=== PATIENT | female | born 1945 | race Caucasian/White ===

== ENCOUNTER 2018-03-14 16:07 | Emergency (ER) | payer MEDICARE, BC, SELFPAY ==
[2018-03-14 16:14] VITALS: BP 166/86; PULSE 87; RESP 14; TEMP 36.9; O2SAT 98
--- NOTE | 2018-03-14 16:38 | ED.GENADUL_ITS ---
Discharge Plan Disposition Patient Disposition: HOME Condition: Good Discharge Details Chief Complaint: Orthopedic Clinical Impression: Splinter Primary Care Provider: JOCELYN,LOCAL ED Provider: Sudhir Hi Home Meds and New Rx's Prescriptions: New amoxicillin-pot clavulanate [Augmentin] 875-125 mg tablet 1 tab PO BID Qty: 14 RF: 0 No Action tamoxifen 20 mg Tablet 20 mg PO DAILY RF: 0 Discharge Instructions Instructions: Complications of Infection (GEN) Additional Instructions: Please take Tylenol and Motrin for your pain. If you notice any worsening redness, worsening pain, swelling, or yellow discharge please take the antibiotic. Please follow-up with your primary care provider in [place] as soon as possible. If you notice any concerning symptoms for your hand, including the aforementioned symptoms please return to the ED for reevaluation. If you notice any worsening of your symptoms, or any new symptoms such as vomiting, diarrhea, fever, chills, shortness of breath, chest pain, numbness, weakness, or fainting , please return immediately to the emergency department for reevaluation. Please follow up with your primary care provider as soon as possible for reassessment and reevaluation. As always, it was a pleasure participating in your medical care today. Medical Decision Making This is a pleasant 73-year-old female who presents for an update to her tetanus shot. She received a splinter in her left hand by the thenar eminence. She is right-hand dominant. 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 Patient states that she was able to remove her splinter completely after she initially got it, with no retained foreign pieces. It looked to her like she got the entire thing. No evidence of retained foreign body on exam, or on bedside ultrasound. Patient does not want an x-ray at this time and I certainly do not think there is a clinical need. Patient will be discharged home with close follow-up. Because of the size of the splinter antibiotics were will be ordered, however I had a long and thorough discussion with the patient regarding the importance of holding off on taking these. She does not have a PCP locally in the area, if she does develop redness swelling or discharge I have instructed her to talk to start taking the antibiotic and closely follow-up here in the ER. Patient understands this. I have extensively reviewed the treatment plan and discharge instructions with the patient. I have addressed all patient concerns at this time. The patient was made aware of what symptoms to monitor for that would warrant a return to the emergency department. Discussed the plan with the patient, they demonstrate verbal understanding and agreement with our assessment and plan at this time. HPI General Date/Time Provider Initiated Documentation: 03/14/18 16:29 . HPI Narrative: This is a 73-year-old female with a past medical history of breast cancer x3, for which she takes tamoxifen. She presents today for a splinter in her left hand. She states that it was roughly 1.5 cm long, and got her in the left thenar eminence over the palmar surface. The patient was able to extract the splinter in its entirety out on her own. However after extraction she did have a mild amount of pain in that area, and she realized that her tetanus was not up-to-date so she came in to have her tetanus updated. Aside for this mild pain she denies any numbness or tingling or weakness. She has no other complaints. She denies any other modifying factors. Related Data Home Medications Medication Instructions Recorded Confirmed amoxicillin-pot clavulanate 1 tab PO BID #14 tab 03/14/18 [Augmentin] tamoxifen 20 mg PO DAILY 03/14/18 03/14/18 Previous Rx's Medication Instructions Recorded amoxicillin-pot clavulanate 1 tab PO BID #14 tab 03/14/18 [Augmentin] Allergies Allergy/AdvReac Type Severity Reaction Status Date / Time codeine Allergy Severe Unverified 06/17/17 10:17 General Stated Complaint: Orthopedic SHERRY: 4 Review of Systems Review of Systems All systems reviewed & are unremarkable except as noted in HPI and below [facility] Social History Smoking/Tobacco Use Status: Never Exam Narrative Exam Narrative: 1.Const: Well-nourished, Well-developed, appearing stated age 2.Eyes: PERRL, no conjunctival injection, and symmetrical lids. 3.ENT: Atraumatic external nose and ears. Moist MM. Neck: Symmetric, trachea midline, No thyromegaly. 4.CVS: +S1/S2, No murmurs or gallops. Peripheral pulses 2+ and equal in all extremities. Brisk capillary refill in all extremities. 5.RESP: Unlabored respiratory effort. Clear to auscultation bilaterally. No wheezes rales or rhonchi 6.GI: Soft, Nontender/Nondistended, No hepatosplenomegaly. No guarding or rebound. 7.MSK: Normocephalic/Atraumatic, Extremities w/o deformity or ttp No cyanosis or clubbing, Normal movement of all extremities 8.Skin: Warm, Dry. No rashes. Patient does demonstrate a very small superficial abrasion at the thenar eminence at the base of the thumb. She demonstrates mild subjective tenderness on palpation just distal to this towards the thenar webspace, no bleeding, no discharge, no fluctuance, or swelling. No significant erythema or edema. Bedside ultrasound was performed under a warm water/chlorhexidine mixture, and there was no evidence of retained foreign body or splinter. No evidence of palpable splinter on exam or palpable retained foreign body. No evidence of this visually either. Normal flexion extension of all components of the fingers and thumbs. Normal strength. 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 Sensation grossly intact, no focal neurologic deficits. 10.Psych: (AAO) x3. Appropriate mood and affect Course Vital Signs Temperature 36.9 C 03/14/18 16:14 Pulse 87 03/14/18 16:14 Respiratory Rate 14 03/14/18 16:14 Blood Pressure 166/86 H 03/14/18 16:14 Pulse Oximetry 98 03/14/18 16:14 Temperature 36.9 C 03/14/18 16:14 Temperature Source Temporal Artery Scan 03/14/18 16:14 Pulse 87 03/14/18 16:14 Respiratory Rate 14 03/14/18 16:14 Respiratory Effort 03/14/18 16:15 Blood Pressure 166/86 H 03/14/18 16:14 Blood Pressure Position Sitting 03/14/18 16:14 Pulse Oximetry 98 03/14/18 16:14 Oxygen Delivery Method Room Air 03/14/18 16:14 Oxygen Flow Rate 0 03/14/18 16:14 Pain Level 3 03/14/18 16:14
== END 2018-03-14 16:51 | disposition home or self-care (01) ==
LOC: ER 16:58
PROVIDERS: Emergency Provider Student in an Organized Health Care Education/Training Program
DX: S60.552A Superficial foreign body of left hand, initial encounter (principal); W45.8XXA Other foreign body or object entering through skin, initial encounter
CPT/HCPCS: 90471; 99284; 99282

== ENCOUNTER 2019-01-22 20:22 | Emergency (ER) | payer MEDICARE, BC, SELFPAY ==
[2019-01-22] VITALS (32 sets, daily range): BP systolic 153–212; BP diastolic 78–107; PULSE 67–106; RESP 10–40; TEMP 36.6; O2SAT 96–99
--- NOTE | 2019-01-22 20:30 | ED.GENADUL_ITS ---
Discharge Plan Disposition Patient Disposition: HOME Condition: Stable Discharge Details Chief Complaint: Chest Pain Clinical Impression: Chest pain Primary Care Provider: Clementina,Local ED Provider: Nicho Abad Home Meds and New Rx's Prescriptions: Continued tamoxifen 20 mg Tablet 20 mg PO DAILY RF: 0 aspirin 325 mg Tablet 325 mg PO DAILY RF: 0 Discharge Instructions Instructions: Chest Pain (ED) Additional Instructions: Your blood work and ekg's did not show any concerning findings if pain worsens, you have difficulty breathing or feel more ill return to the emergency department follow up with your primary care provider within 1 week Medical Decision Making 73 yo female with hx of breast cancer on tamoxifen daily, no prior cardiac disease, comes in with chest pressure that started about 45 minutes prior to arrival while sitting. Denies diaphoresis, sob or radiation of the pain. The pain has improved and now rates it at a 2/10 and did not take anything to help the pain other than aspirin. Denies prir episodes of chest pain. She arrives speaking in fulll sentences talking in no distress. She has no edema, no calf pain, no jvd, clear lungs and no murmurs. Her heart score is 3, will send troponin to further evaluate. Wells score low, will send d dimer. No tearing back pain to suggest dissection. Clear lungs, no pleuritic pain, no cough or fevers so doubt ptx or pna at this time pt remains pain free in no distress. Initial labs unremarkable, d dimer less than age adjusted threshold. Will obtain delta troponin and ecg and monitor patient remains asymptoamtic in no distress, second ekg and troponin unremarkable. Will d/c home and return precautions given Differential Diagnosis Differential Diagnosis: acs, dissection, esophageal spasm Lab Data Lab results reviewed: Yes I reviewed the patient's lab results. ECG Data Attestation: I personally reviewed and interpreted this ECG (s) as follows: Prior ECG tracings: not available for review Interpretation: sinus rhythm, rate of 100, pr 162, qtc 441 2nd ekg shows rate of 69, pr 166, qtc 448, no acute st t wave ischemic changes comapred to first ekg HPI General Mode of arrival: ambulatory . Date/Time Provider Initiated Documentation: 01/22/19 20:24 . Limitations to Documentation: no limitations . Information obtained by: patient . History of Present Illness 73 year old F presents to the emergency department with the chief complaint of chest pressure, described as moderate, Quality is described as aching, Patient started experiencing this hour(s) (1) and it has been other (improving ). No relieving factors improve symptom(s), No exacerbating factors reported . Related Data Home Medications Medication Instructions Recorded Confirmed tamoxifen 20 mg PO DAILY 03/14/18 01/22/19 aspirin 325 mg PO DAILY 01/22/19 01/22/19 Allergies Allergy/AdvReac Type Severity Reaction Status Date / Time codeine Allergy Severe Unverified 01/22/19 20:30 General Stated Complaint: Chest Pain SHERRY: 2 Review of Systems Review of Systems ROS Unobtainable: All systems reviewed & are unremarkable except as noted in HPI and below Constitutional Constitutional: Denies chills, Denies fever(s) and Denies weakness Cardiovascular Cardiovascular: Denies dyspnea Respiratory Respiratory: Denies dyspnea Gastrointestinal Gastrointestinal: Denies abdominal pain, Denies nausea and Denies vomiting Musculoskeletal Musculoskeletal: Denies joint swelling Neurologic Neurologic: Denies weakness PFSH Social History Smoking/Tobacco Use Status: Never Alcohol Intake: current Alcohol Intake frequency: a few times a week Drug use: Never Substance use type: does not use Do you feel safe at home: Yes Do you feel safe in your relationship?: Yes Exam Const General: no acute distress Orientation: alert HENMT Head: normal to inspection Ears: external ears normal General nose exam: external nose normal Mouth: moist mucous membranes Eyes General: appearance normal, both eyes and all related structures Neck Neck: normal visual inspection Resp Effort & Inspection: normal respiratory effort and able to speak in complete sentences Cardio Rate: regular rate Skin General skin exam: no rashes or lesions noted Neuro General: alert and oriented x3 Extrem General: normal to inspection Psych Mental Status: mental status grossly normal Course Vital Signs Vital signs: Vital Signs Temperature 36.6 C 01/22/19 20:25 Pulse 106 H 01/22/19 20:25 Respiratory Rate 16 01/22/19 20:25 Blood Pressure 212/107 H 01/22/19 20:25 Pulse Oximetry 98 01/22/19 20:25 Temperature 36.6 C 01/22/19 20:25 Temperature Source Skin 01/22/19 20:25 Pulse 106 H 01/22/19 20:25 Respiratory Rate 16 01/22/19 20:25 Blood Pressure 212/107 H 01/22/19 20:25 Blood Pressure Position Sitting 01/22/19 20:25 Pulse Oximetry 98 01/22/19 20:25 Oxygen Delivery Method Room Air 01/22/19 20:25 Oxygen Flow Rate 0 01/22/19 20:25 Pain Level 4 01/22/19 20:25
[2019-01-22 21:02] LABS: Abs Immature Grans 0.01 k/cumm (0.0-0.09); Absolute Basophil Count 0.01 k/cumm (0.0-0.2); Absolute Eosinophil Count 0.06 k/cumm (0.0-0.7); Absolute Monocyte Count 0.53 k/cumm (0.11-0.7); Absolute Neutrophil Count 2.44 k/cumm (1.2-6.7); Basophils % 0.2; Eosinophils % 1.2; HCT 38.7 % (36.0-46.0); HGB 13.1 g/dL (12.0-15.5); Immature Grans % 0.2; Lymphocytes % 38.4; Mean Corp. HGB Concentration 33.9 g/dL (32.0-36.0); Mean Corpuscular Hemoglobin 31.7 pg (27.0-33.0); Mean Corpuscular Volume 93.7 fL (80-95); Monocytes % 10.7; Neutrophils % 49.3; Platelet Count 155 x1000/uL (130-400); RBC 4.13 m/cumm (4.00-5.20); RBC Distribution Width 12.7 % (11.7-14.6); White Blood Cell Count 4.95 k/cumm (4.4-10.8)
[2019-01-22 21:06] LABS: ALT 20 U/L (14-59); AST 20 U/L (15-37); Albumin 3.7 g/dL (3.4-5.0); Alkaline Phosphatase 66 U/L (46-116); Anion Gap 8.4 mmol/L (3-11); BUN 26 mg/dL (7-18); Bilirubin, Total 0.6 mg/dL (0.2-1.0); CO2 26.6 mmol/L (21.0-32.0); CREATININE 1.18 mg/dL (0.55-1.02); Calcium 8.7 mg/dL (8.5-10.1); Chloride 107 mmol/L (98-107); Estimated GFR 45.02 (mL/min/1.73m2); Glucose 93 mg/dL (70-100); Lipase 87 U/L (73-393); Magnesium 2.1 mg/dL (1.8-2.4); Potassium 3.9 mmol/L (3.5-5.1); Sodium 142 mmol/L (136-145); Total Protein 7.3 g/dL (6.4-8.2)
[2019-01-22 21:07] LABS: PTT Activated 24.1 sec (21.0-31.4); Prothrombin Time 9.9 sec (9.3-11.0)
[2019-01-22 21:08] LABS: Troponin I < 0.05 ng/mL (0.00-0.06)
[2019-01-22 21:22] LABS: D-Dimer 525 ng/mlFEU (<500)
[2019-01-22 23:24] LABS: Troponin I < 0.05 ng/mL (0.00-0.06)
== END 2019-01-23 | disposition home or self-care (01) ==
PROVIDERS: Emergency Provider Emergency Medicine
DX: R07.9 Chest pain, unspecified (principal); Z85.3 Personal history of malignant neoplasm of breast
CPT/HCPCS: 36415; 80053; 83690; 93005; 99284; 83735; 84484; 85025; 85379; 85610; 85730; 93010; J3490

== ENCOUNTER 2019-06-10 11:47 | Outpatient (REF) | payer MEDICARE, BC, SELFPAY | END 2019-06-10 12:07 | LOC: LBN 11:47 | PROVIDERS: Visit Provider Obstetrics & Gynecology | DX: N89.8 Other specified noninflammatory disorders of vagina (principal) | CPT/HCPCS: 87480; 87510; 87660 ==

== ENCOUNTER 2019-09-03 01:59 | Outpatient (CLI) | payer MEDICARE, BC, SELFPAY ==
[2019-09-03 12:23] LABS: HCT 39.8 % (36.0-46.0); HGB 13.6 g/dL (12.0-15.5); Mean Corp. HGB Concentration 34.2 g/dL (32.0-36.0); Mean Corpuscular Hemoglobin 32.4 pg (27.0-33.0); Mean Corpuscular Volume 94.8 fL (80-95); Mean Platelet Volume 10.3 fL (8.0-11.0); Platelet Count 180 x1000/uL (130-400); RBC Distribution Width 12.9 % (11.7-14.6); White Blood Cell Count 3.82 k/cumm (4.4-10.8)
[2019-09-03 13:33] LABS: Anion Gap 8.5 mmol/L (3-11); BUN 20 mg/dL (7-18); CO2 28.5 mmol/L (21.0-32.0); CREATININE 1.31 mg/dL (0.55-1.02); Calcium 9.2 mg/dL (8.5-10.1); Chloride 104 mmol/L (98-107); Glucose 87 mg/dL (74-106); Potassium 4.5 mmol/L (3.5-5.1); Sodium 141 mmol/L (136-145)
== END 2019-09-03 02:19 ==
PROVIDERS: Visit Provider Obstetrics & Gynecology
DX: N85.00 Endometrial hyperplasia, unspecified (principal); Z01.818 Encounter for other preprocedural examination; Z01.812 Encounter for preprocedural laboratory examination
CPT/HCPCS: 36415; 80048; 85027; 86850; 86900; 86901

== ENCOUNTER 2019-09-06 09:36 | Outpatient (CLI) | payer MEDICARE, BC, SELFPAY ==
[2019-09-07 14:50] LABS: COVID-19 RT-PCR Result Not Detected ((See Note))
== END 2019-09-06 09:56 ==
PROVIDERS: Visit Provider Obstetrics & Gynecology
DX: Z11.59 Encounter for screening for other viral diseases (principal)
CPT/HCPCS: U0003

== ENCOUNTER 2019-09-14 12:23 | Outpatient (REF) | payer MEDICARE, BC, SELFPAY ==
--- NOTE | 2019-09-14 09:35 | ENDOMET_PTH ---
PATIENT: Nataly Kuhn LOC: [facility] U#:[id number] AGE/SX: 74/F ROOM: RE09/14/[address]: Benjamin Miguel MD : [id number] BED: DIS: 09/14/2019 SPEC #: [id number] RECD: 09/14/19 12:48 STATUS: OLLIE REQ #: [id number] KAREY: 09/14/19 09:[address]: Benjamin Miguel DEPT: Surgical Specimen RECD BY: Nini Valdes ENTERED: 09/14/19 12:49 SP TYPE: Endomet OTHR DR: No Local Tissues: 1 - ENDOMETRIUM BX/CURRETTE Procedures: GROSS AND MICRO LEVEL 4 Comments: [id number]
== END 2019-09-14 12:43 ==
LOC: LBN 12:23
PROVIDERS: Visit Provider Obstetrics & Gynecology
DX: N85.01 Benign endometrial hyperplasia (principal); Z79.899 Other long term (current) drug therapy
CPT/HCPCS: 88305

== ENCOUNTER 2019-11-28 13:20 | Emergency (ER) | payer MEDICARE, BC, SELFPAY ==
[2019-11-28] VITALS (21 sets, daily range): BP systolic 117–150; BP diastolic 55–92; PULSE 79–95; RESP 17–18; TEMP 36.8; O2SAT 88–100
--- NOTE | 2019-11-28 13:15 | RT.EKG_ITS ---
APPROVED REPORT Exam: Resting ECG Patient Location: E HR:86 bpm ECG Measurements Heart Rate 86 AXIS ME 174 P 75 QRSd 83 QRS 20 QT 418 T 60 QTc 500 <Conclusion> Sinus rhythm. no stemi. non diagnostic
--- NOTE | 2019-11-28 13:42 | ED.GENADUL_ITS ---
Discharge Plan Disposition Patient Disposition: HOME Condition: Improving Discharge Details Chief Complaint: Dizzy/Sync Clinical Impression: Vertigo, Nausea & vomiting Primary Care Provider: Clementina,Local ED Provider: Nellie Connor Home Meds and New Rx's Prescriptions: New meclizine 25 mg tablet 25 mg PO TID PRN (Reason: dizziness) Qty: 20 RF: 0 ondansetron 4 mg tablet,disintegrating 4 mg PO Q8H PRN5 Days Qty: 15 RF: 0 Continued amlodipine 2.5 mg tablet 2.5 mg PO HS RF: 0 tamoxifen 20 mg Tablet 20 mg PO HS RF: 0 aspirin [Aspirin Low Dose] 81 mg Tablet,Delayed Release (Dr/Ec) 81 mg PO DAILY RF: 0 Discharge Instructions Instructions: Vertigo (ED), Acute Nausea and Vomiting (ED) Additional Instructions: Follow up with primary care provider in 3-5 days. Return to ED sooner if any worsening or concerns. Increase oral fluids. Take medications as prescribed. Return for any worsening episodes of dizziness, blurry vision, abdominal pain or any concerns. Medical Decision Making 74-year-old female presents to the ER with dizziness, nausea vomiting which began suddenly at 0530 this morning. Patient unable to walk reported had to crawl to the bathroom. Upon initial exam she is alert and oriented, no focal neuro deficits does report generalized weakness. Does have active nystagmus upon initial exam. She does have a history of breast cancer she has had multiple reconstructive surgeries. Associated symptoms include nausea vomiting, mild midepigastric abdominal pain with palpation. Denies headache chest pain or shortness of breath. Cardiac work-up ordered including CBC, CMP, troponin, IV fluids, meclizine 25 mg, Zofran [address] head CTA ordered to rule out central cerebral etiology versus benign positional vertigo mass, venous thrombosis, or stroke like symptoms. EKG was reviewed by Giovanny Perez MD ER attending, please see his official reading. 1512: On patient reevaluation she is resting in bed quietly with no complaints, nystagmus has improved, patient declines knowing any more nausea states she feels much better. Denies any further abdominal pain. Labs are largely WNL. BUN and creatinine are elevated which is at baseline for patient previous labs, patient did receive 1 L normal saline in department Exam: CT Angiography Neck With Contrast Exam date and time: 11/28/2019 1:45 PM Age: 74 years old Clinical indication: Other: Dizziness, vomiting, IMPRESSION: 1. 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 2. No evidence of acute dissection. REFERENCES: NASCET CRITERIA. The degree of internal carotid artery stenosis is based on NASCET criteria. Normal is no stenosis. Mild is less than 50% stenosis. Moderate is 50-69% stenosis. Severe is 70% to 99% stenosis. Total occlusion is no detectable patent lumen. Thank you for allowing us to participate in the care of your patient. Dictated and Authenticated by: Kip Vázquez MD Instructed to follow-up with primary care, will place patient on care management list to establish primary care in the area. Discussed CT results with patient, verbalized understanding. HPI General Mode of arrival: wheelchair . Date/Time Provider Initiated Documentation: 11/28/19 13:22 . Limitations to Documentation: no limitations . Information obtained by: patient . HPI Narrative: 74-year-old female presents to the ER with dizziness, nausea vomiting which began suddenly at 0530 this morning. Patient unable to walk reported had to crawl to the bathroom. Upon initial exam she is alert and oriented, no focal neuro deficits does report generalized weakness. Does have active nystagmus upon initial exam. She does have a history of breast cancer she has had multiple reconstructive surgeries. Associated symptoms include nausea vomiting, mild midepigastric abdominal pain with palpation. Denies headache chest pain or shortness of breath. Related Data Home Medications Medication Instructions Recorded Confirmed tamoxifen 20 mg PO HS 03/14/18 11/28/19 amlodipine 2.5 mg tablet 2.5 mg PO HS 06/10/19 11/28/19 aspirin [Aspirin Low Dose] 81 mg PO DAILY 09/06/19 11/28/19 meclizine 25 mg PO TID PRN #20 tab 11/28/19 ondansetron 4 mg PO Q8H PRN 5 Days #15 tab 11/28/19 Previous Rx's Medication Instructions Recorded meclizine 25 mg PO TID PRN #20 tab 11/28/19 ondansetron 4 mg PO Q8H PRN 5 Days #15 tab 11/28/19 Allergies Allergy/AdvReac Type Severity Reaction Status Date / Time codeine Allergy Severe Unverified 11/28/19 13:45 General Stated Complaint: Dizzy/Sync SHERRY: 2 Review of Systems Narrative: Constitutional: Negative for weight loss, alert and oriented, well groomed, normal body habitus, appears uncomfortable. HEENT: Denies trauma, headaches, nasal discharge, sore throat, trouble swallowing. Chest: Denies chest pain, palpitations, irregular rhythm, does have a history of hypertension. Takes amlodipine. Respiratory: Denies Shortness of breath, cough, hemoptysis. GI: Denies diarrhea, constipation. Positive midepigastric abdominal pain, nausea vomiting. : Denies dysuria, hematuria, flank pain, rectal bleeding. Neuro: Denies syncope, headache or facial numbness. Positive dizziness, room spinning, blurry vision, Hematologic: Denies easy bruising, intolerance to heat or cold, hair loss. [facility] Medical History HTN (hypertension) (Chronic) Surgical History History of reconstruction of left breast (Acute) Hx of appendectomy (Chronic) Hx of lumpectomy (Acute) multiple Hx of mastectomy (Chronic) Left breast with reconstruction Hx of partial mastectomy (Acute) Right Hx of repair of right rotator cuff (Acute) Hx of tonsillectomy (Chronic) Social History Smoking/Tobacco Use Status: Never Alcohol Intake: current Alcohol Intake frequency: a few times a week Drug use: Never Substance use type: does not use Do you feel safe at home: Yes Exam Narrative Exam Narrative: Constitutional: Alert and oriented x3. Appears stated age. Normal body habitus. Head: Normocephalic, no trauma. Eyes: Pupils PERRLA, Red reflex noted, EOM's intact. Eyelids symmetrical without lesions, discharge, or swelling. Positive nystagmus. ENT: Bilateral TM's WNL, External ear normal to inspection, no mastoid TTP, swelling, or erythema, Nasal turbinates WNL, no nasal discharge. Normal d entition, Posterior pharynx WNL, no exudate. Chest: RRR, Normal S1, S2, distal pulses intact. Resp: Lungs clear to auscultation bilaterally, no wheezes, rales, or rhonchi. Musculoskeletal: Unable to assess gait, 5/5 strength to all four extremities. Skin: No suspicious rashes or lesions. Capillary refill less than 2 sec. Neurologic: Cranial nerves II-XII intact. Alert and oriented x 3. DTR's intact. Hematologic/Lymphatic: No ecchymosis, no lymphadenopathy. Course Vital Signs Vital signs: Vital Signs Temperature 36.8 C 11/28/19 13:29 Pulse 84 11/28/19 13:29 Respiratory Rate 17 11/28/19 13:29 Blood Pressure 131/66 11/28/19 13:29 Pulse Oximetry 100 11/28/19 13:29 Temperature 36.8 C 11/28/19 13:29 Temperature Source Temporal Artery Scan 11/28/19 13:29 Pulse 84 11/28/19 13:29 Respiratory Rate 17 11/28/19 13:29 Blood Pressure 131/66 11/28/19 13:29 Pulse Oximetry 100 11/28/19 13:29 Oxygen Delivery Method Room Air 11/28/19 13:29 Oxygen Flow Rate 0 11/28/19 13:29
[2019-11-28] MEDS: Normal Saline 1,000 ML 1000 ML IV (13:47)
[2019-11-28] MEDS: Meclizine 25 MG TAB PO (13:47)
[2019-11-28] MEDS: Ondansetron 4 MG/2 ML VIAL IVP (13:48)
[2019-11-28 13:51] LABS: Abs Immature Grans 0.01 k/cumm (0.0-0.09); Absolute Basophil Count 0.01 k/cumm (0.0-0.2); Absolute Eosinophil Count 0.01 k/cumm (0.0-0.7); Absolute Lymphocyte Count 0.39 k/cumm (1.2-3.4); Absolute Monocyte Count 0.21 k/cumm (0.11-0.7); Absolute Neutrophil Count 5.12 k/cumm (1.2-6.7); Basophils % 0.2; Eosinophils % 0.2; HCT 37.8 % (36.0-46.0); HGB 13.2 g/dL (12.0-15.5); Immature Grans % 0.2 %; Lymphocytes % 6.8; Mean Corp. HGB Concentration 34.9 g/dL (32.0-36.0); Mean Corpuscular Hemoglobin 32.5 pg (27.0-33.0); Mean Corpuscular Volume 93.1 fL (80-95); Mean Platelet Volume 9.7 fL (8.0-11.0); Monocytes % 3.7; Neutrophils % 88.9; Platelet Count 164 x1000/uL (130-400); RBC 4.06 m/cumm (4.00-5.20); White Blood Cell Count 5.75 k/cumm (4.4-10.8)
[2019-11-28 14:11] LABS: ALT 20 U/L (14-59); AST 23 U/L (15-37); Albumin 3.8 g/dL (3.4-5.0); Alkaline Phosphatase 51 U/L (46-116); Anion Gap 16.5 mmol/L (3-11); BUN 23 mg/dL (7-18); Bilirubin, Total 1.4 mg/dL (0.2-1.0); CO2 19.5 mmol/L (21.0-32.0); CREATININE 1.23 mg/dL (0.55-1.02); Calcium 8.8 mg/dL (8.5-10.1); Chloride 103 mmol/L (98-107); Glucose 182 mg/dL (74-106); Potassium 3.4 mmol/L (3.5-5.1); Sodium 139 mmol/L (136-145); Total Protein 7.3 g/dL (6.4-8.2)
[2019-11-28 14:12] LABS: Troponin I < 0.05 ng/mL (<0.06)
--- NOTE | 2019-11-28 14:24 | DI.CT_ITS ---
EXAM: CT BRAIN NECK CTA CLINICAL HISTORY: Dizziness, vomiting,. TECHNIQUE: Imaging Protocol: Axial CT angiography was performed with multi-slice acquisition and mu lti-planar and/or 3D reconstructions. CONTRAST MATERIAL: Intravenous: Omnipaque 350 Contrast volume:85 ml COMPARISON: No exams were available for comparison FINDINGS: CT Head W/O: Ventricles and Extra axial spaces: Normal in size and morphology for the patient's age. Hemorrhage: None. Cerebral parenchyma: Normal. Mild atrophy. Midline shift: None. Brainstem/Cerebellum: Normal. Calvarium: Normal. Visualized Paranasal sinuses/Mastoids: Clear. Soft Tissues: Unremarkable. CTA Brain W: Internal Carotid Arteries: Petrous: Normal. Cavernous: Normal. Cerebral: Normal. Middle Cerebral Arteries: Right: No aneurysm, occlusion or significant stenosis. Left: No aneurysm, occlusion or significant stenosis. Anterior Cerebral Arteries: Right: No aneurysm, occlusion or significant stenosis. Left: No aneurysm, occlusion or significant stenosis. Posterior cerebral Arteries: Right: No aneurysm, occlusion or significant stenosis. Persistent origin. Left: No aneurysm, occlusion or significant stenosis. Persistent origin. Vertebral Arteries: Right: No aneurysm, occlusion or significant stenosis. Left: Aplastic. No aneurysm, occlusion or significant stenosis. Basilar Artery: No aneurysm, occlusion or significant stenosis. CTA Neck W: Common Carotid: Right: No dissection, occlusion or significant stenosis. Left: No dissection, occlusion or significant stenosis. External Carotid: Right: No dissection, occlusion or significant stenosis. Left: No dissection, occlusion or significant stenosis. Internal Carotid: Right: Mild atherosclerotic changes at the origin. No dissection, occlusion or significant stenosis. Left: No dissection, occlusion or significant stenosis. Vertebral Artery: Right: No dissection, occlusion or significant stenosis. Left: Hypoplastic. No dissection occlusion or significant stenosis. Lung Apices: Normal. Bones: Degenerative changes, particularly at C5-6. Soft Tissues: Normal. IMPRESSION: 1. Normal CTA examination of the [place]. 2. Unremarkable noncontrast CT Head. 3. Hypoplastic left vertebral artery. Mild calcification at the proximal right internal carotid theresa ry but no significant stenosis.. RADIATION DOSE DELIVERED: Total DLP DATA REPOSITORY: All CT scans at this facility are submitted to the National Radiology Data Registry (NRDR) Dose Index Registry (DIR) with the [employer] (ACR). RADIATION OPTIMIZATION: All CT scans at this facility use at least one of these dose optimization te chniques: automated exposure control; mA and/or kV adjustment per patient size (includes targeted exa ms where dose is matched to clinical indication); or iterative reconstruction.
[2019-11-28 14:26] LABS: Bilirubin Negative (Negative); Blood Negative (Negative); Clarity Clear (Clear); Glucose Negative (Negative); Ketones 80 mg/dL (Negative); Leukocyte Esterase Negative (Negative); Nitrite Negative (Negative); Urobilinogen 0.2 EU/dL (Up TO 0.2)
[2019-11-28] MEDS: Omnipaque 350 MG/ML 100 ML BTL IJ (14:38)
[2019-11-28] MEDS: Normal Saline Flush 10 ML SYR IVP (14:39)
[2019-11-28] MEDS: Normal Saline - Diluent 50 ML VIAL IV (14:39)
--- NOTE | 2019-11-28 15:10 | DI.VRAD_ITS ---
PROCEDURE INFORMATION: Exam: CT Angiography Head Without And With Contrast Exam date and time: 11/28/2019 1:45 PM Age: 74 years old Clinical indication: Other: Dizziness, vomiting, TECHNIQUE: Imaging protocol: Computed tomographic angiography of the head without and with intravenous contrast. 3D rendering: MIP and/or 3D reconstructed images were created by the technologist. Radiation optimization: All CT scans at this facility use at least one of these dose optimization techniques: automated exposure control; mA and/or kV adjustment per patient size (includes targeted exams where dose is matched to clinical indication); or iterative reconstruction. Contrast material: 0MNIPAQUE 350; Contrast volume: 85 ml; Contrast route: INTRAVENOUS (IV); COMPARISON: No relevant prior studies available. FINDINGS: Anterior cerebral arteries: No occlusion or significant stenosis. No aneurysm. Right internal carotid artery: Intracranial segment is patent with no significant stenosis or occlusion. No aneurysm. Right middle cerebral artery: No occlusion or significant stenosis. No aneurysm. Right posterior cerebral artery: Persistent origin. No occlusion or significant stenosis. No aneurysm. Right vertebral artery: No occlusion or significant stenosis. No aneurysm. Left internal carotid artery: Intracranial segment is patent with no significant stenosis. No aneurysm. Left middle cerebral artery: No occlusion or significant stenosis. No aneurysm. Left posterior cerebral artery: Persistent origin. No occlusion or significant stenosis. No aneurysm. Left vertebral artery: Hypoplastic but patent. No occlusion or significant stenosis. No aneurysm. Basilar artery: No occlusion or significant stenosis. No aneurysm. HEAD: Brain: Age-related involutional changes and chronic microvascular ischemic disease. No evidence for acute transcortical infarct. No mass effect or midline shift. No extra-axial collection. No acute intracranial hemorrhage. Basal cisterns are patent. Ventricles: Normal. No ventriculomegaly. Bones/joints: Unremarkable. No acute fracture. Sinuses: Visualized sinuses are normal. No fluid levels. Mastoid air cells: Visualized mastoids are normal. No mastoid effusion. Soft tissues: Unremarkable. IMPRESSION: 1. No evidence for acute transcortical infarct, acute intracranial hemorrhage, or mass effect. 2. No significant stenosis or aneurysm. PROCEDURE INFORMATION: Exam: CT Angiography Neck With Contrast Exam date and time: 11/28/2019 1:45 PM Age: 74 years old Clinical indication: Other: Dizziness, vomiting, TECHNIQUE: Imaging protocol: Computed tomography angiography of the neck with intravenous contrast. 3D rendering: MIP and/or 3D reconstructed images were created by the technologist. Radiation optimization: All CT scans at this facility use at least one of these dose optimization techniques: automated exposure control; mA and/or kV adjustment per patient size (includes targeted exams where dose is matched to clinical indication); or iterative reconstruction. Contrast material: 0MNIPAQUE 350; Contrast volume: 85 ml; Contrast route: INTRAVENOUS (IV); COMPARISON: No relevant prior studies available. FINDINGS: Right common carotid artery: No stenosis. No dissection or occlusion. Right internal carotid artery: Atherosclerotic disease involving the origin of the right internal carotid artery resulting in mild stenosis. Right external carotid artery: No occlusion or stenosis of the origin. Right vertebral artery: No stenosis. No dissection or occlusion. Left common carotid artery: No stenosis. No dissection or occlusion. Left internal carotid artery: No stenosis of the extracranial segment. No dissection or occlusion. Left external carotid artery: No occlusion or stenosis of the origin. Left vertebral artery: Hypoplastic but patent. No stenosis. No dissection or occlusion. Bones/joints: No acute fracture. Soft tissues: Normal. No significant soft tissue swelling. IMPRESSION: 1. 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 2. No evidence of acute dissection. REFERENCES: NASCET CRITERIA. The degree of internal carotid artery stenosis is based on NASCET criteria. Normal is no stenosis. Mild is less than 50% stenosis. Moderate is 50-69% stenosis. Severe is 70% to 99% stenosis. Total occlusion is no detectable patent lumen. Dictated and Authenticated by: Kip Vázquez MD. Ordering:DANETTE Ballard MD
--- NOTE | 2019-11-28 15:32 | NUR.NOTE ---
Referral to care management to establish pcp,Nursing Note:
--- NOTE | 2019-11-29 10:25 | PDOC.ERCMPRO ---
- If Service Date Differs Date of service: 11/29/19 Time of Service: 10:25 Care Management Progress Note At the request of ED provider, CM coordinates a referral to Dr. Kaufman of [facility] to assist Nataly in establishing care with a local PCP. Patient has expressed a preference for Dr. Kaufman specifically.
== END 2019-11-28 15:44 | disposition home or self-care (01) ==
PROVIDERS: Emergency Provider Registered Nurse Emergency
DX: R42 Dizziness and giddiness (principal); R11.2 Nausea with vomiting, unspecified; R53.1 Weakness; R10.13 Epigastric pain; I10 Essential (primary) hypertension
CPT/HCPCS: 36415; 70496; 70498; 80053; 93005; 96361; 96374; 99285; 81003; 83735; 84484; 85025; 93010; J2405; J3490

== ENCOUNTER 2020-01-24 02:04 | Outpatient (CLI) | payer MEDICARE, BC, SELFPAY ==
[2020-01-25 13:01] LABS: COVID-19 RT-PCR Result NEGATIVE (Negative)
== END 2020-01-24 02:24 ==
PROVIDERS: PCP Family Medicine; Visit Provider Obstetrics & Gynecology
DX: Z01.818 Encounter for other preprocedural examination (principal)
CPT/HCPCS: U0003

== ENCOUNTER 2020-01-24 02:04 | Outpatient (CLI) | payer MEDICARE, BC, SELFPAY ==
[2020-01-24 10:59] LABS: HCT 38.5 % (36.0-46.0); HGB 12.8 g/dL (11.2-15.7); MCH 32.3 pg (27.0-33.0); MCHC 33.2 % (32.0-36.0); MCV 97.2 fL (80-95); MPV 9.9 fL (8.0-11.0); Platelet Count 174 10^3/uL (130-400); RBC 3.96 10^6/uL (3.93-5.22); RDW 12.7 % (11.7-14.6); RDW-SD 45.4 fL
== END 2020-01-24 02:24 ==
PROVIDERS: PCP Family Medicine; Visit Provider Obstetrics & Gynecology
DX: Z01.818 Encounter for other preprocedural examination (principal)
CPT/HCPCS: 36415; 85027; 86850; 86900; 86901; U0003

== ENCOUNTER 2020-01-27 07:16 | Day surgery (SDC) | payer MEDICARE, BC, SELFPAY ==
[2020-01-27] VITALS (7 sets, daily range): BP systolic 132–178; BP diastolic 81–90; PULSE 70–93; RESP 13–18; TEMP 36.5–36.8; O2SAT 93–100
[2020-01-27] MEDS: Lactated Ringers 1,000 ML 100 ML IV (08:17)
[2020-01-27] MEDS: Lidocaine 1% Multi-Dose 50 ML VIAL (08:45)
--- NOTE | 2020-01-27 08:45 | ENDOMET_PTH ---
PATIENT: Nataly Kuhn LOC: [facility] U#:[id number] AGE/SX: 74/F ROOM: RE01/27/[address]: Benjamin Miguel MD : 1945 BED: DIS: 01/27/2020 SPEC #: [id number] RECD: 01/27/20 12:35 STATUS: OLLIE REQ #: [id number] KAREY: 01/27/20 08:[address]: Benjamin Miguel DEPT: Surgical Specimen RECD BY: Nini Valdes ENTERED: 01/27/20 12:37 SP TYPE: Endomet OTHR DR: Dorothea Kaufman Tissues: 1 - ENDOMETRIUM BX/CURRETTE Procedures: GROSS AND MICRO LEVEL 4 Comments: [id number]
--- NOTE | 2020-01-27 08:56 | ROE_ITS ---
Date of service: 01/27/20 Time of Service: 08:56 Operative Note Operative Note DATE OF PROCEDURE: 01/27/20 PRE-OP DIAGNOSIS: 1. Thickened endometrium on ultrasound 2. History of tamoxifen use POST-OP DIAGNOSIS: same PROCEDURE: Hysteroscopy D&C SURGEON: Benjamin Miguel ANESTHESIA: MAC ESTIMATED BLOOD LOSS: 10 PATHOLOGY: other (Endometrial curettings) COMPLICATIONS: None Patient was transported to: PACU Patient's condition: stable Findings: 1. Intrauterine synechiae 2. Atrophic appearing endometrium Procedure Description: Patient was taken to the operating room and after adequate sedation was achieved the patient was placed in lithotomy position. The patient was prepped and draped in usual sterile manner. A paracervical block with 10 cc 1% plain lidocaine solution was instilled. The anterior lip of the cervix was grasped with a single-tooth tenaculum. The cervix was gently dilated with Crump dilators. The 5 mm 30 degree hysteroscope with normal saline distention media was advanced to the cervix without difficulty. There were numerous intrauterine synechiae beginning at the level of the internal loss. Ma ny were able to be hydrodissected down with hysteroscope and distention fluid. A sharp curettage was performed of the endometrial cavity and scant tissue was retrieved. The lining appeared to be thin and atrophic. The procedure was concluded at this point. All instrumentation was removed. Sponge and instrument counts were correct at the conclusion of the procedure. The patient was transferred to PACU in stable condition.
[2020-01-27] MEDS: HYDROcodone 5/Acetaminophen 325 TAB PO (10:01)
== END 2020-01-27 11:00 | disposition home or self-care (01) ==
PROVIDERS: PCP Family Medicine; Visit Provider Obstetrics & Gynecology
PROC: 0UDB8ZZ Extraction of Endometrium, Via Natural or Artificial Opening Endoscopic (ICD-10-PCS; CPT 58558; principal; 2020-01-27 09:30)
DX: R93.89 Abnormal findings on diagnostic imaging of other specified body structures (principal); N85.6 Intrauterine synechiae
CPT/HCPCS: 58558; 88305; J1885

== ENCOUNTER 2020-03-21 02:00 | Outpatient (CLI) | payer MEDICARE, BC, SELFPAY ==
[2020-03-21 14:16] LABS: CREATININE 1.27 mg/dL (0.55-1.02); Estimated GFR 41.13 (mL/min/1.73m2)
== END 2020-03-21 02:20 ==
PROVIDERS: PCP Family Medicine; Visit Provider Surgery
DX: I10 Essential (primary) hypertension (principal)
CPT/HCPCS: 36415; 82565

== ENCOUNTER 2020-05-15 15:52 | Emergency (ER) | payer MEDICARE, BC, SELFPAY ==
[2020-05-15] VITALS (29 sets, daily range): BP systolic 132–190; BP diastolic 64–113; PULSE 60–96; RESP 9–22; TEMP 36.4; O2SAT 97–100
--- NOTE | 2020-05-15 15:45 | RT.EKG_ITS ---
APPROVED REPORT Exam: Resting ECG Patient Location: E HR:78 bpm ECG Measurements Heart Rate 78 AXIS UT 160 P 71 QRSd 80 QRS 1 QT 378 T 44 QTc 432 Conclusion Sinus rhythm...normal P axis, V-rate 60- 99 I have reviewed and interpreted ECG and agree with software generated interpretation.
--- NOTE | 2020-05-15 16:45 | DI.CT_ITS ---
EXAM: CT CHEST PE ABD PELVIS W CLINICAL HISTORY: L sided chest/neck/arm pain. TECHNIQUE: Imaging Protocol: Axial CT angiography was performed with multi-slice acquisition and mu lti-planar and/or 3D reconstructions. CONTRAST MATERIAL: Intravenous: Omnipaque 350 Contrast volume:100 cc COMPARISON: CR CHEST 2 VIEWS PA,LAT from 06/17/2017 CR CHEST 2 VIEWS PA,LAT from 06/17/[address] BRAIN NECK CTA from 11/28/2019 FINDINGS: Pulmonary Arteries: No evidence of filling defect to suggest pulmonary emboli. Tracheobronchial tree: Patent where visualized. Mediastinum and Tanisha: No dominant adenopathy or fluid collection. Pulmonary parenchyma: No consolidation or dominant measurable mass. Scarring at the left lung apex. Scarring in the lingula. 4 millimeter lingular nodule. Pleura: No effusion or pneumothorax. Heart: The heart is not dilated. No coronary artery calcifications are seen. Aorta: Thoracic aorta non-dilated. Mild atherosclerotic changes. No dissection. Left subclavian shows mild stenosis. The left axillary artery shows heavy calcification and irregula rity which causes significant narrowing. Soft tissues: Right breast implant. Surgical clips and anterior left chest wall. Bones: Degenerative changes. No compression fracture. Abdomen and pelvis: The liver, gallbladder, spleen, pancreas and kidneys as well as adrenals are unre markable. There is no bowel dilatation or inflammatory change. There is no evidence of appendicitis . The uterus and ovaries and bladder are unremarkable. Degenerative changes are seen in the spine. Aorta shows calcification. No evidence of aneurysm or dissection. There is mild narrowing of the r ight common iliac artery. IMPRESSION: No evidence of pulmonary embolism. Significant atherosclerotic change in the left axillary artery over a long segment which has an irreg ular appearance causing significant stenosis.. RADIATION DOSE DELIVERED: 796.94mGy.cm Total DLP DATA REPOSITORY: All CT scans at this facility are submitted to the National Radiology Data Registry (NRDR) Dose Index Registry (DIR) with the [employer] ([employer]). RADIATION OPTIMIZATION: All CT scans at this facility use at least one of these dose optimization te chniques: automated exposure control; mA and/or kV adjustment per patient size (includes targeted exa ms where dose is matched to clinical indication); or iterative reconstruction.
[2020-05-15 17:08] LABS: Abs Immature Grans 0.01 10^3/uL (0.0-0.06); Absolute Basophil Count 0.01 10^3/uL (0.0-0.2); Absolute Eosinophil Count 0.04 10^3/uL (0.0-0.7); Absolute Lymphocyte Count 1.37 10^3/uL (1.2-3.4); Absolute Monocyte Count 0.43 10^3/uL (0.1-0.8); Absolute Neutrophil Count 2.23 10^3/uL (1.2-6.7); Basophils % 0.2; HCT 38.7 % (36.0-46.0); HGB 12.9 g/dL (11.2-15.7); Immature Grans % 0.2; Lymphocytes % 33.5; MCH 31.5 pg (27.0-33.0); MCHC 33.3 % (32.0-36.0); MCV 94.6 fL (80-95); MPV 10.5 fL (8.0-11.0); Monocytes % 10.5; Neutrophils % 54.6; Nucleated RBC 0 %; Platelet Count 150 10^3/uL (130-400); RBC 4.09 10^6/uL (3.93-5.22); RDW 12.9 % (11.7-14.6); RDW-SD 44.8 fL; WBC 4.09 10^3/uL (4.4-10.8)
[2020-05-15 17:24] LABS: ALT 24 U/L (14-59); AST 23 U/L (15-37); Albumin 3.7 g/dL (3.4-5.0); Alkaline Phosphatase 63 U/L (46-116); Anion Gap 6.1 mmol/L (3-11); BUN 22 mg/dL (7-18); Bilirubin, Total 1.2 mg/dL (0.2-1.0); CO2 27.9 mmol/L (21.0-32.0); CREATININE 1.19 mg/dL (0.55-1.02); Calcium 8.9 mg/dL (8.5-10.1); Chloride 105 mmol/L (98-107); Estimated GFR 44.34 (mL/min/1.73m2); Glucose 82 mg/dL (74-106); Lipase 83 U/L (73-393); Magnesium 2.3 mg/dL (1.8-2.4); Potassium 3.5 mmol/L (3.5-5.1); Sodium 139 mmol/L (136-145); Total Protein 7.5 g/dL (6.4-8.2); Troponin I < 0.05 ng/mL (<0.06)
[2020-05-15 17:27] LABS: PTT Activated 21.5 sec (21.0-27.5); Prothrombin Time 10.1 sec (9.3-11.0)
[2020-05-15] MEDS: Aspirin 81 MG CHEW (17:28)
[2020-05-15] MEDS: Normal Saline 250 ML 500 ML IV ×2 (17:28→19:33)
[2020-05-15] MEDS: Ketorolac 30 MG/ML VIAL IVP (17:28)
--- NOTE | 2020-05-15 18:15 | RT.EKG_ITS ---
APPROVED REPORT Exam: Resting ECG Patient Location: E HR:64 bpm ECG Measurements Heart Rate 64 AXIS WV 168 P 72 QRSd 80 QRS -1 QT 431 T 36 QTc 446 Conclusion Sinus rhythm...normal P axis, V-rate 60- 99 I have reviewed and interpreted ECG and agree with software generated interpretation.
--- NOTE | 2020-05-15 18:16 | W.ED.GENAD ---
Discharge Plan Disposition Patient Disposition: HOME Condition: Improving Discharge Details Clinical Impression: Left-sided chest wall pain, Neck pain on left side Primary Care Provider: Dorothea Kaufman ED Provider: Arminda Pink Home Meds and New Rx's Prescriptions: Continued amlodipine 2.5 mg tablet 2.5 mg PO HS RF: 0 vitamin E 400 unit Capsule 400 unit PO DAILY RF: 0 cyanocobalamin (vitamin B-12) 25 mcg Tablet 1,000 mcg PO DAILY RF: 0 cholecalciferol (vitamin D3) [Vitamin D3] 10 mcg (400 unit) Capsule 10 mcg PO DAILY RF: 0 ubidecarenone-omega 3-vit E 50-300-30 mg-mg-unit Capsule PO RF: 0 aspirin [Aspirin Low Dose] 81 mg Tablet,Delayed Release (Dr/Ec) 81 mg PO DAILY RF: 0 meclizine 25 mg tablet 25 mg PO TID PRN (Reason: dizziness) Qty: 20 RF: 0 Discharge Instructions Instructions: Chest Wall Pain (ED), Neck Pain (ED) Additional Instructions: Drink plenty of fluids and get plenty of rest. Alternate tylenol and motrin as needed and directed for pain. You will receive a call from radiology regarding scheduling your outpatient stress test. Call your primary care doctor's office tomorrow to schedule a follow-up appointment for reevaluation within the next week. Continue to follow-up with your doctors at [facility] regarding your continued gastrointestinal issues. Return immediately to the emergency department if you develop any worsening or new concerning symptoms. Discharge Data Discharge Date/Time-TO BE ENTERED AT DEPARTURE: 05/15/20 22:22 Discharge Physician: Arminda Pink Medical Decision Making 1600 -- 75-year-old female with a history of breast cancer and left-sided mastectomy and hypertension presents for a 5 to 10-minute episode of left-sided chest with radiation to her left neck and left upper extremity that occurred while sitting at home prior to arrival. Admits to some minimal left-sided pressure at this time and dizziness but otherwise no acute complaints. EKG notes a rate of 78, sinus with no acute ST or T wave ischemic findings. She appears comfortable in no acute distress. Her left anterior chest is tender to palpation. Differential diagnosis includes PE, musculoskeletal, dissection. Her history and presentation does not appear overwhelmingly consistent with ACS, however considering her age, will obtain a cardiac work-up and CT chest to rule out PE, pneumonia. We will give a dose of aspirin, Toradol and fluids and reassess. 1729 -- Labs and imaging reviewed. Troponin negative. CT chest negative for PE or dissection but notes abnormal frayed appearance of the left axillary artery and suspect possible focal stenosis. She was informed of a [address] abdomen and pelvis no wall thickening in her stomach which may be related to her current work-up at [facility] for her weight loss and decreased appetite. Patient reassessed and she feels much better and is pain-free. Will obtain a CT neck with view of her axillary artery to rule out any possible occlusion. 1999 -- A repeat troponin and EKG obtained and unchanged. CTA neck noted multifocal atherosclerotic disease and regions of narrowing in the left axillary artery but no severe stenosis. Heart score 3, low risk and I feel that pt is appropriate for discharge home. An order for an outpatient stress test was placed. Patient advised to follow-up with [facility] GI for continued evaluation of her gastrointestinal issues. Advised to follow-up with her primary care doctor for reevaluation. Usual and customary return precautions given prior to discharge. Medical Records Medical records reviewed: Yes I reviewed the patient's medical records. Imaging Data Radiologic Study: Radiologist's impression: Addendum created by Earl Acevedo MD on 05/15/2020 8:16:55 PM EST: No pulmonary embolism. Initial report created on 05/15/2020 7:12:17 PM EST: CT Angiography Abdomen and Pelvis With Contrast Exam date and time: 05/15/2020 6:13 PM Age: 75 years old Clinical indication: Other: L arm and chest pain TECHNIQUE: Imaging protocol: Computed tomographic angiography of the abdomen and pelvis with intravenous contrast material. COMPARISON: CR CHEST 2 VIEWS PA,LAT 06/17/2017 10:40 AM FINDINGS: Lungs: Scarring in the left pulmonary apex. Scarring at the pulmonary bases. 4 mm nodule in the lingula. Great vessels off aortic arch: Up to 30% stenosis in the left subclavian artery. Aorta: Nonsignificant atherosclerosis in the aortic arch and branches. Nonsignificant atherosclerosis in the descending thoracic aorta. No aortic dissection or aneurysm. Celiac trunk and mesenteric arteries: No occlusion or significant stenosis. Renal arteries: No occlusion or significant stenosis. Right iliac arteries: No occlusion or significant stenosis. Left iliac arteries: No occlusion or significant stenosis. Liver: No mass. Gallbladder and bile ducts: Unremarkable. No calcified stones. No ductal dilation. Pancreas: Unremarkable. No mass. No ductal dilation. Spleen: Unremarkable. No splenomegaly. Adrenals: Unremarkable. No mass. Kidneys and ureters: Unremarkable. No solid mass. No hydronephrosis. Stomach and bowel: Unremarkable. No obstruction. No mucosal thickening. Appendix: No evidence of appendicitis. Intraperitoneal space: Unremarkable. No free air. No significant fluid collection. Lymph nodes: Unremarkable. No enlarged lymph nodes. Urinary bladder: Unremarkable. No mass. Reproductive: Unremarkable as visualized. Bones/joints: No acute fracture. No dislocation. Soft tissues: Left breast appears removed. Right breast implant present. Other findings: Abnormal frayed appearance of the left axillary artery. Focal stenosis is also suspected in this vessel. Consider dedicated exam. IMPRESSION: 1. Abnormal frayed appearance of the left axillary artery. Focal stenosis is also suspected in this vessel. Consider dedicated exam such as angiogram. 2. No aortic dissection or aneurysm. 3. 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 4. 4 mm nodule in the lingula. For patients at low risk (minimal or absent history of smoking and of other known risk factors), no routine follow-up is indicated. For patients at high risk (history of smoking or of other known risk factors), consider optional CT Chest at 12 months. (Reference: Romeo) References: Romeo Dickerson et al. Guidelines for Management of Incidental Pulmonary Nodules Detected on CT Images: From the Fleischner Society 2017. Radiology. 2017;284(1):228-243. CT Angiography Abdomen With Contrast Exam date and time: 05/15/2020 6:13 PM Age: 75 years old Clinical indication: Other: L arm and chest pain TECHNIQUE: Imaging protocol: Computed tomographic angiography images of the abdomen with intravenous contrast material. 3D rendering (Not supervised by radiologist): MIP and/or 3D reconstructed images were created by the technologist. COMPARISON: CR CHEST 2 VIEWS PA,LAT 06/17/2017 10:40 AM FINDINGS: Aorta: No aortic aneurysm or dissection. Up to 20% stenosis in the abdominal aorta. Celiac trunk and mesenteric arteries: Up to 30% stenosis at the origin of the superior mesenteric artery. Up to 50% stenosis at the origin of the celiac artery. Renal arteries: Up to 50% stenosis at the origin of the right renal artery. Up to 10% stenosis in the origin of the left renal artery. Right iliac arteries: Up to 25% stenosis in the right common iliac artery. Up to 50% stenosis in the right external iliac artery. Right femoral/popliteal arteries: Up to 25% stenosis in the right common femoral artery. Left iliac arteries: Up to 10% stenosis in the left common iliac artery. Nonsignificant atherosclerosis in the left internal iliac artery. Up to 20% stenosis in the left external iliac artery. Left femoral/popliteal arteries: Up to 15% stenosis in the left common femoral artery. Liver: Normal. No mass. Gallbladder and bile ducts: Normal. No calcified stones. No ductal dilation. Pancreas: Normal. No ductal dilation. Spleen: Normal. No splenomegaly. Adrenals: Normal. No mass. Kidneys and ureters: Heterogeneous appearance of both kidneys. Consider dedicated MRI for further evaluation. Underlying pathology is not excluded. Stomach and bowel: Wall thickening throughout the stomach measuring up to 2 cm. This is likely related to under distention although gastric pathology is not excluded. Clinically correlate. Scattered colonic diverticula without diverticulitis. Appendix: Unable to identify the appendix. Lymph nodes: Unremarkable. No enlarged lymph nodes. Intraperitoneal space: Unremarkable. No free air. No significant fluid collection. Bones/joints: Degenerative changes in the spine with grade 1 anterolisthesis of L4 on L5. No acute fracture. No dislocation. Soft tissues: Unremarkable. IMPRESSION: 1. Heterogeneous appearance of both kidneys. Consider dedicated MRI for further evaluation. Underlying pathology is not excluded. 2. Wall thickening throughout the stomach measuring up to 2 cm. This is likely related to under distention although gastric pathology is not excluded. Clinically correlate. 3. Scattered colonic diverticula without diverticulitis. 4. No aortic aneurysm or dissection. 5. Up to 20% stenosis in the abdominal aorta. 6. Up to 25% stenosis in the right common iliac artery. 7. Up to 10% stenosis in the left common iliac artery. 8. Up to 50% stenosis in the right external iliac artery. 9. Up to 20% stenosis in the left external iliac artery. 10. Up to 25% stenosis in the right common femoral artery. 11. Up to 15% stenosis in the left common femoral artery. CT Angiography Neck With Contrast Exam date and time: 05/15/2020 7:23 PM Age: 75 years old Clinical indication: Abnormal findings; Patient HX: Question of focal stenosis in L axillary artery; Additional info: L neck/chest/arm pain TECHNIQUE: Imaging protocol: Computed tomography angiography of the neck with intravenous contrast. 3D rendering (Not supervised by radiologist): MIP and/or 3D reconstructed images were created by the technologist. COMPARISON: CT BRAIN NECK CTA 11/28/2019 2:17 PM FINDINGS: Right common carotid artery: No stenosis. No dissection or occlusion. Right internal carotid artery: Atherosclerotic plaque is noted at the bifurcation and proximal internal carotid artery without hemodynamically significant stenosis. No dissection or occlusion. Right external carotid artery: No occlusion or stenosis of the origin. Right vertebral artery: No stenosis. No dissection or occlusion. Left common carotid artery: No stenosis. No dissection or occlusion. Left internal carotid artery: Atherosclerotic plaque is noted at the bifurcation and proximal internal carotid artery without hemodynamically significant stenosis. No dissection or occlusion. Left external carotid artery: No occlusion or stenosis of the origin. Left vertebral artery: The left vertebral artery is hypoplastic with evidence of multifocal atherosclerotic disease. Subclavian arteries: Multifocal atherosclerotic disease is noted throughout the left subclavian and left axillary artery with regions of narrowing. Bones/joints: No acute fracture. Degenerative changes noted in the cervical spine. Soft tissues: Normal. No significant soft tissue swelling. Lungs: There is a small region of consolidation at the left lung apex with adjacent pleural calcification. IMPRESSION: 1. Multifocal atherosclerotic disease and regions of narrowing in the left axillary artery, without severe stenosis. 2. 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 3. Pleural plaque with adjacent mild consolidation at the left lung apex. Correlate with any known thoracic disease. Lab Data Lab results reviewed: Yes I reviewed the patient's lab results. Labs: Laboratory Tests Range/Units 05/15/20 05/15/20 05/15/20 16:13 16:13 16:13 WBC (4.4-10.8) 10^3/uL 4.09 L RBC (3.93-5.22) 10^6/uL 4.09 Hgb (11.2-15.7) g/dL 12.9 Hct (36.0-46.0) % 38.7 MCV (80-95) fL 94.6 MCH (27.0-33.0) pg 31.5 MCHC (32.0-36.0) % 33.3 RDW (11.7-14.6) % 12.9 Plt Count (130-400) 10^3/uL 150 MPV (8.0-11.0) fL 10.5 Immature Gran % 0.2 Neutrophils % 54.6 Lymphocytes % 33.5 Monocytes % 10.5 Eosinophils % 1.0 Basophils % 0.2 Nucleated RBC % % 0 Absolute Neutrophils (1.2-6.7) 10^3/uL 2.23 Absolute Lymphocytes (1.2-3.4) 10^3/uL 1.37 Absolute Monocytes (0.1-0.8) 10^3/uL 0.43 Absolute Eosinophils (0.0-0.7) 10^3/uL 0.04 Absolute Basophils (0.0-0.2) 10^3/uL 0.01 PT (9.3-11.0) sec 10.1 INR (0.9-1.1) 1.0 APTT (21.0-27.5) sec 21.5 Sodium (136-145) mmol/L 139 Potassium (3.5-5.1) mmol/L 3.5 Chloride (98-107) mmol/L 105 Carbon Dioxide (21.0-32.0) mmol/L 27.9 Anion Gap (3-11) mmol/L 6.1 BUN (7-18) mg/dL 22 H Creatinine (0.55-1.02) mg/dL 1.19 H Estimated GFR/1.73 m2 (mL/min/1.73m2) 44.34 Glucose (74-106) mg/dL 82 Calcium (8.5-10.1) mg/dL 8.9 Magnesium (1.8-2.4) mg/dL 2.3 Total Bilirubin (0.2-1.0) mg/dL 1.2 H AST (15-37) U/L 23 ALT (14-59) U/L 24 Alkaline Phosphatase (46-116) U/L 63 Troponin I (<0.06) ng/mL < 0.05 Total Protein (6.4-8.2) g/dL 7.5 Albumin (3.4-5.0) g/dL 3.7 Lipase (73-393) U/L 83 Range/Units 05/15/20 19:15 WBC (4.4-10.8) 10^3/uL RBC (3.93-5.22) 10^6/uL Hgb (11.2-15.7) g/dL Hct (36.0-46.0) % MCV (80-95) fL MCH (27.0-33.0) pg MCHC (32.0-36.0) % RDW (11.7-14.6) % Plt Count (130-400) 10^3/uL MPV (8.0-11.0) fL Immature Gran % Neutrophils % Lymphocytes % Monocytes % Eosinophils % Basophils % Nucleated RBC % % Absolute Neutrophils (1.2-6.7) 10^3/uL Absolute Lymphocytes (1.2-3.4) 10^3/uL Absolute Monocytes (0.1-0.8) 10^3/uL Absolute Eosinophils (0.0-0.7) 10^3/uL Absolute Basophils (0.0-0.2) 10^3/uL PT (9.3-11.0) sec INR (0.9-1.1) APTT (21.0-27.5) sec Sodium (136-145) mmol/L Potassium (3.5-5.1) mmol/L Chloride (98-107) mmol/L Carbon Dioxide (21.0-32.0) mmol/L Anion Gap (3-11) mmol/L BUN (7-18) mg/dL Creatinine (0.55-1.02) mg/dL Estimated GFR/1.73 m2 (mL/min/1.73m2) Glucose (74-106) mg/dL Calcium (8.5-10.1) mg/dL Magnesium (1.8-2.4) mg/dL Total Bilirubin (0.2-1.0) mg/dL AST (15-37) U/L ALT (14-59) U/L Alkaline Phosphatase (46-116) U/L Troponin I (<0.06) ng/mL < 0.05 Total Protein (6.4-8.2) g/dL Albumin (3.4-5.0) g/dL Lipase (73-393) U/L ECG Data Attestation: I personally reviewed and interpreted this ECG (s) as follows: Interpretation: #1 --Rate of 78, sinus, no acute ST elevation or depression. MO 160. QRS 80. QTc 432. #2 --Rate of 64, sinus, no acute ST elevation or depression. MO 168. QRS 80. QTc 446. HPI General Date/Time Provider Initiated Documentation: 05/15/20 16:24. HPI Narrative: Patient is a 75-year-old female with a history of hypertension, breast cancer with left-sided mastectomy presents with left-sided chest neck and shoulder pain that started while sitting at her home on the computer this afternoon at 130. Patient states the pain felt like squeezing and radiated from her left chest to her left neck and her left upper extremity. She states that it lasted approximately 5 to 10 minutes and then resolved. She admits to some mild left-sided pressure at this time but otherwise has no acute complaints. She states the pain at its worst was 7/10 and is currently 1-2. She denies any shortness of breath, nausea, vomiting, fever or cough. She does admit to some intermittent dizziness earlier as well as some now. She states she has been being followed by [facility] gastroenterology for decreased appetite and weight loss over the past month. She states they have done an endoscopic ultrasound and have obtained biopsies and are currently in the process of continuing to work her up for this. Related Data Home Medications Medication Instructions Recorded Confirmed amlodipine 2.5 mg tablet 2.5 mg PO HS 06/10/19 05/15/20 aspirin [Aspirin Low Dose] 81 mg PO DAILY 09/06/19 05/15/20 meclizine 25 mg PO TID PRN #20 tab 11/28/19 05/15/20 cholecalciferol (vitamin D3) 10 mcg PO DAILY 05/15/20 05/15/20 [Vitamin D3] cyanocobalamin (vitamin B-12) 1,000 mcg PO DAILY 05/15/20 05/15/20 ubidecarenone-omega 3-vit E cap PO 05/15/20 vitamin E 400 unit PO DAILY 05/15/20 05/15/20 Previous Rx's Medication Instructions Recorded meclizine 25 mg PO TID PRN #20 tab 11/28/19 Allergies Allergy/AdvReac Type Severity Reaction Status Date / Time No Known Drug Allergies Allergy Verified 05/15/20 15:30 General Stated Complaint: Chest Pain SHERRY: 2 Review of Systems All systems reviewed & are unremarkable except as noted in HPI and below Constitutional Constitutional: Reports as per HPI, Denies chills and Denies fever(s) Eyes Eyes: Denies blurry vision ENT Ears, Nose, Mouth, and Throat: Denies dizziness, Denies sore throat and Denies throat swelling Cardiovascular Cardiovascular: Reports chest pain and Denies dyspnea Respiratory Respiratory: Denies cough and Denies dyspnea Gastrointestinal Gastrointestinal: Denies abdominal pain, Denies diarrhea and Denies vomiting Genitourinary Genitourinary: Denies hematuria and Denies dysuria Musculoskeletal Musculoskeletal: Denies back pain and Denies numbness Integumentary/Breasts Skin/Breast: Denies lesions and Denies rash Neurologic Neurologic: Denies dizziness, Denies localized weakness and Denies numbness Allergic/Immunologic Allergic/Immunologic: Denies throat swelling [facility] Medical History (Updated 05/15/20 @ 22:07 by Arminda Pink DO) HTN (hypertension) Surgical History (Updated 01/27/20 @ 07:25 by Kiara Rocha) History of reconstruction of left breast Hx of appendectomy Hx of lumpectomy multiple Hx of mastectomy Left breast with reconstruction Hx of partial mastectomy Right Hx of repair of right rotator cuff Hx of tonsillectomy Social History Smoking/Tobacco Use Status: Former Tobacco Use Quit Date: 05/05/65 Tobacco: How many years used: 7 Smoking risk assessment performed?: Yes Alcohol Intake: current Alcohol Intake frequency: a few times a week Alcohol type: wine Drug use: Never Substance use type: does not use Do you feel safe at home: Yes Do you feel safe in your relationship?: Yes Exam Const General: cooperative, healthy appearing and no acute distress [facility] Head: normal to inspection Face and sinus: normal facial exam Eyes General: appearance normal, both eyes and all related structures EOM: EOM intact bilaterally Neck Neck: normal visual inspection and No submandibular swelling Lymphatic: no lymphadenopathy noted Chest Chest: normal inspection of the chest Chest/axillae images: 1. Tenderness to palpation L anterolateral chest. No crepitus, ecchymoses, erythema, edema. Resp Effort & Inspection: normal respiratory effort and able to speak in complete sentences Auscultation: clear to auscultation bilaterally Cardio Rate: regular rate Rhythm: regular rhythm GI Inspection: normal to inspection Palpation: soft, not firm, not rigid and nontender Auscultation: normal bowel sounds Back/Spine/Pelvis Thoracic/Lumbar Spine: thoracic and lumbar spine normal to inspection Skin General skin exam: no rashes or lesions noted Neuro General: patient alert, patient awake and patient oriented x3 Cognition: normal cognition Speech: speech normal Motor: muscle tone normal throughout Sensory Exam: no sensory deficits noted Extrem General: normal to inspection, full ROM, capillary refill normal, no calf tenderness bilaterally and no edema Psych Appearance: grossly normal Mental Status: mental status grossly normal Speech and Movement: speech and movement normal Affect: normal affect Course Vital Signs Vital signs: Vital Signs Temperature 97.5 F L 05/15/20 15:56 Pulse 96 H 05/15/20 15:56 Respiratory Rate 18 05/15/20 15:56 Blood Pressure 140/113 H 05/15/20 15:56 Pulse Oximetry 98 05/15/20 15:56 Temperature 97.5 F L 05/15/20 15:56 Temperature Source Skin 05/15/20 15:56 Pulse 66 05/15/20 17:31 Pulse 62 05/15/20 17:31 Respiratory Rate 12 05/15/20 17:31 Respiratory Effort Non-Labored 05/15/20 16:06 Blood Pressure 135/65 05/15/20 17:31 Blood Pressure Mean 75 05/15/20 17:31 Blood Pressure Position Sitting 05/15/20 15:56 Pulse Oximetry 100 05/15/20 17:31 Oxygen Delivery Method Room Air 05/15/20 15:56 Oxygen Flow Rate 0 05/15/20 15:56 Pain Level 2 05/15/20 16:16 Comment 05/15/20 15:56 Lab/Test Results Lab/Test Results: Laboratory Tests Range/Units 05/15/20 05/15/20 05/15/20 16:13 16:13 16:13 WBC (4.4-10.8) 10^3/uL 4.09 L RBC (3.93-5.22) 10^6/uL 4.09 Hgb (11.2-15.7) g/dL 12.9 Hct (36.0-46.0) % 38.7 MCV (80-95) fL 94.6 MCH (27.0-33.0) pg 31.5 MCHC (32.0-36.0) % 33.3 RDW (11.7-14.6) % 12.9 Plt Count (130-400) 10^3/uL 150 MPV (8.0-11.0) fL 10.5 Immature Gran % 0.2 Neutrophils % 54.6 Lymphocytes % 33.5 Monocytes % 10.5 Eosinophils % 1.0 Basophils % 0.2 Nucleated RBC % % 0 Absolute Neutrophils (1.2-6.7) 10^3/uL 2.23 Absolute Lymphocytes (1.2-3.4) 10^3/uL 1.37 Absolute Monocytes (0.1-0.8) 10^3/uL 0.43 Absolute Eosinophils (0.0-0.7) 10^3/uL 0.04 Absolute Basophils (0.0-0.2) 10^3/uL 0.01 PT (9.3-11.0) sec 10.1 INR (0.9-1.1) 1.0 APTT (21.0-27.5) sec 21.5 Sodium (136-145) mmol/L 139 Potassium (3.5-5.1) mmol/L 3.5 Chloride (98-107) mmol/L 105 Carbon Dioxide (21.0-32.0) mmol/L 27.9 Anion Gap (3-11) mmol/L 6.1 BUN (7-18) mg/dL 22 H Creatinine (0.55-1.02) mg/dL 1.19 H Estimated GFR/1.73 m2 (mL/min/1.73m2) 44.34 Glucose (74-106) mg/dL 82 Calcium (8.5-10.1) mg/dL 8.9 Magnesium (1.8-2.4) mg/dL 2.3 Total Bilirubin (0.2-1.0) mg/dL 1.2 H AST (15-37) U/L 23 ALT (14-59) U/L 24 Alkaline Phosphatase (46-116) U/L 63 Troponin I (<0.06) ng/mL < 0.05 Total Protein (6.4-8.2) g/dL 7.5 Albumin (3.4-5.0) g/dL 3.7 Lipase (73-393) U/L 83
[2020-05-15] MEDS: Normal Saline - Diluent 50 ML VIAL IV ×2 (18:19→20:52)
[2020-05-15] MEDS: Omnipaque 350 MG/ML 100 ML BTL IJ ×2 (18:19→20:51)
--- NOTE | 2020-05-15 19:12 | DI.VRAD_ITS ---
Addendum created by Earl Acevedo MD on 05/15/2020 8:16:55 PM EST: No pulmonary embolism. Initial report created on 05/15/2020 7:12:17 PM EST: PROCEDURE INFORMATION: Exam: CT Angiography Abdomen and Pelvis With Contrast Exam date and time: 05/15/2020 6:13 PM Age: 75 years old Clinical indication: Other: L arm and chest pain TECHNIQUE: Imaging protocol: Computed tomographic angiography of the abdomen and pelvis with intravenous contrast material. COMPARISON: CR CHEST 2 VIEWS PA,LAT 06/17/2017 10:40 AM FINDINGS: Lungs: Scarring in the left pulmonary apex. Scarring at the pulmonary bases. 4 mm nodule in the lingula. Great vessels off aortic arch: Up to 30% stenosis in the left subclavian artery. Aorta: Nonsignificant atherosclerosis in the aortic arch and branches. Nonsignificant atherosclerosis in the descending thoracic aorta. No aortic dissection or aneurysm. Celiac trunk and mesenteric arteries: No occlusion or significant stenosis. Renal arteries: No occlusion or significant stenosis. Right iliac arteries: No occlusion or significant stenosis. Left iliac arteries: No occlusion or significant stenosis. Liver: No mass. Gallbladder and bile ducts: Unremarkable. No calcified stones. No ductal dilation. Pancreas: Unremarkable. No mass. No ductal dilation. Spleen: Unremarkable. No splenomegaly. Adrenals: Unremarkable. No mass. Kidneys and ureters: Unremarkable. No solid mass. No hydronephrosis. Stomach and bowel: Unremarkable. No obstruction. No mucosal thickening. Appendix: No evidence of appendicitis. Intraperitoneal space: Unremarkable. No free air. No significant fluid collection. Lymph nodes: Unremarkable. No enlarged lymph nodes. Urinary bladder: Unremarkable. No mass. Reproductive: Unremarkable as visualized. Bones/joints: No acute fracture. No dislocation. Soft tissues: Left breast appears removed. Right breast implant present. Other findings: Abnormal frayed appearance of the left axillary artery. Focal stenosis is also suspected in this vessel. Consider dedicated exam. IMPRESSION: 1. Abnormal frayed appearance of the left axillary artery. Focal stenosis is also suspected in this vessel. Consider dedicated exam such as angiogram. 2. No aortic dissection or aneurysm. 3. 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 4. 4 mm nodule in the lingula. For patients at low risk (minimal or absent history of smoking and of other known risk factors), no routine follow-up is indicated. For patients at high risk (history of smoking or of other known risk factors), consider optional CT Chest at 12 months. (Reference: Romeo) References: Romeo Dickerson et al. Guidelines for Management of Incidental Pulmonary Nodules Detected on CT Images: From the Fleischner Society 2017. Radiology. 2017;284(1):228-243. PROCEDURE INFORMATION: Exam: CT Angiography Abdomen With Contrast Exam date and time: 05/15/2020 6:13 PM Age: 75 years old Clinical indication: Other: L arm and chest pain TECHNIQUE: Imaging protocol: Computed tomographic angiography images of the abdomen with intravenous contrast material. 3D rendering (Not supervised by radiologist): MIP and/or 3D reconstructed images were created by the technologist. COMPARISON: CR CHEST 2 VIEWS PA,LAT 06/17/2017 10:40 AM FINDINGS: Aorta: No aortic aneurysm or dissection. Up to 20% stenosis in the abdominal aorta. Celiac trunk and mesenteric arteries: Up to 30% stenosis at the origin of the superior mesenteric artery. Up to 50% stenosis at the origin of the celiac artery. Renal arteries: Up to 50% stenosis at the origin of the right renal artery. Up to 10% stenosis in the origin of the left renal artery. Right iliac arteries: Up to 25% stenosis in the right common iliac artery. Up to 50% stenosis in the right external iliac artery. Right femoral/popliteal arteries: Up to 25% stenosis in the right common femoral artery. Left iliac arteries: Up to 10% stenosis in the left common iliac artery. Nonsignificant atherosclerosis in the left internal iliac artery. Up to 20% stenosis in the left external iliac artery. Left femoral/popliteal arteries: Up to 15% stenosis in the left common femoral artery. Liver: Normal. No mass. Gallbladder and bile ducts: Normal. No calcified stones. No ductal dilation. Pancreas: Normal. No ductal dilation. Spleen: Normal. No splenomegaly. Adrenals: Normal. No mass. Kidneys and ureters: Heterogeneous appearance of both kidneys. Consider dedicated MRI for further evaluation. Underlying pathology is not excluded. Stomach and bowel: Wall thickening throughout the stomach measuring up to 2 cm. This is likely related to under distention although gastric pathology is not excluded. Clinically correlate. Scattered colonic diverticula without diverticulitis. Appendix: Unable to identify the appendix. Lymph nodes: Unremarkable. No enlarged lymph nodes. Intraperitoneal space: Unremarkable. No free air. No significant fluid collection. Bones/joints: Degenerative changes in the spine with grade 1 anterolisthesis of L4 on L5. No acute fracture. No dislocation. Soft tissues: Unremarkable. IMPRESSION: 1. Heterogeneous appearance of both kidneys. Consider dedicated MRI for further evaluation. Underlying pathology is not excluded. 2. Wall thickening throughout the stomach measuring up to 2 cm. This is likely related to under distention although gastric pathology is not excluded. Clinically correlate. 3. Scattered colonic diverticula without diverticulitis. 4. No aortic aneurysm or dissection. 5. Up to 20% stenosis in the abdominal aorta. 6. Up to 25% stenosis in the right common iliac artery. 7. Up to 10% stenosis in the left common iliac artery. 8. Up to 50% stenosis in the right external iliac artery. 9. Up to 20% stenosis in the left external iliac artery. 10. Up to 25% stenosis in the right common femoral artery. 11. Up to 15% stenosis in the left common femoral artery. Dictated and Authenticated by: Earl Acevedo MD. Ordering:SANYA Hilliard MD
--- NOTE | 2020-05-15 19:15 | DI.CT_ITS ---
EXAM: CT CAROTID NECK CTA CLINICAL HISTORY: question of focal stenosis in L axillary artery. TECHNIQUE: Imaging Protocol: Axial CT angiography was performed with multi-slice acquisition and mul ti-planar and/or 3D reconstructions. CONTRAST MATERIAL: Intravenous: Omnipaque 350 Contrast volume:85 ml COMPARISON: CT CT CHEST PE ABD PELVIS W from 05/15/2020 FINDINGS: Common Carotid: Right: No aneurysm, occlusion or significant stenosis. Left: No aneurysm, occlusion or significant stenosis. External Carotid: Right: No aneurysm, occlusion or significant stenosis. Left: No aneurysm, occlusion or significant stenosis. Internal Carotid: Right: Small amount of plaque at the bifurcation. No aneurysm, occlusion or significant stenosis. Left: Small amount of calcified plaque at the bifurcation. No aneurysm, occlusion or significant maida nosis. Vertebral Artery: Right: No aneurysm, occlusion or significant stenosis. Left: Hypoplastic. Multi focal atherosclerotic changes. No aneurysm, occlusion . Basilar Artery: No aneurysm, occlusion or significant stenosis. Axillary arteries: Atherosclerotic plaque of the left axillary artery with areas of mild stenosis. N o evidence of occlusion or or severe stenosis. Bones: Degenerative changes. IMPRESSION: Normal CTA of the carotids. Multifocal atherosclerotic changes of the left axillary artery without evidence of severe stenosis or occlusion. Diminutive left vertebral artery with multifocal atherosclerotic changes. RADIATION DOSE DELIVERED: 263.26mGy.cm Total DLP DATA REPOSITORY: All CT scans at this facility are submitted to the National Radiology Data Registry (NRDR) Dose Index Registry (DIR) with the [employer] (ACR). RADIATION OPTIMIZATION: All CT scans at this facility use at least one of these dose optimization te chniques: automated exposure control; mA and/or kV adjustment per patient size (includes targeted exa ms where dose is matched to clinical indication); or iterative reconstruction.
[2020-05-15 19:40] LABS: Troponin I < 0.05 ng/mL (<0.06)
--- NOTE | 2020-05-15 21:37 | DI.VRAD_ITS ---
PROCEDURE INFORMATION: Exam: CT Angiography Neck With Contrast Exam date and time: 05/15/2020 7:23 PM Age: 75 years old Clinical indication: Abnormal findings; Patient HX: Question of focal stenosis in L axillary artery; Additional info: L neck/chest/arm pain TECHNIQUE: Imaging protocol: Computed tomography angiography of the neck with intravenous contrast. 3D rendering (Not supervised by radiologist): MIP and/or 3D reconstructed images were created by the technologist. COMPARISON: CT BRAIN NECK CTA 11/28/2019 2:17 PM FINDINGS: Right common carotid artery: No stenosis. No dissection or occlusion. Right internal carotid artery: Atherosclerotic plaque is noted at the bifurcation and proximal internal carotid artery without hemodynamically significant stenosis. No dissection or occlusion. Right external carotid artery: No occlusion or stenosis of the origin. Right vertebral artery: No stenosis. No dissection or occlusion. Left common carotid artery: No stenosis. No dissection or occlusion. Left internal carotid artery: Atherosclerotic plaque is noted at the bifurcation and proximal internal carotid artery without hemodynamically significant stenosis. No dissection or occlusion. Left external carotid artery: No occlusion or stenosis of the origin. Left vertebral artery: The left vertebral artery is hypoplastic with evidence of multifocal atherosclerotic disease. Subclavian arteries: Multifocal atherosclerotic disease is noted throughout the left subclavian and left axillary artery with regions of narrowing. Bones/joints: No acute fracture. Degenerative changes noted in the cervical spine. Soft tissues: Normal. No significant soft tissue swelling. Lungs: There is a small region of consolidation at the left lung apex with adjacent pleural calcification. IMPRESSION: 1. Multifocal atherosclerotic disease and regions of narrowing in the left axillary artery, without severe stenosis. 2. 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 3. Pleural plaque with adjacent mild consolidation at the left lung apex. Correlate with any known thoracic disease. REFERENCES: NASCET CRITERIA. The degree of internal carotid artery stenosis is based on NASCET criteria. Normal is no stenosis. Mild is less than 50% stenosis. Moderate is 50-69% stenosis. Severe is 70% to 99% stenosis. Total occlusion is no detectable patent lumen. Dictated and Authenticated by: Roberta Chapin MD. Ordering:SANYA Hilliard MD
== END 2020-05-15 22:22 | disposition home or self-care (01) ==
PROVIDERS: Emergency Provider Physician Assistant; PCP Family Medicine
DX: R07.81 Pleurodynia (principal); M54.2 Cervicalgia; R91.1 Solitary pulmonary nodule; I10 Essential (primary) hypertension
CPT/HCPCS: 36415; 70498; 71275; 74177; 80053; 83690; 93005; 96361; 96374; 99285; 83735; 84484; 85025; 85610; 85730; 93010; J1885; J3490

== ENCOUNTER 2020-05-22 02:03 | Outpatient (CLI) | payer MEDICARE, BC, SELFPAY ==
[2020-05-23 12:37] LABS: COVID-19 RT-PCR UVMMC Result Negative (Negative)
== END 2020-05-22 02:23 ==
PROVIDERS: PCP Family Medicine; Visit Provider Internal Medicine Cardiovascular Disease
DX: Z11.52 Encounter for screening for COVID-19 (principal); Z01.810 Encounter for preprocedural cardiovascular examination
CPT/HCPCS: U0003

== ENCOUNTER 2020-05-25 02:13 | Outpatient (CLI) | payer MEDICARE, BC, SELFPAY ==
--- NOTE | 2020-05-25 13:00 | ETT_ITS ---
APPROVED REPORT Exam: Exercise Treadmill Patient Location: Out-Patient Room/Bed: Stress Nurse: Suzanne Woods RN Ordering Provider:SHAKILA MENG, Contact Number: [phone] BMI: 18.30 Baseline Rhythm: Sinus Rhythm Comment: Q wave noted lead III, QS wave noted lead V2 Indications: Chest pain Medical History Medical History: HTN, breast cancer, asthma Cardiac Medications: amlodipine, aspirin Allergies: NKA Cardiac Risk Factors: HTN, asthma, smoker (former), family hx Previous Cardiac Procedures: None Pretest Chest Pain Characteristics: None. Exercise History: Physically active Physical Disabilities: None Lung Sounds: Clear to auscultation Heart Sounds: Regular Stress Test Details Test: Exercise stress testing was performed using a Melchor protocol. Rest Stress HR Resting HR Supine: 86 bpm Max Heart Rate (APMHR): 146 bpm Resting HR Standin bpm Target HR (85% APMHR): 124 bpm Max HR Achieved: 167 bpm % of APMHR: 114 Recovery HR: 100 bpm HR response to stress: Normal HR response to stress BP Resting BP Supine: 134/90 mmHg Resting BP Standin/92 mmHg Max BP: 152/80 mmHg Recovery BP: 130/84 mmHg BP response to stress: Normal blood pressure response to stress. ECG Resting ECG: Sinus Rhythm Stress ECG: Sinus Tachycardia ST Change: No significant ST segment changes noted Arrhythmia: Occasional PACs and PVCs Recovery ECG: Sinus Rhythm Recovery ST Change: No significant ST segment changes noted Recovery Arrhythmia: None. Clinical Reason for Termination: hip pain Stress Symptoms: hip pain Exercise duration: 10 min45 sec Highest Stage Reached: Stage 4: 4.2 mph at 16% grade. Exercise capacity: 13.05 METs Lester Treadmill Score: 10.1 Rate Pressure Product: [id number] Stress ECG Conclusion 1. The resting electrocardiogram showed poor R wave progression 2. The patient exercised on the Melchor protocol and achieved a workload of 13.05 METS, limited by hip pain. 3. Normal heart rate and blood pressure response to exercise. The patient achieved greater than 100% of predicted heart rate for age 4. There was no electrocardiographic evidence of myocardial ischemia 5. There were occasional atrial and ventricular ectopic beats noted Lester Treadmill Score is 10.1 which is Low risk. Stress Test Summary STAGE Time (mins) Speed (mph) Grade (%) HR BP SYMPTOMS METS Supine 86 134/90 Standing 99 128/92 1 3 1.7 10 121 130/88 4.6 2 6 2.5 12 141 136/80 7 3 9 3.4 14 164 140/78 10.2 1 min recovery 143 152/80 3 min recovery 106 144/82 6 min recovery 100 [id number]
== END 2020-05-25 02:33 ==
PROVIDERS: PCP Family Medicine; Visit Provider Physician Assistant
DX: R07.9 Chest pain, unspecified (principal); I10 Essential (primary) hypertension; J45.909 Unspecified asthma, uncomplicated; Z87.891 Personal history of nicotine dependence; Z82.49 Family history of ischemic heart disease and other diseases of the circulatory system
CPT/HCPCS: 93016; 93018; 93017

== ENCOUNTER 2020-06-21 18:51 | Outpatient (CLI) | payer MEDICARE, BC, SELFPAY ==
--- NOTE | 2020-06-21 | DI.RAD_ITS ---
EXAM: XR HIP LT COMPLETE AP PELVIS CLINICAL HISTORY: LT HIP PAIN M25.552, HX BREAST CANCER Z85.3, ? BONY LESIONS. TECHNIQUE: 2D digital imaging was performed. COMPARISON: No exams were available for comparison FINDINGS: There is no evidence of pelvic or hip fracture. Mild degenerative changes are noted both hips appear ing symmetrical on the frontal view. Lateral view of the left hip reveals mild narrowing of the join t space. Multiple surgical clips are seen in the left iliac fossa. No osseous lesions evident. IMPRESSION: DATA REPOSITORY: RADIATION DOSE DELIVERED:
== END 2020-06-21 19:11 ==
PROVIDERS: PCP Family Medicine; Visit Provider Nurse Practitioner Adult Health
DX: M25.552 Pain in left hip (principal); M16.0 Bilateral primary osteoarthritis of hip; Z85.3 Personal history of malignant neoplasm of breast
CPT/HCPCS: 73502

== ENCOUNTER 2020-08-03 14:48 | Outpatient (REF) | payer MEDICARE, BC, SELFPAY ==
[2020-08-03 17:51] LABS: C Diff PCR Negative (Negative)
[2020-08-04 11:01] LABS: Campylobacter PCR Negative (Negative); Salmonella PCR Negative (Negative); Shiga Toxin PCR Negative (Negative); Shigella/Enteroinvasive Ecoli Negative (Negative)
== END 2020-08-03 14:49 | disposition home or self-care (01) ==
LOC: NCHCN 14:48
PROVIDERS: PCP Family Medicine; Visit Provider Family Medicine
DX: R19.7 Diarrhea, unspecified (principal)
CPT/HCPCS: 87329; 87493; 87505; 83630; 87177

== ENCOUNTER 2020-10-10 02:14 | Outpatient (CLI) | payer MEDICARE, BC, SELFPAY ==
--- NOTE | 2020-10-10 07:30 | DI.US_ITS ---
Exam(s) US PELVIS EXAM: US PELVIS CLINICAL HISTORY: Follow-up thickened endometrial stripe,VAGINAL DISCHARGE,N89.8,R93.89,. TECHNIQUE: Transabdominal pelvic ultrasound was performed using standard protocol. COMPARISON: No exams were available for comparison FINDINGS: KIDNEYS: Kidneys are symmetric in size. No evidence of renal calculi. No evidence of hydronephrosis. Limited renal evaluation shows no evidence of a renal mass. UTERUS: Position: Anteverted. Size: 5.4 long by 2.8 AP by 4.3 transverse cm Endometrium: 0.3 cm. Normal for patient's menstrual status. Myometrium: Unremarkable. Cervix: Unremarkable. OVARIES: Status post bilateral oophorectomy. CUL-DE-SAC: Free fluid: None. Other: None. IMPRESSION: 1. No evidence of hydronephrosis. 2. Normal-appearing uterus with endometrial stripe within normal limits. 3. Status post bilateral oophorectomy. DATA REPOSITORY:
== END 2020-10-10 02:34 ==
PROVIDERS: PCP Family Medicine; Visit Provider Obstetrics & Gynecology Gynecology
DX: N89.8 Other specified noninflammatory disorders of vagina (principal); R93.89 Abnormal findings on diagnostic imaging of other specified body structures; Z90.722 Acquired absence of ovaries, bilateral
CPT/HCPCS: 76856

== ENCOUNTER 2020-10-10 02:14 | Outpatient (CLI) | payer MEDICARE, BC, SELFPAY ==
--- NOTE | 2020-10-10 13:36 | DI.RAD_ITS ---
Exam(s) XR SHOULDER LT COMPLETE 2+V EXAM: XR SHOULDER LT COMPLETE 2+V CLINICAL HISTORY: LT SHOULDER JOINT PAIN, M25.512. TECHNIQUE: 2D digital imaging was performed. COMPARISON: CR CHEST 2 VIEWS PA,LAT from 06/17/2017 FINDINGS: Stable chronic deformity of the acromioclavicular joint. Marked degenerative changes are seen at the glenohumeral joint with joint space narrowing, subchondral sclerosis and periarticular spurring. No acute fracture or dislocation. The bones are osteopenic. Postsurgical changes are again seen in th e left hemithorax. The soft tissues are unremarkable. 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 DATA REPOSITORY: RADIATION DOSE DELIVERED:
== END 2020-10-10 02:34 ==
PROVIDERS: PCP Family Medicine; Visit Provider Family Medicine
DX: M25.512 Pain in left shoulder (principal); M19.012 Primary osteoarthritis, left shoulder; M85.88 Other specified disorders of bone density and structure, other site; N89.8 Other specified noninflammatory disorders of vagina; R93.89 Abnormal findings on diagnostic imaging of other specified body structures; Z90.722 Acquired absence of ovaries, bilateral
CPT/HCPCS: 73030; 76856

== ENCOUNTER → 2020-11-15 13:07 | Outpatient (BNVA) | payer MEDICARE, BC, SELFPAY | PROVIDERS: PCP Family Medicine; Referring Provider Family Medicine; Visit Provider Student in an Organized Health Care Education/Training Program | DX: M75.102 Unspecified rotator cuff tear or rupture of left shoulder, not specified as traumatic (principal); M12.812 Other specific arthropathies, not elsewhere classified, left shoulder | CPT/HCPCS: 99203; 99214 ==

== ENCOUNTER 2020-11-27 00:47 | Outpatient (CLI) | payer MEDICARE, BC, SELFPAY ==
--- NOTE | 2020-11-27 08:15 | DI.CT_ITS ---
Exam(s) CT UPPER EXTREMITY LT WO EXAM: CT UPPER EXTREMITY LT WO CLINICAL HISTORY: RTSA planning,ROTATOR CUFF ARTHROPATHY,ROTATOR CUFF TEAR,M12.812,M75.102 TECHNIQUE: Imaging Protocol: Axial computed tomography images with coronal and sagittal reformatted images were created and reviewed. CONTRAST MATERIAL: Intravenous: None COMPARISON: CR XR SHOULDER LT COMPLETE 2+V from 10/10/2020 CR XR SHOULDER LT COMPLETE 2+V from 10/10/2020 FINDINGS: OSSEOUS: There is advanced degenerative change in the glenohumeral joint with advanced joint space narrowing, degenerative subarticular cysts, and prominent osteophyte on the humeral head. Calcifications noted in the subacromial space. There is slight offset of the AC joint. Only mild degenerative changes in the AC joint no osseous lesions. IMPRESSION: Advanced osteoarthritic degenerative changes in the glenohumeral joint. RADIATION DOSE DELIVERED: 473.94mGy.cm Total DLP DATA REPOSITORY: All CT scans at this facility are submitted to the National Radiology Data Registry (NRDR) Dose Index Registry (DIR) with the [employer] (ACR). RADIATION OPTIMIZATION: All CT scans at this facility use at least one of these dose optimization te chniques: automated exposure control; mA and/or kV adjustment per patient size (includes targeted exa ms where dose is matched to clinical indication); or iterative reconstruction.
== END 2020-11-27 01:07 ==
PROVIDERS: PCP Family Medicine; Visit Provider Student in an Organized Health Care Education/Training Program
DX: M12.812 Other specific arthropathies, not elsewhere classified, left shoulder (principal); M75.102 Unspecified rotator cuff tear or rupture of left shoulder, not specified as traumatic; M19.012 Primary osteoarthritis, left shoulder
CPT/HCPCS: 73200

== ENCOUNTER 2020-11-27 16:18 | Outpatient (CLI) | payer MEDICARE, BC, SELFPAY ==
--- NOTE | 2020-11-27 | DI.US_ITS ---
Exam(s) US LOWER EXTREMITY VENOUS LT EXAM: US LOWER EXTREMITY VENOUS LT CLINICAL HISTORY: LT LEG PAIN TECHNIQUE: Grayscale, color, and doppler imaging of the deep venous system of the left lower extremi ty was performed. COMPARISON: No exams were available for comparison FINDINGS: There is no evidence of intraluminal thrombus and there is normal compression and augmentation demons trated within the common femoral vein, femoral vein, and popliteal vein. In the ipsilateral calf the interrogated veins also exhibit normal compression/ augmentation properti es. The ipsilateral saphenofemoral junction is patent. IMPRESSION: 1. No evidence of DVT in the left lower extremity. 2. DATA REPOSITORY:
== END 2020-11-27 16:38 ==
PROVIDERS: PCP Family Medicine; Visit Provider Nurse Practitioner Family
DX: M79.605 Pain in left leg (principal); M79.604 Pain in right leg; M75.102 Unspecified rotator cuff tear or rupture of left shoulder, not specified as traumatic; M19.012 Primary osteoarthritis, left shoulder
CPT/HCPCS: 73200; 93971

== ENCOUNTER → 2020-12-19 14:01 | Outpatient (BNVA) | payer MEDICARE, BC, SELFPAY | PROVIDERS: PCP Family Medicine; Referring Provider Family Medicine; Visit Provider Student in an Organized Health Care Education/Training Program | DX: M75.102 Unspecified rotator cuff tear or rupture of left shoulder, not specified as traumatic (principal); M12.812 Other specific arthropathies, not elsewhere classified, left shoulder; M75.22 Bicipital tendinitis, left shoulder; M24.512 Contracture, left shoulder | CPT/HCPCS: 99214 ==

== ENCOUNTER 2020-12-28 13:52 | Outpatient (REF) | payer MEDICARE, BC, SELFPAY ==
--- NOTE | 2020-12-28 13:15 | ENDOMET_PTH ---
PATIENT: Nataly Kuhn LOC: [facility] U#:[id number] AGE/SX: 75/F ROOM: RE12/28/[address]: Florinda Pham DO : 1945 BED: DIS: 12/28/2020 SPEC #: [id number] RECD: 12/28/20 17:27 STATUS: OLLIE REQ #: [id number] KAREY: 12/28/20 13:[address]: Florinda Pham DEPT: Surgical Specimen RECD BY: Nini Valdes ENTERED: 12/28/20 17:28 SP TYPE: Endomet OTHR DR: Dorothea Kaufman Tissues: 1 - ENDOMETRIUM BX/ANTOINETTEETTE Procedures: GROSS AND MICRO LEVEL 4 Comments: [id number]
== END 2020-12-28 13:53 | disposition home or self-care (01) ==
LOC: LBN 13:52
PROVIDERS: PCP Family Medicine; Visit Provider Obstetrics & Gynecology
DX: N95.0 Postmenopausal bleeding (principal); N85.8 Other specified noninflammatory disorders of uterus
CPT/HCPCS: 88305

== ENCOUNTER 2021-01-02 02:20 | Outpatient (CLI) | payer MEDICARE, BC, SELFPAY ==
[2021-01-02 13:53] LABS: Source Nasal/Nares
[2021-01-02 19:15] LABS: COVID-19 PCR Negative (Negative)
== END 2021-01-02 02:21 | disposition home or self-care (01) ==
LOC: LBO 02:20
PROVIDERS: PCP Family Medicine; Visit Provider Student in an Organized Health Care Education/Training Program
DX: Z20.822 Contact with and (suspected) exposure to COVID-19 (principal); Z01.818 Encounter for other preprocedural examination
CPT/HCPCS: 87635

== ENCOUNTER 2021-01-04 07:00 | Inpatient (IN) | payer MEDICARE, BC, SELFPAY ==
[2021-01-04] VITALS (8 sets, daily range): BP systolic 136–156; BP diastolic 81–90; PULSE 74–95; RESP 14–21; TEMP 36.1–36.3; O2SAT 94–98; BMI 19.3
--- NOTE | 2021-01-04 08:53 | W.ANESPRE ---
General Info Date of Service Date Performed: 01/04/21 Height: 5 ft 4 in Weight: 51.1 kg Body Mass Index (BMI): 19.3 Surgical Procedure: Operation Date: 01/04/21 12:10 Proposed Procedures Side Surgeon p Reverse total shoulder arthroplasty, biceps tenodesis, and any other indicated procedures Left Ant Klein MD Meds Allergies and Home Medications Allergies Allergy/AdvReac Type Severity Reaction Status Date / Time No Known Drug Allergies Allergy Verified 01/04/21 07:39 tomato juice AdvReac Intermediate Other (See Uncoded 01/04/21 07:39 Comment) Home Medication Medication Instructions Recorded amlodipine 2.5 mg tablet 5 mg PO QAM 06/10/19 aspirin [Aspirin Low Dose] 81 mg PO DAILY 09/06/19 meclizine 25 mg PO TID PRN #20 tab 11/28/19 cholecalciferol (vitamin D3) 10 mcg PO DAILY 05/15/20 [Vitamin D3] cyanocobalamin (vitamin B-12) 1,000 mcg PO DAILY 05/15/20 ubidecarenone-omega 3-vit E 1 cap PO DAILY 05/15/20 vitamin E 400 unit PO DAILY 05/15/20 magnesium 250 mg tablet 500 mg PO DAILY tab 12/28/20 Current Visit Medications: Current Medications Generic Name Dose Route Start Last Admin Trade Name Freq PRN Reason Stop Dose Admin Acetaminophen 650 mg 01/04/21 07:15 Acetaminophen 325 Mg Tab PO Q4H PRN PRN Docusate Sodium 100 mg 01/04/21 07:15 Docusate Sodium 100 Mg Cap PO BID PRN PRN Ringer's Solution 1,000 mls @ 100 mls/hr 01/04/21 06:00 IV 02/02/21 23:59 INFUSION LADI Cefazolin Sodium 2,000 mg/ 100 mls @ 200 mls/hr 01/04/21 06:00 Sodium Chloride IVPB 01/04/21 23:59 PREOP LADI Tranexamic Acid 1,000 mg/ 60 mls @ 360 mls/hr 01/04/21 06:00 Sodium Chloride IVPB 01/04/21 23:59 PREOP LADI Cefazolin Sodium/Dextrose 1 gm in 50 mls @ 100 mls/hr 01/04/21 16:00 Ancef Duplex IVPB 01/05/21 08:29 Q8H LADI Ondansetron HCl 4 mg/ Sodium 52 mls @ 200 mls/hr 01/04/21 07:15 Chloride IVPB Q6H PRN PRN Diphenhydramine HCl 25 mg/ 50.5 mls @ 100 mls/hr 01/04/21 07:15 Sodium Chloride IVPB Q6H PRN PRN IV Miscellaneous Supplies 1 each 01/04/21 06:00 Iv Access IV 02/02/21 23:59 DIRECTED LADI Morphine Sulfate 4 - 6 mg 01/04/21 07:15 Morphine 10 Mg/Ml Vial IVP Q2H PRN PRN Oxycodone HCl 5 mg 01/04/21 07:15 Oxycodone 5 Mg Tab PO Q3H PRN PRN Pain Sodium Chloride 0 ml 01/04/21 06:00 Normal Saline Flush 10 Ml Syr IV 02/02/21 23:59 PRN PRN Sodium Chloride 0 ml 01/04/21 06:00 Normal Saline 10 Ml Vial IJ 02/02/21 23:59 DIRECTED PRN Sterile Water 0 ml 01/04/21 06:00 Water,Injection,Sterile 10 Ml Vial IJ 02/02/21 23:59 DIRECTED PRN PFSH Active Problems Active Problems: Problem Status Onset Code Vaginal discharge N89.8 History of breast cancer Z85.3 Thickened endometrium R93.89 History of tamoxifen therapy Z92.29 Rotator cuff tear arthropathy of left shoulder M75.102, M12.812 Tendinitis of long head of biceps brachii of left shoulder M75.22 Contracture of left shoulder M24.512 Postmenopausal bleeding N95.0 History of hysteroscopy Z98.890 Atrophic vaginitis N95.2 HTN (hypertension) I10 Hx of partial mastectomy Z90.10 Hx of lumpectomy Z98.890 Hx of mastectomy Z90.10 History of reconstruction of left breast Z98.82 Hx of repair of right rotator cuff Z98.890 Hx of appendectomy Z90.49 Hx of tonsillectomy Z90.89 Medical History Medical History (Updated 01/04/21 @ 07:57 by Stella Calderón) Atrophic vaginitis Breast cancer HTN (hypertension) Postmenopausal bleeding Surgical History Surgical History History of hysteroscopy 01/2020. for thickened endometrium while taking Tamoxifen. D&C: inactive endometrium. History of reconstruction of left breast Hx of appendectomy Hx of dilation and curettage 01/2020 for thickened endometrial lining: inactive endometrium Hx of lumpectomy multiple Hx of mastectomy Left breast with reconstruction Hx of partial mastectomy Right Hx of repair of right rotator cuff Hx of tonsillectomy Tobacco Smoking/Tobacco Use Status: Former Tobacco Use Tobacco: How many years used: 7 Alcohol Alcohol Intake: current Alcohol intake frequency: a few times a week Alcohol type: wine Substance Use Substance use: Never Substance use type: does not use Vital Signs and Lab Results Vital Signs Most Recent Vital Signs in EMR: Most Recent Vital Signs Temp Pulse Resp BP Pulse Ox 36.3 C L 74 16 148/90 H 98 01/04/21 07:46 01/04/21 07:46 01/04/21 07:46 01/04/21 07:46 01/04/21 07:46 Lab Results Blood Type / Crossmatch: No Data to Display Complete Blood Count: No Data to Display Complete Metabolic Panel: No Data to Display Liver Function Panel: No Data to Display Coagulation Panel: No Data to Display Cardiac Panel: No Data to Display Arterial Blood Gas: No Data to Display Venous Blood Gas: No Data to Display Pancreas Panel: No Data to Display Thyroid Panel: No Data to Display Infectious Disease: Coronavirus (COVID-19)(PCR) Negative (Negative) 01/02/21 10:59 01/02/21 Coronavirus 2019 Source Nasal/Nares 01/02/21 10:59 01/02/21 Blood Cultures: No Data to Display Toxicology Panel: No Data to Display Imaging and Studies Imaging and Studies EKG Summary: Conclusion Sinus rhythm...normal P axis, V-rate 60- 99 I have reviewed and interpreted ECG and agree with software generated interpretation. 05/15/20 Stress Test Summary: Stress ECG Conclusion 1. The resting electrocardiogram showed poor R wave progression 2. The patient exercised on the Melchor protocol and achieved a workload of 13.05 METS, limited by hip pain. 3. Normal heart rate and blood pressure response to exercise. The patient achieved greater than 100% of predicted heart rate for age 4. There was no electrocardiographic evidence of myocardial ischemia 5. There were occasional atrial and ventricular ectopic beats noted Lester Treadmill Score is 10.1 which is Low risk. 05/25/20 Carotid Artery Summary:: IMPRESSION: Normal CTA of the carotids. Multifocal atherosclerotic changes of the left axillary artery without evidence of severe stenosis or occlusion. Diminutive left vertebral artery with multifocal atherosclerotic changes. 05/15/20 Anesthesia Assessment and Plan Anesthesia History Personal History: No History of Anesthesia Complications Family History: No Family History of Anesthesia Complications Exercise Tolerance Exercise Tolerance: Metabolic Equivalents>4 Pertinent Negatives Pertinent Negatives: No Symptoms of GERD, No Major Cardiovascular Symptoms or Complaints, No Major Pulmonary Symptoms or Complaints (Prn albuterol, not used recently) and No History of CVA/TIA Cardiac & Pulmonary Exam Cardiac Exam: Normal S1/S2 Heart Sounds Pulmonary Exam: Clear Bilateral Breath Sounds Airway Exam Known Difficult Airway: No Mallampati Class: 1 Mouth Opening: Normal (> 3cm) Thyromental Distance: Greater than 3 cm Neck Range of Motion: Full ROM Neck Circumference: Normal Teeth Condition: Normal Dentition ASA Classification ASA Score: ASA 2 Emergency Case?: No NPO Status NPO Status: NPO Clears >2 hours, Solids >8 hours Anesthesia Plan Resuscitation Status: Full Code Anesthesia Technique: General Anesthesia Airway Planned: Endotracheal Tube Monitors Used: Standard Monitors
[2021-01-04] MEDS: Lactated Ringers 1,000 ML 100 ML IV ×2 (09:31→18:54)
--- NOTE | 2021-01-04 13:14 | W.ANESNERVE ---
Nerve Block Single Injection Procedure Date and Time Date Performed: 01/04/21 Procedure Start: 12:16 Location Where Procedure Performed Procedure Location: PACU Reason Performed: Postoperative Analgesia Requesting Provider: Ant Klein Timeout Performed Timeout Performed: Yes Monitoring Used ECG, Blood Pressure and SpO2 Sterility Sterility: Hand Hygiene, Surgical Cap, Surgical Mask, Sterile Gloves and Chlorhexidine Sedation Given During Procedure Sedation Given (Indicate Dose Given): No Sedation given Patient Mental Status Patient Mental Status: Awake Nerve Block 1st Nerve Block: Laterality: Left Block Type: Interscalene Needle / Catheter Used: 100mm SonoPlex II Local Anesthetic Bolus (Indicate Dose Given): Lidocaine used for local infiltration of skin, Injected in 3-5ml increments after negative blood aspiration, Bupivacaine 0.5% Dose:: 10mL and Exparel Dose:: 10mL Additives (Indicate Dose Given): None Ultrasound: Sterile probe cover and gel used Ultrasound Image Saved?: Yes Nerve Stimulator: Not Used Paresthesia: None Procedure Tolerated: No Complications and Patient tolerated well Procedure Outcome: Successful Performed By: Melissa Muñoz Supervised By: Danilo Oliva
[2021-01-04] MEDS: ceFAZolin 2,000 MG in Normal Saline 100 ML 200 MG IVPB (13:43)
--- NOTE | 2021-01-04 17:00 | DI.RAD_ITS ---
Exam(s) XR SHOULDER LT COMPLETE 2+V EXAM: XR SHOULDER LT COMPLETE 2+V CLINICAL HISTORY: Postop TECHNIQUE: COMPARISON: CR XR SHOULDER LT COMPLETE 2+V from 10/10/2020 FINDINGS: Three views were obtained and show reverse shoulder prosthesis in position. Components appear well s eated. No other significant bony abnormality seen. IMPRESSION: RADIATION DOSE DELIVERED: Total DLP
--- NOTE | 2021-01-04 17:05 | W.ANESPOSTOP ---
Postoperative Evaluation Date, Time and Location Date Performed: 01/04/21 Time Performed: 17:05 Patient Location: PACU Vital Signs Most Recent Imported Vital Signs: Most Recent Vital Signs Temp Pulse Resp BP Pulse Ox 36.1 C L 81 19 147/87 H 95 01/04/21 17:03 01/04/21 17:03 01/04/21 17:03 01/04/21 17:03 01/04/21 17:03 Pain Score Most Recent Pain Score: Most Recent Pain Score Pain Level 4 01/04/21 07:46 Assessment Mental Status: Arousable with meaningful communication Airway and Respiratory Function: Patent airway with normal (patient baseline) respiratory exam Cardiovascular Function: Hemodynamically Stable Hydration Status: Adequately Hydrated Nausea & Vomiting: No Nausea or Vomiting Pain: Pt. Denies Any Pain Peripheral Nerve Block: Regional nerve block not resolved at time of post operative discharge
--- NOTE | 2021-01-04 18:35 | W.PM.OP ---
Date of service: 01/04/21 Time of Service: 15:00 Operative Note Operative Note DATE OF PROCEDURE: 01/04/21 PRE-OP DIAGNOSIS: Left: 1. End-stage rotator cuff arthropathy 2. Long head of the biceps tendinopathy 3. Prior rotator cuff repair retained hardware POST-OP DIAGNOSIS: same PROCEDURE: Left: 1. Reverse total shoulder arthroplasty, CPT # 96907 2. Open biceps tenodesis, CPT # 53580 3. Removal of deep implants, CPT #85428: Prior suture anchor and suture material from failed rotator cuff repairs The orthotic assistant was medically required as this procedure involves retraction, protection of neurovascular structures, and manipulation of multiple instruments and implants at the same time, which cannot be done without a skilled orthotic assistant. SURGEON: Ant Klein HVAC SHEET METAL INSTALLER: Fe Gonzales ANESTHESIA TYPE: Local By Surgeon, General LMA/ETT and Primary Nerve Block Refer to Anesthesia Record ESTIMATED BLOOD LOSS: 150 PATHOLOGY: none sent TOURNIQUET TIME: 0 COMPLICATIONS: None Patient was transported to: PACU Patient's condition: stable Implants: [employer] modular glenoid system baseplate 24 mm with 20 degree full augment [employer] modular glenoid system central post 30 mm [employer] modular glenoid system peripheral nonlocking screw inferior 4.5 x 40 mm; locking screws 5.5 x 28 mm superior, 20 mm posterior, 16mm anterior [employer] modular glenoid system glenosphere 36 +4 mm lateralized [employer] humeral stem 135 degrees size 6 [employer] suture cup size 36 neutral [employer] humeral insert size 36 +6 mm Indications: Please see complete medical record for details. Findings: Severe glenohumeral arthritis complete loss articular cartilage, deformity, and impinging osteophytes. Significant anterior capsular contraction. Degeneration thickening and partial nearly full-thickness tearing of the subscapularis, supraspinatus, and to a lesser extent the infraspinatus. Significant long head of the biceps tendon tenosynovitis, edema, and fraying. Significant posterior and superior bone loss deformity and medialization of glenoid. Procedure Description: In the operating room, general anesthesia was induced. The patient was positioned beachchair on the operating room table. All bony prominences were well-padded. Preoperative antibiotics were administered. The shoulder was prepped and draped in the usual sterile fashion for shoulder arthroplasty. The correct patient, procedure, and side of the procedure were all verified prior to incision. The deltopectoral approach was taken to the anterior shoulder. Care was taken to bluntly dissect the interval between the deltoid and pectoralis major muscles and to identify the cephalic vein within its fat stripe. The diminutive vein was mobilized laterally. Subdeltoid space and conjoined tendon were freed of numerous adhesions from prior rotator cuff surgeries and prolonged contracture. The long head of the biceps tendon was identified just lateral to the lesser tuberosity. The uppermost margin of the pectoralis major tendon was released from the proximal humerus. The long head of the biceps tendon was tenodesed in situ using suture tape in a [id number] fashion securing it superior margin the pectoralis major tendon. The biceps tendon was amputated and followed proximally to identify the rotator interval. A subscapularis peel was performed taking care to release the entirety tendon in a full-thickness fashion from superior to inferior and lateral to medial while bringing the arm gradually into external rotation. Care was taken to avoid the axillary nerve by only working on the bone inferiorly and medially. An inferior humeral head osteophyte was removed in piecemeal using a rondure to aid in subscapularis and capsular release. The subscapularis was carefully freed anterior and posterior to improve excursion and release the anterior capsule and was then tucked medial to the glenoid for retraction. The supraspinatus was largely absent. Most of the infraspinatus was absent as well with some probably posterior remnant sutures and intact teres. Prior retained rotator cuff repair greater tuberosity permanent suture was encountered and removed with a rongeur. Appropriate coagulation was achieved especially inferiorly. The surgical neck was cut using an oscillating saw and and then a rongeur was used to remove slightly more bone superiorly and bone brought back table in case there was a need for future bone grafting. The proximal humeral protection plate was used to provisionally confirm suture cup and glenosphere size and then gently impacted over the bone cut. Attention was then turned to the glenoid and retractors were placed and a 360 degree release performed using the long head of the biceps remnant to remove soft tissue about the glenoid rim. The axillary nerve was palpated but not exposed inferior and traversing from beneath the subscapularis tendon appropriately below the scapular neck heading posteriorly. Care was taken inferiorly to work on bone only between 5 and 7:00 o'clock and bluntly elevate tissues inferiorly. The glenoid was decorticated soft tissue and a minimal amount of residual cartilage. Once adequate exposure had been achieved, the VIP guide was placed on the glenoid and used to confirm placement and trajectory of the central guidepin which was somewhat challenging given diminutive patient size limiting space for instruments about the glenoid as well as amount of deformity present.. The guidepin was inserted through the VIP guide and advanced just through the far cortex ensuring adequate central screw length. Depth gauge was used to confirm appropriate central screw length. The 20 degree full wedge defect checkers were used to estela the area of maximal defect to confirm appropriate guidewire placement. The remote pilot operator drill and then 20 degree offset reamer used to achieve a concentric ream surface removing the planned amount of bone more anteriorly and inferiorly. The central drill was passed to the positive stop over the guidewire. The the augmented baseplate was then assembled on the back table and then impacted into position carefully adjusting rotation to assure complete seating, which was confirmed after the baseplate was final impacted. Testing of the glenoid baseplate resulted in movement through the entire scapula. A nonlocking screw was then placed bicortically in the inferior position with excellent length and physics and strength appropriately completing compression of the baseplate to the prepared glenoid as well as securing inferior tilt in position. The remainder superior, posterior, and an anterior glenosphere screws were drilled and filled with appropriately length similar to the template locking screws. The over baseplate reamer was used to confirm adequate peripheral reaming had been achieved removing a small additional amount of bone inferiorly. Humeral protection plate was then removed to allow more space for glenosphere insertion. The preselected lateralized glenosphere was applied with the trade show manager and then impacted to engage the Khalil taper. It was then locked with appropriate Countersinking of the setscrew. The glenosphere was inspected and found to have good fit, appropriate positioning, and no soft tissue or bony impingement especially inferiorly. Attention was then turned back to the proximal humerus, which was delivered from the wound and maintained in external rotation. reamers were started appropriately posterior to the bicipital groove taking care to maintain lateralized alignment so as to be straight in line with the humeral canal. Reaming was done up to size 6. The broaches were sequentially used to open the proximal humerus starting with a size 5 and going up to size 6 and sunk to the appropriate depth while maintaining approximately 30 degrees retroversion. The size 6 had excellent metaphyseal fit and rotational control the humerus. A size 7 was considered but would have to have been proud given the appropriate location of the size 6 trial to the medial calcar bone. A neutral offset guide was used to ream for the suture cup carefully given the thin bone surrounding the proximal humerus inlet area. The humeral trial cup was connected. Trialing was commenced with +3mm liner. The shoulder was reduced and taken through range of motion. It was felt to have reasonable tension on the conjoined but moderate laxity to the deltoid and superior instability. Trialing was then done with a +6 mm liner with good tension on the conjoined tendon and improved stability. Range of motion was tested past 90 degrees forward elevation, 75 degrees external rotation, and internal rotation across the patient with no appreciable impingement or notching. The trial components were removed from the proximal humerus. The wound was copiously irrigated with normal saline. Bone drill holes for subscapularis repair was omitted given subscapularis contracture unlikely to make it over laterally especially considering distalization as well as thin bone around the suture cup. A small amount of vancomycin powder was distributed into the proximal humerus. The the proximal humeral stem and suture cup were assembled on the back table. They were brought over to the proximal humerus. Humerus and suture cup were appropriately impacted into the proximal humerus. There were tested and found of excellent rotational control and fixation. Trial reduction for stability and range of motion was done again with the +6 mm combination spacer and liner. Reduction demonstrated an excellent clunk with definitive tension on the conjoined tendon. The deltoid diminutive was not overly tension. There is excellent range of motion and stability. In about 4545 degrees abduction external rotation direct lateral and superior force could sublux the proximal humerus with immediate reduction from the subacromial space. This is felt to be appropriate given patient age and bone quality and tension already on the conjoined tendon. The trial liner was removed and the final +6 mm liner was inserted and the shoulder removed with this final implant demonstrating appropriate range of motion and stability. The shoulder was copiously irrigated with normal saline and then irrisept. Vancomycin powder was distributed deeply about the shoulder and through subcutaneous tissues. The arm was placed in 50 degrees of external rotation. The subscapularis was further released bluntly and reduced to the suture cup with 2 sets of Rolly-Mo stitches using suture tape. An additional suture tape repair was done of the most lateral rotator interval given the above anterior slight laxity. The proximal humerus could no longer subluxate in any position superiorly. The replacement was now covered anteriorly and superiorly with deep tissue. The deltopectoral interval was l allowed to close itself. subcutaneous tissue was irrigated then closed using 2-0 Monocryl in a buried interrupted fashion. The skin was closed using 3-0 Monocryl in a buried subcuticular fashion. Skin glue was applied to the incision. A silver impregnated bandage was placed over the incision. The extremity was placed into a shoulder immobilizer. The patient awoke from anesthesia without complication and was taken to the recovery room in stable condition.
--- NOTE | 2021-01-04 18:41 | W.PM.PROGNOT ---
Date of Service Date of service: 01/04/21 Time of Service: 18:00 Assessment and Plan Assessment and plan (1) Rotator cuff tear arthropathy of left shoulder: Status: Acute Assessment and plan: 75-year-old female postop day #0 status post left reverse total shoulder arthroplasty with contracture release, biceps tenodesis, and removal of prior rotator cuff repair hardware Complete 24 hours postoperative antibiotics Void trial. If unable to void, place carlson and discontinue catheter AM postop day #1 Pain control-Multimodal as ordered. Physical therapy and Occupational Therapy ordered: Reverse TSA protocol. Should remove sling while in bed or resting. Recommend sling when ambulatory or out of home. Passive range of motion to the shoulder. Active range of motion elbow, wrist, and hand. May use upper extremity gently for all essential ADLs including active range of motion within a limited arc with light weightbearing. Avoid any resisted pulling, pushing, or lifting anything heavier than a coffee. Do NOT push up from a chair or extend arm behind back for 6 weeks. Continue mechanical DVT prophylaxis with SCDs and/or QIAN hose Resume home 81 mg ASA 24 hours postoperative Plan discharge home tomorrow with home health services and physical therapy as needed (2) Tendinitis of long head of biceps brachii of left shoulder: Status: Acute (3) Contracture of left shoulder: Status: Acute Subjective Subjective Interval history since last seen: Comfortable, no pain or complaints Exam Narrative Exam Narrative: Resting comfortably in PACU. Awake and alert. Breathing comfortably 2+ left radial pulse regular rate and rhythm Tolerates painless passive range of motion with the shoulder. Significant dense sensory and motor nerve block about the left shoulder and upper extremity. Minimal flicker hand flexor. Left forearm removed from sling and gently elevated on pillow. Objective Last Vital Signs Temp 97.2 F L 01/04/21 17:23 Pulse 83 01/04/21 17:23 Resp 14 01/04/21 17:23 BP 145/83 H 01/04/21 17:23 Pulse Ox 97 01/04/21 17:23
[2021-01-04] MEDS: ceFAZolin 1 GM/50 ML BAG IVPB (18:53)
[2021-01-05 00:14] VITALS: BP 159/88; PULSE 87; RESP 17; TEMP 36.7; O2SAT 97
--- NOTE | 2021-01-05 00:51 | NUR.NOTE ---
Nursing Note: Positive CSMT to Left shoulder. Pt reports numbness in arm but is able to wiggle fingers.
[2021-01-05] MEDS: ceFAZolin 1 GM/50 ML BAG IVPB ×2 (02:01→10:24)
--- NOTE | 2021-01-05 07:15 | W.PM.PROGNOT ---
Date of Service Date of service: 01/05/21 Time of Service: 07:00 Assessment and Plan Assessment and plan (1) Rotator cuff tear arthropathy of left shoulder: Status: Acute Assessment and plan: 75-year-old female postop day #1 status post left reverse total shoulder arthroplasty with contracture release, biceps tenodesis, and removal of prior rotator cuff repair hardware Pain control-Multimodal as ordered. Physical therapy and Occupational Therapy ordered: Reverse TSA protocol. Should remove sling while in bed or resting. Recommend sling when ambulatory or out of home. Passive range of motion to the shoulder. Active range of motion elbow, wrist, and hand. May use upper extremity gently for all essential ADLs including active range of motion within a limited arc with light weightbearing. Avoid any resisted pulling, pushing, or lifting anything heavier than a coffee. Do NOT push up from a chair or extend arm behind back for 6 weeks. Continue mechanical DVT prophylaxis with SCDs and/or QIAN hose while inpatient Home dose 81 mg ASA daily as chemo DVT prophylaxis Plan for discharge home today (2) Tendinitis of long head of biceps brachii of left shoulder: Status: Acute (3) Contracture of left shoulder: Status: Acute Subjective Subjective Interval history since last seen: No complaints. Comfortable, Exam Narrative Exam Narrative: Awake, alert, and resting comfortably. Breathing easily on room air 2+ left radial pulse regular rate and rhythm Tolerates painless passive range of motion with the shoulder. Mild sensory and motor nerve block about the left shoulder and upper extremity but all distributions with some intact sensation Motor improved demonstrate intact elbow wrist and hand Mild peribandage ecchymosis. Arm compartments soft. Objective Last Vital Signs Temp 99.0 F 01/05/21 07:22 Pulse 80 01/05/21 07:22 Resp 18 01/05/21 07:22 BP 137/80 01/05/21 07:22 Pulse Ox 96 01/05/21 07:22
[2021-01-05 07:22] VITALS: BP 137/80; PULSE 80; RESP 18; TEMP 37.2; O2SAT 96
--- NOTE | 2021-01-05 07:23 | W.PM.DS.N ---
Date of service: 01/05/21 Time of Service: 07:21 DS: Diagnosis Discharge Diagnosis (1) Rotator cuff tear arthropathy of left shoulder: Status: Acute (2) Tendinitis of long head of biceps brachii of left shoulder: Status: Acute (3) Contracture of left shoulder: Status: Acute Discharge Plan Disposition Patient Disposition: HOME Condition: Stable Discharge Details Reason For Visit: Left shoulder surgery Admit Date/Time: 01/04/21 07:00 Admit Provider: Ant Klein Attending Provider: Ant Klein Primary Care Provider: Dorothea Kaufman [facility] Course Hospital Course: Left reverse TSA 01/04/2021. Postoperative course uncomplicated. Home Meds and New Rx's Prescriptions: New naproxen 250 mg tablet 250 - 500 mg PO BID PRN (Reason: Moderate pain or swelling) Qty: 40 RF: 0 oxycodone 5 mg tablet 5 - 10 mg PO Q4H PRN (Reason: moderate to severe pain) Qty: 16 RF: 0 Continued magnesium 250 mg tablet 500 mg PO DAILY RF: 0 amlodipine 2.5 mg tablet 5 mg PO QAM RF: 0 vitamin E 400 unit Capsule 400 unit PO DAILY RF: 0 cholecalciferol (vitamin D3) [Vitamin D3] 10 mcg (400 unit) Capsule 10 mcg PO DAILY RF: 0 aspirin [Aspirin Low Dose] 81 mg Tablet,Delayed Release (Dr/Ec) 81 mg PO DAILY RF: 0 meclizine 25 mg tablet 25 mg PO TID PRN (Reason: dizziness) Qty: 20 RF: 0 No Action cyanocobalamin (vitamin B-12) 25 mcg Tablet 1,000 mcg PO DAILY RF: 0 ubidecarenone-omega 3-vit E 50-300-30 mg-mg-unit Capsule 1 cap PO DAILY RF: 0 Discharge Instructions Additional Instructions: Surgery: Left reverse shoulder replacement with biceps tenodesis Activity: Do not lift anything heavier than a coffee. You should keep your arm at your side in a neutral position at all times except for gentle range of motion exercises, physical therapy, and essential activities. You should use the sling whenever you are out of the house. You may have to adjust the abduction pillow or remove it for comfort. At home it is best to remove the sling and rest the arm on a pillow at your side or support the operative side with your other hand. A physical therapy prescription will be sent electronically to start in 2-3 weeks. DO NOT extend your arm behind your back for at least 6 weeks. Reverse TSA Protocol: Postoperative Weeks 0-6 ?Immobilization: Sling may be removed for therapeutic exercises, resting in bed or chair, and bathing ?Motion exercises: Pendulum exercises, elbow range- of-motion exercises, wrist pzakv-xb-ioqyby exercises, and road mechanic strengthening ?Restrictions: No active internal rotation or backwards extension Postoperative Weeks 6-12 ?Immobilization: Sling discontinued ?Motion exercises: Shoulder passive range of motion, advancing to active-assisted range of motion, and finally active range of motion with a goal of forward flexion to 90? and external rotation of 20? ?Strengthening exercises: Light, resisted forward flexion, external rotation, and abduction limited to isometric exercises and therapy bands with concentric motions only. Continue road mechanic strengthening ?Restrictions: No resisted internal rotation or backwards extension. No scapular retraction exercises with therapy bands Postoperative Months 3-12 ?Motion exercises: Increase [id number]-rv-ospzqt exercises to achieve full motion, with passive stretching at end ranges ?Strengthening: Begin resisted, internal rotation and backwards extension initially with isometric exercises advancing to light therapy bands and then weights. Advance other shoulder strengthening exercises to include the rotator cuff, deltoid, and scapular stabilizers. Advance to functional strengthening, including plyometric exercises and core strengthening. Prescriptions: Resume Aspirin 81 mg take 1 daily Naproxen 250 mg take 1-2 every 12 hours with a meal as needed for moderate pain Oxycodone 5 mg take 1-2 every 4-6 hours as needed for severe pain You may use elgp-zmk-[id number] Tylenol (acetaminophen) as needed for mild pain. These pain medications may be taken all at once or in different combinations as needed. Also, recommend Colace (docusate) as a stool softener as surgery and pain medicine cause constipation. Dressings: Leave dressing in place until follow-up. Keep clean and dry at all times. No showers please. Follow-up: 10-[address] Klein (01/17/21 at 8:45 AM) Please call the office during business hours with any questions or concerns. Let us know right away if you develop any redness, drainage, fevers, chest pain, or trouble breathing. Do not drink alcohol or drive for at least 24 hours after anesthesia. Referrals: Ant Klein MD [ [facility] STAFF PHYSICIAN] - Activity:: Nonweightbearing left gill Equipment/Supplies:: Shoulder immobilizer Diet:: As Tolerated Discharge Orders Discharge Orders: Discharge Order (Routine); Ordered 01/05/21 Ordered By: Ant Klein DS: Summary Time Spent with Patient providing and/or coordinating discharge services: Less than 30 minutes Status at Discharge Functional status at discharge: independent ambulation Overall status at discharge: patient is progressing back to baseline Mental Status: mental status grossly normal Speech and Movement: speech and movement normal Mood: congruent mood Affect: normal affect Exam Psych Mental Status: mental status grossly normal Speech and Movement: speech and movement normal Mood: congruent mood Affect: normal affect DS: Data Vitals/I&O Vitals and I&O: Vital Signs Temperature 97.3 F L 01/04/21 07:46 Pulse 74 01/04/21 07:46 Pulse Rhythm Regular 01/04/21 07:46 Respiratory Rate 16 01/04/21 07:46 Respiratory Depth Normal 01/04/21 07:46 Blood Pressure 148/90 H 01/04/21 07:46 Pulse Oximetry 98 01/04/21 07:46 Oxygen Delivery Method Room Air 01/04/21 07:46 Oxygen Flow Rate 0 01/04/21 07:46 Pain Level 4 01/04/21 07:46 Intake & Output 01/03/21 01/04/21 01/04/21 23:59 11:59 23:59 Weight 112 lb 10.499 oz [facility] Medical History Atrophic vaginitis Breast cancer HTN (hypertension) Postmenopausal bleeding Surgical History History of hysteroscopy 01/2020. for thickened endometrium while taking Tamoxifen. D&C: inactive endometrium. History of reconstruction of left breast Hx of appendectomy Hx of dilation and curettage 01/2020 for thickened endometrial lining: inactive endometrium Hx of lumpectomy multiple Hx of mastectomy Left breast with reconstruction Hx of partial mastectomy Right Hx of repair of right rotator cuff Hx of tonsillectomy Social History Smoking/Tobacco Use Status: Former Tobacco Use Quit Date: 05/05/65 Tobacco: How many years used: 7 Smoking risk assessment performed?: Yes Alcohol Intake: current Alcohol Intake frequency: a few times a week Alcohol type: wine Drug use: Never Substance use type: does not use 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
[2021-01-05] MEDS: Multivitamin TAB 1 TAB PO (08:14)
[2021-01-05] MEDS: amLODIPine 5 MG TAB PO (08:14)
[2021-01-05] MEDS: Aspirin E.C. 81 MG TABEC PO (08:15)
[2021-01-05] MEDS: Acetaminophen 325 MG TAB 650 MG PO (08:24)
--- NOTE | 2021-01-05 09:54 | PT.INIE ---
Date of service: 01/05/21 Time of Service: 09:54 PT Notes Visit Reasons: Left Shoulder Arthritis Physical Therapy Inpatient Initial Evaluation Date: 01/05/2021 Referring Doctor: Ant Klein MD PT Orders: PT CONSULT: Status post Ortho surgery. Left reverse TSA Precautions: Fall. Standard. Activity as tolerated. Patient Profile/Admitting Diagnosis: Patient is a 75-year-old female with diagnosis of rotator cuff tendinopathy, tendinitis of the left head of the biceps brachii, and left shoulder joint contracture status post left reverse total shoulder arthroplasty on postoperative day 1. PMHX: Medical History (Updated 12/19/20 @ 15:43 by Ant Klein MD) Atrophic vaginitis HTN (hypertension) Surgical History (Updated 06/15/20 @ 19:49 by Letty Song MD) History of hysteroscopy 01/2020. for thickened endometrium while taking Tamoxifen. D&C: inactive endometrium. History of reconstruction of left breast Hx of appendectomy Hx of dilation and curettage 01/2020 for thickened endometrial lining: inactive endometrium Hx of lumpectomy multiple Hx of mastectomy Left breast with reconstruction Hx of partial mastectomy Right Hx of repair of right rotator cuff Hx of tonsillectomy Social History/Home Situation: Independent with all aspects of ADLs prior to surgery. 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 Equipment Owned/DME: Single-point cane Subjective: Agreeable to PT consult. Reports 4/10 pain in the right shoulder. Denies headache, chest pain, and lightheadedness throughout session. Objective: General Observation: Sitting on bedside recliner. In NAD. Right UE in sling. Mental Status: Alert and oriented as to person, place, time, and purpose. Able to pay attention, focus, and respond appropriately. Pain: 4/10 in right shoulder ROM: Right Upper Extremity: Shoulder Flexion passively to about 90 degrees. Shoulder abduction passively to 80 degrees. Elbow flexion active assistive with use of opposite UE with full range of motion achieved. Wrist flexion WFL. Functional opening and closing of hand WFL. Left Upper Extremity: Shoulder Flexion WFL. Shoulder abduction WFL. Elbow flexion WFL. Wrist flexion WFL. Functional opening and closing of hand WFL. Strength: Right Upper Extremity: Shoulder flexors NT. Shoulder abductors NT. Elbow flexors 3-/5. Elbow extensors 3-/5. News Gathering Technician weak but functional. Left Upper Extremity: Shoulder flexors 5/5. Shoulder abductors 5/5. Elbow flexors 5/5. Elbow extensors 5/5. News Gathering Technician strong. Bed Mobility/Transfers: Supine to sit independent Sit to supine independent Sit to stand independent Stand to sit independent Bed to reclining chair independent Reclining chair to bed independent Gait: Independent with surface ambulation of up to 300 feet using single-point cane with left UEs in a sling. Gait unremarkable except for absent left UE swing due to placement in an arm sling. Balance: Static Sitting: Normal Dynamic Sitting: Normal Static Standing: Normal Dynamic Standing: Good Special Tests: Mobility Limitations Standardized Measure [facility] 6 clicks Basic Mobility Inpatient Short Form: Raw Score: 24 0 CMS Score: % deficit Informed Consent/Education: Patient was instructed in purpose of PT consult and plan of care. Agreeable to proceed with established PT POC to achieve personal goals. Assessment: Patient is able to ambulate unlimited distances with with a single-point cane with no gait abnormalities observed. Patient presents with clinical signs and symptoms consistent with current/admitting diagnoses that have resulted to mobility limitations, gait instability, generalized weakness, and overall ADL decline as demonstrated by the following impairment level findings: 1. Decreased strength to right shoulder major muscle groups 2. Lack of arm swing on the right during ambulation 3. Limitation of joint range of motion in R shoulder and elbow Impairments are contributing to the following functional limitations: 1. Need for assistance with dressing and bathing Patient is assessed as a [id number] moderate complexity based on the following: History: 75 [id number] with past medical history as indicated above Examination: Demonstrable impairment in strength, balance, and mobility level with underlying impairments and functional limitations as exhibited above as well as deficit score of 0% utilizing the [facility] Mobility Inpatient Short Form Presentation: Evolving Decision Makin moderate complexity Goals: N/A. PT evaluation 1 treatment session only for passive ranging of L shoulder and functional mobility training. Plan of Care/Treatment Plan: N/A. PT evaluation 1 treatment session only for passive ranging of L shoulder and functional mobility training. DISCHARGE RECOMMENDATIONS: Home when medically cleared by orthopedic surgeon. Outpatient PT services in order to facilitate return to premorbid independent ADL performance. TREATMENT CODE/TIME: 14683 x 15 minutes, 54747 times 15 minutes, 9711 0 x 12 minutes beginning at 9:54 AM. Thank you for the opportunity to participate in the care of this patient. Rachael Gruber PT, DPT, CLT [facility] [place], [place]
--- NOTE | 2021-01-05 10:01 | OTIE_ITS ---
Occupational Therapy Notes Inpatient Occupational Therapy Evaluation Date: 01/05/21 Referring Doctor: Ant Klein MD OT Orders: Urgent- ORtho Precautions: Reverse Total Shoulder, Full PATIENT PROFILE/ADMITTING DIAGNOSIS: Pt is a 75 year old female who was referred to skilled Occupational Therapy services s/p a 1. Reverse total shoulder arthro plasty, CPT # 33801 2. Open biceps tenodesis, CPT # [id number] 3. Removal of deep implants, CPT #[id number]: Prior suture anchor and suture material from failed rotator cuff repairs performed by Dr. Klein on 01/04/21. Past Medical History: Medical History (Updated 12/19/20 @ 15:43 by Ant Klein MD) Atrophic vaginitis HTN (hypertension) Surgical History (Updated 06/15/20 @ 19:49 by Letty Song MD) History of hysteroscopy 01/2020. for thickened endometrium while taking Tamoxifen. D&C: inactive endometrium. History of reconstruction of left breast Hx of appendectomy Hx of dilation and curettage 01/2020 for thickened endometrial lining: inactive endometrium Hx of lumpectomy multiple Hx of mastectomy Left breast with reconstruction Hx of partial mastectomy Right Hx of repair of right rotator cuff Hx of tonsillectomy Social History/Home Situation: Pt states that she lives alone and has supports in the community and socially. She walks 5 miles a day and reports that she likes to remain active. She is (I) at her baseline level of function. She was limited with her rotator cuff prior and has utilized compensatory techniques to perform her ADLS. Equipment owned/DME: None SUBJECTIVE: Pt was sitting in chair when OT arrived. She states that she is doing well and feels a little foggy but is looking forward to returning home. OBJECTIVE: General Observation: Pleasant and appropriate, IV in (R) UE Mental Status: A&Ox4 Pain: no c/o pain in (R) shoulder but states that this is still numb. ROM: RUE NT L UE WFL STRENGTH: RUE NT LUE 5/5 throughout FUNCTIONAL MOBILITY/ADLS: DRESSING sitting in chair with min vc throughout Dressing UE (I) don and doffing shirt with vc for in first out last positioning, (I) with don and doffing sling Dressing LE Mod (A) with don and doffing (B) sock s EATING (I) BALANCE: Static sitting Normal Dynamic Sitting Normal SPECIAL TESTS: Daily Activity Limitations Standardized Measure [facility] AM -PAC ?6 clicks? Daily Activity Inpatient Short Form: Raw score: 23 Standardized score: 51.12 CMS score: 15.86% INFORMED CONSENT/EDUCATION: Pt instructed in purpose of OT Consult and plan of care. ASSESSMENT: Patient is a 75-year-old female referred to occupational therapy services with diagnosis of Reverse total shoulder arthroplasty,2. Open biceps tenodesis, Removal of deep implants: performed by Dr. Klien on 01/04/21.. Patient presents with clinical signs and symptoms consistent with dx. OT assessed pts functional (I) at this time and her tolerance to ADLs within precautions. OT and pt went over UE/LE dressing and bathing and pt was receptive to educated and training provided. OT will monitor pts response to todays session and progress accordingly. AMPAC score 23 Patient is assessed as a Low 39572 complexity based on the following: History: see above Examination: see functional limitations as noted above Presentation: stable Decision Making: AMPAC score 23 GOALS N/A seen for OT consult only. PLAN OF CARE/TREATMENT PLAN: Discharge pt from OT services. DISCHARGE RECOMMENDATIONS Home TREATMENT TIME/MINUTES/CODES 61799, 68810, 20 minutes (08:40) Joann Kelly OTR/[facility]
[2021-01-05] MEDS: Normal Saline Flush 10 ML SYR IV (10:24)
[2021-01-05] MEDS: Naproxen 250 MG TAB PO (11:29)
--- NOTE | 2021-01-05 11:52 | PDOC.CMIN ---
- If Service Date Differs Date of service: 01/05/21 Time of Service: 11:52 Care Management Initial Assess REASON FOR HOSPITALIZATION:: Torn rotator cuff PAST MEDICAL HISTORY/PAST SURGICAL HISTORY:: Medical History (Updated 11/15/20 @ 13:45 by Ant Klein MD). Atrophic vaginitis. HTN (hypertension). Surgical History (Updated 06/15/20 @ 19:49 by Letty Song MD). History of hysteroscopy. 01/2020. for thickened endometrium while taking Tamoxifen. D&C: inactive endometrium. History of reconstruction of left breast. Hx of appendectomy. Hx of dilation and curettage. 01/2020 for thickened endometrial lining: inactive endometrium. Hx of lumpectomy. multiple PREVIOUS FUNCTIONAL STATUS/SOCIAL/FAMILY SUPPORTS:: Nataly lives alone in a first floor apartment in [place]. She has a son in [place] [facility] who is very supportive and 2 other children who live in [place]. 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 She is independent at baseline and receives no services. CURRENT FUNCTIONAL STATUS:: Nataly was sitting up in bed when CM met with her. She was pleasant and engaged readily with CM. Nataly shared that she will be discharged soon and does not feel that she needs any services. She identified her son and several close neighbors as good supports. ADVANCE DIRECTIVES:: none on file Has patient been provided with info about the portal/API?: Yes Did the patient sign up for the portal?: Yes (previously) CODE STATUS:: Full Code INSURANCE COVERAGE / FINANCIAL ISSUES:: medicare. BC BS CURRENT HOME/COMMUNITY SERVICES/EQUIPMENT:: none PRIMARY CARE PHYSICIAN:: Dorothea Kaufman POTENTIAL DISCHARGE NEEDS:: follow up with Orthopedic surgeonb, PCP and plan of care PATIENT/FAMILY EDUCATION NEEDS:: Review of discharge instructions, medications, follow up plan, activity, restrictions and limitations, Ask Me Three. TRANSPORTATION:: via private vehicle with family PLAN:: Nataly will be discharged home with no new services. She will follow up with her surgeon, PCP and plan of care and transport with family.
--- NOTE | 2021-01-05 12:16 | PT.INTREAT ---
Date of service: 01/05/21 Time of Service: 11:10 PT Notes Visit Reasons: Left Shoulder Arthritis Inpatient Physical Therapy Treatment Note [facility] Date: 01/05/2021 PRECAUTIONS: rTSA precautions SUBJECTIVE: Nataly is pleasant and agreeable to participating in PT. She reports that her L UE remains mostly numb at this point. She is looking forward to discharging to home this afternoon. OBJECTIVE: PAIN: Patient reports a slight tugging in anterior L shoulder with PROM activities THEREX: With patient in a long-sitting position in her hospital bed, perform PROM to L shoulder into flexion and extension (to neutral), abduction and adduction (to neutral), and IR and ER (to neutral). AAROM to L elbow and forearm into flexion/extension, supination/pronation. AROM to L wrist and hand into flexion/extension, radial/ulnar deviation, and ball squeeze. ASSESSMENT: Patient tolerated session well with minimal complaint of anterior shoulder tugging with PROM. PLAN: Patient to discharge to home later today, per provider. TREATMENT CODE/TIME: 15 minutes; 38346 (11:10)
--- NOTE | 2021-01-05 16:14 | PDOC.CMDIS ---
- If Service Date Differs Date of service: 01/05/21 Time of Service: 16:14 LACE Index Scoring Tool - Questions: Length of Stay (in days): 1 Acuity (Admit via E.D.?): No Comorbidities: Any Tumor E.D. Visits: 1 - Answers: Total Score: 4 Risk of Readmission: Low Risk Care Management Discharge Reason for Hospitalization: Torn rotator cuff Discharge Plan: Nataly will be discharged home with no new services. She will follow up with her surgeon, PCP and plan of care and transport with family. Patient/Family Education Needs: Review of discharge instructions, medications, follow up plan, activity, restrictions and limitations, Ask Me Three.
== END 2021-01-05 14:00 | disposition home or self-care (01) | DRG 483 ==
LOC: PDS 18:00 → MS 18:38
PROVIDERS: Admitting Provider Student in an Organized Health Care Education/Training Program; PCP Family Medicine; Visit Provider Student in an Organized Health Care Education/Training Program
PROC: 0RRK00Z Replacement of Left Shoulder Joint with Reverse Ball and Socket Synthetic Substitute, Open Approach (ICD-10-PCS; CPT 23472; principal; 2021-01-04 12:00)
DX: M75.102 Unspecified rotator cuff tear or rupture of left shoulder, not specified as traumatic (principal); M12.812 Other specific arthropathies, not elsewhere classified, left shoulder; M75.22 Bicipital tendinitis, left shoulder; M24.512 Contracture, left shoulder; Z85.3 Personal history of malignant neoplasm of breast; I10 Essential (primary) hypertension
CPT/HCPCS: 23472; 20680; 23430; 97110; 97162; 97165; 97530; 97535; 73030; J0690; J1100; J1885; J2001; J2370; J2405

== ENCOUNTER 2021-01-17 09:50 | Outpatient (CLI) | payer MEDICARE, BC, SELFPAY ==
--- NOTE | 2021-01-17 08:45 | DI.RAD_ITS ---
Exam(s) XR SHOULDER LT COMPLETE 2+V EXAM: XR SHOULDER LT COMPLETE 2+V CLINICAL HISTORY: left rotator cuff tear arthropathy f/u. TECHNIQUE: 2D digital imaging was performed. COMPARISON: CR XR SHOULDER LT COMPLETE 2+V from 01/04/2021 FINDINGS: BONES: Stable postoperative changes of a left total reverse shoulder replacement. No fracture is tremaine ntified. JOINTS: The joint spaces are well maintained. No joint effusion is present. No dislocation. SOFT TISSUE: Surgical clips overlying the left chest wall. IMPRESSION: Stable postoperative changes. DATA REPOSITORY: RADIATION DOSE DELIVERED:
== END 2021-01-17 09:51 | disposition home or self-care (01) ==
LOC: DIORS 09:50
PROVIDERS: PCP Family Medicine; Referring Provider Family Medicine; Visit Provider Student in an Organized Health Care Education/Training Program
DX: M12.812 Other specific arthropathies, not elsewhere classified, left shoulder (principal); M75.102 Unspecified rotator cuff tear or rupture of left shoulder, not specified as traumatic; M75.22 Bicipital tendinitis, left shoulder; M24.512 Contracture, left shoulder; Z47.1 Aftercare following joint replacement surgery; Z96.612 Presence of left artificial shoulder joint
CPT/HCPCS: 73030

== ENCOUNTER 2021-03-14 08:38 | Outpatient (CLI) | payer MEDICARE, BC, SELFPAY ==
--- NOTE | 2021-03-14 08:30 | DI.RAD_ITS ---
Exam(s) XR SHOULDER LT COMPLETE 2+V EXAM: XR SHOULDER LT COMPLETE 2+V CLINICAL HISTORY: left shoulder f/u. TECHNIQUE: 2D digital imaging was performed. COMPARISON: CR XR SHOULDER LT COMPLETE 2+V from 01/17/2021 FINDINGS: Continued stable alignment of the components of the prosthesis. No fracture or loosening evident. N o osseous lesions. IMPRESSION: DATA REPOSITORY: RADIATION DOSE DELIVERED:
== END 2021-03-14 08:39 | disposition home or self-care (01) ==
LOC: DIORS 08:39
PROVIDERS: PCP Family Medicine; Referring Provider Family Medicine; Visit Provider Student in an Organized Health Care Education/Training Program
DX: Z47.1 Aftercare following joint replacement surgery (principal); Z96.612 Presence of left artificial shoulder joint; M75.22 Bicipital tendinitis, left shoulder; M24.512 Contracture, left shoulder
CPT/HCPCS: 73030

== ENCOUNTER 2021-03-22 15:43 | Outpatient (REF) | payer MEDICARE, BC, SELFPAY ==
[2021-03-22 16:57] LABS: HCT 41.8 % (36.0-46.0); HGB 13.5 g/dL (11.2-15.7); MCH 31.3 pg (27.0-33.0); MCHC 32.3 % (32.0-36.0); MCV 96.8 fL (80-95); MPV 10.5 fL (8.0-11.0); Platelet Count 207 10^3/uL (130-400); RBC 4.32 10^6/uL (3.93-5.22); RDW 13.2 % (11.7-14.6); RDW-SD 47.4 fL; WBC 3.54 10^3/uL (4.4-10.8)
[2021-03-22 17:17] LABS: Anion Gap 12.4 mmol/L (3-11); BUN 18 mg/dL (7-18); CO2 27.6 mmol/L (21.0-32.0); Calcium 9.1 mg/dL (8.5-10.1); Chloride 107 mmol/L (98-107); Estimated GFR 54.05 (mL/min/1.73m2); Glucose 97 mg/dL (74-106); Potassium 3.9 mmol/L (3.5-5.1); Sodium 147 mmol/L (136-145)
== END 2021-03-22 15:44 | disposition home or self-care (01) ==
LOC: NCHCN 15:43
PROVIDERS: PCP Family Medicine; Visit Provider Family Medicine
DX: I10 Essential (primary) hypertension (principal); N18.31 Chronic kidney disease, stage 3a
CPT/HCPCS: 80048; 85027

== ENCOUNTER → 2021-04-12 09:31 | Outpatient (BNVA) | payer MEDICARE, BC, SELFPAY | PROVIDERS: PCP Family Medicine; Referring Provider Family Medicine; Visit Provider Student in an Organized Health Care Education/Training Program | DX: M70.62 Trochanteric bursitis, left hip (principal); M16.12 Unilateral primary osteoarthritis, left hip | CPT/HCPCS: 99213 ==

== ENCOUNTER 2021-04-18 11:47 | Outpatient (REF) | payer MEDICARE, BC, SELFPAY ==
[2021-04-18 15:35] LABS: Anion Gap 7.1 mmol/L (3-11); BUN 28 mg/dL (7-18); CO2 28.9 mmol/L (21.0-32.0); Calcium 8.9 mg/dL (8.5-10.1); Chloride 105 mmol/L (98-107); Estimated GFR 54.05 (mL/min/1.73m2); Glucose 99 mg/dL (74-106); Potassium 3.7 mmol/L (3.5-5.1); Sodium 141 mmol/L (136-145)
== END 2021-04-18 11:48 | disposition home or self-care (01) ==
LOC: NCHCN 11:47
PROVIDERS: PCP Family Medicine; Visit Provider Family Medicine
DX: E87.0 Hyperosmolality and hypernatremia (principal)
CPT/HCPCS: 80048

== ENCOUNTER 2021-04-19 00:50 | Outpatient (CLI) | payer MEDICARE, BC, SELFPAY ==
[2021-04-19] MEDS: methylPREDNISolone ACETATE 80 MG/ML VIAL IM (14:45)
[2021-04-19] MEDS: Omnipaque 300 MG/ML 10 ML BTL IJ (14:48)
[2021-04-19] MEDS: Bupivacaine 0.5% Pres-Free 10 ML VIAL 5 ML IJ (14:49)
--- NOTE | 2021-04-19 14:49 | DI.RAD_ITS ---
Exam(s) RF JOINT INJECTION FLUORO GUID EXAM: RF JOINT INJECTION FLUORO GUID CLINICAL HISTORY: L HIP PAIN,m16.12,trochanteric bursitis,oa lt hip,inj by fluoro TECHNIQUE: Fluoroscopy provided. Radiologist not present. CONTRAST MATERIAL: None COMPARISON: No exams were available for comparison FINDINGS: Fluoroscopy was provided for Dr. Schaffer during left hip therapeutic injection. Submitted image(s) reveal lateral approach needle with distal tip at junction of the lateral femoral head and neck. Intra-articular contrast was injected. Please refer to the procedure report for complete details. Cumulative Dose: Amirahr=0.272 mGy IMPRESSION: RADIATION DOSE DELIVERED:
--- NOTE | 2021-04-19 14:58 | W.PROCNOTE ---
Date of service: 04/19/21 Time of Service: 13:42 Procedure Note Date of procedure: 04/19/21 Procedure: Left Hip Injection with Fluoroscopic Guidance Surgeon/Proceduralist/Physician: Jay Schaffer Procedure Diagnosis: Left Hip Osteoarthritis Procedure Indications: Nataly has had persistent pain of the LEFT hip and groin. Noninvasive measures have been tried. To serve as both diagnostic and therapeutic, an injection under fluoroscopy was recommended. I had discussed the risks of the procedure and the patient elected to proceed. Procedure Description: Nataly was greeted in the flouroscopy room. The correct side was identified and the consent was reviewed with the patient and signed. The patient was then placed in the supine position on the fluoroscopy table. The LEFT hip was then prepped with Chloraprep. The anterolateral injection starting point was identiifed by bony landmarks and fluoroscopy. The skin and soft tissue in the tract of the injection was anesthetized with 1% Lidocaine. A spinal needle was then inserted deep into the hip joint at the level of the lateral femoral neck under fluoroscopic guidance. A small amount of Omnipaque solution was injected to confirm intraarticular placement. Once confirmed, the hip was injected with 6cc of 0.5% Bupivicaine and 80mg of Depo-Medrol. A bandaid was placed on the injection site. The patient tolerated the procedure well and noted improvement in pre-injection pain.
== END 2021-04-19 01:10 ==
PROVIDERS: PCP Family Medicine; Visit Provider Student in an Organized Health Care Education/Training Program
DX: M16.12 Unilateral primary osteoarthritis, left hip (principal); M25.552 Pain in left hip; R10.32 Left lower quadrant pain
CPT/HCPCS: 20610; 77002; J1040

== ENCOUNTER 2021-06-06 13:48 | Outpatient (CLI) | payer MEDICARE, BC, SELFPAY ==
--- NOTE | 2021-06-06 13:42 | DI.RAD_ITS ---
Exam(s) XR SHOULDER LT COMPLETE 2+V EXAM: XR SHOULDER LT COMPLETE 2+V INDICATION: left shoulder pain. COMPARISON: CR CHEST 2 VIEWS PA,LAT from 06/17/2017 CR XR SHOULDER LT COMPLETE 2+V from 03/14/2021 TECHNIQUE: 2D digital imaging was performed. FINDINGS: There has been no change in the alignment of the reverse shoulder prosthesis given differences in pro jection. No abnormal bony lucencies seen. Multiple surgical clips are again noted in the chest wall . DATA REPOSITORY: RADIATION DOSE DELIVERED:
== END 2021-06-06 13:49 | disposition home or self-care (01) ==
LOC: DIORS 13:48
PROVIDERS: PCP Family Medicine; Referring Provider Family Medicine; Visit Provider Student in an Organized Health Care Education/Training Program
DX: Z47.89 Encounter for other orthopedic aftercare (principal); M12.812 Other specific arthropathies, not elsewhere classified, left shoulder; M75.22 Bicipital tendinitis, left shoulder; M24.512 Contracture, left shoulder
CPT/HCPCS: 99213; 73030

== ENCOUNTER 2021-07-18 15:01 | Outpatient (REF) | payer MEDICARE, BC, SELFPAY ==
[2021-07-18 15:14] LABS: MCH 31.7 pg (27.0-33.0); MCHC 33.3 % (32.0-36.0); MCV 95.1 fL (80-95); MPV 10.3 fL (8.0-11.0); Platelet Count 191 10^3/uL (130-400); RDW-SD 45.7 fL; WBC 2.84 10^3/uL (4.4-10.8)
[2021-07-18 17:38] LABS: ALT 24 U/L (14-59); AST 20 U/L (15-37); Albumin 3.8 g/dL (3.4-5.0); Alkaline Phosphatase 72 U/L (46-116); Anion Gap 9.4 mmol/L (3-11); BUN 16 mg/dL (7-18); CO2 26.6 mmol/L (21.0-32.0); Calcium 8.9 mg/dL (8.5-10.1); Chloride 106 mmol/L (98-107); Estimated GFR 54.05 (mL/min/1.73m2); Glucose 84 mg/dL (74-106); Potassium 3.6 mmol/L (3.5-5.1); Sodium 142 mmol/L (136-145); TSH (W/Ref FT4) 1.09 uIU/mL (0.36-3.74); Total Protein 6.9 g/dL (6.4-8.2); Vitamin B12 447 pg/mL (193-986)
[2021-07-18 18:00] LABS: C-Reactive Protein < 0.05 mg/dL (0.0-0.3)
[2021-07-19 09:43] LABS: Hepatitis C Ab w Rflx HCV PCR Negative (Negative)
== END 2021-07-18 15:02 | disposition home or self-care (01) ==
LOC: NCHCN 15:01
PROVIDERS: PCP Family Medicine; Visit Provider Family Medicine
DX: R63.4 Abnormal weight loss (principal); I10 Essential (primary) hypertension; R41.3 Other amnesia; Z00.00 Encounter for general adult medical examination without abnormal findings; Z11.59 Encounter for screening for other viral diseases
CPT/HCPCS: 80053; 85027; 86803; 82607; 82746; 84443; 86140

== ENCOUNTER → 2021-07-19 08:06 | Outpatient (BNVA) | payer MEDICARE, BC, SELFPAY | PROVIDERS: PCP Family Medicine; Referring Provider Family Medicine; Visit Provider Student in an Organized Health Care Education/Training Program | DX: M16.12 Unilateral primary osteoarthritis, left hip (principal) | CPT/HCPCS: 99214 ==

== ENCOUNTER 2021-08-01 01:41 | Outpatient (CLI) | payer MEDICARE, BC, SELFPAY ==
--- NOTE | 2021-08-01 09:15 | DI.MRI_ITS ---
Exam(s) MR BRAIN WO EXAM: MR BRAIN WO CLINICAL HISTORY: MEMORY IMPAIRMENT, R41.3; ANOREXIA, R63.0; BRCA1 GENE MUTATION, Z15.01 TECHNIQUE: Multiplanar multisequence MRI of the brain was performed. COMPARISON: No exams were available for comparison FINDINGS: There is mild generalized cerebral atrophy.. There are prominent bilateral predominantly periventricular white matter signal changes seen on T2 we ighted and FLAIR imaging sparing the corpus callosum consistent with microvascular ischemic changes.. The orbital and temporal bone structures appear intact as does the pituitary. Diffusion weighted imaging shows no evidence of infarction. Susceptibility weighted imaging shows no evidence of intracranial hemorrhage. There is normal flow void in the [place] of [place] vasculature. IMPRESSION: No evidence of acute intracranial process. DATA REPOSITORY:
== END 2021-08-01 02:01 ==
PROVIDERS: PCP Family Medicine; Visit Provider Family Medicine
DX: R63.0 Anorexia (principal); R41.3 Other amnesia
CPT/HCPCS: 70551

== ENCOUNTER 2021-08-03 00:20 | Outpatient (CLI) | payer MEDICARE, BC, SELFPAY ==
[2021-08-03] MEDS: Breeza Beverage 473 ML BTL PO ×2 (07:43→07:44)
[2021-08-03] MEDS: Omnipaque 350 MG/ML 50 ML BTL PO (07:43)
--- NOTE | 2021-08-03 09:00 | DI.CT_ITS ---
Exam(s) CT CHEST/ABD/PEL W EXAM: CT CHEST/ABD/PEL W CLINICAL HISTORY: RECENT WT LOSS, R63.4; ANOREXIA, R63.0; BRCA1 GENE MUTATION, Z15.01 TECHNIQUE: Imaging Protocol: Axial computed tomography images with coronal and sagittal reformatted images were created and reviewed CONTRAST MATERIAL: Intravenous: Omnipaque 350 Contrast volume:100 mL Oral: Yes COMPARISON: CT CT CHEST PE ABD PELVIS W from 05/15/[address] CAROTID NECK CTA from 05/15/2020 FINDINGS: CHEST: Tracheobronchial tree: Patent where visualized. Pulmonary parenchyma: No focal consolidation. There is scarring seen in the lungs particularly in th e left lingula. There is a stable 4 mm nodule in the left lingula. No new pulmonary nodules are see n. No architectural distortion. Visualized thyroid gland: There is a 0.5 cm round hypodense nodule in the left lobe of the thyroid gl and. No follow-up is recommended. Mediastinum and Tanisha: No dominant adenopathy or fluid collection. The esophagus is unremarkable. Pleura: No effusion or pneumothorax. There is mild persistent pleural thickening on the right. Heart: The heart is not dilated. No coronary artery calcifications are seen. No pericardial effusion. Pulmonary arteries: No pulmonary emboli are identified. Aorta: No aneurysmal dilatation. Atherosclerosis. Lymph nodes: Within normal limits. Soft tissues: The patient has a right breast implant. Bones:Within normal limits for the patient's age. The patient has a left total shoulder replacement. No suspicious lytic or sclerotic lesions are seen. ABDOMEN: Liver: Normal density. There is a 1.4 x 0.7 cm mass in the lateral aspect of the lateral segment of t he left lobe of the liver. It is hyperdense on the arterial images. Isodense with the aorta. On th e venous images it is isodense to the remainder of the liver. This lesion was seen on the CT scan th e abdomen and pelvis from 05/15/2020 and showed nodular peripheral enhancement on the CT angiogram of the chest. The finding is most suggestive of a hepatic hemangioma. No other hepatic lesions are see n. Portal, Superior Mesenteric, and Splenic Veins: Unremarkable. Gallbladder and Biliary Tract: No radiodense calculus or dilation. Pancreas: Normal density, no abnormal calcifications or inflammatory process. Spleen: Normal. Adrenals: No masses seen. Kidneys: Normal size, contour and axis. No radiodense stones or obstructive uropathy. No masses seen. Abdominal Aorta: Abdominal portion non-dilated. Atherosclerosis. Bowel: No obstruction or bowel wall thickening. No evidence of acute appendicitis. There are scatter ed diverticula in the colon but no evidence of acute diverticulitis. Peritoneal Cavity: No ascites, collection or mesenteric inflammatory response. No free air. Lymph Nodes: Within normal limits. Bones: Within normal limits for the patient's age. Grade 1 pseudo spondylolisthesis of L4 on L5 is n oted. No suspicious lytic or sclerotic lesions are present. Schmorl's nodes are seen in the endplat es of several lumbar vertebra. Soft Tissues: Unremarkable. PELVIS: Bladder: There is diffuse thickening of the wall of the urinary bladder. Reproductive Organs: Unremarkable as visualized. Lymph Nodes: Within normal limits. Bones: Within normal limits. IMPRESSION: 1. Stable 4 mm nodule in the left lingula. For low risk patients, no routine follow-up is recommende d. For high risk patients (history of smoking or other risk factors), optional 12 month follow-up CT scan may be obtained. (Dinesh et al, 2017). 2. 1.4 x 0.7 cm mass in the lateral segment of the left lobe of the liver. Its characteristics are m ost consistent with a hepatic hemangioma. A dedicated CT or MRI of the liver using the hepatic heman gioma protocol should be considered for further evaluation. 3. Diffuse thickening of the wall of the urinary bladder. While this may be due to underdistention, cystitis or neoplasm cannot be excluded. Clinical correlation is recommended. RADIATION DOSE DELIVERED: 936.22mGy.cm Total DLP DATA REPOSITORY: All CT scans at this facility are submitted to the National Radiology Data Registry (NRDR) Dose Index Registry (DIR) with the [employer] [place] [employer] (A[employer]). RADIATION OPTIMIZATION: All CT scans at this facility use at least one of these dose optimization te chniques: automated exposure control; mA and/or kV adjustment per patient size (includes targeted exa ms where dose is matched to clinical indication); or iterative reconstruction.
[2021-08-03] MEDS: Omnipaque 350 MG/ML 100 ML BTL IJ (09:23)
== END 2021-08-03 00:40 ==
PROVIDERS: PCP Family Medicine; Visit Provider Family Medicine
DX: R63.4 Abnormal weight loss (principal); R63.0 Anorexia; Z15.01 Genetic susceptibility to malignant neoplasm of breast; R91.8 Other nonspecific abnormal finding of lung field; R16.0 Hepatomegaly, not elsewhere classified
CPT/HCPCS: 74177; 71260; J3490; Q9967

== ENCOUNTER 2021-08-28 09:27 | Outpatient (CLI) | payer MEDICARE, BC, SELFPAY ==
--- NOTE | 2021-08-28 09:00 | DI.RAD_ITS ---
Exam(s) XR PELVIS AP EXAM: XR PELVIS AP CLINICAL HISTORY: pre op L FABI. TECHNIQUE: 2D digital imaging was performed.One images were obtained. COMPARISON: CR XR HIP LT COMPLETE AP PELVIS from 06/21/2020 FINDINGS: BONES: No acute fracture is present. No bony destructive lesion is seen. JOINTS: No dislocation present. There is again seen mild degenerative changes of both hips, left grea ter than right. There is joint space narrowing present. SOFT TISSUE: Surgical clips are again seen in the pelvis. Atherosclerosis is present. IMPRESSION: Mild degenerative changes of the hips bilaterally. DATA REPOSITORY: RADIATION DOSE DELIVERED:
== END 2021-08-28 09:28 | disposition home or self-care (01) ==
LOC: DIORS 09:27
PROVIDERS: PCP Family Medicine; Referring Provider Family Medicine; Visit Provider Physician Assistant
DX: M16.12 Unilateral primary osteoarthritis, left hip (principal)
CPT/HCPCS: 72170

== ENCOUNTER → 2021-09-04 13:15 | Outpatient (BNVA) | payer MEDICARE, BC, SELFPAY | PROVIDERS: PCP Family Medicine; Referring Provider Family Medicine; Visit Provider Student in an Organized Health Care Education/Training Program | DX: M75.22 Bicipital tendinitis, left shoulder (principal); M24.512 Contracture, left shoulder; M75.102 Unspecified rotator cuff tear or rupture of left shoulder, not specified as traumatic; M12.812 Other specific arthropathies, not elsewhere classified, left shoulder | CPT/HCPCS: 99213 ==

== ENCOUNTER 2021-09-10 01:07 | Outpatient (CLI) | payer MEDICARE, BC, SELFPAY ==
[2021-09-10 11:24] LABS: Source Nasal/Nares
[2021-09-10 14:08] LABS: COVID-19 PCR Negative (Negative)
== END 2021-09-10 01:08 | disposition home or self-care (01) ==
PROVIDERS: PCP Family Medicine; Visit Provider Student in an Organized Health Care Education/Training Program
DX: Z20.822 Contact with and (suspected) exposure to COVID-19 (principal); Z01.818 Encounter for other preprocedural examination
CPT/HCPCS: 36415; 80048; 85027; 87635; U0005

== ENCOUNTER 2021-09-10 01:41 | Outpatient (CLI) | payer MEDICARE, BC, SELFPAY ==
[2021-09-10 09:43] LABS: HCT 38.3 % (36.0-46.0); HGB 12.6 g/dL (11.2-15.7); MCH 31.2 pg (27.0-33.0); MCHC 32.9 % (32.0-36.0); MCV 95 fL (80-95); MPV 9.9 fL (8.0-11.0); Platelet Count 163 10^3/uL (130-400); RBC 4.04 10^6/uL (3.93-5.22); RDW 13.2 % (11.7-14.6); RDW-SD 46.1 fL; WBC 2.98 10^3/uL (4.4-10.8)
[2021-09-10 11:32] LABS: Anion Gap 7.9 mmol/L (3-11); BUN 24 mg/dL (7-18); CO2 29.1 mmol/L (21.0-32.0); Chloride 104 mmol/L (98-107); Estimated GFR 54.05 (mL/min/1.73m2); Glucose 156 mg/dL (74-106); Sodium 141 mmol/L (136-145)
== END 2021-09-10 01:42 | disposition home or self-care (01) ==
LOC: LBO 01:41
PROVIDERS: PCP Family Medicine; Visit Provider Student in an Organized Health Care Education/Training Program
DX: M25.552 Pain in left hip (principal); M16.12 Unilateral primary osteoarthritis, left hip; Z01.818 Encounter for other preprocedural examination; Z01.812 Encounter for preprocedural laboratory examination
CPT/HCPCS: 36415; 80048; 85027

== ENCOUNTER 2021-09-11 06:03 | Day surgery (SDC) | payer MEDICARE, BC, SELFPAY ==
[2021-09-11] VITALS (7 sets, daily range): BP systolic 102–162; BP diastolic 50–95; PULSE 59–82; RESP 13–21; TEMP 36.3–36.7; O2SAT 97–100; BMI 18.0
--- NOTE | 2021-09-11 06:06 | W.ANESPRE ---
General Info Date of Service Date Performed: 09/11/21 Height: 5 ft 4 in Weight: 47.627 kg Body Mass Index (BMI): 18.0 Surgical Procedure: Operation Date: 09/11/21 07:50 Proposed Procedure Side Surgeon p Hip Total Hip Anterior Left Jay Schaffer MD Meds Allergies and Home Medications Allergies Allergy/AdvReac Type Severity Reaction Status Date / Time No Known Drug Allergies Allergy Verified 09/11/21 06:15 tomato juice AdvReac Intermediate Other (See Uncoded 09/10/21 13:51 Comment) Home Medication Medication Instructions Recorded cholecalciferol (vitamin D3) 10 50 mcg PO DAILY 05/15/20 mcg (400 unit) capsule (Vitamin D3) amlodipine 2.5 mg tablet 2.5 mg PO QAM tab 03/14/21 albuterol sulfate 90 mcg/actuation 2 puff INHALATION Q4H PRN g 08/08/21 aerosol inhaler (Ventolin HFA) aspirin 81 mg chewable tablet 81 mg PO DAILY 08/08/21 (Aspirin Childrens) omega-3 fatty acids 1,000 mg 1,000 mg PO DAILY 08/08/21 capsule (Super [place]-3) Current Visit Medications: Current Medications Generic Name Dose Route Start Last Admin Trade Name Freq PRN Reason Stop Dose Admin Acetaminophen 1,000 mg 09/11/21 06:00 Acetaminophen 500 Mg Tab PO PREOP LADI Celecoxib 400 mg 09/11/21 06:00 Celecoxib 200 Mg Cap PO PREOP LADI Tranexamic Acid 1,000 mg/ 60 mls @ 360 mls/hr 09/11/21 06:00 Sodium Chloride IV 09/11/21 18:00 PREOP LADI Ringer's Solution 1,000 mls @ 80 mls/hr 09/11/21 06:00 IV 10/10/21 23:59 INFUSION LADI Cefazolin Sodium/Dextrose 2 gm in 50 mls @ 100 mls/hr 09/11/21 06:00 Ancef Duplex IVPB 10/10/21 23:59 PREOP LADI IV Miscellaneous Supplies 1 each 09/11/21 06:00 Iv Access IV 10/10/21 23:59 DIRECTED LADI Sodium Chloride 0 ml 09/11/21 06:00 Normal Saline Flush 10 Ml Syr IV 10/10/21 23:59 PRN PRN Sodium Chloride 0 ml 09/11/21 06:00 Normal Saline 10 Ml Vial IJ 10/10/21 23:59 DIRECTED PRN Sterile Water 0 ml 09/11/21 06:00 Water,Injection,Sterile 10 Ml Vial IJ 10/10/21 23:59 DIRECTED PRN PFSH Active Problems Active Problems: Problem Status Onset Code Vaginal discharge N89.8 History of breast cancer Z85.3 Thickened endometrium R93.89 HTN (hypertension) I10 History of tamoxifen therapy Z92.29 Atrophic vaginitis N95.2 Tendinitis of long head of biceps brachii of left shoulder M75.22 Contracture of left shoulder M24.512 Postmenopausal bleeding N95.0 Lymphedema of arm I89.0 Degenerative joint disease of left hip M16.12 Trochanteric bursitis, left hip M70.62 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 Medical History Medical History Anorexia Asthma, mild intermittent Breast cancer Chronic kidney disease Patient denies any known history of kidney issues Hearing loss, right Hx of adenomatous colonic polyps Hx of malignant melanoma Hypertension, essential, benign Intraductal papillary mucinous neoplasm Leg pain, bilateral Memory impairment Mitral valve regurgitation Orthostatic dizziness pt states this was a 1x time thing Osteopenia Rotator cuff tear arthropathy of left shoulder Shoulder joint pain Varicose veins of both lower extremities Venous stasis dermatitis Wart of hand Surgical History Surgical History History of colonoscopy History of hysteroscopy 01/2020. for thickened endometrium while taking Tamoxifen. D&C: inactive endometrium. History of reconstruction of left breast Hx of appendectomy Hx of dilation and curettage 01/2020 for thickened endometrial lining: inactive endometrium Hx of lumpectomy multiple Hx of mastectomy Left breast with reconstruction Hx of partial mastectomy Right Hx of repair of right rotator cuff Hx of tonsillectomy Tobacco Smoking/Tobacco Use Status: Former Tobacco Use Alcohol Alcohol Intake: current Alcohol intake frequency: a few times a week Alcohol type: wine Substance Use Substance use: Never Substance use type: does not use Vital Signs and Lab Results Vital Signs Most Recent Vital Signs in EMR: Temp Pulse Resp BP Pulse Ox 36.4 C L 82 16 162/95 H 99 09/11/21 06:17 09/11/21 06:17 09/11/21 06:17 09/11/21 06:17 09/11/21 06:17 Lab Results Blood Type / Crossmatch: No Data to Display Complete Blood Count: White Blood Count 2.98 10^3/uL (4.4-10.8) L 09/10/21 09:35 09/10/21 Red Blood Count 4.04 10^6/uL (3.93-5.22) 09/10/21 09:09/10/21 Hemoglobin 12.6 g/dL (11.2-15.7) 09/10/21 09:35 09/10/21 Hematocrit 38.3 % (36.0-46.0) 09/10/21 09:09/10/21 Platelet Count 163 10^3/uL (130-400) 09/10/21 09:09/10/21 Complete Metabolic Panel: Sodium Level 141 mmol/L (136-145) 09/10/21 09:09/10/21 Potassium Level 4.0 mmol/L (3.5-5.1) 09/10/21 09:09/10/21 Chloride Level 104 mmol/L (98-107) 09/10/21 09:09/10/21 Carbon Dioxide Level 29.1 mmol/L (21.0-32.0) 09/10/21 09:09/10/21 Blood Urea Nitrogen 24 mg/dL (7-18) H 09/10/21 09:09/10/21 Creatinine 1.0 mg/dL (0.55-1.02) 09/10/21 09:09/10/21 Estimated GFR/1.73 m2 54.05 (mL/min/1.73m2) 09/10/21 09:09/10/21 Calcium Level 9.0 mg/dL (8.5-10.1) 09/10/21 09:09/10/21 Glucose Level 156 mg/dL (74-106) H 09/10/21 09:09/10/21 Liver Function Panel: No Data to Display Coagulation Panel: No Data to Display Cardiac Panel: No Data to Display Arterial Blood Gas: No Data to Display Venous Blood Gas: No Data to Display Pancreas Panel: No Data to Display Thyroid Panel: No Data to Display Infectious Disease: Coronavirus (COVID-19)(PCR) Negative (Negative) 09/10/21 09:56 09/10/21 Coronavirus 2019 Source Nasal/Nares 09/10/21 09:56 09/10/21 Blood Cultures: No Data to Display Toxicology Panel: No Data to Display Imaging and Studies Imaging and Studies Study information below may be from another EMR and interpreted by another provider. Please see original notes in EMR for more complete details. EKG Summary: 05/15/2020: Sinus rhythm...normal P axis, V-rate 60- 99 Stress Test Summary: 05/25/2020:Stress ECG Conclusion 1. The resting electrocardiogram showed poor R wave progression 2. The patient exercised on the Melchor protocol and achieved a workload of 13.05 METS, limited by hip pain. 3. Normal heart rate and blood pressure response to exercise. The patient achieved greater than 100% of predicted heart rate for age 4. There was no electrocardiographic evidence of myocardial ischemia 5. There were occasional atrial and ventricular ectopic beats noted Lester Treadmill Score is 10.1 which is Low risk. 05/25/20 Carotid Artery Summary:: 05/15/20: Normal CTA of the carotids. Anesthesia Assessment and Plan Anesthesia History Personal History: No History of Anesthesia Complications Family History: No Family History of Anesthesia Complications Exercise Tolerance Exercise Tolerance: Metabolic Equivalents>4 Cardiac & Pulmonary Exam Cardiac Exam: Normal S1/S2 Heart Sounds Pulmonary Exam: Clear Bilateral Breath Sounds Implantable Cardiac Device Does patient have a Pacemaker or an ICD?: No Airway Exam Known Difficult Airway: No Mallampati Class: 2 Mouth Opening: Normal (> 3cm) Thyromental Distance: Greater than 3 cm Neck Range of Motion: Full ROM Neck Circumference: Normal Teeth Condition: Normal Dentition ASA Classification ASA Score: ASA 2 Emergency Case?: No NPO Status NPO Status: NPO Clears >2 hours, Solids >8 hours Anesthesia Plan Resuscitation Status: Full Code Anesthesia Technique: Spinal Anesthesia Airway Planned: Natural Airway Monitors Used: Standard Monitors Preoperative Comments:: 76 yo female for left hip arthroplasty. Sig PMHx: breast CA, HTN. Previous Anes: PONV/slow emergence per pt. LMA 3, easy mask. Mac 3 grade 1.
[2021-09-11] MEDS: Acetaminophen 500 MG TAB 1000 MG PO (06:39)
[2021-09-11] MEDS: Celecoxib 200 MG CAP 400 MG PO (06:39)
[2021-09-11] MEDS: Lactated Ringers 1,000 ML 80 ML IV (06:59)
--- NOTE | 2021-09-11 07:30 | DI.RAD_ITS ---
Exam(s) XR HIP LT IN OR EXAM: XR HIP LT IN OR CLINICAL HISTORY: Total Hip. TECHNIQUE: 2D digital imaging was performed. COMPARISON: No exams were available for comparison FINDINGS: Fluoroscopy provided intraoperatively during left hip arthroplasty. Please see procedure report for details Total fluoroscopy time 24.7 seconds Cumulative dose 1.6548 mGy IMPRESSION: DATA REPOSITORY: RADIATION DOSE DELIVERED:
[2021-09-11] MEDS: ceFAZolin 2 GM/50 ML BAG IVPB (07:42)
--- NOTE | 2021-09-11 09:05 | W.PM.DSUDISC ---
Discharge Plan Disposition Patient Disposition: HOME Condition: Good Discharge Details Reason For Visit: Left Hip DJD Attending Provider: Jay Schaffer Primary Care Provider: Dorothea Kaufman Home Meds and New Rx's Prescriptions: New celecoxib 200 mg capsule 200 mg PO BID PRN (Reason: pain) Qty: 60 1RF aspirin 81 mg tablet,delayed release (DR/EC) 81 mg PO BID Qty: 60 0RF acetaminophen 500 mg tablet 1,000 mg PO Q8H PRN (Reason: pain) Qty: 90 3RF pantoprazole 40 mg tablet,delayed release (DR/EC) 40 mg PO DAILY Qty: 30 0RF docusate sodium [Colace] 100 mg capsule 100 mg PO BID PRNQty: 10 0RF tramadol 50 mg tablet 50 mg PO Q4H MDD 350mg PRNQty: 20 0RF Rx Instructions: May take two at bedtime. Continued amlodipine 2.5 mg tablet 2.5 mg PO QAM 0RF albuterol sulfate [Ventolin HFA] 90 mcg/actuation HFA aerosol inhaler 2 puff inhalation Q4H PRN0RF aspirin [Aspirin Childrens] 81 mg tablet,chewable 81 mg PO DAILY 0RF omega-3 fatty acids [Super [place]-3] 1,000 mg capsule 1,000 mg PO DAILY 0RF cholecalciferol (vitamin D3) [Vitamin D3] 10 mcg (400 unit) Capsule 50 mcg PO DAILY 0RF Discharge Instructions Additional Instructions: Total Hip Discharge Instructions Activity: The most important activity is to walk. You should try to take short walks a few times a day. You have no restrictions on movement or positioning, but do not try to force what you do. You will find some stiffness and weakness with hip flexion (lifting your knee). Do not try to strengthen this too early, continue to practice walking and stairs and this will come. - Outpatient physical therapy can be helpful to help return you to a normal gait and improve your flexibility and strength. This can start around 2 weeks. For some patients, it?s not necessary. Usually this is determined at the time of discharge or at the first post-operative visit. - You should wear the QIAN hose on both legs for 2 weeks. Dressing: Keep the surgical dressing in place for at least one week. After the first week it may be removed and replace with light gauze and tape or nothing. It may get wet after 3 days but avoid soaking the dressing. If it gets wet, just lightly pat dry. It is important to always keep some gauze between skin folds, especially when you are sitting. Spend some time with the wound exposed when you are lying flat as the incision does wrinkle onto itself. Medications: - You should take Tylenol and an anti-inflammatory Celebrex as your primary pain control medications. If the Celebrex is too expensive or not covered, please call the office for another alternative (Advil/Ibuprofen or Naproxen/Aleve). - You have been prescribed a stronger pain medication Tramadol for breakthrough pain, take as needed as prescribed. You may take two at night for bedtime. - You have also been prescribed a stomach acid reduction agent Pantoprozole to help reduce stomach acid and reflux. - You will be taking Aspirin 81mg twice a day for DVT prevention unless instructed otherwise. - If you have constipation you should take Colace or Miralax (both [id number]). It takes most people 3-4 days to have a bowel movement. Follow-up: 2 weeks If you have any acute concerns or questions, please do not hesitate to contact the office at [phone]. You may contact Dr. Schaffer with any questions after hours through the hospital at [phone] or on his cell phone at [phone]. Referrals: Jay Schaffer MD [ [facility] STAFF PHYSICIAN] - Equipment/Supplies: Walker Activity:: Activity as Tolerated Shower/Bathe:: Cover Diet:: As Tolerated Discharge Orders Discharge Orders: Discharge Order (Routine); Ordered 09/11/21 Ordered By: Jay Schaffer
[2021-09-11] MEDS: traMADol 50 MG TAB PO (10:21)
--- NOTE | 2021-09-11 11:19 | IN_ITS ---
Date of service: 09/11/21 Time of Service: 11:19 PT Notes Visit Reasons: Left Hip DJD Physical Therapy Inpatient Initial Evaluation Date: 09/11/2021 Referring Doctor: Jay Schaffer MD PT Orders: PT CONSULT: Status post Ortho surgery Precautions: Fall. Standard. WBAT on LLE with AD. Patient Profile/Admitting Diagnosis: Nataly is a 76-year-old female with degenerative joint disease of the left hip and status post left anterior total hip arthroplasty on postoperative day 0. PMHX: Medical History?(Updated 08/28/21 @ 09:28 by Giovanna Vaughn) Anorexia Asthma, mild intermittent Breast cancer Chronic kidney disease Patient denies any known history of kidney issuesHearing loss, right Hx of adenomatous colonic polyps Hx of malignant melanoma Hypertension, essential, benign Intraductal papillary mucinous neoplasm Leg pain, bilateral Memory impairment Mitral valve regurgitation Orthostatic dizziness Osteopenia Rotator cuff tear arthropathy of left shoulder Shoulder joint pain Varicose veins of both lower extremities Venous stasis dermatitis Wart of hand Surgical History?(Updated 08/21/21 @ 11:14 by Mercedez TAVAREZ) History of colonoscopy History of hysteroscopy 01/2020. for thickened endometrium while taking Tamoxifen. D&C: inactive endometrium.History of reconstruction of left breast Hx of appendectomy Hx of dilation and curettage 01/2020 for thickened endometrial lining: inactive endometriumHx of lumpectomy multiple Hx of mastectomy Left breast with reconstructionHx of partial mastectomy RightHx of repair of right rotator cuff Hx of tonsillectomy Social History/Home Situation: Has 3 steps to tnetr with a rail on the R side going up. Independent with all aspects of ADLs prior to surgery.? Does what she calls her urban walks of about 5 miles almost everyday without an AD. Son provides assistance as needed. Equipment Owned/DME: Single-point cane Subjective: Agreeable to PT consult.? Reports 5/10 pain in the left hip at rest and 6-7/10 with weight bearing.? Denies headache, chest pain, and lightheadedness throughout session. Objective: General Observation: Supine in bed.? In NAD.? Mepilex Ag over surgical incision. TEDS on B legs. Mental Status: Alert and oriented as to person, place, time, and purpose. Able to pay attention, focus, and respond appropriately. Pain: Reports 5/10 pain in the left hip at rest and 6-7/10 with weight bearing ROM: Right Lower Extremity: Hip flexion WFL. Hip abduction WFL. Knee flexion WFL. Ankle dorsiflexion WFL. Ankle plantarflexion WFL. Left Lower Extremity: Hip flexion able to complete the last 25% of AROM due to pain. Hip abduction WFL. Knee flexion WFL. Ankle dorsiflexion WFL. Ankle plantarflexion WFL. Strength: Right Lower Extremity: ip flexors 5/5. Hip abductors 5/5. Knee flexors 5/5. Knee extensors 5/5. Ankle dorsiflexors 5/5. Ankle plantarflexors 5/5. Left Lower Extremity: Hip flexors 3-/5. Hip abductors 4-/5. Knee flexors 4/5. Knee extensors 4-/5. Ankle dorsiflexors 4/5. Ankle plantarflexors 4/5. Bed Mobility/Transfers: Supine to sit standby assist Sit to supine standby assist Sit to stand contact guard assist Stand to standby assist Bed to reclining chair contact guard assist Reclining chair to bed contact guard assist Gait: Independent with surface ambulation of up to 150 feet using front-wheeled walker with WBAT on the left LE. Standby assist provided. Step-to gait pattern. Mild antalgia seen. Stairs: Up and down 12 x 4 inch steps and 8 x 6 inch steps while holding onto 1 rail with one hand and a single-point cane with the other. Standby assist provided. Minimal cues given for safety. No report of increased pain. Balance: Static Sitting: Normal Dynamic Sitting: Normal Static Standing: Fair Dynamic Standing: Fair Special Tests: Mobility Limitations Standardized Measure [facility] 6 clicks Basic Mobility Inpatient Short Form: Raw Score: 22 ? CMS Score: 21% deficit? ? ? Informed Consent/Education:? Patient was instructed in purpose of PT consult and plan of care. Educated and trained on HEP with reference to the [employer] donna on her phone. Assessment: Patient requires the use of a front-wheeled walker for all mobility ADL performance to maximize excise independence and reduce fall risk. Patient presents with clinical signs and symptoms consistent with current/admitting diagnoses that have resulted to mobility limitations, gait instability, generalized weakness, and overall ADL decline as demonstrated by the following impairment level findings: 1.? Decreased strength to left hip major muscle groups 2.? Lack of arm swing on the right during ambulation 3.? Limitation of joint range of motion in left hip flexion and elbow 4. Increased pain with weight-bearing that subsided with rest Impairments are contributing to the following functional limitations: 1. Decline in bed mobility skills 2. Decline in transfer skills 3. Difficulty with ambulation without assistive device 4. Increased completion time for mobility ADL performance 5. Increased risk for falls 6. Difficulty with managing steps alone safely Patient is assessed as a 97540 moderate complexity based on the following: History: 76 [id number] with past medical history as indicated above Examination: Demonstrable impairment in strength, balance, and mobility level with underlying impairments and functional limitations as exhibited above as well as deficit score of 21% utilizing the [facility] Mobility Inpatient Short Form Presentation: Evolving Decision Makin moderate complexity Goals: N/A.? PT evaluation 1 treatment session only for passive ranging of L shoulder and functional mobility training. Plan of Care/Treatment Plan: N/A.? PT evaluation 1 treatment session only for passive ranging of L shoulder and functional mobility training. DISCHARGE RECOMMENDATIONS: Home when medically cleared by orthopedic surgeon.? Outpatient PT services in order to facilitate return to premorbid independent ADL performance. TREATMENT CODE/TIME: 74718 x 20 minutes, 74718 x 19 minutes beginning at 11:19 AM. Thank you for the opportunity to participate in the care of this patient. Rachael Gruber PT, DPT, CLT [facility] [place], [place]
--- NOTE | 2021-09-11 11:56 | W.ANESPOSTOP ---
Postoperative Evaluation Date, Time and Location Date Performed: 09/11/21 Time Performed: 11:56 Patient Location: Day Surgery Unit Vital Signs Most Recent Imported Vital Signs: Most Recent Vital Signs Temp Pulse Resp BP Pulse Ox 36.7 C 80 16 145/71 H 97 09/11/21 10:14 09/11/21 10:14 09/11/21 10:14 09/11/21 10:14 09/11/21 10:14 Pain Score Most Recent Pain Score: Most Recent Pain Score Pain Level 7 09/11/21 10:14 Assessment Mental Status: Awake (Alert & Oriented to Patient Baseline) Airway and Respiratory Function: Patent airway with normal (patient baseline) respiratory exam Cardiovascular Function: Hemodynamically Stable Hydration Status: Adequately Hydrated Nausea & Vomiting: No Nausea or Vomiting Pain: Pain is tolerable per patient Peripheral Nerve Block: Patient did not receive a nerve block
--- NOTE | 2021-09-13 07:07 | W.PM.OP ---
Date of service: 09/11/21 Time of Service: 08:55 Operative Note Operative Note DATE OF PROCEDURE: 09/11/21 PRE-OP DIAGNOSIS: Left Hip Osteoarthritis POST-OP DIAGNOSIS: same PROCEDURE: Left Anterior Total Hip Arthroplasty with Intraoperative Navigation SURGEON: Jay Schaffer CONSUMER INSIGHT MANAGER: Cristian Calderón ANESTHESIA TYPE: Spinal Refer to Anesthesia Record ESTIMATED BLOOD LOSS: 100 PATHOLOGY: none sent TOURNIQUET TIME: 0 COMPLICATIONS: None Patient was transported to: PACU Patient's condition: stable Implants: 1. Depuy [place] Acetabular Component, 48mm 2. Depuy Acetabular Liner, [id number] 3. Depuy Corail Standard j125 degree Collared Femoral Stem, Size 12 4. Depuy Altrx Ceramic Femoral Head, Size 32+5mm Indications: I have seen Vibha in clinic for symptoms of hip arthritis, confirmed with radiographic findings. Vibha has exhausted nonoperative methods and was having significant limitations in daily function and desired better function and less pain. I discussed the technical details of a hip replacement. I explained the risks of the procedure to include, but not limited to, bleeding, infection, pain, stiffness, fracture, damage to nerves and vessels, damage to muscles and tendons, loosening, instability, leg length inequality, need for repeat procedure, blood clot and cardiopulmonary demise. Despite these risks, Vibha elected to proceed. Findings: There was significant signs of arthritis throughout the hip. Procedure Description: Vibha was greeted in the preoperative holding area where the correct side was identified and marked. The consent was reviewed with the patient and signed. The history and physical was updated. All questions were answered. She was taken back to the operating room. A spinal anesthestic was then administered. The feet were wrapped with cast padding and Coban and then placed into the boot liners and then into the boots. Care was taken to protect the skin and make sure the heels were fully down and the boots were stable. The patient was then positioned onto the HANA table. Both legs were held in a neutral position. SCDs were applied. The patient was then slid down onto a peroneal post. Prophylactic antibiotics in the form of Cefazolin were administered. 1g of Tranxemic Acid was given intravenously within 30 minutes of incision. The left leg was then prepped with Chloraprep and draped in a standard fashion. A second prep with Chloraprep was performed prior to placement of a shower-curtain type drape with Iodine impregnated skin protection. A timeout to confirm correct identity, side and site, procedure, allergies, anesthesia, and medical concerns was performed. An obliquely oriented incision was made starting lateral to the ASIS and running distal over the Tensor Fascia Julianne (TFL) muscle belly toward the fibular head, approximately 10cm. The skin and soft tissue was dissected sharply, through Anuja?s fascia, and to the fascia of the TFL. With the fascia and superior border of the IT band identified, the fascia was incised with a new knife just above any perforators from the IT band. The TFL muscle belly was bluntly dissected away from the fascia and moved laterally. The fat between TFL and rectus was identified to ensure the dissection was not within the TFL. Blunt dissection created space between abductors and the capsule and retractor was placed over the lateral femoral neck. The fibers of the rectus femoris tendon were identified and these were freed from the anterior capsule. A second cobra retractor was placed around the medial femoral neck. The TFL was further retracted laterally to show the deep fascia. Careful dissection through this layer identified three main crossing vessels of the lateral femoral circumflex. These were cauterized in multiple locations and then cut without any noticeable bleeding. The TFL was further released bluntly from the deep fascia to expose anterior hip capsule and fat The Erlin orthopaedic retractor was then placed beneath the TFL and against sartorius and medial soft tissues to protect and retract the soft tissues. A T-capsulotomy was then performed starting at the superior lateral acetabulum and moving distally to the intertrochanteric ridge. These capsular flaps were tagged with a No. 1 Ethibond and elevated from within. The capsular flaps were released to the shoulder of the lateral neck and to the lesser trochanter to give excellent visualization of the proximal femur. A neck osteotomy was performed using an oscillating saw based on preoperative templates. This cut started in the shoulder and of the lateral neck and exited medially. The saw was at all times directed medially to avoid injury to the greater trochanter. Gross traction was applied to the leg and the osteotomy opened. The femoral head was removed with a corkscrew, making sure to protect the TFL on its exit. Traction was released after head removal. This was measured on the back table to determine the starting reamer size. Portions of the rectus obscuring visualization were minimally elevated off the superior acetabulum. An anterior retractor was placed over the anterior wall between capsule and labrum and attached to the Gripper retraction system. The femur was rotated to 90 degrees and medial capsule was fully released until the lesser trochanter was palpable and visible; the femur was returned to 30 degrees. A posterior retractor was placed similarly between capsule and labrum. This provided excellent visualization. The contents of the cotyloid fossa were removed with electrocautery and the labrum was removed with a knife. There was significant chondromalacia of the superior acetabulum. Acetabular reaming began with a 44mm reamer. This first reaming was directed anterior to posterior and medial to get down to the true floor. This was inspected and reamed until the true floor was reached. The anterior retractor was then released and entry and exit was provided by traction on the capsular flaps. I then reamed sequentially up to a 48mm reamer where good fit was obtained. The larger reamers were oriented based on anatomical reference of the anterior and lateral joshua to ensure proper abduction and anteversion. Positioning and size was confirmed with the fluoroscopy. A 48mm Depuy [place] acetabular component was selected. The acetabulum was reamed around the periphery with the selected acetabular size to prevent a rim fit. The deep tissues were irrigated. The acetabular component was then impacted in a position of about 40-45 degrees of abduction and 15-20 degrees of anteversion, using the patient?s anatomy as the ultimate landmark. Fluoroscopy was used to confirm this. There was excellent structural mill supervisor of the acetabular component and the inserting handle was removed. The acetabular liner, Depuy [id number] polyethylene liner, was inserted and lined up with the tines of the acetabular component. There was no soft tissue interposition. The liner was then impacted into position and confirmed to be well-seated. A portion of the liam-articular cocktail was then injected around the acetabulum into the capsule and periosteum. This cocktail consisted of 123mg of Ropivacaine, 0.25mg of Epinephrine, 0.04mg of Clonidine, and 15mg of Ketorolac, diluted to 50cc. The leg was rotated to 120 degrees. Any remaining medial capsule was released until the lesser trochanter was easily palpable. A retractor was placed medially. The lateral capsule was further released into the shoulder to allow access to the greater trochanter. A Muñoz retractor was placed over the greater trochanter which allowed the trochanter to flip in front of the capsule for excellent exposure. The leg was brought down into maximal extension and 20 degrees of adduction while ensuring there was no impingement on the acetabulum. Any remnant capsule within the trochanter was released. Piriformis and obturator externis were identified and protected. There was excellent access to the proximal femur. The lateral neck remnant was removed with a rongeur. A blunt canal probe was used to identify the canal and trajectory for later broaching. A box osteotome initiated the broach course. A small curved rasp and a curved curette were used to work laterally. Broaching then began with a size 8 Corail broach. This was inserted manually around the trochanter and into the canal before mallet blows. The broach was seated to a few millimeters below the cut level based on the neck cut and the preoperative template. Sequential broaching was continued with the My-Hammerse pneumatic broaching device until a tight fit was obtained with good rotational control of the femur. A trial standard neck was inserted along with a +5 trial head. The leg was brought out of extension and adduction and then reduced with traction and internal rotation. The leg was stable anteriorly in a position of 30 degrees of extension and 90 degrees of external rotation. Fluoroscopy was used to ensure there was no fracture and the stem was seated well. Leg lengths were checked with an AP pelvis and pelvic reference points. [employer] navigation system was used to confirm appropriate positioning and leg length and offset. There was slight over correction of leg length but proceeding with a 125 standard neck option would adequately restore leg length and offset. Once content with the desired offset and leg lengths, the leg was brought back into extension, external rotation and adduction. The periosteum and surrounding tissue was injected with remaining portion of the liam-articular cocktail. The proximal femur was irrigated as well as the deep tissues. The Depuy Cor[place] standard 125 collared stem, size 12, was then manually inserted into the proximal femur making sure to control rotation. It was then malleted into position with light blows, giving breaks to allow bone expansion and decrease risk of fracture. The selected Depuy Altrx Ceramic Head, size 32+5mm, was then placed onto the clean and dry trunnion and secured with impaction onto the tapered fit. The leg was brought back out of extension and adduction and reduced with traction and internal rotation. Stability was confirmed with no shuck at 90 degrees of external rotation and 30 degrees of extension. No impingement through range of motion arc. Final x-ray images were obtained with fluoroscopy to confirm adequate positioning and no intraoperative fracture. The deep tissues were thoroughly irrigated with Surgiphor, betadine solution. This was allowed to sit in the wound for 3 minutes before being thoroughly irrigated out with normal saline. The capsule was then reapproximated with the previously placed Ethibond sutures. The TFL fascia was finally closed with a No. 2 Stratafix, barbed suture. Deep tissues were then reapproximated with 0 Vicryl and a running 2-0 Vicryl. The skin was closed with a running 4-0 Monocryl in a subcuticular fashion. This was reinforced with skin glue. A Mepilex silver dressing was applied. At the end of the case, all counts were correct. Vibha was transferred to the hospital bed without difficulty and suffering no apparent complication. Vibha has a good prognosis. Physical therapy will start today and without restrictions, weight-bearing as tolerated. Aspirin 81mg BID will be used for DVT prophylaxis.
== END 2021-09-11 12:38 | disposition home or self-care (01) ==
PROVIDERS: PCP Family Medicine; Visit Provider Student in an Organized Health Care Education/Training Program
PROC: (CPT 27130; principal; 2021-09-11 07:30)
DX: M16.12 Unilateral primary osteoarthritis, left hip (principal); J45.20 Mild intermittent asthma, uncomplicated; Z85.3 Personal history of malignant neoplasm of breast; I34.0 Nonrheumatic mitral (valve) insufficiency; I87.2 Venous insufficiency (chronic) (peripheral); I97.2 Postmastectomy lymphedema syndrome
CPT/HCPCS: 20985; 27130; C1776; 97166; 73501; 97530; J0690; J1100; J2405

== ENCOUNTER 2021-09-24 11:22 | Outpatient (CLI) | payer MEDICARE, BC, SELFPAY ==
--- NOTE | 2021-09-24 11:04 | DI.RAD_ITS ---
Exam(s) XR HIP LT COMPLETE AP PELVIS EXAM: XR HIP LT COMPLETE AP PELVIS INDICATION: 1ST POST OP L FABI. COMPARISON: No exams were available for comparison TECHNIQUE: 2D digital imaging was performed. Two views. FINDINGS: A left hip prosthesis has been placed. The alignment appears unchanged from intraoperative image. No abnormal bony lucencies. Surgical clips noted left side of lower pelvis. DATA REPOSITORY: RADIATION DOSE DELIVERED:
== END 2021-09-24 11:23 | disposition home or self-care (01) ==
LOC: DIORS 11:23
PROVIDERS: PCP Family Medicine; Referring Provider Family Medicine; Visit Provider Student in an Organized Health Care Education/Training Program
DX: Z96.642 Presence of left artificial hip joint (principal)
CPT/HCPCS: 73502

== ENCOUNTER 2021-10-22 11:30 | Outpatient (CLI) | payer MEDICARE, BC, SELFPAY ==
--- NOTE | 2021-10-22 11:23 | DI.RAD_ITS ---
Exam(s) XR HIP LT COMPLETE AP PELVIS EXAM: XR HIP LT COMPLETE AP PELVIS CLINICAL HISTORY: left FABI. TECHNIQUE: 2D digital imaging was performed. Two images were obtained. AP and lateral views were ob tained. COMPARISON: CR XR HIP LT COMPLETE AP PELVIS from 09/24/2021 FINDINGS: BONES: There are stable post operative changes present. No fracture or dislocation. JOINTS: The orthopedic hardware is in good position. SOFT TISSUE: Surgical clips are seen in the pelvis. Atherosclerosis is present. IMPRESSION: Stable postoperative changes. DATA REPOSITORY: RADIATION DOSE DELIVERED:
== END 2021-10-22 11:31 | disposition home or self-care (01) ==
LOC: DIORS 11:30
PROVIDERS: PCP Family Medicine; Referring Provider Family Medicine; Visit Provider Physician Assistant
DX: Z96.642 Presence of left artificial hip joint (principal); Z47.1 Aftercare following joint replacement surgery
CPT/HCPCS: 73502

== ENCOUNTER 2021-10-26 17:02 | Outpatient (REF) | payer MEDICARE, BC, SELFPAY ==
[2021-10-26 13:18] LABS: Bilirubin Negative (Negative); Blood Negative (Negative); Clarity Clear (Clear); Glucose Negative (Negative); Ketones Negative (Negative); Leukocyte Esterase Trace (Negative); Nitrite Negative (Negative); Urobilinogen 0.2 EU/dL (Up TO 0.2); pH 5.5 (5-8)
[2021-10-26 13:30] LABS: Bacteria Few HPF (Negative); C & S Indicated? Yes; Casts Negative LPF (Negative); Crystals Negative HPF (Negative); Epithelial Cells Few HPF (Negative); Mucus Negative (Negative); RBC 0-2 HPF (0-2)
== END 2021-10-26 17:03 | disposition home or self-care (01) ==
LOC: NCHCN 17:02
PROVIDERS: PCP Family Medicine; Visit Provider Family Medicine
DX: N18.31 Chronic kidney disease, stage 3a (principal); R82.998 Other abnormal findings in urine
CPT/HCPCS: 81003; 81015; 87086

== ENCOUNTER 2021-10-31 13:12 | Outpatient (REF) | payer MEDICARE, BC, SELFPAY | END 2021-10-31 13:13 | disposition home or self-care (01) | LOC: LBN 13:12 | PROVIDERS: PCP Family Medicine; Visit Provider Nurse Practitioner Family | DX: N89.8 Other specified noninflammatory disorders of vagina (principal) | CPT/HCPCS: 87480; 87510; 87660 ==

== ENCOUNTER 2021-11-23 19:25 | Outpatient (REF) | payer MEDICARE, BC, SELFPAY ==
[2021-11-23 18:28] LABS: HCT 37.1 % (36.0-46.0); HGB 12.3 g/dL (11.2-15.7); MCH 30.8 pg (27.0-33.0); MCHC 33.2 % (32.0-36.0); MCV 93 fL (80-95); MPV 10.2 fL (8.0-11.0); Platelet Count 192 10^3/uL (130-400); RBC 3.99 10^6/uL (3.93-5.22); RDW-SD 44.6 fL; WBC 4.51 10^3/uL (4.4-10.8)
[2021-11-23 19:06] LABS: Folate 11.6 ng/mL (8.6-20.0); Vitamin B12 445 pg/mL (193-986)
== END 2021-11-23 19:26 | disposition home or self-care (01) ==
LOC: NCHCN 19:25
PROVIDERS: PCP Family Medicine; Visit Provider Family Medicine
DX: R41.3 Other amnesia (principal)
CPT/HCPCS: 85027; 82607; 82746

== ENCOUNTER → 2021-11-26 10:24 | Outpatient (BNVA) | payer MEDICARE, BC, SELFPAY | PROVIDERS: PCP Family Medicine; Referring Provider Family Medicine; Visit Provider Student in an Organized Health Care Education/Training Program | DX: Z47.1 Aftercare following joint replacement surgery (principal); M70.62 Trochanteric bursitis, left hip; Z96.642 Presence of left artificial hip joint | CPT/HCPCS: 20610; J1040 ==

== ENCOUNTER → 2021-11-29 12:26 | Outpatient (BNVA) | payer MEDICARE, BC, SELFPAY | PROVIDERS: PCP Family Medicine; Referring Provider Family Medicine; Visit Provider Nurse Practitioner Adult Health | DX: R41.89 Other symptoms and signs involving cognitive functions and awareness (principal); R63.4 Abnormal weight loss; Z85.3 Personal history of malignant neoplasm of breast; N18.9 Chronic kidney disease, unspecified | CPT/HCPCS: 99204; 99214 ==

== ENCOUNTER → 2021-12-14 00:02 | Outpatient (CLI) | payer MEDICARE, BC, SELFPAY ==
--- NOTE | 2021-12-14 15:00 | DI.DEXA_ITS ---
Exam(s) XR DEXA BONE DENSITY W/WO KB EXAM: XR DEXA BONE DENSITY W/WO KB CLINICAL HISTORY: SPECIFIED DISORDERS OF BONE DENSITY, M85.88; MVR, I34.0 TECHNIQUE: [employer] C densitometer analysis of left hip, lumbar spine and left forearm. COMPARISON: CR XR HIP LT COMPLETE AP PELVIS from 10/22/2021 FINDINGS: Lateral view of the thoracic and lumbar spine shows no evidence of compression fractures. Bone mineral density measurements of the lumbar spine correspond to a total T-score of -1.6, in the osteopenic range. Bone mineral density measurements of the right hip correspond to a total T-score of -2.0. The femor al neck T-score is -1.8, in the osteopenic range.. The left forearm bone mineral density measurements correspond to a T-score of the distal 3rd of -2.5 , at the borderline of osteoporosis.. IMPRESSION: Osteopenia the lumbar spine and left hip. Borderline osteoporosis of left forearm.
== END ==
PROVIDERS: PCP Family Medicine; Visit Provider Family Medicine
DX: M85.88 Other specified disorders of bone density and structure, other site (principal)
CPT/HCPCS: 77080

== ENCOUNTER → 2021-12-18 00:57 | Outpatient (CLI) | payer MEDICARE, BC, SELFPAY ==
--- NOTE | 2021-12-18 06:45 | DI.US_ITS ---
Exam(s) US PELVIS TRANSVAGINAL EXAM: US PELVIS TRANSVAGINAL CLINICAL HISTORY: abnormal vaginal discharge,N89.8 TECHNIQUE: Ultrasound of the pelvis was performed both transabdominal and transvaginal. COMPARISON: CT CT CHEST/ABD/PEL W from 08/03/2021 FINDINGS: UTERUS: Nongravid anteverted Measures 4.5 cm length x 2.6 cm AP x 4.1 cm wide. Hyperechoic focus in the anterior aspect of the fundus measuring 1.3 x 1.1 x 0.9 cm, probably a parti ally calcified fibroid. Endometrial thickness measures 4.8 mm. There is no fluid in the endometrial canal. CERVIX: There are no obvious nabothian cysts. OVARIES: Both are not seen/apparently surgically absent. CUL-DE-SAC: No free fluid evident. Incidentally noted is what appears to be a solid mass in the superior pole of the left kidney measuri ng 3.2 x 3.6 cm. IMPRESSION: 1. Anterior fundal level fibroid measuring 13 x 11 x 9 millimeters 2. Slightly thickened endometrium for this age group. Appropriate follow-up recommended. There is n o fluid in the endometrial canal. 3. Ovaries are not seen and are para E surgically absent. 4. Incidentally noted is a 3 cm solid-appearing mass in the superior pole the left kidney. This req uires further imaging to rule out malignancy. DATA REPOSITORY:
== END ==
PROVIDERS: PCP Family Medicine; Visit Provider Obstetrics & Gynecology
DX: N89.8 Other specified noninflammatory disorders of vagina (principal); Z15.01 Genetic susceptibility to malignant neoplasm of breast; D25.9 Leiomyoma of uterus, unspecified; N28.89 Other specified disorders of kidney and ureter
CPT/HCPCS: 76830; 76856

== ENCOUNTER → 2021-12-26 01:18 | Outpatient (CLI) | payer MEDICARE, BC, SELFPAY ==
--- NOTE | 2021-12-26 | DI.US_ITS ---
APPROVED REPORT EXAM: Comprehensive 2D, Doppler, and color-flow Echocardiogram Patient Location: Out-Patient Composition [employer] Installer: Jennifer Ware RDCS (AE) Indications: Mitral valve regurgitation Other Information Study Quality: Adequate Conclusion Normal left ventricular wall thickness and chamber size. Estimated ejection fraction is 55 to 60%. Wall motion is normal Normal right ventricular size and systolic function Both atria are normal in size Mitral annular calcification. Mild mitral regurgitation Estimated right ventricular systolic pressure is 28 mmHg Wall motion Left Ventricle The left ventricle is normal size. The left ventricular systolic function is normal. The left ventric ular ejection fraction is within the normal range. There is normal left ventricular wall thickness. T here is normal LV segmental wall motion. There is no ventricular septal defect visualized. LVEF is 55 -60%. Right Ventricle The right ventricle is normal size. The right ventricular systolic function is normal. The RVSP is 28 .1mmHg. Atria The left atrium size is normal. The right atrium size is normal. The interatrial septum is intact wit h no evidence for an atrial septal defect. Aortic Valve Aortic valve is trileaflet. There is no aortic valvular stenosis. No aortic regurgitation is present. Mitral Valve mitral annular calcification. No evidence of mitral valve stenosis. Mild mitral regurgitation. Tricuspid Valve The tricuspid valve is normal in structure. There is no tricuspid valve stenosis. Trace tricuspid reg urgitation. Pulmonic Valve The pulmonary valve is normal in structure. There is no pulmonic valvular stenosis. There is no pulmo darlene valvular regurgitation. Great Vessels The aortic root is normal in size. Ascending aorta is not well visualized. Aortic arch is normal in c aliber. IVC is normal in size and collapses >50% with inspiration. Pericardium There is no pericardial effusion. 2D Dimensions IVSD d PLAX 0.74 cm F: 0.6-1.0 LV Vol A2C d MOD 51.8 mL LVPW d PLAX 0.74 cm F: 0.6 - 1.0 LV Vol A4C d MOD 77.0 mL LVID d PLAX 4.28 cm F: 3.8 - 5.2 LA vol/ BSA A2C s A-L 9.4 mL/m2 LVDs 2.85 cm F: 2.2 - 3.5 LA vol/ BSA A4C s A-L 13.3 mL/m2 Ao Root d 2.57 cm F: 2.7 - 3.3 LA Vol/ BSA Biplane s A-L 12.2 mL/m2 RA Area A4C 8.78 cm2 LA Area A4C s MOD 9.20 cm2 RA Vol/ BSA A4C s A-L 11.0 mL/m2 LA Area A2C s MOD 7.08 cm2 LV EF Teichholz 61.9 % LV EF A4C MOD 55.5 % LVEF (Sanders's) 57.45 % F: 54 - 74 LV EF A2C MOD 60.1 % LV Volume 53.63 mL F: 46 - 106 LV EF Biplane MOD 57.4 % LV Volume Index 36.48 mL/m2 F: 29 - 61 SV 36.67 mL LV Vol Biplane MOD 63.8 mL SV Index 24.96 mL/m2 FS 33.00 % M-Mode TAPSE 2.51 cm (M/F) >1.7 LV Diastology MV E' medial 0.087 (>0.07 m/s) E/A Ratio 0.8 LV E/e MED 11.00 (<14) MV E Vmax 0.96 (0.4-1.3 m/s) MV E' lateral 0.105 (>0.1 m/s) MV A Vmax 1.15 (0.4-1.3 m/s) LV E/e LAT 9.10 (<14) MV E/A Ratio 0.83 MV E/E' medial 11.04 MV E/E' lateral 9.11 Aortic Valve LVOT Area 2.85 cm2 AoV Area Vmax 2.42 cm2 LVOT Vmax 0.91 m/s AoV Area/ BSA (Vmax) 1.65 cm2/m2 LVOT Mean Ramesh. 0.69 m/s CJ Mean Ramesh. 2.60 cm2 LVOT Peak Grad 3.3 mmHg CJ Mean Ramesh. Index 1.77 cm2/m2 LVOT Mean Grad 2.1 mmHg LVOT VTI 0.215 m LVOT Diam s 1.90 cm AoV Vmax 1.08 m/s Velocity Ratio 0.84 AoV Mean Ramesh. 0.76 m/s AoV Peak Grad 4.6 mmHg LVOT SV 61.40 mL AoV Mean Grad 2.6 mmHg AoV VTI 0.263 m AoV Area VTI 2.33 cm2 AoV Area/ BSA (VTI) 1.59 cm/m2 Mitral Valve MV DT 220 (160-240 msec) MV PHT 64 msec MV Area PHT 3.45 cm2 MV VTI 0.303 m MV Area VTI 2.03 (4.0-6.0 cm2) Pulmonary Valve PV Vmax 0.87 (0.5-1.5 m/s) RVOT Peak Gr. 2.32 mmHg PV Peak Grad 3.0 mmHg RVOT Mean Gr. 1.25 mmHg PV Mean Grad 1.7 mmHg RVOT VTI 0.157 m PV VTI 0.166 m RVOT Vmax 0.76 m/s Tricuspid Valve TR Peak Grad 25.0 mmHg TR Vmax 2.50 m/s RA Pressure 3.00 mmHg RVSP (TR) 28.1 mmHg
== END ==
PROVIDERS: PCP Family Medicine; Visit Provider Family Medicine
DX: I34.0 Nonrheumatic mitral (valve) insufficiency (principal)
CPT/HCPCS: 93306

== ENCOUNTER → 2021-12-31 02:19 | Outpatient (CLI) | payer MEDICARE, BC, SELFPAY ==
--- NOTE | 2021-12-31 07:30 | DI.MRI_ITS ---
Exam(s) MR BRAIN WO/W EXAM: MR BRAIN WO/W CLINICAL HISTORY: cog changes, hx br CAx3, weight loss, R41.89. TECHNIQUE: Multiplanar multisequence MRI of the brain was performed. CONTRAST MATERIAL: IV Contrast: 9 ML of Dotarem contrast administered. COMPARISON: MR MR BRAIN WO from 08/01/2021 FINDINGS: VENTRICLES AND EXTRA AXIAL SPACES: Normal in size and morphology for the patient's age. HEMORRHAGE: None. CEREBRAL PARENCHYMA: No focus of restricted diffusion to suggest acute infarct. No space-occupying le mat identified. There are multiple areas of hyperintense signal in the white matter on the FLAIR an d T2 weighted images most suggestive of chronic microvascular ischemic disease. There is age-appropr iate cerebral atrophy. MIDLINE SHIFT: None. BRAINSTEM/CEREBELLUM: Normal. CALVARIUM: Normal. ENHANCEMENT: No suspicious enhancement identified. VISUALIZED PARANASAL SINUSES/MASTOIDS: Clear. OTHER FINDINGS: None. IMPRESSION: 1. No acute intracranial process. 2. No intracranial mass or enhancing lesion. DATA REPOSITORY:
[2021-12-31 11:15] LABS: CREATININE 0.9 mg/dL (0.55-1.02)
[2021-12-31] MEDS: Normal Saline Flush 10 ML SYR IVP (11:21)
== END ==
PROVIDERS: PCP Family Medicine; Visit Provider Nurse Practitioner Adult Health
DX: R41.89 Other symptoms and signs involving cognitive functions and awareness (principal); R63.4 Abnormal weight loss; G31.89 Other specified degenerative diseases of nervous system
CPT/HCPCS: 70553; 82565

== ENCOUNTER → 2022-01-01 08:22 | Outpatient (BNVA) | payer MEDICARE, BC, SELFPAY | PROVIDERS: PCP Family Medicine; Referring Provider Family Medicine; Visit Provider Nurse Practitioner Adult Health | DX: F32.A Depression, unspecified (principal); R41.89 Other symptoms and signs involving cognitive functions and awareness; R63.4 Abnormal weight loss | CPT/HCPCS: 99213; 99214 ==

== ENCOUNTER → 2022-01-04 00:50 | Outpatient (CLI) | payer MEDICARE, BC, SELFPAY ==
--- NOTE | 2022-01-04 13:00 | DI.MRI_ITS ---
Exam(s) MR ABDOMEN WO/W EXAM: MR ABDOMEN WO/W the CLINICAL HISTORY: ABNL ABD IMAGING, R93.5; RENAL MASS, N28.89; H/O BREAST CA, Z85.3. TECHNIQUE: Multiplanar multisequence MRI was performed. COMPARISON: No exams were available for comparison FINDINGS: MR examination of the abdomen was performed utilizing renal protocol with multi planar imaging inclu ding multiphasic postcontrast imaging. The liver and spleen show normal signal. Pancreas is unremarkable in appearance. Adrenals appear no rmal bilaterally. The kidneys show normal cortical signal and no evidence of a focal mass. There is no hydronephrosis. There is no enhancing lesion of the kidney. No lymphadenopathy identified. Visualized bowel appears normal. Abdominal aorta is of normal diamet er. IMPRESSION: There is no evidence of a renal mass. Negative MR examination of the upper abdomen. DATA REPOSITORY:
== END ==
PROVIDERS: PCP Family Medicine; Visit Provider Family Medicine
DX: R93.5 Abnormal findings on diagnostic imaging of other abdominal regions, including retroperitoneum (principal); N28.89 Other specified disorders of kidney and ureter; Z85.3 Personal history of malignant neoplasm of breast; Z15.01 Genetic susceptibility to malignant neoplasm of breast
CPT/HCPCS: 74183

== ENCOUNTER 2022-01-21 13:09 | Outpatient (CLI) | payer MEDICARE, BC, SELFPAY ==
--- NOTE | 2022-01-21 11:00 | DI.RAD_ITS ---
Exam(s) XR HIP LT AP LAT ONLY EXAM: XR HIP LT AP LAT ONLY CLINICAL HISTORY: continued left hip pain s/p fall after FABI. TECHNIQUE: 2D digital imaging was performed. Three views. COMPARISON: CR XR HIP LT COMPLETE AP PELVIS from 10/22/2021 CR XR DEXA BONE DENSITY W/WO KB from 12/14/2021 FINDINGS: BONES: No acute fracture is present. No bony destructive lesion is seen. There has been no change in the alignment of the left hip prosthesis. JOINTS: No dislocation present. SOFT TISSUE: Surgical clips left lower pelvis. IMPRESSION: Stable appearance of left hip prosthesis. No acute abnormality. DATA REPOSITORY: RADIATION DOSE DELIVERED:
== END 2022-01-21 13:10 | disposition home or self-care (01) ==
LOC: DIORS 13:09
PROVIDERS: PCP Family Medicine; Referring Provider Family Medicine; Visit Provider Student in an Organized Health Care Education/Training Program
DX: M70.62 Trochanteric bursitis, left hip; Z96.612 Presence of left artificial shoulder joint
CPT/HCPCS: 99214; 73502

== ENCOUNTER 2022-01-23 13:51 | Outpatient (CLI) | payer MEDICARE, BC, SELFPAY ==
--- NOTE | 2022-01-23 13:00 | DI.RAD_ITS ---
Exam(s) XR SHOULDER LT COMPLETE 2+V EXAM: XR SHOULDER LT COMPLETE 2+V CLINICAL HISTORY: L RTSA. TECHNIQUE: 2D digital imaging was performed. COMPARISON: CR XR SHOULDER LT COMPLETE 2+V from 06/06/2021 FINDINGS: 3 views There is stable position alignment of the components of the reverse prosthesis. No fracture nor loos ening evident. IMPRESSION: Stable appearance DATA REPOSITORY: RADIATION DOSE DELIVERED:
== END 2022-01-23 13:52 | disposition home or self-care (01) ==
LOC: DIORS 13:52
PROVIDERS: PCP Family Medicine; Referring Provider Family Medicine; Visit Provider Physician Assistant
DX: Z96.612 Presence of left artificial shoulder joint (principal)
CPT/HCPCS: 99213; 73030

== ENCOUNTER 2022-01-24 03:58 | Outpatient (CLI) | payer MEDICARE, BC, SELFPAY ==
[2022-01-24 14:05] LABS: ESR 9 mm/hr (0-30)
[2022-01-24 16:28] LABS: C-Reactive Protein < 0.05 mg/dL (0.0-0.3)
== END 2022-01-24 03:59 | disposition home or self-care (01) ==
LOC: LBO 03:58
PROVIDERS: PCP Family Medicine; Visit Provider Student in an Organized Health Care Education/Training Program
DX: R29.898 Other symptoms and signs involving the musculoskeletal system (principal); R63.4 Abnormal weight loss
CPT/HCPCS: 36415; 85652; 86140

== ENCOUNTER → 2022-02-08 00:53 | Outpatient (CLI) | payer MEDICARE, BC, SELFPAY ==
--- NOTE | 2022-02-08 06:49 | DI.MRI_ITS ---
Exam(s) MR LOWER JOINT LT WO EXAM: MR LOWER JOINT LT WO CLINICAL HISTORY: lt hip PAIN, S/P FALL, ? TENDON/MUSCLE RUPTURE,weakness lt hip,m25.552, TECHNIQUE: Multiplanar multisequence MRI of the knee was performed. COMPARISON: CR XR HIP LT AP LAT ONLY from 01/21/2022 FINDINGS: RIGHT HIP: There is no evidence of stress fracture or avascular necrosis in the right hip nor significant signal abnormality in the soft tissues around the right hip.. LEFT HIP: There is a left hip prosthesis. components appear to be in satisfactory position. No abnormal intra osseous signal within the acid acetabulum nor in the greater vkmisdgktl-mbdddmfrrcjijbtbo-nbwnogifadd cameron region. There is a significant fluid collection around the femoral neck component and extending anteriorly in to the space between the lateral aspect of the rectus femoris and tensor fascia kennedy, extending cauda lly for a distance of 6 cm. There is mild increased intramuscular signal in the obturator externus muscle but without high-grade tear of this muscle nor signal abnormality within the pubic ramus. There is no abnormal signal within the hamstrings muscle common tendon nor within the ischial tuberos ity.. IMPRESSION: 1. The main finding here is significant mount of fluid surrounding the femoral component of the hip p rosthesis and extending from this level antro inferiorly for a distance of 6 cm in the medial aspect of the tensor fascia kennedy, just lateral to the rectus femorals. 2. There is no intraosseous signal abnormality to suggest osteomyelitis. 3. Mild muscle strain signal noted in the left obturator externus muscle. 4. DATA REPOSITORY:
== END ==
PROVIDERS: PCP Family Medicine; Visit Provider Student in an Organized Health Care Education/Training Program
DX: R93.7 Abnormal findings on diagnostic imaging of other parts of musculoskeletal system (principal)
CPT/HCPCS: 73721

== ENCOUNTER → 2022-02-21 08:22 | Outpatient (BNVA) | payer MEDICARE, BC, SELFPAY | PROVIDERS: PCP Family Medicine; Referring Provider Family Medicine; Visit Provider Nurse Practitioner Adult Health | DX: R41.89 Other symptoms and signs involving cognitive functions and awareness (principal) | CPT/HCPCS: 99213; 99214 ==

== ENCOUNTER 2022-03-11 02:47 | Outpatient (CLI) | payer MEDICARE, BC, SELFPAY ==
[2022-03-11 11:25] LABS: HCT 38.7 % (36.0-46.0); MCH 31.5 pg (27.0-33.0); MCHC 33.6 % (32.0-36.0); MCV 94 fL (80-95); MPV 9.5 fL (8.0-11.0); Platelet Count 171 10^3/uL (130-400); RBC 4.13 10^6/uL (3.93-5.22); RDW-SD 45.1 fL; WBC 3.61 10^3/uL (4.4-10.8)
[2022-03-11 11:44] LABS: Anion Gap 9.3 mmol/L (3-11); BUN 16 mg/dL (7-18); CO2 25.7 mmol/L (21.0-32.0); CREATININE 1.2 mg/dL (0.55-1.02); Calcium 9.2 mg/dL (8.5-10.1); Chloride 106 mmol/L (98-107); Estimated GFR 46.91 (mL/min/1.73m2); Glucose 109 mg/dL (74-106); Potassium 3.9 mmol/L (3.5-5.1); Sodium 141 mmol/L (136-145)
== END 2022-03-11 02:48 | disposition home or self-care (01) ==
LOC: LBO 02:48
PROVIDERS: PCP Family Medicine; Visit Provider Obstetrics & Gynecology Gynecology
DX: Z01.818 Encounter for other preprocedural examination (principal)
CPT/HCPCS: 36415; 80048; 85027; 86850; 86900; 86901

== ENCOUNTER 2022-03-14 11:31 | Day surgery (SDC) | payer MEDICARE, BC, SELFPAY ==
[2022-03-14 11:58] VITALS: BP 153/78; PULSE 73; RESP 18; TEMP 36.5; O2SAT 100
[2022-03-14] MEDS: Lactated Ringers 1,000 ML 125 ML IV (12:08)
--- NOTE | 2022-03-14 12:17 | W.ANESPRE ---
General Info Date of Service Date Performed: 03/14/22 Height: 5 ft 3 in Weight: 50.6 kg Body Mass Index (BMI): 19.8 Surgical Procedure: Operation Date: 03/14/22 13:10 Proposed Procedure Side Surgeon p Dilation & Curettage with Hysteroscopy Letty Song MD Meds Allergies and Home Medications Allergies Allergy/AdvReac Type Severity Reaction Status Date / Time No Known Drug Allergies Allergy Verified 03/14/22 11:53 tomato juice AdvReac Intermediate Other (See Uncoded 03/14/22 11:53 Comment) Home Medication Medication Instructions Recorded cholecalciferol (vitamin D3) 10 50 mcg PO DAILY 05/15/20 mcg (400 unit) capsule (Vitamin D3) albuterol sulfate 90 mcg/actuation 2 puff inhalation Q4H PRN 08/08/21 aerosol inhaler (Ventolin HFA) aspirin 81 mg chewable tablet 81 mg PO DAILY 08/08/21 (Aspirin Childrens) omega-3 fatty acids 1,000 mg 1,000 mg PO DAILY 08/08/21 capsule (Super [place]-3) acetaminophen 500 mg tablet 1,000 mg PO Q8H PRN pain #90 tabs 09/11/21 estradiol 10 mcg vaginal tablet 10 mcg vaginal DAILY 2 weeks #90 11/12/21 (Yuvafem) tabs atorvastatin 40 mg tablet 40 mg PO DAILY 11/26/21 cyanocobalamin (vitamin B-12) 1,000 mcg PO DAILY 11/26/21 1,000 mcg capsule folic acid 1 mg tablet 1 mg PO DAILY 11/26/21 meclizine 25 mg tablet 25 mg PO TID PRN 11/26/21 tumeric 100 mg-natasha 150 mg-olive 1 cap PO DAILY 11/26/21 50 mg-oreg 150 mg-caprylate capsule ascorbate calcium (vitamin C) 500 500 mg PO DAILY 01/01/22 mg tablet donepezil 10 mg tablet 10 mg PO QHS #90 tabs 02/21/22 magnesium mal, threon, chelate mg PO 02/28/22 (OptiMag Neuro) amlodipine 5 mg tablet 1 tab PO DAILY 03/12/22 Current Visit Medications: Current Medications Generic Name Dose Route Start Last Admin Trade Name Freq PRN Reason Stop Dose Admin Ringer's Solution 1,000 mls @ 125 mls/hr 03/13/22 06:00 03/14/22 12:08 IV 04/11/22 23:59 125 mls/hr INFUSION LADI Administration IV Miscellaneous Supplies 1 each 03/13/22 06:00 Iv Access IV 04/11/22 23:59 DIRECTED LADI Sodium Chloride 0 ml 03/13/22 06:00 Normal Saline Flush 10 Ml Syr IV 04/11/22 23:59 PRN PRN Sodium Chloride 0 ml 03/13/22 06:00 Normal Saline 10 Ml Vial IJ 04/11/22 23:59 DIRECTED PRN Sterile Water 0 ml 03/13/22 06:00 Water,Injection,Sterile 10 Ml Vial IJ 04/11/22 23:59 DIRECTED PRN PFSH Active Problems Active Problems: Problem Status Onset Code 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 Z96.612 Weight loss R63.4 Cognitive changes R41.89 Greater trochanteric bursitis of left hip M70.62 Vaginal discharge N89.8 Lymphedema of arm I89.0 Medical History Medical History Anorexia Asthma, mild intermittent Atrophic vaginitis BRCA1 gene mutation positive S/p lap BSO Breast cancer s/p mastectomy and tamoxifen Contracture of left shoulder Folate deficiency anemia Hearing loss History of breast cancer Stopped Tamoxifen 2019 after episode of postmenopausal bleeding History of tamoxifen therapy Hx of adenomatous colonic polyps Hx of malignant melanoma Hyperlipidemia Hypertension, essential, benign Intraductal papillary mucinous neoplasm Leg pain, bilateral Leg pain, left Memory impairment Mitral valve regurgitation Mixed conductive and sensorineural hearing loss Osteopenia Pain, joint, shoulder region, left Right leg pain Rotator cuff tear arthropathy of left shoulder Tendinitis of long head of biceps brachii of left shoulder Trochanteric bursitis, left hip Varicose veins of both lower extremities Venous stasis dermatitis Wart of hand Weakness of left hip Weight loss Surgical History Surgical History History of colonoscopy History of hip surgery left hip - placed pin History of hysteroscopy 01/2020. for thickened endometrium while taking Tamoxifen. D&C: inactive endometrium. History of reconstruction of left breast History of total left hip arthroplasty (09/11/21) DOS 09/11/21 Hx of appendectomy Hx of dilation and curettage 01/2020 for thickened endometrial lining: inactive endometrium Hx of lumpectomy multiple Hx of mastectomy Left breast with reconstruction Hx of partial mastectomy Right Hx of repair of right rotator cuff Hx of tonsillectomy Tobacco Smoking/Tobacco Use Status: Former Tobacco Use Alcohol Alcohol Intake: current Alcohol intake frequency: a few times a week Alcohol type: wine Substance Use Substance use: Never Substance use type: does not use Prental History History 5 Para 3 Hx # Term Pregnancies Multiple births Hx # Pregnancies Ectopic pregnancies AB induced 1 Hx Number of Living Children 3 AB spontaneous 1 Vital Signs and Lab Results Vital Signs Most Recent Vital Signs in EMR: Most Recent Vital Signs Temp Pulse Resp BP Pulse Ox 36.5 C 73 18 153/78 H 100 03/14/22 11:58 03/14/22 11:58 03/14/22 11:58 03/14/22 11:58 03/14/22 11:58 Lab Results Blood Type / Crossmatch: Patient ABO/Rh O Positive 03/11/22 Antibody Screen NEGATIVE 03/11/22 Complete Blood Count: White Blood Count 3.61 10^3/uL (4.4-10.8) L 03/11/22 11:21 Red Blood Count 4.13 10^6/uL (3.93-5.22) 03/11/22 11:21 Hemoglobin 13.0 g/dL (11.2-15.7) 03/11/22 11:21 Hematocrit 38.7 % (36.0-46.0) 03/11/22 11:21 Platelet Count 171 10^3/uL (130-400) 03/11/22 11:21 Complete Metabolic Panel: Sodium 141 mmol/L (136-145) 03/11/22 11:21 Potassium 3.9 mmol/L (3.5-5.1) 03/11/22 11:21 Chloride 106 mmol/L (98-107) 03/11/22 11:21 Carbon Dioxide 25.7 mmol/L (21.0-32.0) 03/11/22 11:21 BUN 16 mg/dL (7-18) 03/11/22 11:21 Creatinine 1.2 mg/dL (0.55-1.02) H 03/11/22 11:21 Est GFR (CKD-EPI 2020) 46.91 (mL/min/1.73m2) 03/11/22 11:21 Calcium 9.2 mg/dL (8.5-10.1) 03/11/22 11:21 Glucose 109 mg/dL (74-106) H 03/11/22 11:21 Liver Function Panel: No Data to Display Coagulation Panel: No Data to Display Cardiac Panel: No Data to Display Arterial Blood Gas: No Data to Display Venous Blood Gas: No Data to Display Pancreas Panel: No Data to Display Thyroid Panel: No Data to Display Infectious Disease: No Data to Display Blood Cultures: No Data to Display Toxicology Panel: No Data to Display Imaging and Studies Imaging and Studies Study information below may be from another EMR and interpreted by another provider. Please see original notes in EMR for more complete details. EKG Summary: 05/15/2020: Sinus rhythm...normal P axis, V-rate 60- 99 Stress Test Summary: 05/25/2020:Stress ECG Conclusion 1. The resting electrocardiogram showed poor R wave progression 2. The patient exercised on the Melchor protocol and achieved a workload of 13.05 METS, limited by hip pain. 3. Normal heart rate and blood pressure response to exercise. The patient achieved greater than 100% of predicted heart rate for age 4. There was no electrocardiographic evidence of myocardial ischemia 5. There were occasional atrial and ventricular ectopic beats noted Lester Treadmill Score is 10.1 which is Low risk. 05/25/20 Echocardiogram Summary: Date of Exam: 12/26/21Sex: F Admission Date: 12/26/21 : 1945 Age: 76 APPROVED REPORT EXAM: Comprehensive 2D, Doppler, and color-flow Echocardiogram Patient Location: Out-Patient Financial Operations Analyst: Jennifer Ware RDCS (AE) Indications: Mitral valve regurgitation Other Information Study Quality: Adequate Conclusion Normal left ventricular wall thickness and chamber size. Estimated ejection fraction is 55 to 60%. Wall motion is normal Normal right ventricular size and systolic function Both atria are normal in size Mitral annular calcification. Mild mitral regurgitation Estimated right ventricular systolic pressure is 28 mmHg Carotid Artery Summary:: 05/15/20: Normal CTA of the carotids. Anesthesia Assessment and Plan Anesthesia History Personal History: Other Family History: No Family History of Anesthesia Complications Exercise Tolerance Exercise Tolerance: Metabolic Equivalents>4 Pertinent Negatives Pertinent Negatives: No Symptoms of GERD Cardiac & Pulmonary Exam Cardiac Exam: Normal S1/S2 Heart Sounds Pulmonary Exam: Clear Bilateral Breath Sounds Implantable Cardiac Device Does patient have a Pacemaker or an ICD?: No Airway Exam Known Difficult Airway: No Mallampati Class: 2 Mouth Opening: Normal (> 3cm) Thyromental Distance: Greater than 3 cm Neck Range of Motion: Full ROM Neck Circumference: Normal Teeth Condition: Normal Dentition ASA Classification ASA Score: ASA 2 Emergency Case?: No NPO Status NPO Status: NPO Clears >2 hours, Solids >8 hours Anesthesia Plan Resuscitation Status: Full Code Anesthesia Technique: General Anesthesia Airway Planned: Natural Airway Monitors Used: Standard Monitors
[2022-03-14 12:23] VITALS: BMI 19.8
[2022-03-14] MEDS: Bupivacaine 0.25% Pres-Free 30 ML VIAL (13:24)
--- NOTE | 2022-03-14 13:42 | ENDOMET_PTH ---
PATIENT: Nataly Kuhn LOC: [facility] U#:[id number] AGE/SX: 77/F ROOM: RE03/14/[address]: Letty Song : 1945 BED: DIS: 03/14/2022 SPEC #: [id number] RECD: 03/14/22 18:06 STATUS: OLLIE REQ #: [id number] KAREY: 03/14/22 13:[address]: Letty Song DEPT: Surgical Specimen RECD BY: Nini Valdes ENTERED: 03/14/22 18:07 SP TYPE: Endomet OTHR DR: Dorothea Kaufman Tissues: 1 - ENDOMETRIUM BX/ANTOINETTEETTE Procedures: GROSS AND MICRO LEVEL 4 Comments: [id number]
[2022-03-14 13:56] VITALS: BP 157/89; PULSE 67; RESP 16; TEMP 36; O2SAT 98
--- NOTE | 2022-03-14 14:10 | W.PM.DSUDISC ---
Date of service: 03/14/22 Time of Service: 14:11 Discharge Plan Disposition Patient Disposition: HOME Condition: Good Discharge Details Reason For Visit: vaginal discharge, eval of postmenopausal bleeding Attending Provider: Letty Song Primary Care Provider: Dorothea Kaufman Home Meds and New Rx's Prescriptions: No Action ascorbate calcium (vitamin C) 500 mg tablet 500 mg PO DAILY donepezil 10 mg tablet 10 mg PO QHS Qty: 90 3RF albuterol sulfate [Ventolin HFA] 90 mcg/actuation HFA aerosol inhaler 2 puff inhalation Q4H PRN aspirin [Aspirin Childrens] 81 mg tablet,chewable 81 mg PO DAILY omega-3 fatty acids [Super [place]-3] 1,000 mg capsule 1,000 mg PO DAILY estradiol [Yuvafem] 10 mcg tablet 10 mcg vaginal DAILY 14 Days Qty: 90 4RF Rx Instructions: Use nightly x2wks. Then decrease use to 2-3x weekly. OptiMag Neuro 200 mg magnesium/scoop powder PO Label Comments: 02/28/22- pt unsure of formulation- states she takes neuro mag wjozuqx-guge-yahma-oreg-capryl 100 mg-150 mg- 50 mg-150 mg capsule 1 cap PO DAILY atorvastatin 40 mg tablet 40 mg PO DAILY meclizine 25 mg tablet 25 mg PO TID PRN folic acid 1 mg tablet 1 mg PO DAILY cyanocobalamin (vitamin B-12) 1,000 mcg capsule 1,000 mcg PO DAILY cholecalciferol (vitamin D3) [Vitamin D3] 10 mcg (400 unit) Capsule 50 mcg PO DAILY acetaminophen 500 mg tablet 1,000 mg PO Q8H PRN (Reason: pain) Qty: 90 3RF amlodipine 5 mg tablet 1 tab PO DAILY Label Comments: Take 1 tablet by mouth once a day Discharge Instructions Additional Instructions: Keep your appointment with Dr. Song in 2 weeks for discussion regarding results. You may take a bath or shower. I recommend not driving a car for the next 4 days. You will have some uterine bleeding for the next 72 hours. Stand Alone Forms: Anesthesia Discharge Inst., DSU Post Suction D+C Activity:: Activity as Tolerated Diet:: As Tolerated Discharge Orders Discharge Orders: Discharge Order (Routine); Ordered 03/14/22 Ordered By: Letty Song DS: Diagnosis Discharge Diagnosis (1) Vaginal discharge: Status: Acute (2) PMB (postmenopausal bleeding): Status: Acute (3) History of hysteroscopy: Asessment and Plan: with D&C performed.
[2022-03-14 14:30] VITALS: BP 152/80; PULSE 72; RESP 18; TEMP 36.1; O2SAT 98
--- NOTE | 2022-03-14 14:33 | W.ANESPOSTOP ---
Postoperative Evaluation Date, Time and Location Date Performed: 03/14/22 Time Performed: 14:33 Patient Location: Day Surgery Unit Vital Signs Most Recent Imported Vital Signs: Most Recent Vital Signs Temp Pulse Resp BP Pulse Ox 36 C L 67 16 157/89 H 98 03/14/22 13:56 03/14/22 13:56 03/14/22 13:56 03/14/22 13:56 03/14/22 13:56 Pain Score Most Recent Pain Score: Most Recent Pain Score Pain Level 0 03/14/22 13:56 Assessment Mental Status: Awake (Alert & Oriented to Patient Baseline) Airway and Respiratory Function: Patent airway with normal (patient baseline) respiratory exam Cardiovascular Function: Hemodynamically Stable Hydration Status: Adequately Hydrated Nausea & Vomiting: No Nausea or Vomiting Pain: Pt. Denies Any Pain Peripheral Nerve Block: Patient did not receive a nerve block
--- NOTE | 2022-03-14 16:23 | ROE_ITS ---
Date of service: 03/14/22 Time of Service: 16:23 Operative Note Operative Note DATE OF PROCEDURE: 03/14/22 PRE-OP DIAGNOSIS: vaginal discharge. possible postmenopausal bleeding. stenotic cervical os. POST-OP DIAGNOSIS: same PROCEDURE: cervical dilation, hysteroscopy, Myosure uterine curettage. SURGEON: Letty Song Refer to Anesthesia Record ESTIMATED BLOOD LOSS: 0 PATHOLOGY: other (endometrial curettings to pathology) COMPLICATIONS: None Patient was transported to: same day Patient's condition: stable Indications: 77yo postmenopausal female with recurrent vaginal discharge with question of discharge originating from uterine cavity. Recent pelvic u/s ES 4.8cm. Stenotic cervical os and attempted endometrial biopsy in the [facility] office was unsuccessful. Findings: Uterine cavity with thickened lining. One small polypoid structure at the L lateral fundus. Nl lower uterine segment. Both tubal ostia visualized. Procedure Description: Patient was taken to the operating room where she was placed in the dorsal supine position and general anesthesia was administered without difficulty. IV Doxycycline was administered upon arrival in the OR. She was then placed in the dorsal lithotomy position in yellowfin stirrups in a neurologically neutral position. She was then prepped, and draped in the usual sterile fashion. Surgical timeout was performed. [place] speculum was placed into the vagina and the anterior lip of the cervix was infiltrated with 0.5cc of 0.25% Marcaine without epinephrine. A single- tooth tenaculum was then used to grasp and hold the anterior lip of the cervix. A paracervical block was performed with 1 cc of 0.25% Marcaine injected into the 4:00 and 8:00 paracervical spaces respectively. The uterus was sounded to 5 cm. The cervix was then sequentially dilated to a maximum of 16 Crump and a Myosure hysteroscopy device was inserted into the uterine cavity with normal saline as the distension medium. The hysteroscope was attatched to the [employer] fluid managment system. The cavity was inspected with the above findings. A Myosure c utting blade was inserted into the uterine cavity and under direct visualization the endometrium was sampled in all quadrants with care taken to remove the lateral wall polypoid structure. At the completion of the procedure the uterine cavity inspected and noted to be intact with no active bleeding. The hysteroscope was removed and all instruments removed from the vagina. The tenaculum site was hemostatic. Pt was placed in the dorsal supine position, awakened and transported to recovery area in stable condition. All sponge lap needle counts correct x2.
== END 2022-03-14 14:55 | disposition home or self-care (01) ==
PROVIDERS: PCP Family Medicine; Visit Provider Obstetrics & Gynecology Gynecology
PROC: 0UDB8ZZ Extraction of Endometrium, Via Natural or Artificial Opening Endoscopic (ICD-10-PCS; CPT 58558; principal; 2022-03-14 13:00)
DX: N95.0 Postmenopausal bleeding (principal); Z15.04 Genetic susceptibility to malignant neoplasm of endometrium; Z85.3 Personal history of malignant neoplasm of breast; N88.2 Stricture and stenosis of cervix uteri; N89.8 Other specified noninflammatory disorders of vagina
CPT/HCPCS: 58558; 36415; 86850; 86900; 86901; 88305; J1885; J2405

== ENCOUNTER → 2022-04-16 08:04 | Outpatient (BNVA) | payer MEDICARE, BC, SELFPAY | PROVIDERS: PCP Family Medicine; Referring Provider Family Medicine; Visit Provider Nurse Practitioner Adult Health | DX: R41.89 Other symptoms and signs involving cognitive functions and awareness (principal) | CPT/HCPCS: 99213 ==

== ENCOUNTER 2022-05-17 23:19 | Emergency (ER) | payer MEDICARE, BC, SELFPAY ==
[2022-05-17 23:23] VITALS: BP 212/106; PULSE 91; RESP 16; TEMP 36.6; O2SAT 91
[2022-05-17 23:51] VITALS: BP 173/90
--- NOTE | 2022-05-17 23:51 | ED.GENADUL_ITS ---
Discharge Plan Disposition Patient Disposition: Home Condition: Good Discharge Details Chief Complaint: EarProblem Clinical Impression: Hemorrhage of ear canal Primary Care Provider: Dorothea Kaufman ED Provider: Sudhir Hi Home Meds and New Rx's Prescriptions: No Action donepezil 10 mg tablet 10 mg PO QHS Qty: 90 3RF albuterol sulfate [Ventolin HFA] 90 mcg/actuation HFA aerosol inhaler 2 puff inhalation Q4H PRN aspirin [Aspirin Childrens] 81 mg tablet,chewable 81 mg PO DAILY omega-3 fatty acids [Super [place]-3] 1,000 mg capsule 1,000 mg PO DAILY estradiol [Yuvafem] 10 mcg tablet 10 mcg vaginal DAILY PRN pganlun-vsek-mferx-oreg-capryl 100 mg-150 mg- 50 mg-150 mg capsule 1 cap PO DAILY atorvastatin 40 mg tablet 40 mg PO DAILY meclizine 25 mg tablet 25 mg PO TID PRN folic acid 1 mg tablet 1 mg PO DAILY cyanocobalamin (vitamin B-12) 1,000 mcg capsule 1,000 mcg PO DAILY memantine 10 mg tablet See Rx Instructions PO BID Qty: 180 3RF Rx Instructions: 5 mg am (1/2 tab) and 10 mg pm x one week then increase to 10 mg twice a day thereafter. cholecalciferol (vitamin D3) [Vitamin D3] 10 mcg (400 unit) Capsule 50 mcg PO DAILY acetaminophen 500 mg tablet 1,000 mg PO Q8H PRN (Reason: pain) Qty: 90 3RF amlodipine 5 mg tablet 1 tab PO DAILY Label Comments: Take 1 tablet by mouth once a day Discharge Instructions Additional Instructions: Please keep the wick in your ear for the next 12 to 24 hours. Before you gently and easily pull it out please apply a few drops of the Cipro drops, allow it to sit for 30 minutes and then gently slowly pull it out. Please follow-up closely with your primary care provider. There may be a small lesion that caused the bleeding that will need to be reevaluated at a later date once it is all healed. If you have recurrence of the bleeding or your primary care provider sees any abnormality you Wally may need further follow-up with an ENT specialist. If you notice any worsening of your symptoms, or any new symptoms such as vomiting, diarrhea, fever, chills, shortness of breath, chest pain, numbness, weakness, or fainting , please return immediately to the emergency department for reevaluation. Please follow up with your primary care provider as soon as possible for reassessment and reevaluation. As always, it was a pleasure participating in your medical care today. Referrals: Dorothea Kaufman MD [Primary Care Provider] - Medical Decision Making 77-year-old female with past medical history of asthma, osteopenia, who wears hearing aids, presents today for bleeding in her left ear canal. Patient removed the hearing aid earlier today, and she felt a small irritation. She put a Q-tip in and noticed some blood. She then Q-tip to her ear 4 separate times and still had continued blood. She came to the ER for further assessment. She denies any blood thinner use but she does take a daily aspirin. No other complaints at this time. No other modifying factors. Exam demonstrates evidence of a small bleeding area about mid depth for the left ear canal with some mild oozing of blood. And no other significant lesions. No evidence of tympanic membrane perforation. No evidence of acute infection. Uncertain as to the exact etiology of the initial bleed, but I suspect there may have been an old scab or some irritation secondary to her hearing aids, which eventually led to that being pulled off and causing the bleeding. The area was washed out with saline, and it should be noted that the patient had an exquisitely sensitive ear canal at baseline. Even just a small Q-tip to the external part of the canal was notably sensitive. After the clot was washed out and removed the small oozing lesion was visualized. Surgicel and a wick was applied to that area which stopped the bleeding. Patient tolerated this well. Recommendations is to leave the Surgicel and wick in for the next 24 hours, after which we will recommend that she uses a few of the Cipro drops to lubricate the area and then about 30 minutes later she gently removes the wick and Surgicel tomorrow evening. I did discuss with the patient the importance of close follow-up with her primary care provider for reassessment for further evaluation of any potential lesions. If there is noted concern then she may also need to follow-up with ENT on an outpatient nonemergent basis. Otherwise though there was no evidence of cholesteatoma, melanoma, or other significant abnormality noted on the exam. Discussed red flags which to return. I have extensively reviewed the treatment plan and discharge instructions with the patient. I have addressed all patient concerns at this time. The patient was made aware of what symptoms to monitor for that would warrant a return to the emergency department. Discussed the plan with the patient, they demonstrate verbal understanding and agreement with our assessment and plan at this time. The documentation in this chart was dictated using [employer] dictation software. Please excuse any dictation errors. HPI General Date/Time Provider Initiated Documentation: 05/17/22 23:51 . HPI Narrative: 77-year-old female with past medical history of asthma, osteopenia, who wears hearing aids, presents today for bleeding in her left ear canal. Patient removed the hearing aid earlier today, and she felt a small irritation. She put a Q-tip in and noticed some blood. She then Q-tip to her ear 4 separate times and still had continued blood. She came to the ER for further assessment. She denies any blood thinner use but she does take a daily aspirin. No other complaints at this time. No other modifying factors. Related Data Home Medications Medication Instructions Recorded Confirmed cholecalciferol (vitamin D3) 10 50 mcg PO DAILY 05/15/20 05/17/22 mcg (400 unit) capsule (Vitamin D3) albuterol sulfate 90 mcg/actuation 2 puff inhalation Q4H PRN 08/08/21 05/17/22 aerosol inhaler (Ventolin HFA) aspirin 81 mg chewable tablet 81 mg PO DAILY 08/08/21 05/17/22 (Aspirin Childrens) omega-3 fatty acids 1,000 mg 1,000 mg PO DAILY 08/08/21 05/17/22 capsule (Super [place]-3) acetaminophen 500 mg tablet 1,000 mg PO Q8H PRN pain #90 tabs 09/11/21 05/17/22 atorvastatin 40 mg tablet 40 mg PO DAILY 11/26/21 05/17/22 cyanocobalamin (vitamin B-12) 1,000 mcg PO DAILY 11/26/21 05/17/22 1,000 mcg capsule folic acid 1 mg tablet 1 mg PO DAILY 11/26/21 05/17/22 meclizine 25 mg tablet 25 mg PO TID PRN 11/26/21 05/17/22 tumeric 100 mg-natasha 150 mg-olive 1 cap PO DAILY 11/26/21 05/17/22 50 mg-oreg 150 mg-caprylate capsule donepezil 10 mg tablet 10 mg PO QHS #90 tabs 02/21/22 05/17/22 amlodipine 5 mg tablet 1 tab PO DAILY 03/12/22 05/17/22 estradiol 10 mcg vaginal tablet 10 mcg vaginal DAILY PRN 04/16/22 05/17/22 (Yuvafem) memantine 10 mg tablet See Rx Instructions PO BID #180 04/25/22 05/17/22 tabs Previous Rx's Medication Instructions Recorded acetaminophen 500 mg tablet 1,000 mg PO Q8H PRN pain #90 tabs 09/11/21 donepezil 10 mg tablet 10 mg PO QHS #90 tabs 02/21/22 memantine 10 mg tablet See Rx Instructions PO BID #180 04/25/22 tabs Allergies Allergy/AdvReac Type Severity Reaction Status Date / Time No Known Drug Allergies Allergy Verified 05/17/22 23:27 tomato juice AdvReac Intermediate Other (See Uncoded 05/17/22 23:27 Comment) General Stated Complaint: EarProblem SHERRY: 4 Review of Systems All systems reviewed & are unremarkable except as noted in HPI and below PFSH All Active Problems Hemorrhage of ear canal (Acute) Status post reverse total replacement of left shoulder (Acute 01/04/21) Weight loss (Acute) Cognitive changes (Acute) Greater trochanteric bursitis of left hip (Acute) Depo-Medrol injection: 11/26/21 Lymphedema of arm (Acute) Primarily left arm Medical History Anorexia Asthma, mild intermittent Atrophic vaginitis BRCA1 gene mutation positive S/p lap BSO Breast cancer s/p mastectomy and tamoxifen Contracture of left shoulder Folate deficiency anemia Hearing loss History of breast cancer Stopped Tamoxifen 2019 after episode of postmenopausal bleeding History of tamoxifen therapy Hx of adenomatous colonic polyps Hx of malignant melanoma Hyperlipidemia Hypertension, essential, benign Intraductal papillary mucinous neoplasm Leg pain, bilateral Leg pain, left Memory impairment Mitral valve regurgitation Mixed conductive and sensorineural hearing loss Osteopenia Pain, joint, shoulder region, left PMB (postmenopausal bleeding) 03/14/22. D&C: Endometrial polyp,no atypia, atrophic endometrium. No additional testing needed. Right leg pain Rotator cuff tear arthropathy of left shoulder Tendinitis of long head of biceps brachii of left shoulder Trochanteric bursitis, left hip Vaginal discharge Rx for atrophic vaginitis with limited course of vaginal E2. Varicose veins of both lower extremities Venous stasis dermatitis Wart of hand Weakness of left hip Weight loss Surgical History History of colonoscopy History of hip surgery left hip - placed pin History of hysteroscopy 01/2020. for thickened endometrium while taking Tamoxifen. D&C: inactive endometrium. History of reconstruction of left breast History of total left hip arthroplasty (09/11/21) DOS 09/11/21 Hx of appendectomy Hx of dilation and curettage 01/2020 for thickened endometrial lining: inactive endometrium Hx of lumpectomy multiple Hx of mastectomy Left breast with reconstruction Hx of partial mastectomy Right Hx of repair of right rotator cuff Hx of tonsillectomy Social History Smoking/Tobacco Use Status: Former Tobacco Use Quit Date: 05/05/65 Tobacco: How many years used: 7 Smoking risk assessment performed?: Yes Alcohol Intake: current Alcohol Intake frequency: a few times a week Alcohol type: wine Drug use: Never Substance use type: does not use Education Level: other (PhD) 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 3.ENT: Atraumatic external nose and ears. Moist MM. Neck: Symmetric, trachea midline, No thyromegaly. Patient's left ear canal demonstrates evidence of a small bleeding lesion on the anterior aspect about mid depth. Tympanic membrane itself demonstrates fair bit of old scar tissue, but no evidence of perforation or active bleeding from the tympanic membrane. Osseous structures are well intact and visualized. No evidence of erythema to suggest infection. 4.CVS: +S1/S2, No murmurs or gallops. Peripheral pulses 2+ and equal in all extremities. Brisk capillary refill in all extremities. 5.RESP: Unlabored respiratory effort. Clear to auscultation bilaterally. No wheezes rales or rhonchi 6.GI: Soft, Nontender/Nondistended, No hepatosplenomegaly. No guarding or rebound. 7.MSK: Normocephalic/Atraumatic, Extremities w/o deformity or ttp No cyanosis or clubbing, Normal movement of all extremities 8.Skin: Warm, Dry. No rashes or lesions. 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 Sensation grossly intact, no focal neurologic deficits. 10.Psych: (AAO) x3. Appropriate mood and affect Course Vital Signs Vital signs: Vital Signs Temperature 36.6 C 05/17/22 23:23 Pulse 91 H 05/17/22 23:23 Respiratory Rate 16 05/17/22 23:23 Blood Pressure 212/106 H 05/17/22 23:23 Pulse Oximetry 91 L 05/17/22 23:23 Temperature 36.6 C 05/17/22 23:23 Temperature Source Temporal Artery Scan 05/17/22 23:23 Pulse 91 H 05/17/22 23:23 Respiratory Rate 16 05/17/22 23:23 Respiratory Effort 05/17/22 23:23 Blood Pressure 212/106 H 05/17/22 23:23 Blood Pressure Position Sitting 05/17/22 23:23 Pulse Oximetry 91 L 05/17/22 23:23 Oxygen Delivery Method Room Air 05/17/22 23:23 Oxygen Flow Rate 0 05/17/22 23:23 Pain Level 0 05/17/22 23:23
[2022-05-17] MEDS: Cellulose,Oxidized 2X3 PKT 1 EACH MC (23:55)
== END 2022-05-18 | disposition home or self-care (01) ==
PROVIDERS: Emergency Provider Student in an Organized Health Care Education/Training Program; PCP Family Medicine
DX: H92.22 Otorrhagia, left ear (principal); J45.20 Mild intermittent asthma, uncomplicated; I10 Essential (primary) hypertension; Z79.82 Long term (current) use of aspirin
CPT/HCPCS: 99283; 99284

== ENCOUNTER 2022-06-04 15:43 | Outpatient (CLI) | payer MEDICARE, BC, SELFPAY ==
--- NOTE | 2022-06-04 | DI.CT_ITS ---
Exam(s) CT HEAD WO EXAM: CT HEAD WO CLINICAL HISTORY: POSTTRAUMATIC DIANA, G44.309, S/P FALL ON ICE, LOC AFTER HITTING HEAD. TECHNIQUE: Imaging Protocol: Axial computed tomography images with coronal and sagittal reformatted images were created and reviewed COMPARISON: CT CT BRAIN NECK CTA from 11/28/2019 FINDINGS: Ventricles and Extra axial spaces: Normal in size and morphology for the patient's age. Hemorrhage: None. Cerebral parenchyma: No acute territorial infarct is seen. 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 There are areas of decreased attenuation in the white matter consistent with small vess el ischemic disease. Midline shift: None. Brainstem/Cerebellum: Normal. Calvarium: Normal. Visualized Paranasal sinuses/Mastoids: Clear. Soft Tissues: Unremarkable. IMPRESSION: No acute intracranial process. RADIATION DOSE DELIVERED: 685.21mGy.cm Total DLP DATA REPOSITORY: All CT scans at this facility are submitted to the National Radiology Data Registry (NRDR) Dose Index Registry (DIR) with the [employer] (A[employer]). RADIATION OPTIMIZATION: All CT scans at this facility use at least one of these dose optimization te chniques: automated exposure control; mA and/or kV adjustment per patient size (includes targeted exa ms where dose is matched to clinical indication); or iterative reconstruction.
== END 2022-06-04 16:03 ==
LOC: DI 15:45
PROVIDERS: PCP Family Medicine; Visit Provider Family Medicine
DX: G44.309 Post-traumatic headache, unspecified, not intractable (principal); I67.89 Other cerebrovascular disease; Z91.81 History of falling
CPT/HCPCS: 70450

== ENCOUNTER → 2022-06-18 08:27 | Outpatient (BNVA) | payer MEDICARE, BC, SELFPAY | PROVIDERS: PCP Family Medicine; Visit Provider Nurse Practitioner Adult Health | DX: G31.84 Mild cognitive impairment of uncertain or unknown etiology (principal) | CPT/HCPCS: 99213; 99214 ==

== ENCOUNTER 2022-10-18 09:34 | Outpatient (REF) | payer MEDICARE, BC, SELFPAY ==
[2022-10-18 17:10] LABS: HGB 13.6 g/dL (11.2-15.7); MCH 31.4 pg (27.0-33.0); MCHC 33.2 % (32.0-36.0); MCV 95 fL (80-95); MPV 10.2 fL (8.0-11.0); Platelet Count 175 10^3/uL (130-400); RBC 4.33 10^6/uL (3.93-5.22); RDW 13.2 % (11.7-14.6); RDW-SD 46.5 fL; WBC 3.68 10^3/uL (4.4-10.8)
[2022-10-18 17:52] LABS: Anion Gap 8.9 mmol/L (3-11); BUN 22 mg/dL (7-18); CO2 28.1 mmol/L (21.0-32.0); CREATININE 1.1 mg/dL (0.55-1.02); Calcium 8.8 mg/dL (8.5-10.1); Chloride 105 mmol/L (98-107); Estimated GFR 52.08 (mL/min/1.73m2); Glucose 91 mg/dL (74-106); Potassium 3.9 mmol/L (3.5-5.1); Sodium 142 mmol/L (136-145); Vitamin B12 1270 pg/mL (193-986)
[2022-10-18 18:09] LABS: Folate > 20.0 ng/mL (8.6-20.0)
== END 2022-10-18 09:35 | disposition home or self-care (01) ==
LOC: NCHCN 09:34
PROVIDERS: PCP Family Medicine; Visit Provider Family Medicine
DX: I10 Essential (primary) hypertension (principal); N18.31 Chronic kidney disease, stage 3a; D52.9 Folate deficiency anemia, unspecified
CPT/HCPCS: 80048; 85027; 82607; 82746

== ENCOUNTER 2022-10-31 18:17 | Emergency (ER) | payer MEDICARE, BC, SELFPAY ==
[2022-10-31 18:18] VITALS: BP 164/92; PULSE 103; RESP 18; O2SAT 96
--- NOTE | 2022-10-31 20:00 | DI.RAD_ITS ---
Exam(s) XR ABD FLAT UPRIGHT PA CHEST CLINICAL HISTORY: Foreign body- swallowed false tooth. COMPARISON: CR CHEST 2 VIEWS PA,LAT from 06/17/[address] CHEST/ABD/PEL W from 08/03/2021 FINDINGS: LUNGS: Clear. No pleural abnormality seen. HEART: Normal. MEDIASTINUM: Normal. Bones: Left shoulder prosthesis. Degenerative changes in the spine. Left hip prosthesis. BOWEL GAS PATTERN: Nondistended bowel loops. No air-fluid levels seen. ABNORMAL COLLECTIONS OF AIR: No abnormal collection of air. No pneumoperitoneum. CALCIFICATIONS: None. No radiopaque renal, ureteral, or bladder calcification. OTHER FINDINGS: Surgical clips bilateral anterior chest. Multiple surgical clips left lower abdomen and pelvis. IMPRESSION: 1. Nonobstructive bowel gas pattern. 2. No acute pulmonary findings.
[2022-10-31 20:34] VITALS: RESP 16
--- NOTE | 2022-10-31 21:02 | ED.GENADUL_ITS ---
Discharge Plan Disposition Patient Disposition: Home Discharge Details Clinical Impression: Ingestion of foreign body Primary Care Provider: Dorothea Kaufman ED Provider: Ricardo Law Home Meds and New Rx's Prescriptions: Continued donepezil 10 mg tablet 10 mg PO QHS Qty: 90 3RF albuterol sulfate [Ventolin HFA] 90 mcg/actuation HFA aerosol inhaler 2 puff inhalation Q4H PRN aspirin [Aspirin Childrens] 81 mg tablet,chewable 81 mg PO DAILY omega-3 fatty acids [Super [place]-3] 1,000 mg capsule 1,000 mg PO DAILY estradiol [Yuvafem] 10 mcg tablet 10 mcg vaginal DAILY PRN memantine 10 mg tablet 10 mg PO BID Qty: 180 3RF cscucud-qdoq-kbukx-oreg-capryl 100 mg-150 mg- 50 mg-150 mg capsule 1 cap PO DAILY atorvastatin 40 mg tablet 40 mg PO DAILY meclizine 25 mg tablet 25 mg PO TID PRN folic acid 1 mg tablet 1 mg PO DAILY cyanocobalamin (vitamin B-12) 1,000 mcg capsule 1,000 mcg PO DAILY cholecalciferol (vitamin D3) [Vitamin D3] 10 mcg (400 unit) Capsule 50 mcg PO DAILY acetaminophen 500 mg tablet 1,000 mg PO Q8H PRN (Reason: pain) Qty: 90 3RF amlodipine 5 mg tablet 1 tab PO DAILY Patient Comments: Take 1 tablet by mouth once a day Discharge Instructions Instructions: Foreign Body Ingestion (ED) Additional Instructions: If you develop any new or significant worsening or symptoms such as abdominal pain, nausea vomiting, or inability to have bowel movements return immediately to the emergency department for reassessment. Otherwise you may monitor your stool for the foreign body that we suspect will pass without incident. Stay well-hydrated as this will help your stools pass easier. Referrals: Dorothea Kaufman MD [Primary Care Provider] - (As needed for reassessment) Discharge Data Discharge Date/Time-TO BE ENTERED AT DEPARTURE: 10/31/22 22:26 Medical Decision Making Patient presenting the emergency department for suspected ingestion of her false dental implant of her lower incisor tooth number 25. Exam otherwise unremarkable no respiratory distress, breathing normal no stridor. Patient denies all symptoms. We will plan on doing plain film x-ray. At this time I feel there are no other interventions needed. Radiological imaging reviewed along with radiologist interpretation that shows no acute foreign body noted. Patient was instructed to monitor her stool and return to the emergency department for any new or worsening symptoms otherwise follow-up with primary care provider. After discussion of diagnosis and plan of care patient has no further needs, questions, or concerns and states clear understanding to return to the emergency department for any worsening symptoms. This documentation was generated using [employer] dictation system, please disregard any oddities of phrase or misspellings. Imaging Data Radiologic Study: Imaging: X-Ray Radiologist's impression: Exam(s) PROCEDURE INFORMATION: Exam: XR Complete Acute Abdomen Series Including Chest Exam date and time: 10/31/2022 8:25 PM Age: 77 years old Clinical indication: Other: Foreign body- swallowed false tooth; Prior surgery; Surgery date: 6+ months; Surgery type: Appy TECHNIQUE: Imaging protocol: Radiologic exam. Complete acute abdomen series, including 2 or more views of the abdomen and a single view chest. COMPARISON: CT CHEST/ABD/PEL W 08/03/2021 9:11 AM FINDINGS: Lungs: No consolidation. Pleural spaces: No pleural effusions. No pneumothorax. Heart/Mediastinum: No cardiomegaly. Gastrointestinal tract: Mild non-specific gaseous distention throughout the small and large bowel without disproportionate dilatation. Moderate stool in the colon. Intraperitoneal space: No free air. Bones/joints: Left hip arthroplasty No acute fracture. Partially visualized left shoulder arthroplasty Soft tissues: Surgical clips in the left lower quadrant and left pelvis Surgical clips overlying the chest joshua IMPRESSION: Non-specific bowel gas pattern HPI General Mode of arrival: ambulatory . Date/Time Provider Initiated Documentation: 10/31/22 18:35 . Limitations to Documentation: no limitations . Information obtained by: patient and RN notes reviewed . History of Present Illness 77 year old F presents to the emergency department with the chief com plaint of Ingestion of dental implant, Patient notes no other symptoms.. Patient did receive the following treatments prior to arrival, none Related Data Home Medications Medication Instructions Recorded Confirmed cholecalciferol (vitamin D3) 10 50 mcg PO DAILY 05/15/20 06/18/22 mcg (400 unit) capsule (Vitamin D3) albuterol sulfate 90 mcg/actuation 2 puff inhalation Q4H PRN 08/08/21 06/18/22 aerosol inhaler (Ventolin HFA) aspirin 81 mg chewable tablet 81 mg PO DAILY 08/08/21 06/18/22 (Aspirin Childrens) omega-3 fatty acids 1,000 mg 1,000 mg PO DAILY 08/08/21 06/18/22 capsule (Super [place]-3) acetaminophen 500 mg tablet 1,000 mg PO Q8H PRN pain #90 tabs 09/11/21 06/18/22 atorvastatin 40 mg tablet 40 mg PO DAILY 11/26/21 06/18/22 cyanocobalamin (vitamin B-12) 1,000 mcg PO DAILY 11/26/21 06/18/22 1,000 mcg capsule folic acid 1 mg tablet 1 mg PO DAILY 11/26/21 06/18/22 meclizine 25 mg tablet 25 mg PO TID PRN 11/26/21 06/18/22 tumeric 100 mg-natasha 150 mg-olive 1 cap PO DAILY 11/26/21 06/18/22 50 mg-oreg 150 mg-caprylate capsule donepezil 10 mg tablet 10 mg PO QHS #90 tabs 02/21/22 06/18/22 amlodipine 5 mg tablet 1 tab PO DAILY 03/12/22 06/18/22 estradiol 10 mcg vaginal tablet 10 mcg vaginal DAILY PRN 04/16/22 06/18/22 (Yuvafem) memantine 10 mg tablet 10 mg PO BID #180 tabs 06/18/22 06/18/22 Previous Rx's Medication Instructions Recorded acetaminophen 500 mg tablet 1,000 mg PO Q8H PRN pain #90 tabs 09/11/21 donepezil 10 mg tablet 10 mg PO QHS #90 tabs 02/21/22 memantine 10 mg tablet 10 mg PO BID #180 tabs 06/18/22 Allergies Allergy/AdvReac Type Severity Reaction Status Date / Time No Known Drug Allergies Allergy Verified 10/31/22 18:26 tomato juice AdvReac Intermediate Other (See Uncoded 10/31/22 18:26 Comment) General Stated Complaint: GenMedical SHERRY: 3 Review of Systems All systems reviewed & are unremarkable except as noted in HPI and below Cardiovascular Cardiovascular: Denies dyspnea Respiratory Respiratory: Denies cough, Denies dyspnea and Denies stridor Gastrointestinal Gastrointestinal: Denies abdominal pain PFSH All Active Problems Lymphedema of arm (Acute) Primarily left arm Greater trochanteric bursitis of left hip (Acute) Depo-Medrol injection: 11/26/21 Cognitive changes (Acute) Weight loss (Acute) Status post reverse total replacement of left shoulder (Acute 01/04/21) Mild cognitive impairment (Acute) Ingestion of foreign body (Acute) Medical History Anorexia Asthma, mild intermittent Atrophic vaginitis BRCA1 gene mutation positive S/p lap BSO Breast cancer s/p mastectomy and tamoxifen Contracture of left shoulder Folate deficiency anemia Hearing loss History of breast cancer Stopped Tamoxifen 2019 after episode of postmenopausal bleeding History of tamoxifen therapy Hx of adenomatous colonic polyps Hx of malignant melanoma Hyperlipidemia Hypertension, essential, benign Intraductal papillary mucinous neoplasm Leg pain, bilateral Leg pain, left Memory impairment Mitral valve regurgitation Mixed conductive and sensorineural hearing loss Osteopenia Pain, joint, shoulder region, left PMB (postmenopausal bleeding) 03/14/22. D&C: Endometrial polyp,no atypia, atrophic endometrium. No additional testing needed. Right leg pain Rotator cuff tear arthropathy of left shoulder Tendinitis of long head of biceps brachii of left shoulder Trochanteric bursitis, left hip Vaginal discharge Rx for atrophic vaginitis with limited course of vaginal E2. Varicose veins of both lower extremities Venous stasis dermatitis Wart of hand Weakness of left hip Weight loss Surgical History History of colonoscopy History of hip surgery left hip - placed pin History of hysteroscopy 01/2020. for thickened endometrium while taking Tamoxifen. D&C: inactive endometrium. History of reconstruction of left breast History of total left hip arthroplasty (09/11/21) DOS 09/11/21 Hx of appendectomy Hx of dilation and curettage 01/2020 for thickened endometrial lining: inactive endometrium Hx of lumpectomy multiple Hx of mastectomy Left breast with reconstruction Hx of partial mastectomy Right Hx of repair of right rotator cuff Hx of tonsillectomy Social History Smoking/Tobacco Use Status: Former Tobacco Use Quit Date: 05/05/65 Tobacco: How many years used: 7 Smoking risk assessment performed?: Yes Alcohol Intake: current Alcohol Intake frequency: a few times a week Alcohol type: wine Drug use: Never Substance use type: does not use Education Level: other (PhD) 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 Current gender identity: female Do you feel safe at home: Yes Additional Social history: lives alone History History 5 Para 3 Hx # Term Pregnancies Multiple births Hx # Pregnancies Ectopic pregnancies AB induced 1 Hx Number of Living Children 3 AB spontaneous 1 Exam Const General: cooperative, no acute distress and not ill appearing Orientation: alert, awake and oriented x3 HENMT Face and sinus: normal facial exam Mouth: oral mucosae normal, lip normal, tongue normal and moist mucous membranes Teeth and gingiva: other (Missing tooth #25) Resp Effort & Inspection: normal respiratory effort, able to speak in complete sentences and no respiratory distress Auscultation: clear to auscultation bilaterally Cardio Rate: regular rate Rhythm: regular rhythm Heart Sounds: S1 normal and S2 normal Skin General skin exam: no rashes or lesions noted Neuro General: patient alert, patient awake, patient oriented x3, moves all extremities and no focal motor deficits Sensory Exam: no sensory deficits noted Course Vital Signs Vital signs: Vital Signs Pulse 103 H 10/31/22 18:18 Respiratory Rate 18 10/31/22 18:18 Blood Pressure 164/92 H 10/31/22 18:18 Pulse Oximetry 96 10/31/22 18:18 Pulse 103 H 10/31/22 18:18 Respiratory Rate 16 10/31/22 20:34 Respiratory Effort Normal 10/31/22 20:34 Respiratory Depth Normal 10/31/22 20:34 Respiratory Pattern Normal 10/31/22 20:34 Blood Pressure 164/92 H 10/31/22 18:18 Blood Pressure Position Sitting 10/31/22 18:18 Pulse Oximetry 96 10/31/22 18:18 Oxygen Delivery Method Room Air 10/31/22 18:18 Oxygen Flow Rate 0 10/31/22 18:18 PAWSS Have you Been Recently Intoxicated or Drunk Within the Last 30 days?: No Have you Ever Experienced Previous Episodes of Alcohol Withdrawal?: No Have you ever Experienced Withdrawal Seizures?: No Have you ever Experienced Delirium Tremens(DT)s?: No Have you ever undergone Alcohol Rehabilitation Treatment (i.e, inpt ot outpatient treatment programs)?: No Have you ever Experienced Blackouts?: No Have you ever Combined Alcohol with other Downers within the last 90 days?: No Have you ever Combined Alcohol with any other Substance of Abuse during the last 90 days?: No Result: 0
--- NOTE | 2022-10-31 21:06 | DI.VRAD_ITS ---
PROCEDURE INFORMATION: Exam: XR Complete Acute Abdomen Series Including Chest Exam date and time: 10/31/2022 8:25 PM Age: 77 years old Clinical indication: Other: Foreign body- swallowed false tooth; Prior surgery; Surgery date: 6+ months; Surgery type: Appy TECHNIQUE: Imaging protocol: Radiologic exam. Complete acute abdomen series, including 2 or more views of the abdomen and a single view chest. COMPARISON: CT CHEST/ABD/PEL W 08/03/2021 9:11 AM FINDINGS: Lungs: No consolidation. Pleural spaces: No pleural effusions. No pneumothorax. Heart/Mediastinum: No cardiomegaly. Gastrointestinal tract: Mild non-specific gaseous distention throughout the small and large bowel without disproportionate dilatation. Moderate stool in the colon. Intraperitoneal space: No free air. Bones/joints: Left hip arthroplasty No acute fracture. Partially visualized left shoulder arthroplasty Soft tissues: Surgical clips in the left lower quadrant and left pelvis Surgical clips overlying the chest joshua IMPRESSION: Non-specific bowel gas pattern Nonurgent findings as noted Dictated and Authenticated by: Yared Gibbs MD. Ordering:DILCAI Silva MD
== END 2022-10-31 22:26 | disposition home or self-care (01) ==
PROVIDERS: Emergency Provider Nurse Practitioner Family; PCP Family Medicine
DX: T18.9XXA Foreign body of alimentary tract, part unspecified, initial encounter (principal)
CPT/HCPCS: 99283; 74022

== ENCOUNTER → 2022-12-17 08:09 | Outpatient (BNVA) | payer MEDICARE, BC, SELFPAY | PROVIDERS: PCP Family Medicine; Referring Provider Family Medicine; Visit Provider Nurse Practitioner Adult Health | DX: G31.84 Mild cognitive impairment of uncertain or unknown etiology (principal); F39 Unspecified mood [affective] disorder; Z87.891 Personal history of nicotine dependence; H91.93 Unspecified hearing loss, bilateral | CPT/HCPCS: 99213 ==

== ENCOUNTER 2023-03-24 20:47 | Outpatient (REF) | payer MEDICARE, BC, SELFPAY ==
[2023-03-24 21:00] LABS: Source Nasal/Nares
[2023-03-24 21:59] LABS: COVID-19 PCR Negative (Negative)
== END 2023-03-24 20:48 | disposition home or self-care (01) ==
LOC: LBN 20:47
PROVIDERS: PCP Family Medicine; Visit Provider Nurse Practitioner Family
DX: J02.9 Acute pharyngitis, unspecified (principal); Z20.822 Contact with and (suspected) exposure to COVID-19
CPT/HCPCS: 87635; 87070

== ENCOUNTER → 2023-07-03 08:14 | Outpatient (BNVA) | payer MEDICARE, BC, SELFPAY | PROVIDERS: PCP Family Medicine; Visit Provider Nurse Practitioner Adult Health | DX: G30.9 Alzheimer's disease, unspecified (principal); F02.80 Dementia in other diseases classified elsewhere, unspecified severity, without behavioral disturbance, psychotic disturbance, mood disturbance, and anxiety | CPT/HCPCS: 99215 ==

== ENCOUNTER 2023-09-20 13:16 | Emergency (ER) | payer MEDICARE, BC, SELFPAY ==
[2023-09-20] VITALS (34 sets, daily range): BP systolic 168–211; BP diastolic 83–97; PULSE 68–89; RESP 9–25; TEMP 36.5; O2SAT 96–99
--- NOTE | 2023-09-20 13:44 | ED.GENADUL_ITS ---
Discharge Plan Discharge Details Chief Complaint: HeadInjury Primary Care Provider: Dorothea Kaufman ED Provider: Sudhir Hurst Home Meds and New Rx's Prescriptions: No Action donepezil 10 mg tablet 10 mg PO QHS Qty: 90 3RF memantine 10 mg tablet 10 mg PO BID Qty: 180 3RF albuterol sulfate [Ventolin HFA] 90 mcg/actuation HFA aerosol inhaler 2 puff inhalation Q4H PRN aspirin [Aspirin Childrens] 81 mg tablet,chewable 81 mg PO DAILY omega-3 fatty acids [Super [place]-3] 1,000 mg capsule 1,000 mg PO DAILY estradiol [Yuvafem] 10 mcg tablet 10 mcg vaginal DAILY PRN wrdbocjo-isam-hnnyw-oreg-capry 100 mg-150 mg- 50 mg-150 mg capsule 1 cap PO DAILY atorvastatin 40 mg tablet 40 mg PO DAILY meclizine 25 mg tablet 25 mg PO TID PRN folic acid 1 mg tablet 1 mg PO DAILY cyanocobalamin (vitamin B-12) 1,000 mcg capsule 1,000 mcg PO DAILY cholecalciferol (vitamin D3) [Vitamin D3] 10 mcg (400 unit) Capsule 50 mcg PO DAILY acetaminophen 500 mg tablet 1,000 mg PO Q8H PRN (Reason: pain) Qty: 90 3RF amlodipine 5 mg tablet 1 tab PO DAILY Patient Comments: Take 1 tablet by mouth once a day HPI General Date/Time Provider Initiated Documentation: 09/20/23 13:27 . HPI Narrative: 78 year-old female presents to ED today by EMS with a chief complaint of fall at home while outside- striking the back of her head, doesn't remember events, vomited x3 on arrival with onset just prior to arrival. Patient has Alzheimer's disease, vertigo history. Quality described as vertigo prior to fall, denies neck pain, no radiation to severe headache, open wound, scalp hematoma, abdominal pain, chest pain, endorses R hip pain. Severity is described as unable to quantify. Palliating factors include nothing specific. Provoking factors include nothing specific. Patient not anticoagulated. Related Data Home Medications Medication Instructions Recorded Confirmed cholecalciferol (vitamin D3) 10 50 mcg PO DAILY 05/15/20 09/20/23 mcg (400 unit) capsule (Vitamin D3) albuterol sulfate 90 mcg/actuation 2 puff inhalation Q4H PRN 04/06/22 05/18/24 aerosol inhaler (Ventolin HFA) aspirin 81 mg chewable tablet 81 mg PO DAILY 08/08/21 09/20/23 (Aspirin Childrens) omega-3 fatty acids 1,000 mg 1,000 mg PO DAILY 08/08/21 09/20/23 capsule (Super [place]-3) acetaminophen 500 mg tablet 1,000 mg (2 x 500 mg) PO Q8H PRN 09/11/21 09/20/23 pain #90 tabs atorvastatin 40 mg tablet 40 mg PO DAILY 11/26/21 09/20/23 cyanocobalamin (vitamin B-12) 1,000 mcg PO DAILY 11/26/21 09/20/23 1,000 mcg capsule folic acid 1 mg tablet 1 mg PO DAILY 11/26/21 09/20/23 meclizine 25 mg tablet 25 mg PO TID PRN 11/26/21 09/20/23 turmeric 100 mg-natasha 150 1 cap PO DAILY 11/26/21 09/20/23 mg-olive 50 mg-oreg 150 mg-capryl capsule amlodipine 5 mg tablet 1 tab PO DAILY 03/12/22 09/20/23 estradiol 10 mcg vaginal tablet 10 mcg vaginal DAILY PRN 04/16/22 09/20/23 (Yuvafem) donepezil 10 mg tablet 10 mg PO QHS #90 tabs 12/17/22 09/20/23 memantine 10 mg tablet 10 mg PO BID #180 tabs 07/03/23 09/20/23 Previous Rx's Medication Instructions Recorded acetaminophen 500 mg tablet 1,000 mg (2 x 500 mg) PO Q8H PRN 09/11/21 pain #90 tabs donepezil 10 mg tablet 10 mg PO QHS #90 tabs 12/17/22 memantine 10 mg tablet 10 mg PO BID #180 tabs 07/03/23 Allergies Allergy/AdvReac Type Severity Reaction Status Date / Time No Known Drug Allergies Allergy Other (See Verified 07/03/23 08:15 Comment) tomato juice AdvReac Intermediate Other (See Uncoded 09/20/23 13:27 Comment) General Stated Complaint: HeadInjury SHERRY: 3 Review of Systems All systems reviewed & are unremarkable except as noted in HPI and below Exam Narrative Exam Narrative: GENERAL APPEARANCE: Well-nourished, non-toxic, awake and alert, atraumatic, no acute distress. SKIN: Warm, pink, dry, intact, without rashes/lesions/ulcerations. HEAD: Normocephalic, atraumatic-no scalp abrasion or laceration, no scalp hematoma, negative Iraheta sign, no periorbital ecchymosis, normal hair distribution for gender/age. EYES: Pupils PERRLA, EOMs intact without nystagmus, normal conjunctiva, no exudates on lids/lashes. ENT: Nares patent, no circumoral cyanosis, no facial swelling NECK: Supple, trachea midline, painless cervical ROM, no vertebral tenderness/crepitus/step-offs, no nuchal rigidity. LUNGS/CHEST: Lungs CTA bilaterally- no rhonchi/rales/wheezes diffusely, non- labored respirations, normal A/P diameter, symmetrical expansion, no chest wall deformity HEART (CV/PV): Regular rate and rhythm without murmur, no peripheral edema, no JVD. ABDOMEN: Soft, non-distended, no guarding, no tenderness, no ecchymosis, no rigidity. MSK: Normal ROM, no swelling/deformity to bilateral UEs or LEs, moving all extremities without weakness, no cyanosis, spine midline without tenderness, normal curvature, right hip tenderness to palpation, endorsed later at CT to r ead text of left hip tenderness NEURO: Mental Status AAOx4 - alert to person, place, time, events No facial droop, no forehead involvement. Motor: No focal weakness - strength 5/5 in bilateral UEs and LEs, proximal and distal, symmetric. Sensory: sensation intact to light touch globally. Gait NT. PSYCH: euthymic, cooperative, pleasant, appropriate speech Course Vital Signs Vital signs: Vital Signs Temperature 36.5 C 09/20/23 13:19 Pulse 81 09/20/23 13:19 Respiratory Rate 15 09/20/23 13:19 Blood Pressure 202/84 H 09/20/23 13:19 Pulse Oximetry 99 09/20/23 13:19 Temperature 36.5 C 09/20/23 13:19 Temperature Source Oral 09/20/23 13:19 Pulse 81 09/20/23 13:19 Respiratory Rate 15 09/20/23 13:19 Respiratory Effort Normal 09/20/23 13:25 Blood Pressure 202/84 H 09/20/23 13:19 Blood Pressure Position Sitting 09/20/23 13:19 Pulse Oximetry 99 09/20/23 13:19 Oxygen Delivery Method Room Air 09/20/23 13:19 Oxygen Flow Rate 0 09/20/23 13:19 Medical Decision Making This dictation utilizes [id number] dictation software and may contain une dited grammatical errors. 78 y/o F presents to ED today with a chief complaint of fall with head strike to back of head with postevent emesis 3 times here in the ED. Denies neck pain, patient is unreliable has Alzheimer's, has no evidence of overt head trauma, no scalp hematoma, no vertebral tenderness in the neck, has right hip tenderness and later endorsed left hip tenderness to CT techs. Patient denies chest pain, endorses vertigo prior to her fall, has a history of vertigo documented in her problem list but denies knowledge of this. Patients' medical history: Vertigo, history of left FABI, mitral valve regurg, history of malignant melanoma, asthma, osteopenia, Alzheimer's disease. Family and social history: Patient not reliable social historian, per EMS lives at home. Pertinent exam findings / vital signs include R hip tenderness, neuro likely baseline, benign cardiopulmoanry status. Differential / pathologies of concern include intracranial hemorrhage, vertebral injury, hip fracture, fall with minor trauma, ACS as cause of fall. Diagnostic studies of: -CBC, CMP, BNP, lactate, CRP, troponin, lipase, magnesium, procalcitonin, TSH, CT head and cervical spine without contrast, CT thoracic and lumbar spine without contrast, x-ray bilateral hips, EKG. -CBC shows no leukocytosis, no anemia -Lactate 1.7, do not suspect sepsis, procal negative -CMP shows mild hypokalemia of 3.3, mild increase of BUN at 24 which is chronic, baseline creatinine, mildly elevated total bilirubin at 1.6, do not suspect obstructive biliary pathology -Mildly low magnesium 1.7 -CRP/ESR negative -Initial troponin negative, repeat pending 1645 -BNP 320 -Lipase within normal limits -TSH within normal limits -UA without infection -CT of the head and neck shows no intracranial hemorrhage, no vertebral injury, x-ray of the left hip shows no pathology -EKG shows sinus rhythm at 69 bpm with P waves followed by narrow complex QRS with normal axis, no ST elevations or depressions, normal QT QTc, poor R wave progression Interventions of: -none. ED Course/Assessment/Plan: 78-year-old female presents with a fall with posterior head strike with some vomiting afterwards, unclear what caused the fall, endorses some vertigo, ruling out ACS with a repeat troponin pending at 1645. Patient has exhibited no deteriorating mental state here in the emergency department and CTs are negative of the head and neck, laboratory workup shows no evidence of significant infection causing fall. Patient is signed out to oncoming provider Nini Iqbal with x-ray of the right hip as well as CT of the thoracic and lumbar spine still pending along with repeat troponin. Findings not consistent with acute coronary syndrome, intracranial hemorrhage, vertebral cord or column injury, abdominal trauma. Disposition of mechanical fall. Patient verbalized understanding of the plan and return to ED criteria and engaged in shared decision making. Medical Records Medical records reviewed: Yes I reviewed the patient's medical records. Imaging Data Radiologic Study: Attestation: I personally reviewed and interpreted this imaging study as follows: Imaging: CT Scan Radiologist's impression: Exam: CT Head Without Contrast Exam date and time: 09/20/2023 2:34 PM Age: 78 years old Clinical indication: Other: Head strike, vomiting; Other: Fall TECHNIQUE: Imaging protocol: Computed tomography of the head without contrast. COMPARISON: CT HEAD WO 06/04/2022 3:43 PM FINDINGS: Brain: There are bilateral periventricular white matter and centrum semiovale hypodensities consistent with chronic ischemic small vessel disease. No recent infarct intracranial hemorrhage or mass effect. Cerebral ventricles: No ventriculomegaly. Pituitary gland and sella: Partially sella. Paranasal sinuses: Visualized sinuses are unremarkable. No fluid levels. Mastoid air cells: Visualized mastoid air cells are well aerated. Bones: Unremarkable. No acute fracture. Soft tissues: Unremarkable. IMPRESSION: No intracranial posttraumatic changes. PROCEDURE INFORMATION: Exam: CT Cervical Spine Without Contrast Exam date and time: 09/20/2023 2:34 PM Age: 78 years old Clinical indication: Other: Head strike, vomiting; Other: Fall TECHNIQUE: Imaging protocol: Computed tomography of the cervical spine without contrast. COMPARISON: CT HEAD WO 06/04/2022 3:43 PM FINDINGS: Bones: There is mild anterolisthesis of C7 over T1 and C4 over C5. CPPD changes around the dens. No acute compression deformity. Moderate to severe bilateral facet joint arthropathy and narrowing of the cervical spine disc spaces, most pronounced at C5-C6 with anterior and posterior osteophytes causing mild bony canal narrowing. Lungs: Bilateral apical fibrotic changes. Pleural spaces: Left anterior apical pleural calcifications with consolidative surrounding changes. Vasculature: There are bilateral carotid calcifications. Soft tissues: Unremarkable. IMPRESSION: No posttraumatic changes in the cervical spine. Dictated and Authenticated by: Davidson Padilla MD. Ordering:MARLYN Peguero MD Radiologic Study #2: Attestation: I personally reviewed and interpreted this imaging study as follows: Imaging: CT Scan My impression: pending at sign-out Radiologic Study #3: Attestation: I personally reviewed and interpreted this imaging study as follows: Imaging: X-Ray Radiologist's impression: Exam: XR Left Hip Exam date and time: 09/20/2023 2:59 PM Age: 78 years old Clinical indication: Hip pain and pelvic pain; Left hip; Prior surgery; Surgery date: 6+ months; Surgery type: Hip replacement TECHNIQUE: Imaging protocol: Radiologic exam of the left hip. Views: 2 or 3 views hip with pelvis when performed. COMPARISON: CR XR HIP LT AP LAT ONLY 01/21/2022 11:12 AM FINDINGS: Bones/joints: Mild degenerative disease of the right hip joint. Total left hip arthroplasty components are in anatomic alignment with no hardware complications. Moderate degenerative of the lower lumbar spine. Chondrocalcinosis of the symphysis pubis. Soft tissues: Unremarkable. Intraperitoneal space: Surgical clips in the left aspect of the pelvis. Vasculature: Pelvic phleboliths. IMPRESSION: Left hip arthroplasty with no hardware complications. Dictated and Authenticated by: Davidson Padilla MD. Ordering:MARLYN Peguero MD Lab Data Lab results reviewed: Yes I reviewed the patient's lab results. Quality:SDOH Health Related Social Needs: No Data to Display PFSH All Active Problems (Updated 07/03/23 @ 09:03 by Mago Jerome) Alzheimer's dementia (Acute) Impairment of speech discrimination (Acute) Sensorineural hearing loss, bilateral (Acute) Mixed conductive and sensorineural hearing loss of right ear with restricted hearing of left ear (Acute) Mild cognitive impairment (Acute) Status post reverse total replacement of left shoulder (Acute 01/04/21) Weight loss (Acute) Cognitive changes (Acute) Greater trochanteric bursitis of left hip (Acute) Depo-Medrol injection: 11/26/21 Lymphedema of arm (Acute) Primarily left arm Medical History History of vertigo PMB (postmenopausal bleeding) 03/14/22. D&C: Endometrial polyp,no atypia, atrophic endometrium. No additional testing needed. Weakness of left hip Hearing loss Pain, joint, shoulder region, left Right leg pain Leg pain, left Weight loss Hyperlipidemia Folate deficiency anemia BRCA1 gene mutation positive S/p lap BSO Breast cancer s/p mastectomy and tamoxifen Mixed conductive and sensorineural hearing loss Mitral valve regurgitation Hx of malignant melanoma Varicose veins of both lower extremities Osteopenia Venous stasis dermatitis Asthma, mild intermittent Hx of adenomatous colonic polyps Hypertension, essential, benign Intraductal papillary mucinous neoplasm Wart of hand Leg pain, bilateral Anorexia Memory impairment Trochanteric bursitis, left hip Contracture of left shoulder Tendinitis of long head of biceps brachii of left shoulder Rotator cuff tear arthropathy of left shoulder Atrophic vaginitis History of tamoxifen therapy History of breast cancer Stopped Tamoxifen 2019 after episode of postmenopausal bleeding Vaginal discharge Rx for atrophic vaginitis with limited course of vaginal E2. Surgical History History of hip surgery left hip - placed pin History of total left hip arthroplasty (09/11/21) DOS 09/11/21 History of colonoscopy Hx of dilation and curettage 01/2020 for thickened endometrial lining: inactive endometrium History of hysteroscopy 01/2020. for thickened endometrium while taking Tamoxifen. D&C: inactive endometrium. 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 Pending repeat trop at 1645. Alzheimer's patient, mechanical fall with posterior headstrike and post-event vomiting x3 here- CT Head negative. Last updated by Sudhir Hurst PA at 09/20/23 15:42 PAWSS Have you Been Recently Intoxicated or Drunk Within the Last 30 days?: No Have you Ever Experienced Previous Episodes of Alcohol Withdrawal?: No Have you ever Experienced Withdrawal Seizures?: No Have you ever Experienced Delirium Tremens(DT)s?: No Have you ever undergone Alcohol Rehabilitation Treatment (i.e, inpt ot outpatient treatment programs)?: No Have you ever Experienced Blackouts?: No Have you ever Combined Alcohol with other Downers within the last 90 days?: No Have you ever Combined Alcohol with any other Substance of Abuse during the last 90 days?: No Positive Blood Alcohol level on Presentation? [PCS.BAL]: No Evidence of Increased Autonomic Activity (i.e. HR>120, tremor, sweating, agitation, nausea)?: No Result: 0
--- NOTE | 2023-09-20 13:45 | RT.EKG_ITS ---
APPROVED REPORT Exam: Resting ECG Reason for Exam: vertigo Patient Location: E HR:69 bpm ECG Measurements Heart Rate 69 AXIS MD 178 P 71 QRSd 86 QRS 25 QT 439 T 49 QTc 471 Conclusion Sinus rhythm 69 no stemi
[2023-09-20 14:05] LABS: Lactate 1.7 mmol/L (0.6-1.4)
[2023-09-20 14:08] LABS: Abs Immature Grans 0.01 10^3/uL (0.0-0.06); Absolute Basophil Count 0.02 10^3/uL (0.0-0.2); Absolute Eosinophil Count 0.01 10^3/uL (0.0-0.7); Absolute Lymphocyte Count 0.55 10^3/uL (1.2-3.4); Absolute Neutrophil Count 4.15 10^3/uL (1.2-6.7); Basophils % 0.4 %; Eosinophils % 0.2 %; HCT 37.1 % (36.0-46.0); HGB 12.8 g/dL (11.2-15.7); Immature Grans % 0.2 %; Lymphocytes % 10.9 %; MCH 32.2 pg (27.0-33.0); MCHC 34.5 % (32.0-36.0); MCV 93 fL (80-95); MPV 9.5 fL (8.0-11.0); Neutrophils % 82.3 %; Platelet Count 142 10^3/uL (130-400); RBC 3.98 10^6/uL (3.93-5.22); RDW-SD 44.7 fL; WBC 5.04 10^3/uL (4.4-10.8)
[2023-09-20 14:19] LABS: Bilirubin Negative (Negative); Blood Negative (Negative); Clarity Clear (Clear); Glucose Negative (Negative); Ketones 15 mg/dL (Negative); Leukocyte Esterase Negative (Negative); Nitrite Negative (Negative); Urobilinogen 0.2 mg/dL (Up to 0.2); pH 7.5 (5-8)
[2023-09-20 14:31] LABS: ALT 27 U/L (14-59); AST 28 U/L (15-37); Albumin 3.6 g/dL (3.4-5.0); Alkaline Phosphatase 77 U/L (46-116); Anion Gap 12.5 mmol/L (3-11); BUN 24 mg/dL (7-18); Bilirubin, Total 1.6 mg/dL (0.2-1.0); CO2 24.5 mmol/L (21.0-32.0); CREATININE 1.1 mg/dL (0.55-1.02); Calcium 8.7 mg/dL (8.5-10.1); Chloride 106 mmol/L (98-107); Estimated GFR 51.75 (mL/min/1.73m2); Glucose 120 mg/dL (74-106); Lipase 22 U/L (16-77); Magnesium 1.7 mg/dL (1.8-2.4); NT-proBNP 320 pg/mL (<300); Potassium 3.3 mmol/L (3.5-5.1); Sodium 143 mmol/L (136-145); TSH (W/Ref FT4) 0.95 uIU/mL (0.36-3.74); Total Protein 6.8 g/dL (6.4-8.2); Troponin I < 50 ng/L (< or =60)
[2023-09-20 14:32] LABS: C-Reactive Protein < 0.50 mg/dL (<or=0.5)
[2023-09-20 14:38] LABS: Procalcitonin < 0.1 ng/mL
--- NOTE | 2023-09-20 14:45 | DI.RAD_ITS ---
Exam(s) XR HIP LT COMPLETE AP PELVIS EXAM: XR HIP LT COMPLETE AP PELVIS CLINICAL HISTORY: L hip pain. TECHNIQUE: 2D digital imaging was performed. COMPARISON: CR XR HIP LT AP LAT ONLY from 01/21/2022 FINDINGS: 3 views Again noted is left hip prosthesis with no evidence of fracture or hardware loosening. No evidence o f osteomyelitis. AP pelvis reveals no fractures in the pelvis and right hip. Multiple surgical clips are seen left si de of the pelvis. IMPRESSION: No acute fractures. Stable appearing left hip prosthesis. DATA REPOSITORY: RADIATION DOSE DELIVERED:
--- NOTE | 2023-09-20 14:58 | DI.CT_ITS ---
Exam(s) CT HEAD CERVICAL SPINE WO EXAM: CT HEAD CERVICAL SPINE WO CLINICAL HISTORY: fall, headstrike, vomiting. TECHNIQUE: Imaging Protocol: Axial computed tomography images with coronal and sagittal reformatted images were created and reviewed COMPARISON: CT CT HEAD WO from 06/04/2022 FINDINGS: BRAIN: There are no skull fractures nor fluid in the visualized paranasal sinuses. There is no evidence of intracranial hemorrhage, mass effect, or shift of midline structures. There are no extra-axial fluid collections. The ventricles are not enlarged or shifted and there is no blo od within the ventricular system nor within the basal cisterns. Is mild periventricular hypodensity consistent with chronic small vessel disease. No evidence of acu te territorial infarct. CERVICAL SPINE: There is no evidence of acute fracture nor listhesis. No significant prevertebral soft tissue swelli ng. There is multilevel degenerative disc disease, most evident at C5-6 level. There is small bilateral Luschka joint osteophytes at this level evident. There are multilevel degenerative changes in the facet joints but no facet malalignment. There is fu mat across the facet joints bilaterally at C C-3 4 levels. There is an element of anterolisthesis o f C7 upon T1 which is related to facet arthropathy. There is no significant facet joint malalignment. No significant osseous lesions evident. IMPRESSION: No acute intracranial findings on this noninfused CT scan of the brain. No evidence of cervical spine fracture, malalignment, nor acute compromise of the cervical spinal can al. Chronic multilevel degenerative findings and multilevel degenerative disc disease. Degenerative ante rolisthesis of C7 upon T1 related to facet arthropathy. RADIATION DOSE DELIVERED: 1,099.69mGy.cm Total DLP DATA REPOSITORY: All CT scans at this facility are submitted to the National Radiology Data Registry (NRDR) Dose Index Registry (DIR) with the [employer] ([employer]). RADIATION OPTIMIZATION: All CT scans at this facility use at least one of these dose optimization te chniques: automated exposure control; mA and/or kV adjustment per patient size (includes targeted exa ms where dose is matched to clinical indication); or iterative reconstruction.
--- NOTE | 2023-09-20 14:59 | DI.CT_ITS ---
Exam(s) CT THORACIC LUMBAR SPINE WO EXAM: CT THORACIC LUMBAR SPINE WO CLINICAL HISTORY: fall. TECHNIQUE: Imaging Protocol: Axial computed tomography images with coronal and sagittal reformatted images were created and reviewed. CONTRAST MATERIAL: Intravenous: Omnipaque 350 Contrast volume:structured data in ml Contrast route:I V - Oral: yes / no COMPARISON: No exams were available for comparison FINDINGS: THORACIC SPINAL COLUMN: No evidence of acute compression fracture or listhesis. Multilevel disc spac e narrowing. No obvious acute compromise of the spinal canal. Facet exhibit some degenerative masters es tear no malalignment LUMBOSACRAL SPINAL COLUMN: No evidence of acute fracture. There is anterolisthesis L4 upon L5 due to facet arthrosis. There are no pars defects at L4 level. There is approximately 7 -8 millimeters an terolisthesis of L4 upon L5. There is moderate disc space narrowing at L4-5 level. Other disc space s exhibit reserved height. Multilevel small Schmorl's node invaginations are noted. SI joints unrem arkable. No sacral fractures identified.. IMPRESSION: 1. Anterolisthesis L4 upon L5 due to facet arthropathy. 2. No evidence of fractures of the thoracic and lumbar spine. RADIATION DOSE DELIVERED: 887.47mGy.cm Total DLP DATA REPOSITORY: All CT scans at this facility are submitted to the National Radiology Data Registry (NRDR) Dose Index Registry (DIR) with the [employer] ([employer]). RADIATION OPTIMIZATION: All CT scans at this facility use at least one of these dose optimization te chniques: automated exposure control; mA and/or kV adjustment per patient size (includes targeted exa ms where dose is matched to clinical indication); or iterative reconstruction.
--- NOTE | 2023-09-20 15:09 | DI.VRAD_ITS ---
PROCEDURE INFORMATION: Exam: CT Head Without Contrast Exam date and time: 09/20/2023 2:34 PM Age: 78 years old Clinical indication: Other: Head strike, vomiting; Other: Fall TECHNIQUE: Imaging protocol: Computed tomography of the head without contrast. COMPARISON: CT HEAD WO 06/04/2022 3:43 PM FINDINGS: Brain: There are bilateral periventricular white matter and centrum semiovale hypodensities consistent with chronic ischemic small vessel disease. No recent infarct intracranial hemorrhage or mass effect. Cerebral ventricles: No ventriculomegaly. Pituitary gland and sella: Partially sella. Paranasal sinuses: Visualized sinuses are unremarkable. No fluid levels. Mastoid air cells: Visualized mastoid air cells are well aerated. Bones: Unremarkable. No acute fracture. Soft tissues: Unremarkable. IMPRESSION: No intracranial posttraumatic changes. PROCEDURE INFORMATION: Exam: CT Cervical Spine Without Contrast Exam date and time: 09/20/2023 2:34 PM Age: 78 years old Clinical indication: Other: Head strike, vomiting; Other: Fall TECHNIQUE: Imaging protocol: Computed tomography of the cervical spine without contrast. COMPARISON: CT HEAD WO 06/04/2022 3:43 PM FINDINGS: Bones: There is mild anterolisthesis of C7 over T1 and C4 over C5. CPPD changes around the dens. No acute compression deformity. Moderate to severe bilateral facet joint arthropathy and narrowing of the cervical spine disc spaces, most pronounced at C5-C6 with anterior and posterior osteophytes causing mild bony canal narrowing. Lungs: Bilateral apical fibrotic changes. Pleural spaces: Left anterior apical pleural calcifications with consolidative surrounding changes. Vasculature: There are bilateral carotid calcifications. Soft tissues: Unremarkable. IMPRESSION: No posttraumatic changes in the cervical spine. Dictated and Authenticated by: Davidson Padilla MD. Ordering:MARLYN Peguero MD
--- NOTE | 2023-09-20 15:23 | DI.VRAD_ITS ---
PROCEDURE INFORMATION: Exam: XR Left Hip Exam date and time: 09/20/2023 2:59 PM Age: 78 years old Clinical indication: Hip pain and pelvic pain; Left hip; Prior surgery; Surgery date: 6+ months; Surgery type: Hip replacement TECHNIQUE: Imaging protocol: Radiologic exam of the left hip. Views: 2 or 3 views hip with pelvis when performed. COMPARISON: CR XR HIP LT AP LAT ONLY 01/21/2022 11:12 AM FINDINGS: Bones/joints: Mild degenerative disease of the right hip joint. Total left hip arthroplasty components are in anatomic alignment with no hardware complications. Moderate degenerative of the lower lumbar spine. Chondrocalcinosis of the symphysis pubis. Soft tissues: Unremarkable. Intraperitoneal space: Surgical clips in the left aspect of the pelvis. Vasculature: Pelvic phleboliths. IMPRESSION: Left hip arthroplasty with no hardware complications. Dictated and Authenticated by: Davidson Padilla MD. Ordering:MARLYN Peguero MD
--- NOTE | 2023-09-20 15:30 | DI.RAD_ITS ---
Exam(s) XR HIP RT AP LAT ONLY EXAM: XR HIP RT AP LAT ONLY CLINICAL HISTORY: R hip pain. TECHNIQUE: 2D digital imaging was performed. COMPARISON: CR XR HIP LT AP LAT ONLY from 01/21/2022 FINDINGS: Two views. No evidence of fracture or dislocation. Additional straight lateral view does not reveal joint space narrowing or fracture nor osteophytes. Benign-appearing bone island is noted in the femoral neck. Minimal degenerative changes. IMPRESSION: No acute osseous findings in the right hip. DATA REPOSITORY: RADIATION DOSE DELIVERED:
--- NOTE | 2023-09-20 15:41 | DI.VRAD_ITS ---
PROCEDURE INFORMATION: Exam: CT Thoracic Spine Without Contrast Exam date and time: 09/20/2023 2:47 PM Age: 78 years old Clinical indication: Other: Fall TECHNIQUE: Imaging protocol: Computed tomography of the thoracic spine without contrast. COMPARISON: CT HEAD CERVICAL SPINE WO 09/20/2023 2:34 PM FINDINGS: Bones/joints: Mild anterolisthesis of C7 over T1. Multilevel mild degenerative disease of the thoracic spine with anterior osteophytes and disc space narrowing. Mild retrolisthesis of L1 over L2. Mild compression deformity of the T12 vertebral body, chronic. No acute fracture or dislocation. Soft tissues: Unremarkable. Vasculature: There are vascular calcifications. Lungs: There are fibrotic changes in the dependent portions both lungs. Coronary arteries: Mild coronary calcifications. IMPRESSION: No posttraumatic changes in the thoracic spine. PROCEDURE INFORMATION: Exam: CT Lumbar Spine Without Contrast Exam date and time: 09/20/2023 2:47 PM Age: 78 years old Clinical indication: Other: Fall TECHNIQUE: Imaging protocol: Computed tomography of the lumbar spine without contrast. COMPARISON: MR ABDOMEN WO/W 01/04/2022 1:27 PM FINDINGS: Bones/joints: There is demineralization of the visualized bones. There is bilateral L4-L5 facet joint arthropathy with 7 mm anterolisthesis of L4 over L5. There is a posterior pseudo disc bulge at L4-L5 causing moderate thecal sac compression and [id number] bilateral neural foraminal narrowing. Mild retrolisthesis of T12 over L1 and L1 over L2. Vasculature: There are vascular calcifications. Soft tissues: Unremarkable. IMPRESSION: No posttraumatic changes in the lumbar spine. Dictated and Authenticated by: Davidson Padilla MD. Ordering:MARLYN Peguero MD
--- NOTE | 2023-09-20 16:07 | DI.VRAD_ITS ---
PROCEDURE INFORMATION: Exam: XR Right Hip Exam date and time: 09/20/2023 3:53 PM Age: 78 years old Clinical indication: Hip pain; Right hip TECHNIQUE: Imaging protocol: Radiologic exam of the right hip. Views: 2 or 3 views hip with pelvis when performed. COMPARISON: CR XR PELVIS AP 08/28/2021 9:19 AM FINDINGS: Bones/joints: Mild degenerative disease of the right hip joint. Chondrocalcinosis of the symphysis pubis. No acute fracture or dislocation. Right femoral head bone island. Soft tissues: Unremarkable. Vasculature: Pelvic phleboliths. Vascular calcifications. IMPRESSION: No acute fracture or dislocation. Dictated and Authenticated by: Davidson Padilla MD. Ordering:MARLYN Peguero MD
[2023-09-20 17:17] LABS: Troponin I < 50 ng/L (< or =60)
== END 2023-09-20 17:39 | disposition home or self-care (01) ==
LOC: ER 17:28
PROVIDERS: Physician Assistant; Emergency Provider Physician Assistant; PCP Family Medicine
DX: S09.8XXA Other specified injuries of head, initial encounter (principal); I10 Essential (primary) hypertension; Z79.82 Long term (current) use of aspirin; Z96.642 Presence of left artificial hip joint; W01.0XXA Fall on same level from slipping, tripping and stumbling without subsequent striking against object, initial encounter; Y93.01 Activity, walking, marching and hiking; Y92.017 Garden or yard in single-family (private) house as the place of occurrence of the external cause; Z87.891 Personal history of nicotine dependence
CPT/HCPCS: 36415; 80053; 83690; 84145; 93005; 99285; 70450; 72125; 72128; 72131; 73502; 81003; 83605; 83735; 83880; 84443; 84484; 85025; 86140; 93010; 99284

== ENCOUNTER → 2024-01-01 13:34 | Outpatient (BNVA) | payer MEDICARE, BC, SELFPAY | PROVIDERS: PCP Family Medicine; Referring Provider Family Medicine; Visit Provider Nurse Practitioner Adult Health | DX: G30.9 Alzheimer's disease, unspecified; F02.80 Dementia in other diseases classified elsewhere, unspecified severity, without behavioral disturbance, psychotic disturbance, mood disturbance, and anxiety | CPT/HCPCS: 99213 ==

== ENCOUNTER 2024-01-21 13:52 | Emergency (ER) | payer MEDICARE, BC, SELFPAY ==
[2024-01-21] VITALS (9 sets, daily range): BP systolic 168–184; BP diastolic 72–102; PULSE 76–80; RESP 16–18; TEMP 36.8; O2SAT 98–99
--- NOTE | 2024-01-21 13:45 | RT.EKG_ITS ---
APPROVED REPORT Exam: Resting ECG Reason for Exam: eddie Patient Location: E HR:79 bpm ECG Measurements Heart Rate 79 AXIS [place] 168 P 70 QRSd 82 QRS 16 QT 426 T 38 QTc 490 Conclusion Sinus rhythm...normal P axis, V-rate 60- 99 Probable left atrial enlargement...P >50mS, <-0.10mV V1 sinus rhtyhm, normal axis, normal intervals, non ischemic
--- OUTSIDE RECORDS SUMMARY | 2024-01-21 14:14 | XMS_ITS | Encounter Summary ---
Author Organization [facility] Address [address] [place] [address] Care Team Providers Care Clerk Funeral Detail Name Role Phone Unknown, Provider Primary Care Provider [phone] Dorothea Kaufman MD Primary Care Provider [phone] Encounter Details Date Type Department Care Team (Late st Contact Info) Description 01/24/2020 Lab Requisition [facility] - [facility] [address] [place] [address] Outr Resulting Lab, Provider Social History Tobacco Use Types Packs/Day Years Used Date Smoking Tobacco: Never Assessed Sex and Gender Information Value Date Recorded Sex Assigned at Not on file Gender Identity Female 04/14/2023 9:02 EST Sexual Orientation Not on file documented as of this encounter Plan of Treatment Upcoming Encounters Date Type Department Care Team (Late Contact Info) Description 04/21/2024 9:00 EST Office Visit [facility] - Medical Office Building [address] [place] [address] Rudy Chavez MD 2 [facility] Medical Office Building, [address] [place] [phone] [employer]ier [employer], Memory DisorderMD documented as of this encounter Procedures Procedure Name Priority Date/Time Associated Diagnosis Comments DO NOT ORDER STANDALONE - BROAD COVID TEST Today 01/24/2020 11:07 EDT COVID-19 TESTING Routine 01/24/2020 11:0 7 EDT documented in this encounter Results * DO NOT ORDER STANDALONE - BROAD COVID TEST (01/24/2020 11:07 EDT) COVID-19 rt-PCR Result NEGATIVE Negative 01/25/2020 11:45 EDT [facility] Comment: 2019-novel Coronavirus (2019-nCoV) not detected by the qRT-PCR assay. Consider testing for other respiratory viruses or re-collecting for 2019-nCoV testing. Note: Optimum timing for peak viral levels during infections caused by 2019-nCoV have not been determined. Collection of multiple specimens from the same patient may be necessary to detect the virus. Limitations Positive results are indicative of active infection with SARS-CoV-2 but do not rule out bacterial infection or co-infection with other viruses. The agent detected may not be the definite cause of disease. In addition, detection of viral RNA may not indicate the presence of infectious virus or that SARS-CoV-2 is the causative agent for clinical symptoms. Negative results do not preclude SARS-CoV-2 infection and should not be used as the sole basis for patient management decisions. Negative results must be combined with clinical observations, patient history, and epidemiological information. False negative results may also occur if amplification inhibitors are present in the specimen or if inadequate numbers of organisms are present in the specimen. Optimum specimen types and timing for peak viral levels during infections caused by SARS-CoV-2 have not been fully determined. Collection of multiple specimens (types and time points) from the same patient may be necessary to detect the virus. The test was validated for use with upper respiratory specimens obtained via nasopharyngeal or oropharyngeal swabs in VTM, UTM, M4, M5, M6, saline, and MTM media. The performance of this test has not been established for other specimens. Specimens collected using other FDA recommended Specimen Collection Materials listed in the FDA COVID-19 [employer] communication (July 29, 2019) are processed with the caveat that they were not all validated for use with this test and the result must be interpreted in this context. Furthermore, a false negative results may occur if a specimen is improperly collected, transported or handled. If the virus mutates in the RT-PCR target region, SARS-CoV-2 may not be detected or may be detected less predictably. Inhibitors or other types of interference may produce a false negative result. An interference study evaluating the effect of common cold medications was not performed. This test is not FDA-cleared but its performance characteristics were established by our CLIA-certified, CAP-accredited, high complexity laboratory in accordance with CLIA regulations, College [employer] (CAP) guidelines (Jul 22, 2019), and FDA guidance (Jul 03, 2019). This test is only for use under the Food and Drug Administration's Emergency Use Authorization. Swab ENTIRE NASOPHARYNX / Unknown 01/24/2020 11:07 EDT 01/24/2020 16:23 EDT Provider Outr Resulting Lab MICROBIOLOGY - GENERAL ORDERABLES [facility] [place], [place] * COVID-19 TESTING (01/24/2020 11:07 EDT) COVID-19 rt-PCR Result NEGATIVE Negative 01/25/2020 12:55 EDT [facility] Comment: 2019-novel Coronavirus (2019-nCoV) not detected by the qRT-PCR assay. Consider testing for other respiratory viruses or re-collecting for 2019-nCoV testing. Note: Optimum timing for peak viral levels during infections caused by 2019-nCoV have not been determined. Collection of multiple specimens from the same patient may be necessary to detect the virus. Limitations Positive results are indicative of active infection with SARS-CoV-2 but do not rule out bacterial infection or co-infection with other viruses. The agent detected may not be the definite cause of disease. In addition, detection of viral RNA may not indicate the presence of infectious virus or that SARS-CoV-2 is the causative agent for clinical symptoms. Negative results do not preclude SARS-CoV-2 infection and should not be used as the sole basis for patient management decisions. Negative results must be combined with clinical observations, patient history, and epidemiological information. False negative results may also occur if amplification inhibitors are present in the specimen or if inadequate numbers of organisms are present in the specimen. Optimum specimen types and timing for peak viral levels during infections caused by SARS-CoV-2 have not been fully determined. Collection of multiple specimens (types and time points) from the same patient may be necessary to detect the virus. The test was validated for use with upper respiratory specimens obtained via nasopharyngeal or oropharyngeal swabs in VTM, UTM, M4, M5, M6, saline, and MTM media. The performance of this test has not been established for other specimens. Specimens collected using other FDA recommended Specimen Collection Materials listed in the FDA COVID-19 [employer] communication (July 29, 2019) are processed with the caveat that they were not all validated for use with this test and the result must be interpreted in this context. Furthermore, a false negative results may occur if a specimen is improperly collected, transported or handled. If the virus mutates in the RT-PCR target region, SARS-CoV-2 may not be detected or may be detected less predictably. Inhibitors or other types of interference may produce a false negative result. An interference study evaluating the effect of common cold medications was not performed. This test is not FDA-cleared but its performance characteristics were established by our CLIA-certified, CAP-accredited, high complexity laboratory in accordance with CLIA regulations, College [employer] (CAP) guidelines (Jul 22, 2019), and FDA guidance (Jul 03, 2019). This test is only for use under the Food and Drug Administration's Emergency Use Authorization. Performing Lab [facility] [place] 01/25/2020 12:55 EDT [facility] Swab 01/24/2020 11:0 7 EDT 01/24/2020 16:23 EDT Provider Outr Resulting Lab MICROBIOLOGY - GENERAL ORDERABLES [facility] [address] [place] [address] [facility] [place] documented in this encounter Visit Diagnoses Not on filedocumented in this encounter Care Teams Clerk Funeral Detail Relationship Specialty Start Date End Date Unknown, Provider, PCP - General 05/05/19 01/26/20 Dorothea Kaufman MD [address] [place] [phone] PCP - General 01/27/20 documented as of this encounter
--- OUTSIDE RECORDS SUMMARY | 2024-01-21 14:14 | XMS_ITS | Encounter Summary ---
Author Organization [facility] Address [address] [place] [address] Care Team Providers Care Consumer Affairs Specialist Name Role Phone Dorothea Kaufman MD Primary Care Provider [phone] Encounter Details Date Type Department Care Team ([facility] Contact Info) Description 03/31/2023 10:40 EST Phlebotomy Only [facility] - [facility] ([facility]) [address], [place] [id number] Memory loss Social History Tobacco Use Types Packs/Day Years Used Date Smoking Tobacco: Never Assessed Sex and Gender Information Value Date Recorded Sex Assigned at Not on file Gender Identity Female 04/14/2023 9:02 EST Sexual Orientation Not on file documented as of this encounter Plan of Treatment Upcoming Encounters Date Type Department Care Team ([facility] Contact Info) Description 04/21/2024 9:00 EST Office Visit [facility] - Medical Office Building [address] [place] [address] Rudy Chavez MD 2 [facility] Medical Office Building, [address] [place] [phone] [employer] Store [employer] Greeter, Memory DisorderMD documented as of this encounter Procedures Procedure Name Priority Date/Time Associated Diagnosis Comments SYPHILIS SEROLOGY Routine 03/31/2023 10: 38 EST Memory loss COMPLETE BLOOD COUNT AND DIFFERENTIAL Routine 03/31/2023 10:38 EST Memory loss TSH Routine 03/31/2023 10:38 EST Memory loss VITAMIN B12 Routine 03/31/2023 10:38 EST Memory loss COMPREHENSIVE METABOLIC PANEL (CMP) Routine 03/31/2023 10:38 EST Memory loss documented in this encounter Results * VITAMIN B12 (03/31/2023 10:38 EST) Pathologist [facility] Vitamin B12 846 211 - 911 pg/mL 03/31/2023 14:37 EST [facility] Blood VENOUS BLOOD / Unknown Venipuncture / Unknown 03/31/2023 10:38 EST 03/31/2023 10:38 EST Rudy Chavez MD CHEMISTRY & BLOO D GAS ORDERABLES Performing Organization Address City/[facility] Co de Phone Number [facility] [address] [place] [address] * TSH (03/31/2023 10:38 EST) Pathologist [facility] TSH 1.04 0.47 - 4.68 mIU/L 03/31/2023 13:23 EST [facility] Blood VENOUS BLOOD / Unknown Venipuncture / Unknown 03/31/2023 10:38 EST 03/31/2023 10:38 EST Narrative [facility] - 03/31/2023 13:23 EST The results of this assay can be falsely lowered due to the consumption of Biotin. Rudy Chavez MD CHEMISTRY & BLOO D GAS ORDERABLES Performing Organization Address City/[facility]/ZIP Co de Phone Number [facility] [address] [place] [address] * SYPHILIS SEROLOGY (03/31/2023 10:38 EST) Pathologist [facility] Syphilis Serology Negative Negative 03/31/2023 14:53 EST [facility] Blood VENOUS BLOOD / Unknown Venipuncture / Unknown 03/31/2023 10:38 EST 03/31/2023 10:38 EST Rudy Chavez MD IMMUNOLOGY AND S EROLOGY ORDERABLES [facility] [address] [place] [address] * (ABNORMAL) COMPREHENSIVE METABOLIC PANEL (CMP) (03/31/2023 10:38 EST) Sodium 140 136 - 145 mmol/L 03/31/2023 12:49 [facility] Potassium 4.6 3.5 - 5.0 mmol/L 03/31/2023 12:49 [facility] Chloride 102 96 - 110 mmol/L 03/31/2023 12:49 [facility] CO2 Total 28 22 - 32 mmol/L 03/31/2023 12:49 [facility] Glucose 88 70 - 99 mg/dl 03/31/2023 12:49 [facility] BUN 22 10 - 26 mg/dL 03/31/2023 12:49 [facility] Creatinine 1.14(H) 0.52 - 1.04 mg/dL 03/31/2023 12:49 [facility] eGFR 50(L) >60 mL/min/1.7 3m2 03/31/2023 12:49 [facility] Total Protein 7.3 6.3 - 8.2 g/dL 03/31/2023 12:49 [facility] Albumin 4.2 3.4 - 4.9 g/dL 03/31/2023 12:49 [facility] Alkaline Phosphatase 83 38 - 126 U/L 03/31/2023 12:49 [facility] AST 29 15 - 46 U/L 03/31/2023 12:49 [facility] ALT 16 <35 U/L 03/31/2023 12:49 [facility] Bilirubin, Total 1.3 <1.4 mg/dL 03/31/20 12:49 [facility] Calcium 9.4 8.5 - 10.5 mg/dL 03/31/2023 12:49 [facility] Albumin/Globulin Ratio 1.4 1.0 - 2.5 g/dL 03/31/2023 12:49 [facility] Anion Gap 10 5 - 14 mmol/L 03/31/2023 12:49 [facility] Blood VENOUS BLOOD / Unknown Venipuncture / Unknown 03/31/2023 10:38 EST 03/31/2023 10:38 EST Rudy Chavez MD CHEMISTRY & BLOO D GAS ORDERABLES [facility] [address] [place] [address] * (ABNORMAL) COMPLETE BLOOD COUNT AND DIFFERENTIAL (03/31/2023 10:38 EST) WBC 5.42 4.00 - 12.40 K/cmm 03/31/2023 12:26 [facility] RBC 4.33 3.86 - 5.04 M/cmm 03/31/2023 12:26 [facility] Hemoglobin 14.1 11.6 - 15.2 g/dL 03/31/2023 12:26 [facility] HCT 40.1 34.9 - 44.4 % 03/31/2023 12:26 [facility] MCV 93 81 - 98 fL 03/31/2023 12:26 [facility] MCH 32.6 26.7 - 33.3 pg 03/31/2023 12:26 [facility] MCHC 35.2 32.1 - 35.9 g/dL 03/31/2023 12:26 [facility] RDW-CV 12.7 <14.7 % 03/31/2023 12:26 [facility] RDW-SD 43.1 <50.4 fl 03/31/2023 12:26 [facility] PLT 204 141 - 377 K/cmm 03/31/2023 12:26 [facility] MPV 10.3 9.5 - 12.7 fL 03/31/2023 12:26 [facility] % Neutrophils 68.4 % 03/31/2023 12:26 [facility] % Lymphocytes 19.4 % 03/31/2023 12:26 [facility] % Monocytes 10.3 % 03/31/2023 12:26 [facility] % Eosinophils 1.3 % 03/31/2023 12:26 [facility] % Basophils 0.4 % 03/31/2023 12:26 [facility] % Immature Grans 0.2 % 03/31/20 12:26 [facility] Absolute Neutrophils 3.71 2.20 - 8.85 K/cmm 03/31/2023 12:26 [facility] Absolute Lymphocytes 1.05(L) 1.09 - 3.30 K/cmm 03/31/2023 12:26 [facility] Absolute Monocytes 0.56 0.10 - 0.80 K/cmm 03/31/2023 12:26 [facility] Absolute Eosinophils 0.07 0.03 - 0.61 K/cmm 03/31/2023 12:26 [facility] ABS Basophils 0.02 0.01 - 0.11 K/cmm 03/31/2023 12:26 [facility] Absolute Immature Grans 0.01 0.00 - 0.06 K/cmm 03/31/2023 12:26 [facility] Type of Differential: Auto 03/31/2023 12:26 [facility] Blood VENOUS BLOOD / Unknown Venipuncture / Unknown 03/31/2023 10:38 EST 03/31/2023 10:38 EST Rudy Chavez MD PACKAGES & DNA P ROBE ORDERABLES [facility] [address] [place] [address] documented in this encounter Visit Diagnoses Diagnosis Memory loss documented in this encounter Care Teams Consumer Affairs Specialist Relationship Specialty Start Date End Date Dorothea Kaufman MD [address] [place] [phone] PCP - General 01/27/20 documented as of this encounter
--- OUTSIDE RECORDS SUMMARY | 2024-01-21 14:14 | XMS_ITS | Referral Summary ---
Author Organization [facility] Address [address] [place] [address] Care Team Providers Care Logger Driving Horses Name Role Phone Dorothea Kaufman MD Primary Care Provider [phone] Allergies Active Allergy Reactions Criticality Noted Date Comments Codeine Anaphylaxis High 10/07/2013 Medications Medication Sig Dispensed Refills Start Date End Date Status amLODIPine (NORVASC) 5 mg tablet Take 1 Tablet by mouth daily. 04/19/2022 Active memantine (NAMENDA) 10 mg tablet Take 1 Tablet by mouth 2 times daily. 06/19/2022 Active ibuprofen (MOTRIN) 800 mg tablet take one tablet by mouth every 8 hours as needed for pain 05/15/2022 Active donepezil (ARICEPT) 10 mg tablet Take 1 Tablet by mouth at bedtime. 01/02/2023 Active VENTOLIN HFA 90 mcg/actuation inhaler INHALE ONE TO TWO PUFFS BY MOUTH EVERY 4 HOURS NEEDED Active cholecalciferol, Vitamin D3, 25 mcg (1,000 unit) tablet Take 1 Tablet by mouth daily. Active VITAMIN B-12 1,000 mcg tablet Take 1 Tablet by mouth daily. 06/29/2022 Active estradioL (VAGIFEM) 10 mcg vaginal tablet INSERT 1 TABLET INTRAVAGINALLY TWO TO THREE TIMES WEEKLY 02/24/2023 Active fluticasone propionate (FLONASE) 50 mcg/actuation nasal spray 2 Sprays. Active folic acid (FOLVITE) 1 mg tablet Take 1 Tablet by mouth daily. 05/11/2022 Active atorvastatin (LIPITOR) 40 mg tablet Take 1 Tablet by mouth daily. 04/01/2023 Active acetaminophen (TYLENOL) 500 mg tablet Take 1 Tablet by mouth every 6 hours as needed for Pain. PRN Active Active Problems Patient Care Coordination No te Formatting of this note migh t be different from the original. Verbal consent obtained for Professional Disclosure Notice, Clinical Social Work Services at the Memory Program, 2023-05-30. [facility] CHRISTOPHER scanned to [facility] on: 2023-03-31 Problem Noted Date Diagnosed Date Dyslipidemia 04/14/2023 Memory impairment 10/08/2022 Anorexia 10/08/2022 Recent weight loss 10/08/2022 Varicose veins of both lower extremities 023 Leg pain, left 10/08/2022 Leg pain, right 10/08/2022 Pain in joint of left shoulder 10/08/2022 Orthostatic dizziness 10/08/2022 Wart of hand 10/08/2022 Overview: Right hand Bursitis 10/08/2022 Chronic kidney disease 10/08/2022 Hx of breast cancer 10/08/2022 Overview: X3 Benign essential hypertension 10/08/2022 Hx of adenomatous colonic polyps 10/08/2022 Asthma, mild intermittent 10/08/2022 Venous stasis dermatitis 10/08/2022 Osteopenia 10/08/2022 Hx of malignant melanoma 10/08/2022 Mitral valve regurgitation 10/08/2022 Overview: mild Hearing loss of right ear 10/08/2022 Overview: Right hearing aide Social History Tobacco Use Types Packs/Day Years Used Date Smoking Tobacco: Former Cigarettes Smokeless Tobacco: Never Tobacco Cessation:Counseling Given: Not Answered Alcohol Use Standard Drinks/Week Comments Yes 4 (1 standard drink = 0.6 oz pur e alcohol) Sex and Gender Information Value Date Recorded Sex Assigned at Not on file Gender Identity Female 04/14/2023 9:02 EST Sexual Orientation Not on file Last Filed Vital Signs Vital Sign Reading Time Taken Comments Blood Pressure 130/86 10/15/2023 0923 EDT Pulse 72 10/15/2023 0923 EDT Temperature - - Respiratory Rate - - Oxygen Saturation 98% 10/15/2023 0923 EDT Inhaled Oxygen Concentration - - Weight 47.6 kg (105 lb) 10/15/2023 0923 EDT Height - - Body Mass Index - - Plan of Treatment Upcoming Encounters Date Type Department Care Team (Late st Contact Info) Description 04/21/2024 9:00 EST Office Visit [facility] - Medical Office Building [address] [place] [address] Rudy Chavez MD [facility] Medical Office Building, [address] [place] [phone] Mailing Manager, Memory MD Peter Procedures Procedure Name Priority Date/Time Associated Diagnosis Comments HEPATITIS C AB W REFLEX TO HCV RNA BY PCR Routine 07/18/2021 9:58 EDT from Last 3 Months or Most Recently Relevant to Health Maintenance Results * HEPATITIS C AB W REFLEX TO HCV RNA BY PCR (07/18/2021 9:58 EDT) Hep C Antibody Negative Negative 07/19/2021 9:37 EDT [facility] Blood VENOUS BLOOD / Unknown 07/18/2021 9:58 EDT 07/18/2021 21:26 EDT Provider Outr Resulting Lab CHEMISTRY & BLOOD GAS ORDERABLES [facility] [address] [place] [address] from Last 3 Months or Most Recently Relevant to Health Maintenance Care Teams Logger Driving Horses Relationship Specialty Start Date End Date Dorothea Kaufman MD [address] [place] [phone] PCP - General 01/27/20
--- OUTSIDE RECORDS SUMMARY | 2024-01-21 14:14 | XMS_ITS | Encounter Summary ---
Author Organization [facility] Address [address] [place] [address] Care Team Providers Care Ambulette Driver Name Role Phone Dorothea Kaufman MD Primary Care Provider [phone] Encounter Details Date Type Department Care Team (Late Contact Info) Description 03/31/2023 Orders Only [facility] [place] Office [place] [address] [place] [address] Rudy Chavez MD [address] [place] [address] Office Building, [address] [place] [phone] Social History Tobacco Use Types Packs/Day Years Used Date Smoking Tobacco: Never Assessed Sex and Gender Information Value Date Recorded Sex Assigned at Not on file Gender Identity Female 04/14/2023 9:02 EST Sexual Orientation Not on file documented as of this encounter Plan of Treatment Upcoming Encounters Date Type Department Care Team (Late Contact Info) Description 04/21/2024 9:00 EST Office [place] [facility] [place] Medical Office Building [address] [place] [phone] Rudy Chavez MD [address] [place] [address] Office Building, [address] [place] [phone] Waterfront Director, Memory MD Peter documented as of this encounter Visit Diagnoses Not on filedocumented in this encounter Care Teams Ambulette Driver Relationship Specialty Start Date End Date Dorothea Kaufman MD [address] [place] [phone] PCP - General 01/27/20 documented as of this encounter
--- OUTSIDE RECORDS SUMMARY | 2024-01-21 14:14 | XMS_ITS | Encounter Summary ---
Author Organization [facility] Address [address] [place] [address] Care Team Providers Care Communications Systems Engineer Name Role Phone Unknown, Provider Primary Care Provider [phone] Dorothea Kaufman MD Primary Care Provider [phone] Encounter Details Date Type Department Care Team (Late Contact Info) Description 09/14/2019 Lab Requisition [facility] Pathology & Laboratory Medicine - [facility] [address] [place] [address] Benjamin Miguel MD [address] [place] [phone] Encounter for other general examination Social History Tobacco Use Types Packs/Day Years Used Date Smoking Tobacco: Never Assessed Sex and Gender Information Value Date Recorded Sex Assigned at Not on file Gender Identity Female 04/14/2023 9:02 EST Sexual Orientation Not on file documented as of this encounter Plan of Treatment Upcoming Encounters Date Type Department Care Team (Late Contact Info) Description 04/21/2024 9:00 EST Office Visit [facility] Memory Program - Medical Office Building [address] [place], [place] [address] Rudy Chavez MD 2 [facility] Medical Office Building, [address] [place] [phone] Manager Mail, Lindsay Green MD documented as of this encounter Procedures Procedure Name Priority Date/Time Associated Diagnosis Comments SURGICAL PATHOLOGY Today 09/14/2019 9: 35 EDT Encounter for other general examination documented in this encounter Results * SURGICAL PATHOLOGY (09/14/2019 9:35 EDT) Final Diagnosis A. ENDOMETRIUM, BIOPSY: - Minute inactive endometrial glandular epithelium and benign endocervical glandular epithelium admixed with mucus. - Negative for atypical hyperplasia and glo malignancy. 09/15/2019 9:47 EDT [facility] at 0947 Attestation By the signature below, the attending physician certifies that they have 1) personally conducted a gross and/or microscopic examination of the described specimen(s), and/or personally interpreted the results of laboratory testing of the described specimen(s), and 2) personally rendered or confirmed the above diagnosis. 09/15/2019 9:47 EDT [facility] at 0947 Clinical History senior care tamoxifen 09/15/2019 9:47 EDT [facility] Gross Description A. Received in formalin labelled with proper patient identification (initials A, M) and endometrial Bx is an aggregate of blood-tinged mucin (0.5 x 0.4 x 0.4 cm). The specimen is submitted entirely in A1. 09/14/2019 15:46 09/15/2019 9:47 EDT [facility] Scanned Images 09/15/2019 9:47 EDT [facility] Tissue ENTIRE ENDOMETRIUM / Unknown 09/14/2019 9:35 EDT 09/14/2019 15:41 EDT Benjamin Miguel MD PATHOLOGY ORDERABLES [facility] [address] [place] [address] documented in this encounter Visit Diagnoses Diagnosis Encounter for other general examination documented in this encounter Care Teams Communications Systems Engineer Relationship Specialty Start Date End Date Unknown, Provider, PCP - General 1/1/20 9/23/20 Dorothea Kaufman MD [address] [place] [phone] PCP - General 01/27/20 documented as of this encounter
--- OUTSIDE RECORDS SUMMARY | 2024-01-21 14:14 | XMS_ITS | Encounter Summary ---
Author Organization [facility] Address [address] [place] [address] Care Team Providers Care Slasher Sawyer Name Role Phone Dorothea Kaufman MD Primary Care Provider Encounter Details Date Type Department Care Team (Late Contact Info) Description 08/03/2020 Lab Requisition [facility] Pathology & Laboratory Medicine - [facility] [address] [place] [address] Outr Resulting Lab, Provider Social History Tobacco Use Types Packs/Day Years Used Date Smoking Tobacco: Never Assessed Sex and Gender Information Value Date Recorded Sex Assigned at Not on file Gender Identity Female 04/14/2023 9:02 EST Sexual Orientation Not on file documented as of this encounter Plan of Treatment Upcoming Encounters Date Type Department Care Team ([facility] Contact Info) Description 04/21/2024 9:00 EST Office Visit [facility] Program - Medical Office Building [address] [place] [address] Rudy Chavez MD 2 [facility] Medical Office Building, [address] [place] [phone] Public Finance Specialist, Memory MD Peter documented as of this encounter Procedures Procedure Name Priority Date/Time Associated Diagnosis Comments FECAL BACTERIAL PATHOGENS BY PCR Routine 08/03/2020 14:00 EDT documented in this encounter Results * FECAL BACTERIAL PATHOGENS BY PCR (08/03/2020 14:00 EDT) Salmonella PCR Negative Negative 08/04/2020 10:56 EDT [facility] Shigella/Enteroin vasive E. coli Negative Negative 08/04/2020 10:56 EDT [facility] HN LAB CAMPYLOBACTER PCR Negative Negative 08/04/2020 10:56 EDT [facility] Shiga Toxin PCR Negative Negative 10:56 EDT [facility] Feces SPECIMEN FROM RECTUM / Unknown 08/03/2020 14:00 EDT 08/03/2020 21:27 EDT Provider Outr Resulting Lab MICROBIOLOGY - GENERAL ORDERABLES Performing Organization Address City/State/[facility] Co de Phone Number [facility] [address] [place] [address] documented in this encounter Visit Diagnoses Not on filedocumented in this encounter Care Teams Slasher Sawyer Relationship Specialty Start Date End Date Dorothea Kaufman MD [address] [place] [phone] PCP - General 01/27/20 documented as of this encounter
--- OUTSIDE RECORDS SUMMARY | 2024-01-21 14:14 | XMS_ITS | Encounter Summary ---
Author Organization [facility] Address [address] [place] [address] Care Team Providers Care Trouble Shooting Mechanic Name Role Phone Dorothea Kaufman MD Primary Care Provider Encounter Details Date Type Department Care Team (Late Contact Info) Description 10/08/2022 Orders Only [facility] - Medical Office Building [address] [place] [address] Rudy Chavez MD [address] [place] [address] Office Building, [address] [place] [phone] Social History Tobacco Use Types Packs/Day Years Used Date Smoking Tobacco: Never Assessed Sex and Gender Information Value Date Recorded Sex Assigned at Not on file Gender Identity Female 04/14/2023 9:02 EST Sexual Orientation Not on file documented as of this encounter Plan of Treatment Upcoming Encounters Date Type Department Care Team (Late Contact Info) Description 04/21/2024 9:00 EST Office Visit [facility] - Medical Office Building [address] [place] [phone] Rudy Chavez MD [address] [place] [address] Office Building, [address] [place] [phone] Software Technician, Memory MD Peter documented as of this encounter Visit Diagnoses Not on filedocumented in this encounter Care Teams Trouble Shooting Mechanic Relationship Specialty Start Date End Date Dorothea Kaufman MD [address] [place] [phone] PCP - General 01/27/20 documented as of this encounter
--- OUTSIDE RECORDS SUMMARY | 2024-01-21 14:14 | XMS_ITS | Encounter Summary ---
Author Organization [facility] Address [address] [place] [address] Care Team Providers Care Maintenance Worker Swimming Pool Name Role Phone Dorothea Kaufman MD Primary Care Provider [phone] Reason for Visit * Reason Comments Adjustment Disorder Encounter Details Date Type Department Care Team ([facility] Contact Info) Description 05/30/2023 11:00 EST Telemedicine [facility] Program - Medical Office Building [address] [place], [place] [phone] Genesis Santo, PROFESSOR OF BIOLOGY [address] [facility] Medical Office Building, [address] [place] [phone] Adjustment disorder, unspecified type (Primary Dx) Social History Tobacco Use Types Packs/Day Years Used Date Smoking Tobacco: Former Cigarettes Smokeless Tobacco: Never Alcohol Use Standard Drinks/Week Comments Yes 4 (1 standard drink = 0.6 oz pur e alcohol) Sex and Gender Information Value Date Recorded Sex Assigned at Not on file Gender Identity Female 04/14/2023 9:02 EST Sexual Orientation Not on file documented as of this encounter Progress Notes * Genesis Santo LICSW - 05/30/2023 1100 EST TELEMEDICINE VIDEO VISIT Today's visit was provided through telemedicine video conferencing: I have reviewed the appropriateness of using video technology with the patient with regards to today's visit. The location of the patient : Home Patient location state: Visit Location State: [place] The location of the provider: Office Provider location state: Visit Location State: [place] The following people and their roles were present for today's visit: Appointment Provider: ALBA Ko Nataly and her son Ernesto The concept of ???Telemedicine?? has been described to the patient.? Patient has been informed of the anticipated benefits and possible risks.? Patient understands the information provided regardingtelemedicine, has had the opportunity to ask questions about this information, and all questions have been answered to patient???s satisfaction. Patient consents for the use of telemedicine in his/her medical care and authorizes the transmission of any relevant medical information to providers and their staff involved in patient???s medical or mental health care. Patient understands that they maybe responsible for copays, deductible or coinsurance for this service. Initial Clinical Social Work Visit- [facility] Pt Name: Nataly Kuhn Date: 05/30/2023 Time spent: 57 minutes Others present: Nataly was accompanied by her son Ernesto DX: (F43.20) Adjustment disorder, unspecified type (primary encounter diagnosis) Verbal consent obtained for Professional Disclosure Notice, Clinical Social Work Services at the Memory Program. This was an initial clinical social work visit for 78 year-old Nataly Kuhn. Clinician providedan overview of the support/services available [facility] including psychotherapy groups. Nataly was diagnosed with mild cognitive impairment by Dr. Kearns April 14, 2023. Pt Perspective on diagnosis: Nataly thought her diagnosis to be the early stages of dementia and shared that she has difficulty keeping track of things such as her keys and what she may need to do; she has tools to help keep track of these things. Ernesto understands her diagnosis to be mild cognitive impairment. Challenges & Concerns: Ntaaly's biggest concern is the uncertainty of the future and finding tools she can use to help with day-to-day activities.Nataly also worries about being a burden to herfamily, this fear and her independence make it difficult for her to accept help and has created challenges for she and Ernesto. Navigating the balance and change of their roles and relationship has been challenging for Ernesto. Nataly has had to change some of the systems that she uses to manage things so that Ernesto can help. What???s going well: Nataly and Ernesto are exploring more supportive living options that provide opportunities to socialize and meals. They were interested in the [facility] though Natalymay not qualify financially. Relevant History: Nataly was born in [place] and grew up in [place]. 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 Nataly was and has 3 children Home/Living situation/Finances: Nataly is independent with ADL's and most IADLs. She has a system for filling her pillbox and is good about remembering to take her medications. We discussed other options for support with medication management if her needs increase in the future. Her son is helpingher manage finances and feels it would be helpful if she had housekeeping services. She does not like cooking as much and will eat leftovers from weekly meal sites. There are concerns about managing her weight as she may not be eating enough when she is at home, she eats better with other people. Family: Ernesto lives nearby with his Tierra and Nataly has many friends in the area who aresupportive. Nataly has 2 children, Adonis and Lolly who live in [place] and have contact with her at least weekly, visiting occasionally. Social Supports/ Community Involvement: Nataly walks daily and is socially active attending community meals with friends and in two book clubs. She also enjoys [employer]. Caregiver Assessment: Ernesto endorsed doing okay emotionally as he is figuring out how to balance Alfredas needs and independence with his role. There are times that he feels overwhelmed or frustrated and not as patient as he would like to be. Mood and Mental Health: Nataly does not have a history of anxiety or depression and has a positiveperspective on challenges in life. Substance Use: Nataly may drink a half a glass of wine with dinner occasionally. Legal Planning (Will, Advanced Directive, DPA): This is completed and Ernesto is power of assistant attorney general for health care and finances. Concerns about Driving?: There are no concerns at this time. Review of Lifestyle choices: Five domains of nutrition, exercise, social connections, intellectual activity, and sleep quality were explored, and a handout was provided on the benefits of these for brain health. Supporting Nataly's nutritional needs as an identified area of improvement. Assessment & Identified needs for Social Work: Nataly feels that it may be helpful for her andher son to follow-up with clinical social work for ongoing support as they navigate the changes andadjustments that come with a memory condition. Clinician will email Nataly a flyer for the upcoming MCI group which clinician feels would be beneficial and a flyer for the mindfulness for caregiversgroup for Ernesto; his participation in the TEACH group would also be appropriate. Treatment Plan: 1. Provided education on social work services and appropriate resources including the Alzheimer's Association. 2. Follow up social work appointment will occur in 5 weeks with session being 50 minutes long at which point patient/caregiver needs will be re-assessed 3. Collaboration with care team as indicated. ALBA Ko documented in this encounter Plan of Treatment Upcoming Encounters Date Type Department Care Team (Late st Contact Info) Description 04/21/2024 9:00 EST Office Visit [facility] Program - Medical Office Building [address] [place] [address] Rudy Chavez MD 2 [facility] Medical Office Building, [address] [place] [phone] Long Term Acute Care Registered Nurse, Lindsay Green MD documented as of this encounter Visit Diagnoses Diagnosis Adjustment disorder, unspecified type- Primary documented in this encounter Care Teams Maintenance Worker Swimming Pool Relationship Specialty Start Date End Date Dorothea Kaufman MD [address] [place] [phone] PCP - General 01/27/20 documented as of this encounter
--- OUTSIDE RECORDS SUMMARY | 2024-01-21 14:14 | XMS_ITS | Clinical Summary ---
Author Organization [facility] Address [address] [place] [address] Care Team Providers Care Checkout Operator Name Role Phone Dorothea Kaufman MD Primary Care Provider [phone] Allergies Active Allergy Reactions Criticality Noted Date [...] Work Services at the Memory Program, 2023-05-30. [facility] CHRISTOPHER scanned to [facility] on: 2023-03-31 Problem Noted Date Diagnosed [...] right ear 10/08/2022 Overview: Right hearing aide Surgical History Surgery Date Site/Laterality Comments BREAST LUMPECTOMY MASTECTOMY, PARTIAL SHOULDER SURGERY TOTAL HIP ARTHROPLASTY Left TONSILLECTOMY APPENDECTOMY SALPINGO-OOPHORECTOMY Medical History Medical History Date Comments Chronic kidney disease Family History Medical History Relation Comments Dementia Father Relation Status Comments Father Paternal Uncle Social History Tobacco Use Types Packs/Day Years Used Date Smoking Tobacco: Former Cigarettes Smokeless Tobacco: Never Tobacco Cessation:Counseling Given: Not Answered Alcohol Use Standard Drinks/Week Comments Yes 4 (1 standard drink = 0.6 oz pur e alcohol) Sex and Gender Information Value Date Recorded Sex Assigned at Not on file Gender Identity Female 04/14/2023 9:02 EST Sexual Orientation Not on file Obstetrics History Last Filed Vital Signs Vital Sign Reading [...] Info) Description 04/21/2024 9:00 EST Office Visit [facility] Program - Medical Office Building [address] [place] [address] Rudy Chavez MD [address] [place], [place] [address]ny [facility] Medical Office Building, [address] [place] [phone] Industrial Relations Director, Lindsay Green MD Health Maintenance Due Date Last Done Comments Asthma Action Plan 1945 Lung Function Test (Spirometry) 1946 RSV Immunization ( o r 60+ Years) (1 - 1-dose 60+ series) 2006 COVID-19 Vaccine (2022-24 season) 2023 Fall Risk Screening 10/14/2024 10/15/2023, Hepatitis C Screen Completed 07/18/2021 Procedures Procedure Name Priority Date/Time Associated Diagnosis Comments HEPATITIS C AB W REFLEX TO HCV RNA BY PCR Routine 07/18/2021 9:58 EDT from Last 3 Months or Most Recently Relevant to Health Maintenance Results * HEPATITIS C AB W REFLEX TO HCV RNA BY PCR (07/18/2021 9:58 EDT) Hep C Antibody Negative Negative 07/19/2021 9:37 EDT [facility] Blood VENOUS BLOOD / Unknown 07/18/2021 9:58 EDT 07/18/2021 21:26 EDT Provider Outr Resulting Lab CHEMISTRY & BLOOD GAS ORDERABLES [facility] [address] [place] [address] from Last 3 Months or Most Recently Relevant to Health Maintenance Care Teams Checkout Operator Relationship Specialty Start Date End Date Dorothea Kaufman MD [address] [place] [phone] PCP - General 01/27/20
--- OUTSIDE RECORDS SUMMARY | 2024-01-21 14:14 | XMS_ITS | Encounter Summary ---
Author Organization [facility] Address [address] [place] [address] Care Team Providers Care Curator Medical Museum Name Role Phone Dorothea Kuafman MD Primary Care Provider [phone] Encounter Details Date Type Department Care Team (Late Contact Info) Description 05/22/2020 Lab Requisition [facility] Pathology & Laboratory Medicine - [facility] [address] [place] [address] Outr Resulting Lab, Provider Social History Tobacco Use Types Packs/Day Years Used Date Smoking Tobacco: Never Assessed Sex and Gender Information Value Date Recorded Sex Assigned at Not on file Gender Identity Female 04/14/2023 9:02 EST Sexual Orientation Not on file documented as of this encounter Plan of Treatment Upcoming Encounters Date Type Department Care Team ([facility] Contact Info) Description 04/21/2024 9:00 EST Office Visit [facility] Memory Program - Medical Office Building [address] [place] [address] Rudy Chavez MD 2 [facility] Medical Office Building, [address] [place] [phone] Business Mgr, Memory DisorderMD documented as of this encounter Procedures Procedure Name Priority Date/Time Associated Diagnosis Comments ZZCOVID-19 TEST [facility] PCR Today 05/22/2020 10:27 EST COVID-19 TESTING Routine 05/22/2020 10:2 7 EST documented in this encounter Results * COVID-19 TEST [facility] PCR (05/22/2020 10:27 EST) Swab ENTIRE NASOPHARYNX / Unknown 05/22/2020 10:27 EST 05/22/2020 15:56 EST Provider Outr Resulting Lab MICROBIOLOGY - GENERAL ORDERABLES Performing Organization Address [facility] Co de Phone Number [facility] [address] [place] [address] * COVID-19 TESTING (05/22/2020 10:27 EST) COVID-19 rt-PCR Result Negative Negative 05/23/2020 12:32 EST [facility] Comment: This test has not been FDA cleared or approved. This test has been authorized by FDA under an EUA for use by authorized laboratories. This test has been authorized only for detection of nucleic acid from 2019-nCoV, not for any other viruses or pathogens. This test is only authorized for the duration of the declaration that circumstances exist justifying the authorization of emergency use of in vitro diagnostic tests for detection and/or diagnosis of 2019-nCoV under section 564(b)(1) of Act, 21 U.S.C ?? 360bbb-3(b) (1), unless the authorization is terminated or revoked sooner. Negative results do not preclude 2019-nCoV infection and should not be used as the sole basis for treatment or other patient management decisions. Negative results must be combined with clinical observations, patient history, and epidemiological information. Testing was performed using the lamont SARS-CoV-2 assay ([employer] on the Lamont 6800 System Performing Lab Lamont 6800 [facility] 05/23/2020 12:32 EST [facility] Swab 05/22/2020 10:2 7 EST 05/22/2020 15:56 EST Provider Outr Resulting Lab MICROBIOLOGY - GENERAL ORDERABLES Performing Organization Address City/[facility]/ZIP Co de Phone Number [facility] [address] [place] [address] documented in this encounter Visit Diagnoses Not on filedocumented in this encounter Care Teams Curator Medical Museum Relationship Specialty Start Date End Date Dorothea Kaufman MD [address] [place] [phone] PCP - General 01/27/20 documented as of this encounter
--- OUTSIDE RECORDS SUMMARY | 2024-01-21 14:14 | XMS_ITS | Encounter Summary ---
Author Organization [facility] Address [address] [place] [address] Care Team Providers Care Doctor Osteopathic Name Role Phone Dorothea Kaufman MD Primary Care Provider Encounter Details Date Type Department Care Team (Late Contact Info) Description 12/28/2020 Lab Requisition [facility] Pathology & Laboratory Medicine - [address] [address] Florinda Pham [address] [place] [phone] Encounter for other general examination Social History [...] Info) Description 04/21/2024 9:00 EST Office Visit [facility] Memory Program - Medical Office Building [address] [place], [place] [phone] Rudy Chavez MD 2 [facility] Medical Office Building, [address] [place] [phone] Quality Tech, Lindsay Green MD documented as of this encounter Procedures Procedure Name Priority Date/Time Associated Diagnosis Comments SURGICAL PATHOLOGY Today 12/28/2020 13 :15 EDT Encounter for other general examination documented in this encounter Results * SURGICAL PATHOLOGY (12/28/2020 13:15 EDT) Note to Patient The following pathology results have been interpreted by your pathologist and may be available to you before your health provider has had the opportunity to review them. Please allow time for your provider to receive these results and explore management options, if applicable. 01/01/2021 14:53 [facility] Final Diagnosis A. ENDOMETRIUM, BIOPSY: - Scant benign squamous epithelium. - Endometrial tissue insufficient for diagnosis. See Comment. 01/01/2021 14:53 [facility] Diagnosis Comment Deeper sections have been examined. 01/01/2021 14:53 [facility] Attestation There was significant resident/fellow involvement in the diagnostic evaluation of this case. By the signature below, the attending physician certifies that they have personally conducted a gross and/or microscopic examination of the described specimens and rendered or confirmed the above diagnosis. 01/01/2021 14:53 [facility] at 1453 Clinical History Postmenopausal bleeding 01/01/2021 14:53 [facility] Gross Description A. Received in formalin labelled with proper patient identification (initials A, M) and endometrium are two brown tissue fragments averaging 0.1 x 0.1 x 0.1 cm. Entirely submitted in A1. MARGARET DOE(ASCP) 12/29/2020 7:55 01/01/2021 14:53 [facility] Resident/Sly w: Laine Maria MD 01/01/2021 14:53 [facility] Performing Lab [facility] 01/01/2021 14:53 [facility] Scanned Images 01/01/2021 14:53 [facility] Tissue ENTIRE ENDOMETRIUM / Unknown 12/28/2020 13:15 EDT 12/28/2020 23:12 EDT Florinda Pham PATHOLOGY ORDERABLES [facility] [address] [place] [address] documented in this encounter Visit Diagnoses Diagnosis Encounter for other general examination documented in this encounter Care Teams Doctor Osteopathic Relationship Specialty Start Date End Date Dorothea Kaufman MD [address] [place] [phone] PCP - General 01/27/20 documented as of this encounter
--- OUTSIDE RECORDS SUMMARY | 2024-01-21 14:14 | XMS_ITS | Encounter Summary ---
Author Organization [facility] Address [address] [place] [address] Care Team Providers Care Rn Intern Name Role Phone Dorothea Kaufman MD Primary Care Provider [phone] Encounter Details Date Type Department Care Team (Late Contact Info) Description 04/08/2022 Orders Only [facility] Program - Medical Office Building [address] [place] [address] Rudy Chavez MD [address] [place] [address] Office [facility], [address] [place] [phone] Memory loss (Primary Dx) Social History Tobacco Use Types Packs/Day Years Used Date Smoking Tobacco: Never Assessed Sex and Gender Information Value Date Recorded Sex Assigned at Not on file Gender Identity Female 04/14/2023 9:02 EST Sexual Orientation Not on file documented as of this encounter Plan of Treatment Upcoming Encounters Date Type Department Care Team (Late Contact Info) Description 04/21/2024 9:00 EST Office Visit [facility] Program - Medical Office Building [address] [place] [phone] Rudy Chavez MD [address] [place] [address] Office [facility], [address] [place] [phone] Patient Care Assistant, Lindsay Green MD documented as of this encounter Results * VITAMIN B12 (03/31/2023 10:38 EST) Pathologist [facility] Vitamin B12 846 211 - 911 pg/mL 03/31/2023 14:37 EST [facility] Blood VENOUS BLOOD / Unknown Venipuncture / Unknown 03/31/2023 10:38 EST 03/31/2023 10:38 EST Rudy Chavez MD CHEMISTRY & BLOO D GAS ORDERABLES Performing Organization Address City/[facility]/ZIP Co de Phone Number [facility] [address] [place] [address] * TSH (03/31/2023 10:38 EST) Pathologist [facility] TSH 1.04 0.47 - 4.68 mIU/L 03/31/2023 13:23 EST [facility] Blood VENOUS BLOOD / Unknown Venipuncture / Unknown 03/31/2023 10:38 EST 03/31/2023 10:38 EST Narrative [facility] - 03/31/2023 13:23 EST The results of this assay can be falsely lowered due to the consumption of Biotin. Rudy Chavez MD CHEMISTRY & BLOO D GAS ORDERABLES Performing Organization Address [facility] Co de Phone Number [facility] [address] [place] [address] * SYPHILIS SEROLOGY (03/31/2023 10:38 EST) Pathologist [facility] Syphilis Serology Negative Negative 03/31/2023 14:53 EST [facility] Blood VENOUS BLOOD / Unknown Venipuncture / Unknown 03/31/2023 10:38 EST 03/31/2023 10:38 EST Rudy Chavez MD IMMUNOLOGY AND S EROLOGY ORDERABLES Performing Organization Address City/[facility] Co de Phone Number [facility] [address] [place] [address] * (ABNORMAL) COMPREHENSIVE METABOLIC PANEL (CMP) (03/31/2023 10:38 EST) Sodium 140 136 - 145 mmol/L 03/31/2023 12:49 [facility] Potassium 4.6 3.5 - 5.0 mmol/L 03/31/2023 12:49 [facility] Chloride 102 96 - 110 mmol/L 03/31/2023 12:49 [facility] CO2 Total 28 22 - 32 mmol/L 03/31/2023 12:49 [facility] Glucose 88 70 - 99 mg/dl 03/31/2023 12:49 [facility] BUN 22 10 - 26 mg/dL 03/31/2023 12:49 [facility] Creatinine 1.14(H) 0.52 - 1.04 mg/dL 03/31/2023 12:49 [facility] eGFR 50(L) >60 mL/min/1.7 3m2 03/31/2023 12:49 [facility] Total Protein 7.3 6.3 - 8.2 g/dL 03/31/2023 12:49 [facility] Albumin 4.2 3.4 - 4.9 g/dL 03/31/2023 12:49 [facility] Alkaline Phosphatase 83 38 - 126 U/L 03/31/2023 12:49 [facility] AST 29 15 - 46 U/L 03/31/2023 12:49 [facility] ALT 16 <35 U/L 03/31/2023 12:49 [facility] Bilirubin, Total 1.3 <1.4 mg/dL 03/31/20 12:49 [facility] Calcium 9.4 8.5 - 10.5 mg/dL 03/31/2023 12:49 [facility] Albumin/Globulin Ratio 1.4 1.0 - 2.5 g/dL 03/31/2023 12:49 [facility] Anion Gap 10 5 - 14 mmol/L 03/31/2023 12:49 [facility] Blood VENOUS BLOOD / Unknown Venipuncture / Unknown 03/31/2023 10:38 EST 03/31/2023 10:38 EST Rudy Chavez MD CHEMISTRY & BLOO D GAS ORDERABLES [facility] [address] [place] [address] * (ABNORMAL) COMPLETE BLOOD COUNT AND DIFFERENTIAL (03/31/2023 10:38 EST) WBC 5.42 4.00 - 12.40 K/cmm 03/31/2023 12:26 [facility] RBC 4.33 3.86 - 5.04 M/cmm 03/31/2023 12:26 [facility] Hemoglobin 14.1 11.6 - 15.2 g/dL 03/31/2023 12:26 [facility] HCT 40.1 34.9 - 44.4 % 03/31/2023 12:26 [facility] MCV 93 81 - 98 fL 03/31/2023 12:26 [facility] MCH 32.6 26.7 - 33.3 pg 03/31/2023 12:26 [facility] MCHC 35.2 32.1 - 35.9 g/dL 03/31/2023 12:26 [facility] RDW-CV 12.7 <14.7 % 03/31/2023 12:26 [facility] RDW-SD 43.1 <50.4 fl 03/31/2023 12:26 [facility] PLT 204 141 - 377 K/cmm 03/31/2023 12:26 [facility] MPV 10.3 9.5 - 12.7 fL 03/31/2023 12:26 [facility] % Neutrophils 68.4 % 03/31/2023 12:26 [facility] % Lymphocytes 19.4 % 03/31/2023 12:26 [facility] % Monocytes 10.3 % 03/31/2023 12:26 [facility] % Eosinophils 1.3 % 03/31/2023 12:26 [facility] % Basophils 0.4 % 03/31/2023 12:26 [facility] % Immature Grans 0.2 % 03/31/20 12:26 [facility] Absolute Neutrophils 3.71 2.20 - 8.85 K/cmm 03/31/2023 12:26 [facility] Absolute Lymphocytes 1.05(L) 1.09 - 3.30 K/cmm 03/31/2023 12:26 [facility] Absolute Monocytes 0.56 0.10 - 0.80 K/cmm 03/31/2023 12:26 [facility] Absolute Eosinophils 0.07 0.03 - 0.61 K/cmm 03/31/2023 12:26 [facility] ABS Basophils 0.02 0.01 - 0.11 K/cmm 03/31/2023 12:26 [facility] Absolute Immature Grans 0.01 0.00 - 0.06 K/cmm 03/31/2023 12:26 [facility] Type of Differential: Auto 03/31/2023 12:26 [facility] Blood VENOUS BLOOD / Unknown Venipuncture / Unknown 03/31/2023 10:38 EST 03/31/2023 10:38 EST Rudy Chavez MD PACKAGES & DNA P QUIQUE ORDERABLES Performing Organization Address City/State/[facility] Co de Phone Number [facility] [address] [place] [address] documented in this encounter Visit Diagnoses Diagnosis Memory loss- Primary documented in this encounter Care Teams Rn Intern Relationship Specialty Start Date End Date Dorothea Kaufman MD [address] [place] [phone] PCP - General 01/27/20 documented as of this encounter
--- OUTSIDE RECORDS SUMMARY | 2024-01-21 14:14 | XMS_ITS | Encounter Summary ---
Author Organization [facility] Address [address] [place] [address] Care Team Providers Care Freight Engineer Name Role Phone Dorothea Kaufman MD Primary Care Provider Encounter Details Date Type Department Care Team (Late Contact Info) Description 07/05/2022 Orders Only [facility] - Medical Office Building [address] [place] [address] Rudy Chavez MD [address] [place] [address] Office Building, [address] [place] [phone] Social History Tobacco Use Types Packs/Day Years Used Date Smoking Tobacco: Never Assessed Sex and Gender Information Value Date Recorded Sex Assigned at Not on file Gender Identity Female 04/14/2023 9:02 EST Sexual Orientation Not on file documented as of this encounter Plan of Treatment Upcoming Encounters Date Type Department Care Team (Late Contact Info) Description 04/21/2024 9:00 EST Office Visit [facility] - Medical Office Building [address] [place] [phone] Rudy Chavez MD [address] [place] [address] Office Building, [address] [place] [phone] Contact Printer Dry Film, Memory MD Peter documented as of this encounter Visit Diagnoses Not on filedocumented in this encounter Care Teams Freight Engineer Relationship Specialty Start Date End Date Dorothea Kaufman MD [address] [place] [phone] PCP - General 01/27/20 documented as of this encounter
--- OUTSIDE RECORDS SUMMARY | 2024-01-21 14:14 | XMS_ITS | Encounter Summary ---
Author Organization [facility] Address [address] [place] [address] Care Team Providers Care Polymer Materials Consultant Name Role Phone Dorothea Kaufman MD Primary Care Provider Encounter Details Date Type Department Care Team (Late Contact Info) Description 01/27/2020 Lab Requisition [facility] Pathology & Laboratory Medicine - [facility] [address] [place] [address] Benjamin Miguel MD [address] [place] [phone] Encounter for other general examination Social History [...] Info) Description 04/21/2024 9:00 EST Office Visit [facility] Memory Program - Medical Office Building [address] [place], [place] [address] Rudy Chavez MD [address] [facility] Medical Office Building, [address] [place] [phone] Flat Locker, Lindsay Green MD documented as of this encounter Procedures Procedure Name Priority Date/Time Associated Diagnosis Comments SURGICAL PATHOLOGY Today 01/27/2020 8: 45 EDT Encounter for other general examination documented in this encounter Results * SURGICAL PATHOLOGY (01/27/2020 8:45 EDT) Final Diagnosis A. ENDOMETRIUM, CURETTAGE: - Scant superficial strips of inactive endometrium. - Fragments of benign squamous mucosa. 01/31/2020 10:56 EDT [facility] Attestation By the signature below, the attending physician certifies that they have 1) personally conducted a gross and/or microscopic examination of the described specimen(s), and/or personally interpreted the results of laboratory testing of the described specimen(s), and 2) personally rendered or confirmed the above diagnosis. 01/31/2020 10:56 EDT [facility] at 1056 Clinical History Uterine discharge 01/31/2020 10:56 EDT [facility] Gross Description A. Received in formalin labelled with proper patient identification (initials A, M) and endometrial curetting is an aggregate of waller and brown tissue/blood clot, 0.6 x 0.6 x 0.2 cm. Entirely submitted in A1. TARIQ MANZO 01/27/2020 16:34 01/31/2020 10:56 EDT [facility] Performing Lab [facility] 01/31/2020 10:56 EDT [facility] Scanned Images 01/31/2020 10:56 EDT [facility] Tissue ENTIRE ENDOMETRIUM / Unknown 01/27/2020 8:45 EDT 01/27/2020 15:50 EDT Benjamin Miguel MD PATHOLOGY ORDERABLES [facility] [address] [place] [address] documented in this encounter Visit Diagnoses Diagnosis Encounter for other general examination documented in this encounter Care Teams Polymer Materials Consultant Relationship Specialty Start Date End Date Dorothea Kaufman MD [address] [place] [phone] PCP - General 01/27/20 documented as of this encounter
--- OUTSIDE RECORDS SUMMARY | 2024-01-21 14:14 | XMS_ITS | Encounter Summary ---
Author Organization [facility] Address [address] [place] [address] Care Team Providers Care Head Of Mobile Name Role Phone Dorothea Kaufman MD Primary Care Provider [phone] Encounter Details Date Type Department Care Team (Late Contact Info) Description 10/08/2022 Orders Only [facility] Program - Medical Office Building [address] [place] [id number] Desirae Catalan MA Social History Tobacco Use Types Packs/Day Years Used Date Smoking Tobacco: Never Assessed Sex and Gender Information Value Date Recorded Sex Assigned at Not on file Gender Identity Female 04/14/2023 9:02 EST Sexual Orientation Not on file documented as of this encounter Plan of Treatment Upcoming Encounters Date Type Department Care Team ([facility] Contact Info) Description 04/21/2024 9:00 EST Office Visit [facility] - Medical Office Building [address] [place] [address] Rudy Chavez MD [address] [place] [address] Medical Office Building, [address] [place] [phone] Sleep Lab Technologist, Memory DisorderMD documented as of this encounter Visit Diagnoses Not on filedocumented in this encounter Historical Medications * This list may reflect changes made after this encounter. Medication Sig Dispensed Refills Start Date End Date ibuprofen (MOTRIN) 800 mg tablet take one tablet by mouth every 8 hours as needed for pain 05/15/2022 memantine (NAMENDA) 10 mg tablet Take 1 Tablet by mouth 2 times daily. 06/19/2022 amLODIPine (NORVASC) 5 mg tablet Take 1 Tablet by mouth daily. 04/19/2022 added in this encounter Care Teams Head Of Mobile Relationship Specialty Start Date End Date Dorothea Kaufman MD [address] [place] [phone] PCP - General 01/27/20 documented as of this encounter
--- OUTSIDE RECORDS SUMMARY | 2024-01-21 14:14 | XMS_ITS | Encounter Summary ---
Author Organization [facility] Address [address] [place] [address] Care Team Providers Care Police Specialist Name Role Phone Dorothea Kaufman MD Primary Care Provider Reason for Visit * Reason Comments Memory Loss * Referral (Routine) - Receiving Office to Obtain Authorization Specialty Diagnoses / Procedures [facility]erred To Contact Psychology Diagnoses Memory impairment Dorothea Kaufman MD [address] [place] [address] [phone] [facility] Memory Program [address] [place] [address] Referral ID Status Reason Start Date Expiration Date Visits Requested Visits Authorized [id number] Receiving Office to Obtain Authorization 2 2 Encounter Details Date Type Department Care Team ([facility] Contact Info) Description 03/31/2023 9:00 EST Office Visit [facility] Memory Program - Medical Office Building [address] [place] [id number] Marizol Sutton PsyD [address] [facility] [address] [place] [address] Memory loss (Primary Dx) Social History Tobacco Use Types Packs/Day Years Used Date Smoking Tobacco: Never Assessed Sex and Gender Information Value Date Recorded Sex Assigned at Not on file Gender Identity Female 04/14/2023 9:02 EST Sexual Orientation Not on file documented as of this encounter Progress Notes * Marizol Sutton, PsyD - 03/31/2023 0900 EST PSYCHIATRIC INTERVIEW AND NEUROPSYCHOLOGICAL TESTING REFERRAL SOURCE: Dorothea Kaufman MD PATIENT PROFILE: Ms. Kuhn is a 78-year-old, right-handed patient who was born in [place] and grew up in the [place] area. She currently resides in [place], [place]. Her son Ricardo livesin the same town and she has other friends nearby. She has 2 additional children both of whom reside in [place]. Her mother due to unknown causes. Her father is and according to her son likely had Alzheimer's disease. She has 1 sister. 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 HISTORY OF PRESENTING ILLNESS: Ms. Kuhn has experienced breast cancer 3 times, most recently 15to 20 years ago and had chemo brain with each treatment. Cognitive problems have more recently become more problematic. She has trouble recalling recent events and where she placed belongings. She refers to her cell phone to orient her to the day and started keeping grocery lists. She documents appointments on her phone. Her long-term memory remains generally intact. Expressive language changes started after her final round of chemo and her remained generally stable since that time. Her receptive language is intact. Her reading and writing abilities are unchanged. She sometimes finds it hard to make decisions. She denied significant balance problems. She previously had an episode of vertigoand on 1 occasion fell backwards but did not sustain injuries. Within the past year she started using a walking stick to ambulate. Ricardo Kuhn (son) was available to provide additional information about Ms. Kuhn's cognitive functioning and daily activities. He described the onset of cognitive changes over the past couple of years which have gradually worsened over time. She is highly intelligent and likely has compensated for memory changes, including through use of her phone. Her recall of recent events is variable and within the past couple of years she more often has repeated stories. She sometimes is disorganized about entering information into her calendar which leads to confusion. Her long-term memory recall is variable. He has concerns about her mood and she has shown increased anxiety doing things on her own. He noted that her referring provider has prescribed memantine and donepezil but there has not been a formal diagnosis. Ms. Kuhn remains independent in her completion of self-care activities. She uses a pillbox and reliably takes her medications and vitamins. There have not been changes in her completion of household tasks although according to collateral information there has been food in her refrigerator. She continues to prepare meals and denied any forgetfulness to turn off appliances. Her son began providing support with her entry level financial analyst after she was unable to pay rent and her insurancedid not cover some dental work. He described her finances as disorganized and she had up to 30 credit cards which led to confusion. She continues to drive and denied any problems with her driving abil ities, including close calls or motor vehicle collisions. Her son believes she is able to drive safely with use of a GPS. When asked about her recent mood Ms. Kuhn responded that she is very glad to be alive. Current symptoms of depression are denied, including thoughts of suicide. Hallucinations were denied. Her sleep is adequate although she sometimes sleeps for only 6 hours per night. Her appetite has decreasedand she sometimes has to make the effort to remember to eat. She has experienced weight loss which she has mentioned to her primary care provider. She engages in regular physical activity walking up to 5 miles per day. She consumes less than 1 serving of alcohol per day. She denied a history of greater alcohol use. Use of tobacco products and recreational substances was denied. BEHAVIORAL OBSERVATION AND MENTAL STATUS EXAMINATION: Ms. Kuhn arrived 10 minutes late for her scheduled appointment due to weather accompanied by son. She was dressed appropriately for the occasion and weather and demonstrated good grooming and hygiene. She wore eyeglasses and maintained adequate eye contact. She was cooperative and answered questions appropriately. She ambulated independently. Speech was spontaneous with normal rate, tone, and volume. Receptive language appeared intact. Her affect appeared euthymic and congruent with mood. She obtained a score of 2 on the Geriatric Depression Scale, which falls in the nonclinical range. NEUROPSYCHOLOGICAL FINDINGS: Ms. Kuhn was administered a battery of neuropsychological tests, evaluating a range of cognitive functions. Her performance on these measures is reviewed below. Note: Some of these measures were standardized to be administered in-person and not via telehealth methods. Although efforts were made to simulate standardized practices, the use of non-standard administration methods can impact the validity of the testing. Therefore, any conclusions based on the objective testing data for these non-standardized measures are interpreted with caution. 1. Orientation: She was adequately oriented to year, month, and date but not to the season or day of the week. She was oriented to place with the exception of the town. She was able to name the current U.[employer]. President and Underwriting Account Representative, but not the Governor of [place]. 2. Attention/processing: She could repeat up to 7 digits forward and up to 5 digits backward, whichfalls in the average range for her age. She was able to complete 5 out of 5 trials of a serial subtraction task. She was able to spell world backwards. Her performance on a timed visual scanning and sequencing task fell within the borderline range. 3. Communication skills: On confrontation naming items, she was able to name 25 of 25 pictures. Hersemantic fluency performance fell within the average range; she was able to generate 19 animal names in one minute. She was able to follow 7 out of 7 verbal commands. She was able to repeat, read, and write single sentences. 4. Memory functioning: She could correctly recall 0 of 3 words after a brief delay. On a 10-item list learning task, she was able to recall 6, 6 and 6 words across three trials which fell within the average range; following a delay she was able to recall 3 of the words which fell within the impaired range; on the recognition trial she earned 7 points. Immediate recall of short stories fell withinthe average range (25 %ile); 30-minute delayed recall of short stories fell within the average range (<1 %ile); recognition performance fell within the low average range (17-25 %ile). Immediate recall of visually-presented spatial material fell within the average range (25 %ile); 30-minute delayed recall of visuospatial information fell within the impaired range (<1 %ile); recognition performance fell within the borderline range (3-9 %ile). 5. Spatial organization skills: Her block design reproductions were performed within the average range for her age. On a clock drawing task, she earned 14 out of 15 possible points. On a task which required her to reproduce four geometric designs, she earned 9 out of 11 points. 6. Reasoning skills: She earned 8 out of 8 points on four word-pair similarities and she earned 9 out of 9 possible points when asked three functional verbal problems. 7. Index scores: She achieved a score of 23 on the MMSE-2, which falls in the borderline range (T =31) and at the 3 %tile, and an Adjusted Total Score of 81 on the CERAD-NB, which falls in the low average range (T = 39) and at the 14 %tile. SUMMARY AND IMPRESSION: Ms. Kuhn is a 78-year-old, right-handed patient [facility]. She has a remote history of breast cancer with 3 recurrences requiring chemotherapy which resulted in some cognitive changes. She and her son described the onset of more progressive short-term memory declines over the past couple of years. This has been associated with increased difficulty managing finances. 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 She has been prescribed memantine and donepezil. On cognitive testing, Ms. Kuhn's performance was normatively intact in several areas, includingauditory attention, visual-spatial processing, language and verbal reasoning. There was a weakness in her visual processing speed. 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 Based upon her objective testing, history, and increased difficulty with more complex daily tasks her presentation is consistent with a diagnosis of mild neurocognitive disorder (mild cognitive impairment). There is concern that this represents an ensuing neurodegenerative process. Ms. Kuhn should continue to be monitored clinically as there is concern about her continuing toengage in high risk activities, such as driving, managing her finances, and working. PLAN: Ms. Kuhn will be seen for neurological consultation by Rudy Chavez MD on 04/14/2023 for the second part of her Memory Program work-up. DIAGNOSIS: Memory Loss (R41.3) TIME / PROCEDURES: Neurobehavioral status examination: 55 minutes (1 unit of 73766) provided by neuropsychologist; Professional services time: 35 minutes (1 unit of 81166) provided by neuropsychologist; Testing by brass instrument repair technician: 58 minutes (1 unit of 40803 and 1 unit of 77034) consisting of administration and scoring. 9:05-9: Marizol Sutton Psy.D. Psychologist - Doctorate documented in this encounter Plan of Treatment Upcoming Encounters Date Type Department Care Team (Late st Contact Info) Description 04/21/2024 9:00 EST Office Visit [facility] Memory Program - Medical Office Building [address] [place] [address] Rudy Chavez MD 2 [facility] Medical Office Building, [address] [place] [phone] Help Desk Support Specialist, Memory MD Peter documented as of this encounter Visit Diagnoses Diagnosis Memory loss- Primary documented in this encounter Care Teams Police Specialist Relationship Specialty Start Date End Date Dorothea Kaufman MD [address] [place] [phone] PCP - General 01/27/20 documented as of this encounter
--- OUTSIDE RECORDS SUMMARY | 2024-01-21 14:14 | XMS_ITS | Encounter Summary ---
Author Organization [facility] Address [address] [place] [address] Care Team Providers Care Transfer Engineer Name Role Phone Dorothea Kaufman MD Primary Care Provider [phone] Reason for Visit * Reason Comments Memory Loss Encounter Details Date Type Department Care Team ([facility] Contact Info) Description 10/15/2023 9:00 EDT Office Visit [facility] Memory Program - Medical Office Building [address] [place], [place] [id number] Rudy Chavez MD 2 [facility] Medical Office Building, [address] [place] [address] Bleach Maker, Memory DisorderMD Memory loss (Primary Dx) Social History Tobacco [...] on file documented as of this encounter Last Filed Vital Signs Vital Sign Reading Time Taken Comments Blood Pressure 130/86 10/15/2023 0923 EDT Pulse 72 10/15/2023 0923 EDT Temperature - - Respiratory Rate - - Oxygen Saturation 98% 10/15/2023 0923 EDT Inhaled Oxygen Concentration - - Weight 47.6 kg (105 lb) 10/15/2023 0923 EDT Height - - Body Mass Index - - documented in this encounter Progress Notes * Desirae Catalan MA - 10/15/2023 0900 EDT Patient here for reevaluation Last seen 04/14/[address] Chavez Major Illnesses: No Falls: Yes. Just once. Seen in Ed for the fall due to hydration and vertigo Hospitalization/ED Visit: The once for the fall due to vertigo Medications reconciled. DESIRAE CATALAN MA 10/15/2023 9:25 * Rudy Chavez MD - 10/15/[address] [facility] MEMORY PROGRAM PROGRESS / FOLLOWUP NOTE - 10/15/2023 PROBLEM: Mild cognitive impairment. SUBJECTIVE: Ms. Kuhn returned to the clinic today for a re-evaluation visit; she was accompanied by her son Ricardo. I last saw the patient in April 2023. Since I last saw the patient she hashad no hospitalizations but one ER visit due to a fall. This happened about one month ago with a negative evaluation. There have been no other new medical events. Mood is described as good. Ms Kuhn continues to live in the [facility] independently with family support. She recently agreedto have some one come into her home on a weekly basis to help with housework, etc. From a cognitive perspective, Ms Kuhn feels she is probably a little worse but without functional decline. Ricardo generally agrees. OBJECTIVE: I reviewed medical history, problem list, medications and allergies in [facility] and updated/annotated appropriately. Past Medical History: Diagnosis Date Chronic kidney disease Past Surgical History: Procedure Laterality Date APPENDECTOMY BREAST LUMPECTOMY MASTECTOMY, PARTIAL SALPINGO-OOPHORECTOMY SHOULDER SURGERY TONSILLECTOMY TOTAL HIP ARTHROPLASTY Left Patient Active Problem List Diagnosis Memory impairment Anorexia Recent weight loss Varicose veins of both lower extremities Leg pain, left Leg pain, right Pain in joint of left shoulder Orthostatic dizziness Wart of hand Bursitis Chronic kidney disease Hx of breast cancer Benign essential hypertension Hx of adenomatous colonic polyps Asthma, mild intermittent Venous stasis dermatitis Osteopenia Hx of malignant melanoma Mitral valve regurgitation Hearing loss of right ear Dyslipidemia Current Outpatient Medications Medication acetaminophen (TYLENOL) 500 mg tablet amLODIPine (NORVASC) 5 mg tablet atorvastatin (LIPITOR) 40 mg tablet cholecalciferol, Vitamin D3, 25 mcg (1,000 unit) tablet donepezil (ARICEPT) 10 mg tablet estradioL (VAGIFEM) 10 mcg vaginal tablet fluticasone propionate (FLONASE) 50 mcg/actuation nasal spray folic acid (FOLVITE) 1 mg tablet ibuprofen (MOTRIN) 800 mg tablet memantine (NAMENDA) 10 mg tablet VENTOLIN HFA 90 mcg/actuation inhaler VITAMIN B-12 1,000 mcg tablet No current facility-administered medications for this visit. Allergies as of 10/15/2023 - Reviewed 10/15/2023 Allergen Reaction Noted Codeine Anaphylaxis 10/07/2013 Social History Tobacco Use Smoking status: Former Types: Cigarettes Smokeless tobacco: Never Substance Use Topics Alcohol use: Yes Alcohol/week: 4.0 standard drinks of alcohol Types: 4 Glasses of wine per week Ms. Kuhn underwent repeat neuropsychological testing today. This disclosed an MMSE -2score of 20 compared to 23 when tested in March 2023. The CERAD-NB ATS was 77 compared to 81. ASSESSMENT: Ms. Kuhn shows minimal decline on neuropsychologic testing and this appears to agree with the subjective description that is given by her and her son. I am inclined to make no changestoday and follow up with the patient in 6 months. PLAN: 1. I spent 30 minutes performing this follow up which included conversation and discussion with thepatient, with more than 50% of that time devoted to counseling and coordination of care; today's review of medical records in preparation for the visit; and documentation via this note. 2. I addressed questions. 3. Continue medications as above. 4. Follow up in 6 months for reevaluation. Rudy Chavez MD Base Engineer cc: Dorothea Kaufman MD documented in this encounter Plan of Treatment Upcoming Encounters Date Type Department Care Team (Late st Contact Info) Description 04/21/2024 9:00 EST Office Visit [facility] Memory Program - Medical Office [address] [address] Rudy Chavez MD [facility], Medical Office Building, [address] [place] [address] Bleach Maker, Memory DisorderMD documented as of this encounter Visit Diagnoses Diagnosis Memory loss- Primary documented in this encounter Care Teams Transfer Engineer Relationship Specialty Start Date End Date Dorothea Kaufman MD [address] [place] [phone] PCP - General 01/27/20 documented as of this encounter
--- OUTSIDE RECORDS SUMMARY | 2024-01-21 14:14 | XMS_ITS | Encounter Summary ---
Author Organization [facility] Address [address] [place] [address] Care Team Providers Care Account Support Manager Name Role Phone Dorothea Kaufman MD Primary Care Provider Reason for Visit * Reason Comments Memory Loss * Referral (Routine) - Receiving Office to Obtain Authorization Specialty Diagnoses / Procedures Ref[facility] Referred To Contact Psychology Diagnoses Memory impairment Dorothea Kaufman MD [address] [place] [phone] [facility] Memory Program [address] [place] [id number] Referral ID Status Reason Start Date Expiration Date Visits Requested Visits Authorized [id number] Receiving Office to Obtain Authorization 2 2 Encounter Details Date Type Department Care Team (Late st Contact Info) Description 04/14/2023 9:00 EST Office Visit [facility] Memory Program - Medical Office Building [address] [place], [place] [address] Rudy Chavez MD 2 [facility] Medical Office Building, [address] [place] [address] Memory loss (Primary Dx) Social History Tobacco [...] Sign Reading Time Taken Comments Blood Pressure 130/80 04/14/2023 0908 EST Pulse 73 04/14/2023 0908 EST Temperature - - Respiratory Rate - - Oxygen Saturation 96% 04/14/2023 0908 EST Inhaled Oxygen Concentration - - Weight 47.6 kg (105 lb) 04/14/2023 0908 EST Height - - Body Mass Index - - documented in this encounter Progress Notes * Desirae Catalan MA - 04/14/2023 09 EST Patient presents for new patient visit Patient is accompanied by son Vitamin B-12: 846 as of 03/31/23 Recent illnesses: No Recent Falls: No Recent hospital visits: No Allergies reconciled. Medications reconciled: with son Medications not being taken: N/A Vitals added to the chart. DESIRAE CATALAN MA 04/14/2023 9:12 * Rudy Chavez MD - 04/14/2023899 EST [facility] MEMORY PRO[facility] NEW PATIENT CONSULTATION NOTE - 04/14/2023 Presenting Problem: I was asked to see this patient because of progressive cognitive changes. Referral Source: I was asked to see this patient in consultation by Dorothea Kaufman MD. Informants: Ms. Kuhn and her son Ricardo, records provided for review, and review of EPIC. Patient Profile: Ms. Kuhn is a 78-year-old, right-handed patient who was born in [place] and grew up in the [place] area. She currently resides in [place], [place]. Her son Ricardo livesin the same town and she has other friends nearby. She has 2 additional children both of whom reside in [place]. Her mother due to unknown causes. Her father is and according to her son likely had Alzheimer's disease. She has 1 sister. She was once and . 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 History of Present Illness: Ms. Kuhn has experienced breast cancer 3 times, most recently 15 to20 years ago and had chemo brain with [...] problems. She previously had an episode of vertigo and on 1 occasion fell backwards but did [...] Her son began providing support with her director of patient financial services after she was unable to pay rent [...] tobacco products and recreational substances was denied. Medical History, Problem List, Medications, Allergies, and Family History: These elements are reviewed and annotated/updated appropriately in [employer] Past Medical History: Diagnosis Date Chronic kidney [...] medications for this visit. Allergies as of 04/14/2023 - Reviewed 04/14/2023 Allergen Reaction Noted Codeine Anaphylaxis 10/07/2013 Social History Tobacco Use Smoking status: Former Types: Cigarettes Smokeless tobacco: Never Substance Use Topics Alcohol use: Yes Alcohol/week: 4.0 standard drinks of alcohol Types: 4 Glasses of wine per week Family History: As noted in the Patient Profile and the Medical History Questionnaire. Review of Systems: A 14 system inventory was completed and reviewed at the time of this encounter. No symptoms in need of additional medical assessment were identified, and the template can be found in the Medical History Questionnaire provided by the patient and located in Scans. Physical Examination: General: Weight was not determined. The patient appeared her stated age, was in no acute distress, and was cooperative for the interview and examination. Grooming and hygiene were unremarkable. Therewere no hallucinations, delusions or evidence of depression. Carotid bruits were not heard. Cardiacexam revealed no abnormalities and lung emerson were clear. Examination of head and neck functions revealed no thyromegaly and no evidence of lymph nodes. The throat was clear as were the eardrums. Extremities were nontender, as were joints. The skin was clear. Neurologic: Cranial nerve examination revealed the following. Pupils were equal and reactive to light and accommodation. EOMs were full without nystagmus. Emerson were full to confrontation. The face was symmetric at rest and moved symmetrically. Jaw power was full and there was no evidence of weakness of the tongue or fasciculations. Shoulder shrugging was full. Motor exam revealed full strength,no abnormalities of tone and normal bulk. No involuntary movements were noted. Reflexes were trace-1+ and symmetric with downgoing toes. Coordination as tested by finger to nose, rapid rhythmic alternating movements was normal. Station and gait were unremarkable. Additional Pertinent Information: Ms. Kuhn underwent brain imaging (MRI scan) in July 2021 andthis showed non-specific, age-related changes. Recent laboratory testing germane to a memory evaluation was unremarkable or non-specific. Assessment: Ms. Kuhn achieved a score of 23 on the MMSE-2, which falls in the borderline range (T = 31) and at the 3 %tile, and an Adjusted Total Score of 81 on the CERAD-NB, which falls in the low average range (T = 39) and at the 14 %tile. Ms. Kuhn is a 78-year-old, right-handed patient who was referred by her primary care provider. She has a remote history [...] that this represents an ensuing neurodegenerative process. Plan: 1. After I completed my evaluation, I met with Ms. Kuhn and her son and described my assessmentas above. 2. I addressed questions. 3. I support the continued use of donepezil and memantine. 4. A referral was made to the Memory Program social service assistant services. 5. An RDX visit was scheduled in 6 months. 6. I spent 45 minutes performing this consultation which included conversation and discussion with the patient, with more than 50% of that time devoted to counseling and coordination of care; today'sreview of medical records in preparation for the consultation; and documentation via this note. Rudy Chavez MD Refinery Operator Alkylation cc: Dorothea Kaufman MD documented in this encounter Plan of Treatment Upcoming Encounters Date Type Department Care Team (Late st Contact Info) Description 04/21/2024 9:00 EST Office Visit [facility] Memory Program - Medical Office Building [address] [place] [address] Rudy Chavez MD [address] [place] [address] Medical Office Building, [address] [place] [phone] Foundry Superintendant, Memory Disorder, documented as of this encounter Visit Diagnoses Diagnosis Memory loss- Primary documented in this encounter Historical Medications * This list may reflect changes made after this encounter. Medication Sig Dispensed Refills Start Date End Date acetaminophen (TYLENOL) 500 mg tablet Take 1 Tablet by mouth every 6 hours as needed for Pain. PRN atorvastatin (LIPITOR) 40 mg tablet Take 1 Tablet by mouth daily. 04/01/2023 folic acid (FOLVITE) 1 mg tablet Take 1 Tablet by mouth daily. 05/11/2022 fluticasone propionate (FLONASE) 50 mcg/actuation nasal spray 2 Sprays. estradioL (VAGIFEM) 10 mcg vaginal tablet INSERT 1 TABLET INTRAVAGINALLY TWO TO THREE TIMES WEEKLY 02/24/2023 VITAMIN B-12 1,000 mcg tablet Take 1 Tablet by mouth daily. 06/29/2022 cholecalciferol, Vitamin D3, 25 mcg (1,000 unit) tablet Take 1 Tablet by mouth daily. VENTOLIN HFA 90 mcg/actuation inhaler INHALE ONE TO TWO PUFFS BY MOUTH EVERY 4 HOURS NEEDED donepezil (ARICEPT) 10 mg tablet Take 1 Tablet by mouth at bedtime. 01/02/2023 added in this encounter Care Teams Account Support Manager Relationship Specialty Start Date End Date Dorothea Kaufman MD [address] [place] [phone] PCP - General 01/27/20 documented as of this encounter
--- OUTSIDE RECORDS SUMMARY | 2024-01-21 14:14 | XMS_ITS | Encounter Summary ---
Author Organization [facility] Address [address] [place] [address] Care Team Providers Care Director Employee Communications Name Role Phone Dorothea Kaufman MD Primary Care Provider Encounter Details Date Type Department Care Team (Late Contact Info) Description 07/18/2021 Lab Requisition [facility] Pathology & [facility] [address] [place] [address] Outr Resulting Lab, Provider Social History Tobacco Use Types Packs/Day Years Used Date Smoking Tobacco: Never Assessed Sex and Gender Information Value Date Recorded Sex Assigned at Not on file Gender Identity Female 04/14/2023 9:02 EST Sexual Orientation Not on file documented as of this encounter Plan of Treatment Upcoming Encounters Date Type Department Care Team ([facility] Contact Info) Description 04/21/2024 9:00 EST Office Visit [facility] Memory Program - Medical Office Building [address] [place] [address] Rudy Chavez MD 2 [facility] Medical Office Building, [address] [place] [phone] Converting Operator, Memory MD Peter documented as of this encounter Procedures Procedure Name Priority Date/Time Associated Diagnosis Comments HEPATITIS C AB W REFLEX TO HCV RNA BY PCR Routine 07/18/2021 9:58 EDT documented in this encounter Results * HEPATITIS C AB W REFLEX TO HCV RNA BY PCR (07/18/2021 9:58 EDT) Hep C Antibody Negative Negative 07/19/2021 9:37 EDT [facility] Blood VENOUS BLOOD / Unknown 07/18/2021 9:58 EDT 07/18/2021 21:26 EDT Provider Outr Resulting Lab CHEMISTRY & BLOOD GAS ORDERABLES Performing Organization Address City/State/[facility] Co de Phone Number [facility] [address] [place] [address] documented in this encounter Visit Diagnoses Not on filedocumented in this encounter Care Teams Director Employee Communications Relationship Specialty Start Date End Date Dorothea Kaufman MD [address] [place] [phone] PCP - General 01/27/20 documented as of this encounter
--- OUTSIDE RECORDS SUMMARY | 2024-01-21 14:14 | XMS_ITS | Encounter Summary ---
Author Organization [facility] Address [address] [place] [address] Care Team Providers Care Fruit Grader Operator Name Role Phone Dorothea Kaufman MD Primary Care Provider [phone] Encounter Details Date Type Department Care Team (Late Contact Info) Description 03/15/2022 Lab Requisition [facility] Pathology & Laboratory Medicine - [address] [address] Letty Rasheed MD [address] [place] [address] [address] [place], [place] [address] Encounter for other general examination Social History [...] Info) Description 04/21/2024 9:00 EST Office Visit [facility] Memory Program - Medical Office Building [address] [place], [place] [phone] Rudy Chavez MD [address] [facility] Medical Office Building, [address] [place] [phone] Cardiac Cath Lab Radiology Technologist, Lindsay Green MD documented as of this encounter Procedures Procedure Name Priority Date/Time Associated Diagnosis Comments SURGICAL PATHOLOGY Today 03/14/2022 13 :42 EST Encounter for other general examination documented in this encounter Results * SURGICAL PATHOLOGY (03/14/2022 13:42 EST) Note to Patient The following pathology results have been interpreted by your pathologist and may be available to you before your health provider has had the opportunity to review them. Please allow time for your provider to receive these results and explore management options, if applicable. 03/19/2022 15:59 [facility] Final Diagnosis A. ENDOMETRIUM, CURETTAGE: - Fragments of endometrial polyp(s); no cytologic atypia. - Background inactive endometrium. - Nodular fragments of smooth muscle, suggestive of submucosal leiomyoma versus vigorous curettage. 03/19/2022 15:59 [facility] Attestation There was significant resident/fellow involvement in the diagnostic evaluation of this case. By the signature below, the attending physician certifies that they have personally conducted a gross and/or microscopic examination of the described specimens and rendered or confirmed the above diagnosis. 03/19/2022 15:59 [facility] at 1559 Clinical History Vaginal discharge; postmenopausal bleeding 03/19/2022 15:59 [facility] Gross Description A. Received in formalin labelled with proper patient identification (initials A, M) and endometrial curettings is an aggregate of waller and pink fragments of soft tissue that measures 1.5 x 1.0 x 0.6 cm. The specimen is submitted entirely in A1. ELBERT FRANCOIS 03/15/2022 9:09 03/19/2022 15:59 [facility] Resident/Sly w: Yina Duran DO 03/19/2022 15:59 [facility] Performing Lab [facility] 03/19/2022 15:59 [facility] Scanned Images 03/19/2022 15:59 [facility] Tissue ENTIRE ENDOMETRIUM / Unknown 03/14/2022 13:42 EST 03/15/2022 5:11 EST Letty Rasheed MD PATHOLOGY ORDERABLES [facility] [address] [place] [address] documented in this encounter Visit Diagnoses Diagnosis Encounter for other general examination documented in this encounter Care Teams Fruit Grader Operator Relationship Specialty Start Date End Date Dorothea Kaufman MD [address] [place] [phone] PCP - General 01/27/20 documented as of this encounter
--- OUTSIDE RECORDS SUMMARY | 2024-01-21 14:14 | XMS_ITS | Encounter Summary ---
Author Organization [facility] Address [address] [place] [address] Care Team Providers Care Thoroughbred Horse Farm Manager Name Role Phone Dorothea Kaufman MD Primary Care Provider Encounter Details Date Type Department Care Team (Late Contact Info) Description 08/03/2020 Lab Requisition [facility] Pathology & Laboratory Medicine - [facility] [address] [place] [address] Outr Resulting Lab, Provider Social History Tobacco Use Types Packs/Day Years Used Date Smoking Tobacco: Never Assessed Sex and Gender Information Value Date Recorded Sex Assigned at Not on file Gender Identity Female 04/14/2023 9:02 EST Sexual Orientation Not on file documented as of this encounter Plan of Treatment Upcoming Encounters Date Type Department Care Team ([facility] Contact Info) Description 04/21/2024 9:00 EST Office Visit [facility] Memory Program - Medical Office Building [address] [place] [address] Rudy Chavez MD 2 [facility], [address] [place] [phone] Platform Architect, Memory DisorderMD documented as of this encounter Procedures Procedure Name Priority Date/Time Associated Diagnosis Comments GIARDIA AND CRYPTOSPORIDIUM ANTIGENS Routine 08/03/2020 14:00 EDT OVA/PARASITE EXAM Routine 08/03/2020 14: 00 EDT documented in this encounter Results * GIARDIA AND CRYPTOSPORIDIUM ANTIGENS (08/03/2020 14:00 EDT) Giardia and Cryptosporidium Cryptosporidium Antigen Neg and Giardia Antigen Neg Cryptosporidium Antigen Neg and Giardia Antigen Neg 11:23 EDT [facility] Feces SPECIMEN FROM RECTUM / Unknown 08/03/2020 14:00 EDT 08/03/2020 21:27 EDT Provider Outr Resulting Lab MICROBIOLOGY - GENERAL ORDERABLES Performing Organization Address City/[facility] Co de Phone Number [facility] [address] [place] [address] * OVA/PARASITE EXAM (08/03/2020 14:00 EDT) Parasite No ova and parasites seen. 08/04/2020 11:23 EDT [facility] ZZUNK SPECIMEN FROM RECTUM / Unknown 08/03/2020 14:00 EDT 08/03/2020 21:27 EDT Narrative [facility] - 08/04/2020 11:23 EDT (If Cryptosporidium, Cyclospora, or Microsporidium are suspected, specific tests must be requested.) Single negative specimen does not rule out the possibility of a parasitic infection. Provider Outr Resulting Lab MICROBIOLOGY - GENERAL ORDERABLES Performing Organization Address City/[facility] Co de Phone Number [facility] [address] [place] [address] documented in this encounter Visit Diagnoses Not on filedocumented in this encounter Care Teams Thoroughbred Horse Farm Manager Relationship Specialty Start Date End Date Dorothea Kaufman MD [address] [place] [phone] PCP - General 01/27/20 documented as of this encounter
--- OUTSIDE RECORDS SUMMARY | 2024-01-21 14:15 | XMS_ITS | Encounter Summary ---
Author Organization [facility] [place] [address] Care Team Providers Care Account Developer Name Role Phone Dorothea Kaufman MD Primary Care Provider [phone] Encounter Details Date Type Department Care Team ([facility] st Contact Info) Description 08/01/2021 Ancillary Procedure Radiology Library at [facility] DAN[place] [phone] Dorothea Kaufman MD [facility] R[facility] [address] [place], [place] [address] Social History Tobacco Use Types Packs/Day Years Used Date Smoking Tobacco: Former Cigarettes Q uit: 03/27/1973 Smokeless Tobacco: Never Sex and Gender Information Value Date Recorded Sex Assigned at Not on file Gender Identity Not on file Sexual Orientation Not on file documented as of this encounter Plan of Treatment Not on file documented as of this encounter Procedures Procedure Name Priority Date/Time Associated Diagnosis Comments FILM LIBRARY STORAGE ONLY MR HEAD Routine 08/01/2021 12:00 AM EDT documented in this encounter Results * Film Library- Storage Only MR Head (08/01/2021 12:00 AM EDT) Narrative [facility] - 09/10/2021 6:09 PM EDT This exam is auto-finalizing. It's purpose is for storage only. Dorothea Kaufman MD [facility] FILM LIBRARY ORD ERABLES [place] documented in this encounter Visit Diagnoses Not on filedocumented in this encounter Care Teams Account Developer Relationship Specialty Start Date End Date Dorothea Kaufman MD [address] [facility] [address] [place] [address] PCP - General Family Medicine 02/04/20 documented as of this encounter
--- OUTSIDE RECORDS SUMMARY | 2024-01-21 14:15 | XMS_ITS | Encounter Summary ---
Author Organization [facility] Address [facility] [place] [address] Care Team Providers Care Nremt Name Role Phone Dorothea Kaufman MD Primary Care Provider [phone] Reason for Visit * Reason Comments Skin Check * Consultation (Priority 2) - Closed Specialty Diagnoses / Procedures Referred By Contac t Referred To Contact Dermatology Diagnoses Personal history of malignant melanoma of skin Dorothea Kaufman MD [address] [place] [address] [address] [facility] Dermatology [address] [place] [address] Referral ID Status Reason Start Date Expiration Date V isits Requested Visits Authorized [id number] Closed Consult, Test & Treat PCP Updated and/or Approved 11/02/2022 11/02/2023 6 6 Encounter Details Date Type Department Care Team ([facility] Contact Info) Description 04/15/2023 2:00 PM EST Office Visit Dermatology at [facility] [address] [place] [id number] Geoffrey Brooks MD [facility] [address] DEON[address] [place] [address] Solar lentigo; Seborrheic keratosis; Multiple benign nevi; Cedeno angioma; History of melanoma; Herpes zoster without complication Social History Tobacco Use Types Packs/Day Years Used Date Smoking Tobacco: Former Cigarettes Q uit: 03/27/1973 Smokeless Tobacco: Never Sex and Gender Information Value Date Recorded Sex Assigned at Not on file Gender Identity Not on file Sexual Orientation Not on file documented as of this encounter Progress Notes * Ana Rosa, [facility] - 04/15/2023 2:00 PM EST Images from the original note were not included. DEPARTMENT OF DERMATOLOGY Medical Dermatology Clinic Note Provider: GEOFFREY BROOKS MD Patient's preferred name Vibha Preferred contact method for results []Phone []myD-H []Letter Detailed phone message OK? Are there any other people with whom we may discuss your care? Past Medical History Date, location, treatment Melanoma ? On the arm several years ago Dysplastic nevi N SCC N BCC N AKs N UV Exposure & Protection N Other relevant past medical history Hx of Breast Cancer BRCA Gene Family History Details Melanoma N NMSC N Other relevant family history N Social History Pre-Procedure Questions Details Allergy to lidocaine, epinephrine, Dermabond, chlorhexidine, or adhesives N Bleeding disorder or blood thinners N Implanted devices (Pacemaker, defibrillator, deep brain stimulator, cochlear implant) N History of Present Illness: Nataly Kuhn is a 78 y.o. Patient is referred to the clinic at the request of Dorothea Kaufman for a full skin exam with no areas of concern. Review of Systems: General: Feeling well. Skin: No other skin concerns. Medications: Reviewed in eD-H Allergies: Reviewed in eD-H Skin Examination: Full skin examination: Patient asked to undress to their comfort level. Verbalized that the provider's preference is that patient remove all clothing and that the provider will not examine areas patient elects to keep covered. Examination of the scalp, hair, head, face, ears, neck, chest, axillae, abdomen, back, buttocks, and upper and lower extremities was normal with the exception of the findings below. Genitalia not examined. Assessment/Plan #. History of Melanoma - Well-healed scars per skin history. - No evidence of recurrence - Will continue to monitor. - Continue diligent sun protection #. Benign Appearing Nevi - Multiple, 0.3-0.5cm, medium-brown, evenly-pigmented macules and papules.All with regular pigment pattern on dermoscopy. No pigmented lesions suspicious for melanoma. - Benign. No treatment necessary. - Reassured about benign nature and natural history. #. Cedeno Angiomas - Multiple 0.2-0.4cm bright red, well-demarcated papules - Benign. No treatment necessary. - Reassured about benign nature and natural history. #. Seborrheic Keratoses - Multiple 0.4-1 cm, brown-black papules/plaques with waxy stuck on appearance - Benign. No treatment necessary. - Reassured about benign nature and natural history. #. Solar Lentigines - Blotchy pigmentation and telangiectasia on sun-exposed skin with subtle yellowish cobblestoned appearance. - Benign. No treatment necessary. - Reassured about benign nature and natural history. - Sun avoidance, protective clothing and the use of SPF 30+ sunscreen is advised. Observe closely for skin changes and call if such occurs. #. Question shingles, no pain or discomfort - Start Rx mupirocin 2% ointment: Apply three times daily to affected areas for 2 weeks. RTC: 1 yr for FSE []Note routed to attendance secretary [x]Recall placed in scheduling system []Appointment scheduled at checkout Scribe attestation: Andria Price RN has performed the documentation for this encounter in the presence of and acting as a scribe for GEOFFREY BROOKS MD. I performed the above scribed service and agree with the accuracy of the documentation in this encounter. Reviewed and signed by: GEOFFREY BROOKS MD Dermatology [facility] documented in this encounter Plan of Treatment Not on file documented as of this encounter Visit Diagnoses Diagnosis Solar lentigo Other dyschromia Seborrheic keratosis Other seborrheic keratosis Multiple benign nevi Benign neoplasm of skin, site unspecified Cedeno angioma Nevus, non-neoplastic History of melanoma Personal history of malignant melanoma of skin Herpes zoster without complication Herpes zoster without mention of complication documented in this encounter Care Teams Nremt Relationship Specialty Start Date End Date Dorothea Kaufman MD [address] [place] [address] PCP - General Family Medicine 02/04/20 documented as of this encounter
--- OUTSIDE RECORDS SUMMARY | 2024-01-21 14:15 | XMS_ITS | Encounter Summary ---
Author Organization [facility] [place] [address] Care Team Providers Care Stress Test Technician Name Role Phone Dorothea Kaufman MD Primary Care Provider [phone] Reason for Visit * Reason Comments Follow-up * Consultation (Routine) - Closed Specialty Diagnoses / Procedures Referred By Contac t Referred To Contact Hematology and Oncology Diagnoses Hx of breast cancer BRCA gene mutation positive Dorothea Kaufman MD [address] [place] [address] [facility] [address] [place] [address] [facility] Hem Onc [address] [place] [address] Referral ID Status Reason Start Date Expiration Date V isits Requested Visits Authorized [id number] Closed Consult, Test & Treat 07/27/2021 07/27/2022 6 6 Encounter Details Date Type Department Care Team ([facility] Contact Info) Description 08/08/2021 11:10 AM EDT Office [place] [address] Radha Tello APRN [facility] [place] [address] Encounter for screening mammogram for breast cancer; History of breast cancer Social History Tobacco Use Types Packs/Day Years Used Date Smoking Tobacco: Former Cigarettes Q uit: 03/27/1973 Smokeless Tobacco: Never Sex and Gender Information Value Date Recorded Sex Assigned at Not on file Gender Identity Not on file Sexual Orientation Not on file documented as of this encounter Progress Notes * Radha Tlelo, SPRINKLER WORKER - 08/08/2021 11:10 AM EDT Nataly Kuhn is a 76 y.o. female with a BRCA 1 mutation and history of breast cancer x 3. Shehas been [facility]. She recently moved to [facility] to be near her children and grandchildren. She is here to establish care. Breast cancer #1 Vibha was first diagnosed with breast cancer in 1985 at the age of 40, she had a left-sided invasive ductal carcinoma. This was a self palpated lesion, 3 lymph nodes were involved, ER positive. She wastreated with wide excision, chemotherapy (AC), and radiation. She had a latissimus dorsi flap recons truction. Breast cancer #2 In 1993 Vibha was found to have a right-sided breast cancer, this was stage I, lymph node negative and ER positive. She was treated with chemotherapy (CMF) and that was followed by tamoxifen for 5 years. She then took letrozole for 7 years between 2001 and 2008, with some interruptions because of financial problems. She had a latissimus flap dorsi reconstruction and a saline implant. Breast cancer #3 In September 2013, Vibha had a breast MR which revealed a 6 mm lesion in the left breast. Biopsy confirmed this to be infiltrative ductal carcinoma. In November 2013, she underwent a left total mastectomy, with immediate reconstruction with Jannette flap. Pathology from the surgery showed an ER positive NJ positive and HER-2 negative grade 2 IDC. An Oncotype score at that time revealed a score of 24 which equated to a 16% risk of distant recurrence within 10 years. She was not offered chemotherapy and was placed on tamoxifen. Vibha is of Ashkenazi sabianist descent and was found to be a BRCA 1 carrier. She had prophylactic bilateral oophorectomy. Uterus and cervix are intact. Vibha has been on tamoxifen since 2013 but stopped in 2019 due to rust colored vaginal discharge. Shewas under the care of Dr. Benjamin Miguel at [facility]. I have reviewed the records and it appears she had anegative endometrial biopsy but she did have a thickened endometrium. Dr. Miguel performed a curettage and results from this were benign. Vibha states she still has the discharge and she was supposed to follow up but the doctor left the practice. She is feeling relatively well otherwise. She does have some left hip pain that is not going away, will have a hip replacement soon. She has lost 10 lbs without trying. She is trying to eat high calorie foods. She is working with her PCP on this- labs and CT of CAP ordered. She also feels her memory is worsening. She denies any other aches or pains. 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 She is living in [facility] near her son. She does not smoke, previouslysmoked for 8 years. 2-3 alcohol beverages a week. Medical hx: Adult onset asthma, facial melanoma, osteopenia, HTN Past Surgical History: Procedure Laterality Date ??? BREAST BIOPSY ??? BREAST ENHANCEMENT SURGERY ??? BREAST LUMPECTOMY ??? MASTECTOMY Left ??? PRO COLONOSCOPY, BIOPSY N/A 05/17/2020 COLONOSCOPY FLEXIBLE, WITH BX (WRVU 3.66) performed by Jacques Waggoner MD at [facility] ENDOSCOPY ??? PRO COLONOSCOPY, DIAGNOSTIC N/A 05/17/2020 COLONOSCOPY, DIAGNOSTIC performed by Jacques Waggoner MD at [facility] ENDOSCOPY ??? PRO ENDOSCOPIC US EXAM, ESOPH N/A 04/25/2020 UPPER EUS- ENDOSCOPIC ULTRASOUND performed by Jacques Waggoner MD at [facility] ENDOSCOPY ??? PRO UPPER GI ENDOSCOPY, BIOPSY N/A 04/25/2020 EGD WITH BIOPSY (WRVU 2.49) performed by Jacques Waggoner MD at [facility] ENDOSCOPY Mohs procedure, tonsillectomy, rotator cuff repair Family Hx: Mother and maternal grandfather with pancreatic cancer Review of Systems: She denies headaches, dizziness, or changes in balance. Denies SOB, cough, recent colds/infections,chest pain or palpitations. Denies nausea, vomiting, diarrhea, constipation or abdominal pain. Endorses left hip pain. She denies any breast/chest wall pain. Denies any skin or nipple changes. The remainder of her review of systems is negative. PE: Alert and oriented, well appearing Sclera non icteric There is no cervical or supraclavicular adenopathy Left breast with Jannette flap reconstruction, there are no nodules within tissue, no chest wall abnormalities. There is no left axillary adenopathy. Right breast with implant intact. There are no nodules or masses. There is no right axillary adenopathy. No abdominal tenderness No vertebral tenderness There is some discomfort with pressure applied to left hip. Right mammogram today was cat 2 A/P: Vibha is a 76 y.o. BRCA 1 mutant positive female with a history of 3 separate early stage beast primaries as described above. She is s/p prophylactic bilateral oophorectomy. Exam and imaging normal today. I will see her back in one year with a mammogram. She will call me with concerns in the interim. Radha Tello APRN documented in this encounter Plan of Treatment Not on file documented as of this encounter Results * Mammo Screening Cad and Malcolm with Implants Right (02/26/2023 10:28 AM EDT) Anatomical Region Laterality Modality Breast Right Mammography Impressions 02/26/2023 10:47 AM EDT Limited study secondary to implant. No mammographic evidence of malignancy, Routine annual screening mammography is recommended. FINAL ASSESSMENT: BI-RADS Category 2: Benign Findings * ??Regular screening mammograms starting at age 40 reduces the risk of from breast cancer. * ??Yearly screening provides the most benefit. Women should discuss with their provider their preferred breast cancer screening schedule. * ??Women should report any breast changes to a health care provider right away. * ??Some women, because of their family history, a genetic tendency, or other factors, should be screened with annual breast MRI as well as with mammograms. Thank you for letting us participate in the care of this patient. ??If you are a health care provider and have any questions regarding this report, please contact the number below. ??For patients who have questions please contact the health senior caregiver that requested your imaging first. ? Narrative 02/26/2023 10:47 AM EDT EXAMINATION: MAMMO SCREENING CAD AND MALCOLM WITH IMPLANTS RIGHT REASON FOR EXAM: Screening TECHNIQUE: CC and MLO views were obtained of the RIGHT breast. 2D and 3D tomosynthesis images were obtained, with and without implant displacement. Computer aided detection was used. COMPARISON: Comparison was made to the prior relevant examinations. BREAST DENSITY: There are scattered areas of fibroglandular density. FINDINGS: The presence of an implant reduces the sensitivity of mammography for cancer detection. There are no suspicious microcalcifications, masses, or areas of distortion. Stable postoperative appearance of the breast parenchyma. Radha Tello APRN IMG MAMMO ORDERABLE S documented in this encounter Visit Diagnoses Diagnosis Encounter for screening mammogram for breast cancer History of breast cancer Personal history of malignant neoplasm of breast Encounter for screening mammogram for breast cancer documented in this encounter Care Teams Stress Test Technician Relationship Specialty Start Date End Date Dorothea Kaufman MD [address] [place] [address] PCP - General Family Medicine 02/04/20 documented as of this encounter
--- OUTSIDE RECORDS SUMMARY | 2024-01-21 14:15 | XMS_ITS | Encounter Summary ---
[place] [address] Care Team Providers Care Information Management Officer Name Role Phone Dorothea Kaufman MD Primary Care Provider [phone] Encounter Details Date Type Department Care Team (Latest Contact Info) Description 04/15/2023 Travel Social History Tobacco Use Types Packs/Day Years [...] on filedocumented in this encounter Care Teams Information Management Officer Relationship Specialty Start Date End Date Dorothea Kaufman MD [facility] [address] [place] [address] PCP - General Family Medicine 02/04/20 documented as of this encounter
--- OUTSIDE RECORDS SUMMARY | 2024-01-21 14:15 | XMS_ITS | Encounter Summary ---
[place] [address] Care Team Providers Care Optical Instrument Repairer Name Role Phone Dorothea Kaufman MD Primary Care Provider [phone] Reason for Referral * Consultation (Routine) - Closed Specialty Diagnoses / Procedures Referred By Tyson rdz Referred To Contact Hematology and Oncology Diagnoses Hx of breast cancer BRCA gene mutation positive Dorothea Kaufman MD [address] [place] [address] [facility] Hem Onc [address] [place] [address] Referral ID Status Reason Start Date Expiration Date V isits Requested Visits Authorized [id number] Closed Consult, Test & Treat 07/27/2021 07/27/2022 6 6 Encounter Details Date Type Department Care Team (Latest Contact Info) Description 07/27/2021 Transcribe Orders eDH Incoming Referrals [phone] Dorothea Kaufman MD [address] [place] [address] Hx of breast cancer; BRCA gene mutation positive Social History Tobacco Use Types Packs/Day Years Used Date Smoking Tobacco: Former Cigarettes Q uit: 03/27/1973 Smokeless Tobacco: Never Sex and Gender Information Value Date Recorded Sex Assigned at Not on file Gender Identity Not on file Sexual Orientation Not on file documented as of this encounter Plan of Treatment Scheduled Referrals Name Type Priority Associated Diagnoses Order Schedule Referral to Hematology and Oncology Outpatient Referral Routine Hx of breast cancer BRCA gene mutation positive Ordered: 07/27/2021 documented as of this encounter Visit Diagnoses Diagnosis Hx of breast cancer Personal history of malignant neoplasm of breast BRCA gene mutation positive documented in this encounter Care Teams Optical Instrument Repairer Relationship Specialty Start Date End Date Dorohtea Kaufman MD [address] [facility] [address] [place] [address] PCP - General Family Medicine 02/04/20 documented as of this encounter
--- OUTSIDE RECORDS SUMMARY | 2024-01-21 14:15 | XMS_ITS | Encounter Summary ---
Author Organization [facility] [place] [address] Care Team Providers Care Dental Internship Name Role Phone Dorothea Kaufman MD Primary Care Provider [phone] Encounter Details Date Type Department Care Team (Latest Contact Info) Description 02/26/2023 9:56 AM EDT - 02/26/2023 11:59 PM EDT Hospital Encounter Mammography/[place] [address] Encounter for screening mammogram for breast cancer Discharge Disposition: Home Social History Tobacco Use Types Packs/Day Years Used Date Smoking Tobacco: Former Cigarettes Q uit: 03/27/1973 Smokeless Tobacco: Never Sex and Gender Information Value Date Recorded Sex Assigned at Not on file Gender Identity Not on file Sexual Orientation Not on file documented as of this encounter Medications at Time of Discharge Medication Sig Dispensed Refills Start Date End Date aspirin EC 81 mg Tablet, Delayed Release (E.C.) Take by mouth. 09/06/2019 cholecalciferol, Vitamin D3, 10 mcg (400 unit) Capsule Take by mouth. 05/15/2020 vitamin E (vitamin E) 400 unit Capsule Take 400 Units by mouth. 05/15/2020 amLODIPine (Norvasc) 5 mg Tablet 25 mg. 03/14/2020 documented as of this encounter Plan of Treatment Not on file documented as of this encounter Procedures Procedure Name Priority Date/Time Associated Diagnosis Comments MAMMO SCREENING CAD AND MALCOLM WITH IMPLANTS RIGHT Routine 02/26/2023 10:28 AM EDT Encounter for screening mammogram for breast cancer documented in this encounter Results * Mammo Screening Cad [...] who have questions please contact the health child care centre director that requested your imaging first. ? Narrative [...] appearance of the breast parenchyma. Radha Tello CONDITIONING ROOM WORKER IMG MAMMO ORDERABLE S documented in this encounter Visit Diagnoses Diagnosis Encounter for screening mammogram for breast cancer documented in this encounter Care Teams Dental Internship Relationship Specialty Start Date End Date Dorothea Kaufman MD [address] [place] [address] PCP - General Family Medicine 02/04/20 documented as of this encounter
--- OUTSIDE RECORDS SUMMARY | 2024-01-21 14:15 | XMS_ITS | Encounter Summary ---
Author Organization [facility] Address [facility] [place] [address] Care Team Providers Care Drop Forge Operator Name Role Phone Dorothea Kaufman MD Primary Care Provider [phone] Reason for Visit * Auth/Cert Specialty Diagnoses / Procedures Referred By Contmario t Referred To Contact Diagnoses Colitis colitis Procedures PRO COLONOSCOPY, DIAGNOSTIC PRO COLONOSCOPY, BIOPSY PRO COLONOSCOPY, REMV LESN, SNARE COLONOSCOPY, DIAGNOSTIC Referral ID Status Reason Start Date Expiration Date Visits Re quested Visits Authorized [id number] 1 1 Encounter Details Date Type Department Care Team (Latest Contact Info) Description 05/17/2020 1:49 PM EST - 05/17/2020 4:29 PM EST Hospital Encounter [place] [address] Jacques Waggoner MD [facility] [place] [address] Left sided colitis without complications Discharge Disposition: Home Social History Tobacco Use Types Packs/Day Years Used Date Smoking Tobacco: Former Cigarettes Q uit: 03/27/1973 Smokeless Tobacco: Never Sex and Gender Information Value Date Recorded Sex Assigned at Not on file Gender Identity Not on file Sexual Orientation Not on file documented as of this encounter Last Filed Vital Signs Vital Sign Reading Time Taken Comments Blood Pressure 116/64 05/17/2020 3:50 PM EST Pulse 60 05/17/2020 3:50 PM EST Temperature 36.8 ??C (98.3 ??F) 05/17/2020 2:05 PM ES T Respiratory Rate 16 05/17/2020 3:50 PM EST Oxygen Saturation 99% 05/17/2020 3:50 PM EST Inhaled Oxygen Concentration - - Weight 49.4 kg (109 lb) 05/17/2020 2:05 PM EST Height - - Body Mass Index 18.42 04/25/2020 9:07 AM EST documented in this encounter Discharge Instructions * Discharge Instructions* Jyoce Peters, RN - 05/17/2020 4:21 PM EST Colonoscopy: What to Expect at Home Your Recovery Your doctor will talk to you about when you will need your next colonoscopy. Your doctor can help you decide how often you need to be checked. This will depend on the results of your test and your risk for colorectal cancer. After the test, you may be bloated or have gas pains. You may need to pass gas. If a biopsy was done or a polyp was removed, you may have streaks of blood in your stool (feces) for a few days. Problems such as heavy rectal bleeding may not occur until several weeks after the test. This isn't common. But it can happen after polyps are removed. This care sheet gives you a general idea about how long it will take for you to recover. But each person recovers at a different pace. Follow the steps below to get better as quickly as possible. How can you care for yourself at home? Activity Rest when you feel tired. ?? You can do your normal activities when it feels okay to do so. Diet ?? Follow your doctor's directions for eating. ?? Unless your doctor has told you not to, drink plenty of fluids. This helps to replace the fluidsthat were lost during the colon prep. ?? Do not drink alcohol. Medicines ?? Your doctor will tell you if and when you can restart your medicines. He or she will also give you instructions about taking any new medicines. ?? If you take blood thinners, such as warfarin (Coumadin), clopidogrel (Plavix), or aspirin, be sure to talk to your doctor. He or she will tell you if and when to start taking those medicines again. Make sure that you understand exactly what your doctor wants you to do. ?? If polyps were removed or a biopsy was done during the test, your doctor may tell you not to take aspirin or other anti-inflammatory medicines for a few days. These include ibuprofen (Advil, Motrin) and naproxen (Aleve). Other instructions ?? For your safety, do not drive or operate machinery until the medicine wears off and you can think clearly. Your doctor may tell you not to drive or operate machinery until the day after your test. ?? Do not sign legal documents or make major decisions until the medicine wears off and you can think clearly. The anesthesia can make it hard for you to fully understand what you are agreeing to. Additional Information for Sedation Patients For patients who received sedation: ?? You may have received medications before and/or during your procedure which effects your judgement and reaction time. ?? Do not drive, operate machinery, drink alcoholic beverages or make important decisions for 24 hours. ?? Be careful on stairs as you may be unsteady on your feet. ?? You may eat a regular diet as tolerated. ?? Do not smoke if you are alone. ?? IV site: Slight redness or tenderness is normal, you can use a warm compress if you would like. If tenderness and/or redness increase or if foul drainage occurs, please contact your Doctor. Please call [phone] before 8pm Mon-Fri with problems, questions or concerns. If you call after 8pm or on weekends, call the Hospital at [phone] and ask to speak to the Alcoholic Counselor global consumer sector vice president and the coating and embossing unit operator will contact that person for you. When should you call for help? Call [phone] anytime you think you may need emergency care. For example, call if: ?? You passed out (lost consciousness). ?? You pass maroon or bloody stools. ?? You have trouble breathing. Call your doctor now or seek immediate medical care if: ?? You have pain that does not get better after you take pain medicine. ?? You are sick to your stomach or cannot drink fluids. ?? You have new or worse belly pain. ?? You have blood in your stools. ?? You have a fever. ?? You cannot pass stools or gas. Watch closely for changes in your health, and be sure to contact your doctor if you have any problems. Where can you learn more? [facility] View your After Visit Summary and more online at [email or web address] If you would like to provide feedback about your hospital experience, please call the Office of Patient and Family Relations at . If you have received this After Visit Summary in error, please immediately return it in person to the department, or notify the [facility] Privacy Office by calling toll free at between the hours of 8AM and 5PM to arrange for our retrieval of the documents at no cost to you. Content Version: 12.2 ?? [id number] [employer]. Care instructions adapted under license by [facility]. If you have questions about a medical condition or this instruction, always ask your healthcare professional. [employer] disclaims any warranty or liability for your use of this information. documented in this encounter Medications at Time of Discharge Medication Sig Dispensed Refills Start Date End Date aspirin EC 81 mg Tablet, Delayed Release (E.C.) Take by mouth. 09/06/2019 cholecalciferol, Vitamin D3, 10 mcg (400 unit) Capsule Take by mouth. 05/15/2020 vitamin E (vitamin E) 400 unit Capsule Take 400 Units by mouth. 05/15/2020 amLODIPine (Norvasc) 5 mg Tablet 25 mg. 03/14/2020 meclizine (Antivert) 25 mg Tablet Take by mouth. 11/28/2019 03/07/2021 ugbybz-dkpuxwcr-feaweq e DR (Creon) 24,000-76,000 -120,000 unit Capsule, Delayed Release(E.C.) Take 1-2 capsules by mouth 3 times daily (with meals). With Meals: Take 1-2 capsules by mouth. With Snacks: Take 1 capsule by mouth. 270 capsule 3 03/28/2020 03/07/2021 tamoxifen (Nolvadex) 10 mg Tablet Take 10 mg by mouth 2 times daily. 06/20/2020 documented as of this encounter H&P Notes * Paola Medina - 05/17/2020 2:17 PM EST Patient Name: Nataly Kuhn Patient Age: 75 y.o. Birthdate: 1945 Admit date: 05/17/2020 Attending Physician: Jacques Waggoner MD Gastroenterology and Hepatology Pre-Procedure History and Physical Exam Procedure: Colonoscopy: Indication: diarrhea x 6 weeks, non-bloody and twice daily with a 20 lbs weight loss. Hx of breast ca, BRCA carrier. No FHX of CRC. No prior colonoscopies. No new medications. No NSAID or PPI use. Patient Active Problem List Diagnosis Code ??? Family history of malignant neoplasm of pancreas Z80.0 ??? Hypertension I10 ??? History of breast cancer Z85.3 ??? BRCA1 genetic carrier Z15.01, Z15.09 ??? Left sided colitis without complications K51.50 EXAM: HEENT: Airway examined, oropharynx clear Mallampati Score: I (soft palate, uvula, fauces, tonsillar pillars visible) LUNGS: Clear to auscultation HEART: Regular rate and rhythm, normal S1, S2 ABDOMEN: Normal bowel sounds, soft, non tender, non distended, firmness in the epigastrium, per patient more prominent than usual. A/P Proceed with the planned endoscopic procedure. ASA 2 - Patient with mild systemic disease with no functional limitations Sedation Plan: moderate (conscious sedation) Risks and benefits of the procedure explained to the patient. Consent signed. Please see separate consult note for further details. Paola Medina MD Gastroenterology PGY-[id number] 05/17/2020 2:17 PM Pager #[phone] documented in this encounter Plan of Treatment Not on file documented as of this encounter Procedures Procedure Name Priority Date/Time Associated Diagnosis Comments SPECIMEN TO PATHOLOGY Routine 05/17/2020 3:16 PM EST SURGICAL PATHOLOGY REPORT Routine 05/17/2020 3:13 PM EST Colonoscopy, Biopsy ([id number]) 05/17/2020 2:39 PM EST Left sided colitis without complications Colonoscopy, Diagnostic ([id number]) 05/17/2020 2:39 PM EST Left sided colitis without complications COLONOSCOPY Routine 05/17/2020 2:11 PM EST documented in this encounter Results * Specimen to Pathology (05/17/2020 3:16 PM EST) AP Specimen 05/17/2020 3:16 PM EST 05/17/2020 3:16 PM EST Narrative [facility] - 05/17/2020 3:16 PM EST Specimen requisition ordered. ??Separate Pathology report to follow Jacques Waggoner MD PATHOLOGY/CYTOLOGY ORDERABLES Performing Organization Address City/State/[facility] Co de Phone Number [facility] [place] [place] [address] * Surgical Pathology Report (05/17/2020 3:13 PM EST) Final Diagnosis [id number] ? Location: 4T; EA12; A The signing pathologist has (i) examined the relevant preparation(s) for the specimen(s) and (ii) rendered or confirmed the diagnosis(es). . ?Surgical Pathology DIAGNOSIS Random colon, ??biopsy: Colonic mucosa within normal limits. CR-PX Electronically signed by: ??Jodi Mullins MD Verified: ??05/24/2020 ?Pathologist Performed at: ??-[facility] Dept. of Pathology, [place], [place] SPECIMEN(S) SUBMITTED A - random colon biopsies, biopsy (Multiple) CLINICAL INFORMATION Diarrhea, weight loss, microscopic colitis SPECIMEN PROCESSING A - Labeled/Fixativ e: Random colon biopsies, formalin. Quantity/Size: Fragments, 0.2-0.3 cm. Tissue Description: Soft, waller-pink tissues. Sections/Proces sing: Entirely submitted in 2 cassettes labeled A1-A2. ??pps 05/24/2020 7:58 PM EST [facility] GI Biopsy 05/17/2020 3:13 PM EST 05/17/2020 3:13 PM EST Jacques Waggoner MD PATHOLOGY/CYTOLOGY ORDERABLES Performing Organization Address [facility]/ZIP Co de Phone Number [facility] [place] [address] * COLONOSCOPY (05/17/2020 2:11 PM EST) COLONOSCOPY [facility] Endoscopy Procedure Date: 05/17/2020 2:11 PM ? Patient Name: Nataly Kuhn ? N: [id number] ? Date of : 1945 ? Age: 75 ? Order #: [id number] ? Instrument Name: [id number] ? Procedure: ? Colonoscopy Indications: ? Chronic diarrhea Providers: ? Jacques Waggoner MD, Kaylin Dela Cruz, ? RN, Chris Jackson, Paola Woodson ? Carol Referring : ?Dorothea Kaufman MD Medicines: ? Midazolam 3 mg IV, Fentanyl 100 ? micrograms IV Complications: ? No immediate complications. Procedure: ? Pre-Anesthesia Assessment: ? - Prior to the procedure, a History ? and Physical was performed, and ? patient medications and allergies ? were reviewed. The patient is ? competent. The risks and benefits of ? the procedure and the sedation ? options and risks were discussed with ? the patient. All questions were ? answered and informed consent was ? obtained. Patient identification and ? proposed procedure were verified by ? the physician in the pre-procedure ? area. Mental Status Examination: ? alert and oriented. Airway ? Examination: normal oropharyngeal ? airway and neck mobility. Respiratory ? Examination: clear to auscultation. ? CV Examination: normal. Prophylactic ? Antibiotics: The patient does not ? require prophylactic antibiotics. ? Prior Anticoagulants: The patient has ? taken no previous anticoagulant or ? antiplatelet agents. ASA Grade ? Assessment: II - A patient with mild ? systemic disease. After reviewing the ? risks and benefits, the patient was ? deemed in satisfactory condition to ? undergo the procedure. The anesthesia ? plan was to use moderate sedation / ? analgesia (conscious sedation). ? Immediately prior to administration ? of medications, the patient was ? re-assessed for adequacy to receive ? sedatives. The heart rate, ? respiratory rate, oxygen saturations, ? blood pressure, adequacy of pulmonary ? ventilation, and response to care ? were monitored throughout the ? procedure. The physical status of the ? patient was re-assessed after the ? procedure. ? The procedure, indications, benefits, ? risks and alternatives were explained ? to the patient. Specifically ? discussed were potential ? complications including, but not ? limited to, bleeding, perforation, ? infection, missing a cancer, and ? adverse medication reactions. The ? patient was placed in the left ? lateral decubitus position, and a ? digital rectal exam was performed. ? The Colonoscope was inserted in the ? anus and under direct visualization, ? advanced to the terminal ileum. ? Careful inspection was made as the ? colonoscope was withdrawn. The ? colonoscopy was performed without ? difficulty. The patient tolerated the ? procedure well. The quality of the ? bowel preparation was excellent. ? Findings: ? The perianal and digital rectal examinations were ? normal. ? The colon (entire examined portion) appeared normal. ? Random biopsies were taken with a cold forceps for ? histology of the entire colon to evaluate for ? microscopic colitis. Withdrawal time 8:30. ? The terminal ileum appeared normal. ? Moderate Sedation: ? I was present during the intraservice time as ? documented by the sedation RN. Impression: ?- The entire examined colon is normal ? - biopsied Recommendation: ?- Await pathology results ? Attending Participation: ? I was present and participated during the entire ? procedure, including non-alcala portions. ? ___ Jacques Waggoner MD 05/17/2020 3:25:54 PM This report has been signed electronically. Number of Addenda: 0 Note Initiated On: 05/17/2020 2:11 PM PROVATION 05/17/2020 2:11 PM EST Dorothea Kaufman MD GENERAL SURGICAL ORD ERABLES PROVATION documented in this encounter Visit Diagnoses Diagnosis Left sided colitis without complications- Primary Left sided ulcerative (chronic) colitis documented in this encounter Admitting Diagnoses Diagnosis Left sided colitis without complications Left sided ulcerative (chronic) colitis documented in this encounter Administered Medications Inactive Administered Medications - up to 3 most recent administrations Medication Order MAR Action Action Date Dose Rate Site lactated ringers infusion 100 mL/hr, Intravenous, CONTINUOUS, Starting on Fri05/17/20 at 1415, Until Fri05/17/20 at 1621, Endoscopy (Day of Procedure) New Bag 05/17/2020 2:15 PM EST 100 mL/hr 100 mL/hr documented in this encounter Active and Recently Administered Medications Times are shown in EST. Continuous Medication Order 05/15/2020 05/16/2020 05/17/2020 lactated ringers infusion (CANCELED) 100 mL/hr, Intravenous, CONTINUOUS, Starting on Fri05/17/20 at 1415, Until Fri05/17/20 at 1621, Endoscopy (Day of Procedure) 1415 (New Bag - Prov ider: Imelda Capellan RN) PRN Medication Order 05/15/2020 05/16/2020 05/17/2020 fentaNYL (pf) (50 mcg/mL) multi-dose injection (CANCELED) ONCE PRN, Starting on Fri05/17/20 at 1447, Until Fri05/17/20 at 1829, Intra-Operative (Intra-Procedure), Routine 1447 (Given - Provid er: Kaylin Dela Cruz RN)1450 (Given - Provider: aKylin Dela Cruz RN)1453 (Given - Provider: Kaylin Dela Cruz RN) midazolam (pf) (Versed) (1 mg/mL) multi-dose injection (CANCELED) ONCE PRN, Starting on Fri05/17/20 at 1447, Until Fri05/17/20 at 1829, Intra-Operative (Intra-Procedure), Routine 1447 (Given - Provid er: Kaylin Dela Cruz RN)1450 (Given - Provider: Kaylin Dela Cruz RN)1453 (Given - Provider: Kaylin Dela Cruz RN) documented in this encounter Care Teams Drop Forge Operator Relationship Specialty Start Date End Date Dorothea Kaufman MD [facility] [address] [place] [address] PCP - General Family Medicine 02/04/20 documented as of this encounter
--- OUTSIDE RECORDS SUMMARY | 2024-01-21 14:15 | XMS_ITS | Encounter Summary ---
Author Organization [facility] [place] [address] Care Team Providers Care Rehabilitation Center Manager Name Role Phone Dorothea Kaufman MD Primary Care Provider [phone] Encounter Details Date Type Department Care Team ([facility] st Contact Info) Description 04/25/2020 10:48 AM EST Anesthesia Event [place] [address] Nicho Gordillo MD [facility] [place] [address] Anesthesia Record Procedure Summary Procedure Name Responsible Anesthesiologist Anesthesia Start Time Anesthesia Stop Time UPPER EUS- ENDOSCOPIC ULTRASOUND (WRVU 3.47) (Trunk) Nicho Gordillo MD 04/25/20 1048 04/25/20 1129 Events Date Time Event Comment 04/25/2020 0940 1048 AN Verify 1048 Start 1049 An Start Data 1055 An Induction 1056 Anesthesia Ready 1129 an stop data 1129 Recovery or ICU Handoff Alicia ent care was transferred to the destination unit staff after review of the patient's medical history, current anesthetic/surgical status and plan, according to the Provider Handoff Checklist. 1129 Stop Meds Name Total IV Lidocaine 50 mg Propofol 70 mg Propofol INF 193.36 mg lactated ringers infusion 200 mL * Agents Name O2 Air N2O O2 Auxiliary Flowmeter 1 * Blood No blood administrations on file. Lines, Drains, and Airways Type Details Placement Removal (RETIRED) Peripheral IV Line - Single Lumen 04/25/20; 0912; cephalic vein (lateral side of arm), right; qsci-nwf-[id number] catheter system; 20 gauge, 1 in length; Chuck Vargas RN; distraction, tolerated well; 0; no longer indicated, catheter/device intact; 04/25/20; 1201 04/25/20 0912 by Shea Vargas RN 04/25/20 1201 by Zechariah Cruz RN documented in this encounter Social History Tobacco Use Types Packs/Day Years Used Date Smoking Tobacco: Former Cigarettes Q uit: 03/27/1973 Smokeless Tobacco: Never Sex and Gender Information Value Date Recorded Sex Assigned at Not on file Gender Identity Not on file Sexual Orientation Not on file documented as of this encounter OR Notes * Anesthesia Postprocedure Evaluation - Nicho Gordillo MD - 04/25/2020 1:34 PM EST Department of Anesthesiology Post-procedure Note Patient: Nataly Kuhn Procedure Summary Date: 04/25/20 Room / Location: [facility] 2 / [facility] Anesthesia Start: 1048 Anesthesia Stop: 1129 Procedures: UPPER EUS- ENDOSCOPIC ULTRASOUND (N/A Trunk) EGD WITH BIOPSY (WRVU 2.49) (N/A Trunk) Diagnosis: (? 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 Patient [facility]: PACU[facility] Level of Consciousness: Awake and Alert Pain Management: Satisfactory Analgesia PONV: None Cardiovascular Status: At Baseline Respiratory Status: At Baseline Postoperative Fluid Status: Intravascular EUvolemia Possible Anesthetic Complications: NONE apparent at time of evaluation Final Primary Anesthesia Type: MAC (The anesthetic type performed was the same as planned.) Comments: * Anesthesia Preprocedure Evaluation - Nicho Gordillo MD - 04/25/2020 6:43 AM EST Pre-Anesthesia Evaluation for: Nataly Kuhn a 75 y.o. female. Procedure(s): UPPER EUS- ENDOSCOPIC ULTRASOUND Patient Active Problem List Diagnosis ??? Hypertension ??? History of breast cancer ??? BRCA1 genetic carrier ??? Family history of malignant neoplasm of pancreas No past medical history on file. No past surgical history on file. Social History Tobacco Use ??? Smoking status: Former Smoker Quit date: 03/27/1973 Years since quittin.1 ??? Smokeless tobacco: Never Used Substance Use Topics ??? Alcohol use: Not on file Social History Substance and Sexual Activity Drug Use Not on file No Known Allergies Medications: MAR and/or home medications have been reviewed. Physical Exam: No data found. There is no height or weight on file to calculate BMI. 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 PAT Clinic Note documented in this encounter Plan of Treatment Not on file documented as of this encounter Visit Diagnoses Not on filedocumented in this encounter Administered Medications Inactive Administered Medications - up to 3 most recent administrations Medication Order MAR Action Action Date Dose Rate Site lidocaine (pf) (Xylocaine) (20 mg/mL) 2% injection syringe PRN, Starting on Fri04/25/20 at 1055, Until 12/22/20 at 1129, Anesthesia Intra-op, Routine Given 04/25/2020 10:55 AM EST 50 mg propofoL (Diprivan) 10 mg/mL bolus injection (Anesthesia) PRN, Starting on Fri04/25/20 at 1055, Until Fri04/25/20 at 1129, Anesthesia Intra-op Given 04/25/2020 10:55 AM EST 70 mg propofoL (Diprivan) infusion CONTINUOUS PRN, Starting on Fri04/25/20 at 1055, Until Fri04/25/20 at 1129, Anesthesia Intra-op, Routine Rate/Dose Change 04/25/2020 11:19 AM EST 100 mcg/kg/min 29.9 mL/hr Rate/Dose Change 04/25/2020 11:10 AM EST 125 mcg/kg/min 37 .4 mL/hr New Bag 04/25/2020 10:55 AM EST 150 mcg/kg/min 44.9 mL/ hr documented in this encounter Care Teams Rehabilitation Center Manager Relationship Specialty Start Date End Date Dorothea Kaufman MD [facility] [address] [place] [address] PCP - General Family Medicine 02/04/20 documented as of this encounter
--- OUTSIDE RECORDS SUMMARY | 2024-01-21 14:15 | XMS_ITS | Encounter Summary ---
Author Organization [facility] [place] [address] Care Team Providers Care Prescriptionist Name Role Phone Dorothea Kaufman MD Primary Care Provider [phone] Encounter Details Date Type Department Care Team (Latest Contact Info) Description 04/25/2020 8:26 AM EST - 04/25/2020 1:19 PM EST Hospital En[place] [id number] Jacques Waggoner MD [facility] [place] [address] Discharge Disposition: Home Social History Tobacco Use Types Packs/Day Years Used Date Smoking Tobacco: Former Cigarettes Q uit: 03/27/1973 Smokeless Tobacco: Never Sex and Gender Information Value Date Recorded Sex Assigned at Not on file Gender Identity Not on file Sexual Orientation Not on file documented as of this encounter Last Filed Vital Signs Vital Sign Reading Time Taken Comments Blood Pressure 138/76 04/25/2020 12:00 PM EST Pulse 79 04/25/2020 9:07 AM EST Temperature 36.8 ??C (98.2 ??F) 04/25/2020 9:07 AM ES T Respiratory Rate 16 04/25/2020 12:00 PM EST Oxygen Saturation 96% 04/25/2020 12:10 PM EST Inhaled Oxygen Concentration - - Weight 49.9 kg (110 lb) 04/25/2020 9:07 AM EST Height 163.8 cm (5' 4.5) 04/25/2020 9:07 AM EST Body Mass Index 18.59 04/25/2020 9:07 AM EST documented in this encounter Discharge Instructions * Discharge Instructions* Zechariah Cruz, RN - 04/25/2020 11:42 AM EST Endoscopic Ultrasound (Oral): What to Expect At Home Your Recovery After you have an endoscopic ultrasound--a test to look for problems in the stomach, liver, gallbladder, and other organs--you will stay at the hospital or clinic for 1 to 2 hours. This will allow the medicine to wear off. You will be able to go home after your doctor or nurse checks to make sure you are not having any problems. You may have a sore throat for a day or two after the test. This care sheet gives you a general idea about what to expect after the test. How can you care for yourself at [...] doctor wants you to do. ?? If a biopsy was done during the test, your doctor may tell you not to take aspirin or other anti-inflammatory medicines for a few days. These include ibuprofen (Advil, Motrin) and naproxen (Aleve). ?? If you have a sore throat the day after the procedure, use an svxn-ath-ohndryr spray to numb your throat. Sucking on throat lozenges and gargling with warm salt water may also help relieve your symptoms. Other instructions ?? For your safety, do [...] occurs, please contact your Doctor. Please call [phone] before 8pm Mon-Fri with problems, questions or concerns. If you call after 8pm or on weekends, call the Hospital at [phone] and ask to speak to the Labor Service Representative donkey engine firer/fireman and the mitering machine operator will contact that person for you. When should you call for help? Call [phone] anytime you think you may need emergency [...] any problems. Where can you learn more? [facility] View your After Visit Summary and more online at [email or web address] If you would like to provide feedback about your hospital experience, please call the Office of Patient and Family Relations at . If you have received this After Visit Summary in error, please immediately return it in person to the department, or notify the [facility] Privacy Office by calling toll free at between the hours of 8AM and 5PM to arrange for our retrieval of the documents at no cost to you. Content Version: 12.2 ?? 0196-6820 [employer]. Care instructions adapted under license by [facility]. If you have questions about a medical condition or this instruction, always ask your healthcare professional. [employer] disclaims any warranty or liability for your use of this information.Upper GI Endoscopy: What to Expect at Home Your Recovery You will be able to go home after your doctor or nurse checks to make sure you are not having any problems. You may have to stay overnight if you had treatment during the test. You may have a sore throat fora day or two after the test. This care sheet gives you a general idea about what to expect after the test. How can you care for yourself at home? Activity Rest when you feel tired. ?? You can do your normal activities when it feels okay to do so. Diet ?? Follow your doctor's directions for eating. ?? Unless your doctor has told you not to, drink plenty of fluids. This helps to replace the fluidsthat were lost during the prep. ?? Do not drink alcohol. Medicines [...] include ibuprofen (Advil, Motrin) and naproxen (Aleve). ?? If you have a sore throat the day after the procedure, use an qvqt-rrp-xlkkbqf spray to numb your throat. Sucking on throat lozenges and gargling with warm salt water may also help relieve your symptoms. Other instructions ?? For your safety, do [...] occurs, please contact your Doctor. Please call [phone] before 8pm Mon-Fri with problems, questions or concerns. If you call after 8pm or on weekends, call the Hospital at [phone] and ask to speak to the Labor Service Representative donkey engine firer/fireman and the mitering machine operator will contact that person for you. When should you call for help? Call [phone] anytime you think you may need emergency [...] any problems. Where can you learn more? [facility] View your After Visit Summary and more online at [email or web address] If you would like to provide feedback about your hospital experience, please call the Office of Patient and Family Relations at . If you have received this After Visit Summary in error, please immediately return it in person to the department, or notify the [facility] Privacy Office by calling toll free at between the hours of 8AM and 5PM to arrange for our retrieval of the documents at no cost to you. Content Version: 12.2 ?? [id number] [employer]. Care instructions adapted under license by [facility]. If you have questions about a medical condition or this instruction, always ask your healthcare professional. [employer] disclaims any warranty or liability for your use of this information. documented in this encounter Medications at Time of Discharge Medication Sig Dispensed Refills Start Date End Date aspirin EC 81 mg Tablet, Delayed Release (E.C.) Take by mouth. 09/06/2019 amLODIPine (Norvasc) 5 mg Tablet 25 mg. 03/14/2020 meclizine (Antivert) 25 mg Tablet Take by mouth. 11/28/2019 03/07/2021 cfzpgm-vmonvain-qmorma e DR (Creon) 24,000-76,000 -120,000 unit Capsule, Delayed Release(E.C.) Take 1-2 capsules by mouth 3 times daily (with meals). With Meals: Take 1-2 capsules by mouth. With Snacks: Take 1 capsule by mouth. 270 capsule 3 03/28/2020 03/07/2021 tamoxifen (Nolvadex) 10 mg Tablet Take 10 mg by mouth 2 times daily. 06/20/2020 documented as of this encounter H&P Notes * Kaylene Aguilar MD - 04/25/2020 10:38 AM EST Patient Name: Nataly Kuhn Patient Age: 75 y.o. Birthdate: 1945 Admit date: 04/25/2020 Attending Physician: Jacques Waggoner MD PROBLEM LIST Patient Active Problem List Diagnosis Code ??? Family history of malignant neoplasm of pancreas Z80.0 ??? Hypertension I10 ??? History of breast cancer Z85.3 ??? BRCA1 genetic carrier Z15.01, Z15.09 HISTORY OF PRESENT ILLNESS Nataly Kuhn is a 75 y.o. woman with PMHx of BRCA1 gene, breast cancer, strong family hx of pancreas cancer who presents for EGD/EUS for evaluation of pancreas. MEDICATIONS No current facility-administered medications on file prior to encounter. Current Outpatient Medications on File Prior to Encounter Medication Sig Dispense Refill ??? amLODIPine (Norvasc) 5 mg Tablet 25 mg. ??? tamoxifen (Nolvadex) 10 mg Tablet Take 10 mg by mouth 2 times daily. PHYSICAL EXAM: Blood pressure 160/84, pulse 79, temperature 36.8 ??C (98.2 ??F), height 163.8 cm (5' 4.5), afaxuo60.9 kg (110 lb), SpO2 100 %. GEN: Alert, cooperative. Pleasant. In NAD MP I ASA II HEENT: NCAT. Neck supple. LUNGS: breathing comfortably on RA ABD: soft, NT/ND RECENT LABS No results found for this or any previous visit (from the past 24 hour(s)). ASSESSMENT AND PLAN Nataly Kuhn is a 75 y.o. y/o who presents for endoscopic evaluation. Risks extensively discussed including bleeding, infection, reaction to anesthesia, perforation, pancreatitis (if applicable), bile duct injury (if applicable), missing a cancer (if applicable) and/or other unforseen complica tion. Consent signed and patient well informed of the risks of the procedure. documented in this encounter Plan of Treatment Not on file documented as of this encounter Procedures Procedure Name Priority Date/Time Associated Diagnosis Comments SPECIMEN TO PATHOLOGY Routine 04/25/2020 11:06 AM EST SPECIMEN TO PATHOLOGY Routine 04/25/2020 11:06 AM EST SURGICAL PATHOLOGY REPORT Routine 04/25/2020 11:00 AM EST Upper Gi Endoscopy, Biopsy ([id number]) 04/25/2020 10:48 AM EST ? mass in body of pancreas, BRCA 1 carrier, 1st degreee family h/o pancreas cancer undergo EUS to evaluate the pancreas in more detail and perform FNA biopsy if necessary Endoscopic Us Exam, Esoph ([id number]) 04/25/2020 10:48 AM EST ? mass in body of pancreas, BRCA 1 carrier, 1st degreee family h/o pancreas cancer undergo EUS to evaluate the pancreas in more detail and perform FNA biopsy if necessary UPPER EUS-ENDOSCOPIC ULTRASOUND Routine 04/25/2020 10:36 AM EST documented in this encounter Results * Specimen to Pathology (04/25/2020 11:06 AM EST) AP Specimen 04/25/2020 11:0 6 AM EST 04/25/2020 11:06 AM EST Narrative [facility] - 04/25/2020 11:06 AM EST Specimen requisition ordered. ??Separate Pathology report to follow Jacques Waggoner MD PATHOLOGY/CYTOLOGY ORDERABLES Performing Organization Address [facility] [place] [address] * Specimen to Pathology (04/25/2020 11:06 AM EST) AP Specimen 04/25/2020 11:0 6 AM EST 04/25/2020 11:06 AM EST Narrative [facility] - 04/25/2020 11:06 AM EST Specimen requisition ordered. ??Separate Pathology report to follow Jacques Waggoner MD PATHOLOGY/CYTOLOGY ORDERABLES Performing Organization Address [facility] [place] [address] * Surgical Pathology Report (04/25/2020 11:00 AM EST) Final Diagnosis [id number] ? Location: 4T; EA13; A The signing pathologist has (i) examined the relevant preparation(s) for the specimen(s) and (ii) rendered or confirmed the diagnosis(es). . ?Surgical Pathology DIAGNOSIS A - Duodenum, ??biopsy: Duodenal mucosa within normal limits, including preserved villous architecture. B - Antrum, ??biopsy: Gastric antral gland mucosa with nonspecific reactive gastropathy. Body/fundic-typ e mucosa with parietal cell hyperplasia consistent with PPI effect. H. pylori organisms are not seen. Electronically signed by: ??Timothy CORBETT PhD, Mary Verified: ??05/02/2020 ?Pathologist Performed at: ??-[facility] [place]. [place], [place], [place] SPECIMEN(S) SUBMITTED A - duodenal biopsies ??r/o celiac disease, biopsy (Multiple) B - antral gastric biopsies ??r/o H. Pylori, biopsy (Multiple) CLINICAL INFORMATION 75-year-old female with diarrhea, weight loss SPECIMEN PROCESSING A - Labeled/Fixativ e: Duodenal biopsies R/O celiac, formalin. Quantity/Size: Six, 0.1-0.3 cm. Tissue Description: Soft, waller-pink tissues. Sections/Proces sing: Submitted en toto ??in 1 cassette labeled A1. B - Labeled/Fixativ e: Antral gastric biopsies R/O H. pylori, formalin. Quantity/Size: Five, 0.2-0.3 cm. Tissue Description: Soft, waller-pink tissues. Sections/Proces sing: Submitted en toto ??in 1 cassette labeled B1. ??ajw 05/02/2020 2:19 PM EST [facility] GI Biopsy 04/25/2020 11:0 0 AM EST 04/25/2020 11:00 AM EST GI Biopsy 04/25/2020 11:0 0 AM EST 04/25/2020 11:00 AM EST Jacques Waggoner MD PATHOLOGY/CYTOLOGY ORDERABLES [facility] [place] [address] * UPPER EUS-ENDOSCOPIC ULTRASOUND (04/25/2020 10:36 AM EST) UPPER ENDOSCOPIC ULTRASOUND [facility] Endoscopy Procedure Date: 04/25/2020 10:36 AM ? Patient Name: Nataly Kuhn ? Date of : 1945 ? Age: 75 ? Order #: [id number] ? Instrument Name: GF-UE [id number] ? Procedure: ? Upper EUS Indications: ? Weight loss Providers: ? Jacques Waggoner MD, Julianne ? Arely Vicekrs, ? Judicial Registrar Referring : ?Dorothea Kaufman MD Medicines: ? Monitored Anesthesia Care Complications: ? No immediate complications. Procedure: ? [...] The anesthesia ? plan was to use monitored anesthesia ? care (MAC). Immediately prior to ? administration of medications, the ? patient was re-assessed for adequacy ? to receive sedatives. The heart rate, ? respiratory rate, [...] and ? adverse medication reactions. The ? Endosonoscope was introduced through ? the mouth, and advanced to the third ? part of duodenum. The Endoscope was ? introduced through the mouth, and ? advanced to the third part of ? duodenum. The upper EUS was ? accomplished without difficulty. The ? patient tolerated the procedure well. ? Findings: ? ENDOSCOPIC FINDING: : ? The examined esophagus was endoscopically normal. The ? GE junction was at 39 cm. ? The entire examined stomach was endoscopically ? normal. Biopsies were taken of the stomach to rule ? out H. Pylori. ? The examined duodenum was endoscopically normal. ? Biopsies were taken of the duodenum to rule out ? celiac disease. ? ENDOSONOGRAPHIC FINDING: : ? There was no sign of significant endosonographic ? abnormality in the esophagus, stomach, duodenum or ? celiac axis. ? There was no sign of significant endosonographic ? abnormality in the ampulla. Specifically the CBD and ? PD tapered normally to the ampulla. ? There was no sign of significant endosonographic ? abnormality in the common bile duct. The maximum ? diameter of the duct was 1.6 mm. The gallbladder was ? normal in size and contour. There were no filling ? defects present. ? There was no sign of significant endosonographic ? abnormality in the left lobe of the liver. ? There was no sign of significant endosonographic ? abnormality in the pancreatic head, body and tail. We ? specifically did not see any evidence cyst or mass ? lesion. There was no evidence of inflammatory change. ? The duct was normal in size and caliber mearuing 1.1 ? mm in the head, 0.9 mm in the neck and tapering ? normally to the body. ? No lymphadenopathy seen. ? Moderate Sedation: ? Not applicable - See Anesthesia documentation Impression: ?- No evidence of pancreaticobiliary ? pathology Recommendation: ?- Labs today including stool studies ? - Await pathology results ? Attending Participation: ? I was present and participated during the entire ? procedure, including non-alcala portions. ? Jacques Waggoner MD 04/25/2020 11:36:38 AM This report has been signed electronically. Number of Addenda: 0 Note Initiated On: 04/25/2020 10:36 AM PROVATION 04/25/2020 10:3 6 AM EST Dorothea Kaufman MD GENERAL SURGICAL ORD ERABLES PROVATION documented in this encounter Visit Diagnoses Not on filedocumented in this encounter Administered Medications Inactive Administered Medications - up to 3 most recent administrations Medication Order MAR Action Action Date Dose Rate Site lactated ringers infusion 100 mL/hr, Intravenous, CONTINUOUS, Starting on Fri04/25/20 at 0930, Until Fri04/25/20 at 1142, Endoscopy (Day of Procedure) New Bag 04/25/2020 9:13 AM EST 100 mL/hr 100 mL/hr documented in this encounter Active and Recently Administered Medications Times are shown in EST. Continuous Medication Order 04/23/2020 04/24/2020 04/25/2020 lactated ringers infusion (CANCELED) 100 mL/hr, Intravenous, CONTINUOUS, Starting on Fri04/25/20 at 0930, Until Fri04/25/20 at 1142, Endoscopy (Day of Procedure) 0913 (New Bag - Prov ider: Shea Vargas RN)1128 (Stopped - Provider: Juan Ibanez CRNA) documented in this encounter Care Teams Prescriptionist Relationship Specialty Start Date End Date Dorothea Kaufman MD [address] [place] [address] PCP - General Family Medicine 02/04/20 documented as of this encounter
--- OUTSIDE RECORDS SUMMARY | 2024-01-21 14:15 | XMS_ITS | Encounter Summary ---
Author Organization [facility] [place] [address] Care Team Providers Care Comb Tender Name Role Phone Dorothea Kaufman MD Primary Care Provider [phone] Reason for Visit * Reason Comments Follow-up * Consultation (Routine) - Closed Specialty Diagnoses / Procedures Referred By Contac t Referred To Contact General Surgery Diagnoses Personal history of malignant neoplasm of breast Genetic susceptibility to malignant neoplasm of breast Dorothea Kaufman MD [address] [place] [address] [address] Radha Tello APRN [facility] [place] [address] Referral ID Status Reason Start Date Expiration Date V isits Requested Visits Authorized [id number] Closed Consult, Test & Treat PCP Updated and/or Approved 12/27/2022 12/27/2023 6 6 Encounter Details Date Type Department Care Team (Late st Contact Info) Description 04/22/2023 2:00 PM EST Office Visit [place] [address] Radha Tello BACK HAND [facility] [place] [address] Encounter for screening mammogram for breast cancer Social History Tobacco Use Types Packs/Day Years Used Date Smoking Tobacco: Former Cigarettes Q uit: 03/27/1973 Smokeless Tobacco: Never Sex and Gender Information Value Date Recorded Sex Assigned at Not on file Gender Identity Not on file Sexual Orientation Not on file documented as of this encounter Progress Notes * Radha Tello, BACK HAND - 04/22/2023 2:00 PM EST Nataly Kuhn is a 78 y.o. female with a BRCA 1 mutation and history of breast cancer x 3. [facility] 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 An Oncotype score at that time revealed a score of 24 which equated to a 16% risk of distant recurrence within 10 years. She was not offered chemotherapy and was placed on tamoxifen. Vibha is of Ashkenazi jainism descent and was found to be a BRCA 1 carrier. She had prophylactic bilateral oophorectomy. Uterus and cervix are intact. Vibha has been on tamoxifen since 2013 but stopped in 2019 due to rust colored vaginal discharge. Shewas under the care of Dr. Benjamin Miguel at [facility]. I have reviewed the records and it appears she had anegative endometrial biopsy but she did have a thickened endometrium. Dr. Miguel performed a curettage and results from this were benign. Vibha states she still has the discharge and she was supposed to follow up but the doctor left the practice. She is feeling relatively well otherwise. She has general aches and pains. She continues to walk 5 miles a day. 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 She is living in [facility] near her son. She does not smoke, previouslysmoked for 8 years. 2-3 alcohol beverages a week. Medical hx: Adult onset asthma, facial melanoma, osteopenia, HTN Past Surgical History: Procedure Laterality Date BREAST BIOPSY BREAST ENHANCEMENT SURGERY BREAST LUMPECTOMY Right w/ SLNB MASTECTOMY Left PRO COLONOSCOPY, BIOPSY N/A 05/17/2020 COLONOSCOPY FLEXIBLE, WITH BX (WRVU 3.66) performed by Jacques Waggoner MD at [facility] ENDOSCOPY PRO COLONOSCOPY, DIAGNOSTIC N/A 05/17/2020 COLONOSCOPY, DIAGNOSTIC performed by Jacques Waggoner MD at [facility] ENDOSCOPY PRO ENDOSCOPIC US EXAM, ESOPH N/A 04/25/2020 UPPER EUS- ENDOSCOPIC ULTRASOUND performed by Jacques Waggoner MD at [facility] ENDOSCOPY PRO UPPER GI ENDOSCOPY, BIOPSY N/A 04/25/2020 EGD WITH BIOPSY (WRVU 2.49) performed by Jacques Waggoner MD at [facility] ENDOSCOPY Mohs procedure, tonsillectomy, rotator cuff repair [...] adenopathy. No abdominal tenderness No vertebral tenderness . Right mammogram in February was cat 2 A/P: Vibha is a 78 y.o. BRCA 1 mutant positive female with a history of 3 separate early stage beast primaries as described above. She is s/p prophylactic bilateral oophorectomy. Exam and imaging normal. I will see her back in February with a mammogram. She will call me with concerns in the interim. Radha Tello APRN documented in this encounter Plan of Treatment Scheduled Orders Name Type Priority Associated Diagnoses Orde r Schedule Mammo Screening Cad and Delfino Right Imaging Routine Encounter for screening mammogram for breast cancer Expected: 02/25/2024, Expires: 05/01/2024 documented as of this encounter Visit Diagnoses Diagnosis Encounter for screening mammogram for breast cancer documented in this encounter Care Teams Comb Tender Relationship Specialty Start Date End Date Dorothea Kaufman MD [address] [place] [address] PCP - General Family Medicine 02/04/20 documented as of this encounter
--- OUTSIDE RECORDS SUMMARY | 2024-01-21 14:15 | XMS_ITS | Encounter Summary ---
[facility] [place] [address] Care Team Providers Care Point Of Care Technician Name Role Phone Dorothea Kaufman MD Primary Care Provider [phone] Encounter Details Date Type Department Care Team ([facility] st Contact Info) Description 08/28/2020 Telephone [place] [phone] Lee Ivan RN Social History Tobacco Use Types Packs/Day Years Used Date Smoking Tobacco: Former Cigarettes Q uit: 03/27/1973 Smokeless Tobacco: Never Sex and Gender Information Value Date Recorded Sex Assigned at Not on file Gender Identity Not on file Sexual Orientation Not on file documented as of this encounter Miscellaneous Notes * Telephone Encounter - Lee Ivan RN - 08/28/2020 9:34 AM EDT Nataly calls with c/o diarrhea has returned. Started about 2 weeks ago she thinks. Having 2 - 5 diarrhea stools per day, they seem to come on soon after eating. She will occasional has form very small pellet sized stools. She continues to take lomotil every 4 hours and cholestyramine, 1 packet BID. She did stop taken her Creon soon after her visit with Dr. Waggoner on August 07. documented in this encounter Plan of Treatment Not on file documented as of this encounter Visit Diagnoses Not on filedocumented in this encounter Care Teams Point Of Care Technician Relationship Specialty Start Date End Date Dorothea Kaufman MD [address] [place] [address] PCP - General Family Medicine 02/04/20 documented as of this encounter
--- OUTSIDE RECORDS SUMMARY | 2024-01-21 14:15 | XMS_ITS | Encounter Summary ---
Author Organization [facility] [place] [address] Care Team Providers Care Winder Contort Operator Name Role Phone Dorothea Kaufman MD Primary Care Provider Reason for Visit * Auth/Cert Specialty Diagnoses / Procedures Referred By Contmario t Referred To Contact Diagnoses Colitis colitis Procedures PRO COLONOSCOPY, DIAGNOSTIC PRO COLONOSCOPY, BIOPSY PRO COLONOSCOPY, REMV LESN, SNARE COLONOSCOPY, DIAGNOSTIC Referral ID Status Reason Start Date Expiration Date Visits Re quested Visits Authorized [id number] 1 1 Encounter Details Date Type Department Care Team ([facility] st Contact Info) Description 05/17/2020 3:00 PM EST - 05/17/2020 3:45 PM EST [place] [phone] Jacques Waggoner MD [facility] [place] [address] COLONOSCOPY, DIAGNOSTIC (WRVU 3.26) Social History Tobacco Use Types Packs/Day Years Used Date Smoking Tobacco: Former Cigarettes Q uit: 03/27/1973 Smokeless Tobacco: Never Sex and Gender Information Value Date Recorded Sex Assigned at Not on file Gender Identity Not on file Sexual Orientation Not on file documented as of this encounter Last Filed Vital Signs Vital Sign Reading Time Taken Comments Blood Pressure 105/59 05/17/2020 3:40 PM EST Pulse 57 05/17/2020 3:40 PM EST Temperature 36.8 ??C (98.3 ??F) 05/17/2020 2:05 PM ES T Respiratory Rate 16 05/17/2020 3:40 PM EST Oxygen Saturation 96% 05/17/2020 3:40 PM EST Inhaled Oxygen Concentration - - Weight 49.4 kg (109 lb) 05/17/2020 2:05 PM EST Height - - Body Mass Index 18.42 04/25/2020 9:07 AM EST documented in this encounter Discharge Instructions * Discharge Instructions* Joyce Peters, RN - 05/17/2020 4:21 PM EST [...] occurs, please contact your Doctor. Please call [phone] before 8pm Mon-Fri with problems, questions or concerns. If you call after 8pm or on weekends, call the Hospital at [phone] and ask to speak to the Field Sales Manager ammunition supervisor and the miscellaneous machine operator will contact that person for you. When should you call for help? Call [phone] anytime you think you may need emergency [...] any problems. Where can you learn more? [facility] View your After Visit Summary and more online at [email or web address] If you would like to provide feedback [...] cost to you. Content Version: 12.2 ?? [id number] [employer]. Care instructions adapted under license by [facility]. If you have questions about a medical condition or this instruction, always ask your healthcare professional. [employer] disclaims any warranty or liability for your [...] mg Tablet Take by mouth. 11/28/2019 03/07/2021 [id number] e DR (Creon) 24,000-76,000 -120,000 unit Capsule, [...] MD Gastroenterology PGY-5 05/17/2020 2:17 PM Pager #[phone] documented in this encounter Plan of Treatment Not on file documented as of this encounter Procedures Procedure Name Priority Date/Time Associated Diagnosis Comments SPECIMEN TO PATHOLOGY Routine 05/17/2020 3:16 PM EST SURGICAL PATHOLOGY REPORT Routine 05/17/2020 3:13 PM EST Colonoscopy, Biopsy ([id number]) 05/17/2020 2:39 PM EST Left sided colitis without complications Colonoscopy, Diagnostic ([id number]) 05/17/2020 2:39 PM EST Left sided colitis without complications COLONOSCOPY Routine 05/17/2020 2:11 PM EST documented in this encounter Results * Specimen to Pathology (05/17/2020 3:16 PM EST) AP Specimen 05/17/2020 3:16 PM EST 05/17/2020 3:[address] [facility] - 05/17/2020 3:16 PM EST Specimen requisition ordered. ??Separate Pathology report to follow Jacques Waggoner MD PATHOLOGY/CYTOLOGY ORDERABLES [facility] [place] [address] * Surgical Pathology Report (05/17/2020 3:13 PM EST) Final Diagnosis [id number] ? Location: 4T; EA12; A The signing pathologist has (i) examined the relevant preparation(s) for the specimen(s) and (ii) rendered or confirmed the diagnosis(es). . ?Surgical Pathology DIAGNOSIS Random colon, ??biopsy: Colonic mucosa within normal limits. CR-PX Electronically signed by: ??Jodi Mullins MD Verified: ??05/24/2020 ?Pathologist Performed at: ??[place] [place], [place], [place] SPECIMEN(S) SUBMITTED A - random colon biopsies, biopsy (Multiple) CLINICAL INFORMATION Diarrhea, weight loss, microscopic colitis SPECIMEN PROCESSING A - Labeled/Fixativ e: Random colon biopsies, formalin. Quantity/Size: Fragments, 0.2-0.3 cm. Tissue Description: Soft, waller-pink tissues. Sections/Proces sing: Entirely submitted in 2 cassettes labeled A1-A2. ??pps 05/24/2020 7:[address] [facility] GI Biopsy 05/17/2020 3:13 PM EST 05/17/2020 3:13 PM EST Jacques Waggoner MD PATHOLOGY/CYTOLOGY ORDERABLES Performing Organization Address [facility]/ZIP Co de Phone Number [facility] [place] [place] [address] * COLONOSCOPY (05/17/2020 2:11 PM EST) COLONOSCOPY [facility] Endoscopy Procedure Date: 05/17/2020 2:11 PM ? Patient Name: Nataly Kuhn ? N: [id number] ? Date of : 1945 ? Age: 75 ? Order #: [id number] ? Instrument Name: [id number] ? Procedure: ? Colonoscopy Indications: ? Chronic [...] complications- Primary Left sided ulcerative (chronic) colitis Left sided colitis without complications Left sided ulcerative (chronic) colitis documented in this encounter Admitting Diagnoses Diagnosis Left sided colitis without complications Left sided ulcerative (chronic) colitis documented in this encounter Administered Medications Inactive Administered Medications - up to 3 most recent administrations Medication Order MAR Action Action Date Dose Rate Site fentaNYL (pf) (50 mcg/mL) multi-dose injection ONCE PRN, Starting on Fri05/17/20 at 1447, Until Fri05/17/20 at 1829, Intra-Operative (Intra-Procedure), Routine Given 05/17/2020 2:53 PM EST 50 mcg Right Arm Given 05/17/2020 2:50 PM EST 50 mcg Ri ght Arm Given 05/17/2020 2:47 PM EST 50 mcg Ri ght Arm lactated ringers infusion 100 mL/hr, Intravenous, CONTINUOUS, Starting on Fri05/17/20 at 1415, Until Fri05/17/20 at 1621, Endoscopy (Day of Procedure) New Bag 05/17/2020 2:15 PM EST 100 mL/hr 100 mL/hr midazolam (pf) (Versed) (1 mg/mL) multi-dose injection ONCE PRN, Starting on Fri05/17/20 at 1447, Until Fri05/17/20 at 1829, Intra-Operative (Intra-Procedure), Routine Given 05/17/2020 2:53 PM EST 1 mg Given 05/17/2020 2:50 PM EST 1 mg Given 05/17/2020 2:47 PM EST 1 mg documented in this encounter Active and Recently [...] Dela Cruz RN)1450 (Given - Provider: Kaylin eDla Cruz RN)1453 (Given - Provider: Kaylin Dela Cruz RN) midazolam (pf) (Versed) (1 mg/mL) multi-dose injection (CANCELED) ONCE PRN, Starting on Fri05/17/20 at 1447, Until Fri05/17/20 at 1829, Intra-Operative (Intra-Procedure), Routine 1447 (Given - Provid er: Kaylin Dela Cruz RN)1450 (Given - Provider: Kaylin Dela Cruz RN)1453 (Given - Provider: Kaylin Dela Cruz RN) documented in this encounter Care Teams Winder Contort Operator Relationship Specialty Start Date End Date Dorothea Kaufman MD [facility] [address] [place] [address] PCP - General Family Medicine 02/04/20 documented as of this encounter
--- OUTSIDE RECORDS SUMMARY | 2024-01-21 14:15 | XMS_ITS | Encounter Summary ---
Author Organization [facility] [place] [address] Care Team Providers Care Contract Administrator Name Role Phone Dorothea Kaufman MD Primary Care Provider [phone] Encounter Details Date Type Department Care Team ([facility] st Contact Info) Description 04/13/2020 Orders [place] [address] Radha Tello APRN [facility] [place] [address] History of breast cancer (Primary Dx) Social History Tobacco Use Types Packs/Day Years Used Date Smoking Tobacco: Former Cigarettes Q uit: 03/27/1973 Smokeless Tobacco: Never Sex and Gender Information Value Date Recorded Sex Assigned at Not on file Gender Identity Not on file Sexual Orientation Not on file documented as of this encounter Plan of Treatment Not on file documented as of this encounter Visit Diagnoses Diagnosis History of breast cancer- Primary Personal history of malignant neoplasm of breast documented in this encounter Care Teams Contract Administrator Relationship Specialty Start Date End Date Dorothea Kaufman MD [facility] [address] [place] [address] PCP - General Family Medicine 02/04/20 documented as of this encounter
--- OUTSIDE RECORDS SUMMARY | 2024-01-21 14:15 | XMS_ITS | Encounter Summary ---
[place] [address] Care Team Providers Care Chemist Helper Name Role Phone Dorothea Kaufman MD Primary Care Provider [phone] Reason for Referral * Consultation (Routine) - Closed Specialty Diagnoses / Procedures Referred By Contac t Referred To Contact Obstetrics and Gynecology Diagnoses Vaginal discharge Radha Tello APRN [facility] [place] [address] [facility] Financial Aid Coordinator [address] [place] [phone] Referral ID Status Reason Start Date Expiration Date V isits Requested Visits Authorized [id number] Closed Consult, Test & Treat 06/20/2020 06/20/2021 1 1 Reason for Visit * Reason Comments Establish Care * Consultation (Routine) - Specialty Diagnoses / Procedures Referred By Contac t Referred To Contact Hematology and Oncology Diagnoses Personal history of malignant neoplasm of breast Genetic susceptibility to malignant neoplasm of breast Benign neoplasm of pancreas Please set up in [facility] Dorothea Kaufman MD [facility] [address] [address] [facility] Hem Onc [address] [place] [address] Referral ID Status Reason Start Date Expiration Date V isits Requested Visits Authorized [id number] Consult, Test & Treat [facility] PCP Updated and/or Approved 01/31/2020 07/30/2020 6 6 Encounter Details Date Type Department Care Team (Late st Contact Info) Description 06/14/2020 9:00 AM EST Office Visit General Surgery [place] [address] Radha Tello, LUCAS [facility] [place] [address] History of breast cancer; Encounter for screening mammogram for breast cancer; Pain in left hip; Vaginal discharge Social History Tobacco Use Types Packs/Day Years Used Date Smoking Tobacco: Former Cigarettes Q uit: 03/27/1973 Smokeless Tobacco: Never Sex and Gender Information Value Date Recorded Sex Assigned at Not on file Gender Identity Not on file Sexual Orientation Not on file documented as of this encounter Progress Notes * Radha Tello, LUCAS - 06/14/2020 9:00 AM EST Nataly Kuhn is a 75 y.o. female with a BRCA 1 mutation and history of breast cancer x 3. Shehas [facility]. 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 An Oncotype score at that time revealed a score of 24 which equated to a 16% risk of distant recurrence within 10 years. She was not offered chemotherapy and was placed on tamoxifen. Vibha is of Ashkenazi taoist descent and was found to be a BRCA 1 carrier. She had prophylactic bilateral oophorectomy. Uterus and cervix are intact. Vibha has been on tamoxifen since 2013 but recently stopped due to rust colored vaginal discharge. She was under the care of Dr. Benjamin Miguel at [facility]. I have reviewed the records and it appears she had a negative endometrial biopsy but she did have a thickened endometrium. Dr. Miguel performed a curettage and results from this were benign. Vibha states she still has the discharge and she was supposed to follow up but the doctor left the practice. She is feeling relatively well otherwise. She does have some left hip pain that is not going away. She denies any other aches or pains. She continues to work via telehealth visits. 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 She is living in [facility] near her son. She does not smoke, previouslysmoked for 8 years. 2-3 alcohol beverages a week. Medical hx: Adult onset asthma, facial melanoma, osteopenia, HTN Past Surgical History: Procedure Laterality Date ??? BREAST BIOPSY ??? BREAST ENHANCEMENT SURGERY ??? BREAST LUMPECTOMY ??? MASTECTOMY Left ??? PRO COLONOSCOPY, BIOPSY N/A 05/17/2020 COLONOSCOPY FLEXIBLE, WITH BX (WRVU 3.66) performed by Jacques Waggoner MD at [facility] ENDOSCOPY ??? PRO COLONOSCOPY, DIAGNOSTIC N/A 05/17/2020 COLONOSCOPY, DIAGNOSTIC performed by Jacques Waggoner MD at [facility] ENDOSCOPY ??? PRO ENDOSCOPIC US EXAM, ESOPH N/A 04/25/2020 UPPER EUS- ENDOSCOPIC ULTRASOUND performed by Jacques Waggoner MD at [facility] ENDOSCOPY ??? PRO UPPER GI ENDOSCOPY, BIOPSY N/A 04/25/2020 EGD WITH BIOPSY (WRVU 2.49) performed by Jacques Waggoner MD at [facility] ENDOSCOPY Mohs procedure, tonsillectomy, rotator cuff repair [...] was cat 2 A/P: Vibha is a 75 y.o. BRCA 1 mutant positive female with a history of 3 separate early stage beast primaries as described above. She is s/p prophylactic bilateral oophorectomy. She recently stopped tamoxifen due to abnormal vaginal discharge. Curettage was benign. Her gaming worker provider has left practice and she would like to establish care here. Exam and imaging normal today. Referral to bedspread cutter hand. Continue to stay off tamoxifen for now. I do question the benefit of an AI however she recurred while on letrozole with her third breast cancer, so I question the benefit. Plain films of left hip today. I will see her back in November with a breast MRI. She is aware to call with any concerns prior to our next visit. She agrees with plan of care. Radha Tello APRN documented in this encounter Plan of Treatment Scheduled Referrals Name Type Priority Associated Diagnoses Orde r Schedule Referral to Ob-Assembly Machine Set Up Mechanic Outpatient Referral Routine Vaginal discharge Ordered: 06/20/2020 documented as of this encounter Results * Mammo Screening Cad and Delfino with Implants Right (08/08/2021 10:01 AM EDT) Anatomical Region Laterality Modality Breast Right Mammography Narrative 08/08/2021 10:40 AM EDT RIGHT BREAST MAMMOGRAPHY REASON FOR EXAM: Screening ??History of breast cancer TECHNIQUE: CC and MLO views were obtained of the right breast using standard 2-D mammography as well as 3-D tomosynthesis. Computer aided detection was used. This is compared with prior images. FINDINGS: ??The breast is almost entirely fatty. There are no suspicious microcalcifications, masses, or areas of distortion. The pattern is stable.The presence of dense implants limits evaluation. CONCLUSION: No mammographic evidence of malignancy. RECOMMENDATION: Regular screening mammograms starting between age 40 and 50 reduces the risk of from breast cancer. All screening tests have both risks and benefits. These risks and benefits should be assessed for each individual patient through discussion with their provider to determine their preferred breast cancer screening schedule. Women should report any breast changes to a health care provider right away. Some women, because of their family history, a genetic tendency, or other factors, should be screened with annual breast MRI as well as with mammograms. (The number of women who fall into this category is very small). Patients and health care providers should discuss each patient? s history to decide if earlier screening and/or breast MRI are appropriate. Screening should continue as long as a woman is in good health and is expected to live 10 years or longer. Screening mammography may not detect 10-15% of breast cancers. A result letter has been sent to this patient by [facility]. BIRADS CATEGORY 1: NEGATIVE Electronically signed by: ??KI TAM MD Radha Tello APRN G MAMMO ORDERABLE S documented in this encounter Visit Diagnoses Diagnosis History of breast cancer Personal history of malignant neoplasm of breast Encounter for screening mammogram for breast cancer Pain in left hip Pain in joint, pelvic region and thigh Vaginal discharge Leukorrhea, not specified as infective History of breast cancer Personal history of malignant neoplasm of breast Encounter for screening mammogram for breast cancer documented in this encounter Care Teams Chemist Helper Relationship Specialty Start Date End Date Dorothea Kaufman MD [address] [place] [address] PCP - General Family Medicine 02/04/20 documented as of this encounter
--- OUTSIDE RECORDS SUMMARY | 2024-01-21 14:15 | XMS_ITS | Encounter Summary ---
Author Organization [facility] [place] [address] Care Team Providers Care Glass Bulb Silverer Name Role Phone Dorothea Kaufman MD Primary Care Provider [phone] Reason for Visit * Reason Onset Date Comments Medication Refill 08/02/2020 Encounter Details Date Type Department Care Team ([facility] st Contact Info) Description 08/02/2020 [place]ill [place] [address] Jacques Waggoner MD [facility] [place] [address] Social History Tobacco Use Types Packs/Day Years [...] on filedocumented in this encounter Care Teams Glass Bulb Silverer Relationship Specialty Start Date End Date Dorothea Kaufman MD [facility] [address] [place] [address] PCP - General Family Medicine 02/04/20 documented as of this encounter
--- OUTSIDE RECORDS SUMMARY | 2024-01-21 14:15 | XMS_ITS | Encounter Summary ---
Author Organization [facility] [address] Care Team Providers Care Generation Mechanic Helper Name Role Phone Dorothea Kaufman MD Primary Care Provider [phone] Encounter Details Date Type Department Care Team (Latest Contact Info) Description 06/14/2020 9:48 AM EST - 06/14/2020 11:59 PM EST Hospital Encounter Mammography/[place] [phone] Radha Tello APRN [facility] [place] [place] [address] History of breast cancer Discharge Disposition: Home Social History [...] mg Tablet Take by mouth. 11/28/2019 03/07/2021 [id number] e DR Diaz) 24,000-76,000 -120,000 unit Capsule, Delayed Release(E.C.) Take 1-2 capsules by mouth 3 times daily (with meals). With Meals: Take 1-2 capsules by mouth. With Snacks: Take 1 capsule by mouth. 270 capsule 3 03/28/2020 03/07/2021 tamoxifen (Nolvadex) 10 mg Tablet Take 10 mg by mouth 2 times daily. 06/20/2020 documented as of this encounter Plan of Treatment Not on file documented as of this encounter Procedures Procedure Name Priority Date/Time Associated Diagnosis Comments MAMMO SCREENING CAD AND MALCOLM WITH IMPLANTS RIGHT Routine 06/14/2020 10:24 AM EST History of breast cancer documented in this encounter Results * Mammo Screening Cad and Malcolm with Implants Right (06/14/2020 10:24 AM EST) Anatomical Region Laterality Modality Breast Right Mammography Narrative 06/14/2020 10:38 AM EST Right mammography Reason for exam: BRCA1 carrier, history of bilateral breast cancer. S/p left mastectomy. Right recon with implant and lat flap. Technique: CC and MLO views were obtained of the right breast using standard 2-D mammography as well as 3-D tomosynthesis. Computer aided detection was used. Comparison: None currently available. Findings: The breasts are heterogeneously dense, which may obscure small masses. There are no suspicious microcalcifications, masses, or areas of distortion. Implant in place, silicone implant. Multifocal postsurgical change and dystrophic calcifications, benign-appearing. Conclusion: No mammographic evidence of malignancy. Recommendation: Routine screening. BI-RADS Category 2: Benign findings. * ??Regular screening mammograms starting between age 40 and 50 reduces the risk of from breast cancer. * ??All screening tests have both risks and benefits. These risks and benefits should be assessed for each individual patient through discussion with their provider to determine their preferred breast cancer screening schedule. * [...] and health care providers should discuss each patients history to decide if earlier screening and/or breast MRI are appropriate. * ??Screening should continue as long as a woman is in good health and is expected to live 10 years or longer. * ??Screening mammography may not detect 10-15% of breast cancers. Thank you for letting us participate in the care of this patient. For questions regarding this report, please contact the number below. ? Electronically signed by: Jacques Ceballos MD, [facility] ([phone]), at 06/14/2020 10:38 AM Radha Tello BROADCAST SUPERVISOR IMG MAMMO ORDERABLE S documented in this encounter Visit Diagnoses Diagnosis History of breast cancer Personal history of malignant neoplasm of breast documented in this encounter Care Teams Generation Mechanic Helper Relationship Specialty Start Date End Date Dorothea Kaufman MD [address] [place] [address] [address] [place] [address] PCP - General Family Medicine 02/04/20 documented as of this encounter
--- OUTSIDE RECORDS SUMMARY | 2024-01-21 14:15 | XMS_ITS | Clinical Summary ---
[facility] Address [facility] [place] [address] Care Team Providers Care Garment Manufacturing Supervisor Name Role Phone Dorothea Kaufman MD Primary Care Provider [phone] Allergies No known active allergies Medications Medication Sig Dispensed Refills Start Date End Date Status amLODIPine (Norvasc) 5 mg Tablet 25 mg. 03/14/2020 Active aspirin EC 81 mg Tablet, Delayed Release (E.C.) Take by mouth. 09/06/2019 Active cholecalciferol, Vitamin D3, 10 mcg (400 unit) Capsule Take by mouth. 05/15/2020 Ac tive vitamin E (vitamin E) 400 unit Capsule Take 400 Units by mouth. 05/15/2020 Active mupirocin (Bactroban) 2 % OintmentIndications:He rpes zoster without complication Apply three times daily to affected areas for 2 weeks. 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 020 Overview (05/03/2020): Added automatically from request for surgery [id number] Hypertension 03/27/2020 History of breast cancer 03/27/2020 BRCA1 genetic carrier 03/27/2020 Family history of malignant neoplasm of pancreas 03/26/2020 Family History Medical History Relation Comments Breast Cancer Neg Hx Social History Tobacco Use Types Packs/Day Years Used Date Smoking Tobacco: Former Cigarettes Q uit: 03/27/1973 Smokeless Tobacco: Never Sex and Gender Information Value Date Recorded Sex Assigned at Not on file Gender Identity Not on file Sexual Orientation Not on file Last Filed Vital Signs Vital Sign Reading Time Taken Comments Blood Pressure 171/84 03/07/2021 4:15 PM EDT Pulse 82 03/07/2021 4:15 PM EDT Temperature 36.8 ??C (98.3 ??F) 05/17/2020 2:05 PM ES T Respiratory Rate 18 03/07/2021 4:15 PM EDT Oxygen Saturation 99% 05/17/2020 3:50 PM EST Inhaled Oxygen Concentration - - Weight 48.5 kg (107 lb) 03/07/2021 4:15 PM EDT Height 162.6 cm (5' 4) 03/07/2021 4:15 PM EDT Body Mass Index 18.37 03/07/2021 4:15 PM EDT Plan of Treatment Health Maintenance Due Date Last Done Comments Hepatitis C Screening 02/[birth year]1964 Tdap adult 1965 Tetanus vaccine 1965 Zoster vaccine (1 of 2) 02/12/1996 Advance Directive 2001 Bone Density Scan 2011 Pneumoccocal Vaccine: 65+ (1 of 1 - PCV) 2011 Covid-19 Vaccine (1 - 2022-2 4 season) 2024 Influenza (Flu) vaccine (1 o f 1 - Influenza standard series) 01/04/2024 Colonoscopy Discontinued 05/17/2020, 05/05, 05/17/2020 Colorectal Cancer Screening Discontinued Sigmoidoscopy (10 year) with FIT yearly Discontinued 05/17/2020, 05/17/2020, 05/17/2020 Breast Cancer screening Discontinued 02/27/20 23, 08/08/2021, 06/14/2020 CT Colonography Discontinued FIT DNA Discontinued FIT Discontinued Sigmoidoscopy Discontinued Procedures Procedure Name Priority Date/Time Associated Diagnosis Comments MAMMO SCREENING CAD AND DELFINO WITH IMPLANTS RIGHT Routine 02/26/2023 10:28 AM EDT Encounter for screening mammogram for breast cancer COLONOSCOPY Routine 05/17/2020 2:11 PM EST from Last 3 Months or Most Recently Relevant to Health Maintenance Results * Mammo Screening Cad and Delfino with Implants Right (02/26/2023 10:28 AM EDT) [...] who have questions please contact the health critical care registered nurse that requested your imaging first. ? Narrative 02/26/2023 10:47 AM EDT EXAMINATION: MAMMO SCREENING CAD AND DELFINO WITH IMPLANTS RIGHT REASON FOR EXAM: Screening [...] Radha Tello APRN IMG MAMMO ORDERABLE S * COLONOSCOPY (05/17/2020 2:11 PM EST) COLONOSCOPY [facility] Endoscopy Procedure Date: 05/17/2020 2:11 PM ? Patient Name: Nataly Kuhn ? Date of : 1945 ? Age: 75 ? Order #: [id number] ? Instrument Name: [id number] ? Procedure: ? Colonoscopy Indications: ? Chronic [...] Kaufman MD GENERAL SURGICAL ORD ERABLES PROVATION from Last 3 Months or Most Recently Relevant to Health Maintenance Advance Directives Documents on File Type Date Recorded Patient Steel Engraver Ceci fonseca Personal Steel Engraver 05/03/2020 10:36 AM Ernesto Kuhn Personal Steel Engraver 05/03/2020 10:36 AM Adrián Reyez Personal Steel Engraver 04/27/2020 2:53 PM vickie alek * Attempt Cardiopulmonary Resuscitation - Inpatient (Latest Code Status on File) Date Activated Date Inactivated Comments 04/25/2020 9:40 AM 04/25/2020 3:29 PM Question Answer Comments Code Status decision made by: Patient Care Teams Garment Manufacturing Supervisor Relationship Specialty Start Date End Date Dorothea Kaufman MD [facility] [address] [place] [address] PCP - General Family Medicine 02/04/20
--- OUTSIDE RECORDS SUMMARY | 2024-01-21 14:15 | XMS_ITS | Encounter Summary ---
Author Organization [facility] Address [facility] [place] [address] Care Team Providers Care Child Caregiver Private Home Name Role Phone Dorothea Kaufman MD Primary Care Provider [phone] Reason for Referral * Psychiatric (Routine) - Duplicate Referral Specialty Diagnoses / Procedures Referred By Tyson rdz Referred To Contact Psychiatry Diagnoses Other symptoms and signs involving cognitive functions and awareness Mago Jerome APRN [facility] [address] [place] [address] [facility] [place] [address] Bradley Erazo, PhD [facility] [place] [address] Referral ID Status Reason Start Date Expiration Date Visits Requested Visits Authorized [id number] Duplicate Referral Consult, Test & Treat PCP Updated and/or Approved 12/06/2021 12/06/2022 6 6 Encounter Details Date Type Department Care Team (Late st Contact Info) Description 12/06/2021 Transcribe Orders eDH Incoming Referrals [phone] Mago Jerome APRN [facility] [address] [place] [address] [place] [address] Other symptoms and signs involving cognitive functions and awareness Social History Tobacco Use Types Packs/Day Years Used Date Smoking Tobacco: Former Cigarettes Q uit: 03/27/1973 Smokeless Tobacco: Never Sex and Gender Information Value Date Recorded Sex Assigned at Not on file Gender Identity Not on file Sexual Orientation Not on file documented as of this encounter Plan of Treatment Scheduled Referrals Name Type Priority Associated Diagnoses Order Schedule Referral to Neuropsychology Outpatient Referral Routine Other symptoms and signs involving cognitive functions and awareness Ordered: 12/06/2021 documented as of this encounter Visit Diagnoses Diagnosis Other symptoms and signs involving cognitive functions and awareness documented in this encounter Care Teams Child Caregiver Private Home Relationship Specialty Start Date End Date Dorothea Kaufman MD [facility] [address] [facility] [address] [place] [address] PCP - General Family Medicine 02/04/20 documented as of this encounter
--- OUTSIDE RECORDS SUMMARY | 2024-01-21 14:15 | XMS_ITS | Encounter Summary ---
Author Organization [facility] [place] [address] Care Team Providers Care Taxation Agent Name Role Phone Dorothea Kaufman MD Primary Care Provider [phone] Encounter Details Date Type Department Care Team (Latest Contact Info) Description 08/07/2020 1:30 PM EDT TH Visit (TeleHealth) [place] [address] [facility] [place] [address] Functional diarrhea Social History Tobacco Use Types Packs/Day Years Used Date Smoking Tobacco: Former Cigarettes Q uit: 03/27/1973 Smokeless Tobacco: Never Sex and Gender Information Value Date Recorded Sex Assigned at Not on file Gender Identity Not on file Sexual Orientation Not on file documented as of this encounter Progress Notes * Jacques Waggoner MD - 08/07/2020 1:30 PM EDT THIS VISIT WAS A [facility] TELEHEALTH/PHONE CONSULTATION PROBLEM LIST Follow-up IBS -D HISTORY OF PRESENT ILLNESS Nataly Kuhn is a 75 y.o. y/o who presents for follow-up telehealth visit. Please see my previous notes for details of the patient's past history. This is a follow-up visit for negatives I previously seen her for diarrhea symptoms which were thought related to IBS-D. I reviewed her colonoscopy and endoscopic ultrasound with negative biopsies ofboth the duodenum and colon. We also reviewed her lab test from April which were essentially unremarkable including a normal thyroid work-up. She has been on Lomotil as well as pancreatic enzyme replacement therapy all in the context of having a BRCA1 mutation. She states that she had been doing poorly until last week when she saw her primary care provider who started her on cholestyramine. Since starting the cholestyramine she feels much improved. She is having formed bowel movements. Her weight loss has stabilized. Really feels quite well. She continuesto take Lomotil and is wondering if she can discontinue the Creon MEDICATIONS Current Outpatient Medications on File Prior to Visit Medication Sig Dispense Refill ??? diphenoxylate-atropine (LomotiL) 2.5-0.025 mg Tablet Take 1 tablet by mouth every 4 hours as needed for Diarrhea. 60 tablet 0 ??? jkumvc-pqoedxss-qubbrnr DR (Creon) 24,000-76,000 -120,000 unit Capsule, Delayed Release(E.C.) Take 1-2 capsules by mouth 3 times daily (with meals). With Meals: Take 1-2 capsules by mouth. With Snacks: Take 1 capsule by mouth. 270 capsule 3 ??? amLODIPine (Norvasc) 5 mg Tablet 25 mg. No current facility-administered medications on file prior to visit. ALLERGIES: Patient has no known allergies. REVIEW OF SYSTEMS - No change in vision or hearing - No neck pain or dysphagia - No chest pain or SOB - No change in bowel or bladder habits - No focal weakness or numbness - No confusion - No skin lesions - All others negative PHYSICAL EXAM: Exam deferred due to telehealth visit RECENT LABS No results found for this or any previous visit (from the past 24 hour(s)). ASSESSMENT AND PLAN Nataly Kuhn is a 75 y.o. y/o who presents for telehealth/phone follow-up visit. She has a history of a BRCA1 mutation and has been on Creon and Lomotil for IBS-D. She is had a endoscopic ultrasound and colonoscopy with biopsies of the duodenum and colon which have been unremarkable. Her lab testing profiles been unremarkable. She was started on cholestyramine last week and feels much improved. She is having normal bowel movements now. Interestingly she has no history of ileal disease andhas never had a cholecystectomy. I encouraged her to continue on the cholestyramine. Since her weight is stabilized I do not feel that we need to do any further work-up or other evaluation at this time. She will contact me if this does not improve her symptoms and continue on the cholestyramine and Lomotil. I did tell her that she can discontinue the Creon as this was not helpful for her and she had no evidence of pancreatic exocrine insufficiency. All the patient's questions were answered. Will not schedule follow-up visit at this time. I spent a total of 10 minutes with the patient on this telehealth consultation. At the time of the consultation the patient was in [place]. This note was created with [employer] dictation software. Please excuse small typos and misspellings. documented in this encounter Plan of Treatment Not on file documented as of this encounter Visit Diagnoses Diagnosis Functional diarrhea documented in this encounter Care Teams Taxation Agent Relationship Specialty Start Date End Date Dorothea Kaufman MD [address] [facility] [address] [place] [address] PCP - General Family Medicine 02/04/20 documented as of this encounter
--- OUTSIDE RECORDS SUMMARY | 2024-01-21 14:15 | XMS_ITS | Encounter Summary ---
Author Organization [facility] Address [facility] [place] [address] Care Team Providers Care Assembly Machine Offbearer Name Role Phone Dorothea Kaufman MD Primary Care Provider [phone] Reason for Referral * Psychiatric (Routine) - Closed Specialty Diagnoses / Procedures Referred By Tyson rdz Referred To Contact Psychiatry Diagnoses Memory impairment Dorothea Kaufman MD [address] [place] [address] Tierra Hodges, PhD [facility] [place] [address] Referral ID Status Reason Start Date Expiration Date V isits Requested Visits Authorized [id number] Closed Consult, Test & Treat PCP Updated and/or Approved 09/21/2021 09/21/2022 6 6 Encounter Details Date Type Department Care Team ([facility] st Contact Info) Description 09/21/2021 Transcribe Orders eDH Incoming Referrals [phone] Dorothea Kaufman MD [address] [place] [address] Memory impairment Social History Tobacco Use Types Packs/Day Years [...] Schedule Referral to Neuropsychology Outpatient Referral Routine Memory impairment Ordered: 09/21/2021 documented as of this encounter Visit Diagnoses Diagnosis Memory impairment Memory loss documented in this encounter Care Teams Assembly Machine Offbearer Relationship Specialty Start Date End Date Dorothea Kaufman MD [address] [place] [address] PCP - General Family Medicine 02/04/20 documented as of this encounter
--- OUTSIDE RECORDS SUMMARY | 2024-01-21 14:15 | XMS_ITS | Encounter Summary ---
Author Organization [facility] Address [facility] [place] [place] [address] Care Team Providers Care Line Assembler Aircraft Name Role Phone Dorothea Kaufman MD Primary Care Provider [phone] Reason for Referral * Consultation (Routine) - Closed Specialty Diagnoses / Procedures Referred By Tyson rdz Referred To Contact General Surgery Diagnoses Personal history of malignant neoplasm of breast Genetic susceptibility to malignant neoplasm of breast Dorothea Kaufman MD [address] [place] [address] Radha Tello APRN [facility] [place] [address] Referral ID Status Reason Start Date Expiration Date V isits Requested Visits Authorized [id number] Closed Consult, Test & Treat PCP Updated and/or Approved 12/27/2022 12/27/2023 6 6 Encounter Details Date Type Department Care Team (Latest Contact Info) Description 12/27/2022 Transcribe Orders eDH Incoming Referrals [phone] Dorothea Kaufman MD [address] [place] [address] Follow-up exam, more than 1 year since previous exam Social History Tobacco Use Types Packs/Day Years Used Date Smoking Tobacco: Former Cigarettes Q uit: 03/27/1973 Smokeless Tobacco: Never Sex and Gender Information Value Date Recorded Sex Assigned at Not on file Gender Identity Not on file Sexual Orientation Not on file documented as of this encounter Plan of Treatment Scheduled Referrals Name Type Priority Associated Diagnoses Order Schedule Referral to Comprehensive Breast Program Outpatient Referral Routine Follow-up exam, more than 1 year since previous exam Ordered: 12/27/2022 documented as of this encounter Visit Diagnoses Diagnosis Follow-up exam, more than 1 year since previous exam Unspecified follow-up examination documented in this encounter Care Teams Line Assembler Aircraft Relationship Specialty Start Date End Date Dorothea Kaufman MD [facility] [address] [place] [address] PCP - General Family Medicine 02/04/20 documented as of this encounter
--- OUTSIDE RECORDS SUMMARY | 2024-01-21 14:15 | XMS_ITS | Encounter Summary ---
[place] [address] Care Team Providers Care Dress Finisher Name Role Phone Dorothea Kaufman MD Primary Care Provider [phone] Encounter Details Date Type Department Care Team (Latest Contact Info) Description 04/25/2020 1:15 PM EST Laboratory Appointment Lab [address] [place] [id number] Diarrhea due to malabsorption Social History Tobacco Use Types Packs/Day Years [...] Procedure Name Priority Date/Time Associated Diagnosis Comments HC STOOL CULTURE Routine 04/25/2020 2:40 PM EST Diarrhea due to malabsorption CAMPYLOBACTER ANTIGEN Routine 04/25/2020 2:40 PM EST Diarrhea due to malabsorption CRYPTOSPORIDIUM OOCYST ANTIGEN [place] Routine 04/25/2020 2:40 PM EST Diarrhea due to malabsorption HC C. DIFF QUIK CHEK ANTIGEN Routine 04/25/2020 2:40 PM EST Diarrhea due to malabsorption SHIGA TOXIN ASSAY Routine 04/25/2020 2:4 0 PM EST Diarrhea due to malabsorption HC GIARDIA ANTIGEN LEENA METHOD Routine 04/25/2020 2:40 PM EST Diarrhea due to malabsorption GIARDIA ANTIGEN ([facility]/CGP/APD/[facility]) Routine 04/25/2020 2:40 PM EST Diarrhea due to malabsorption STOOL CULTURE Routine 04/25/2020 2:40 PM EST Diarrhea due to malabsorption CMP W/FASTING GLUCOSE Routine 04/25/2020 1:39 PM EST Diarrhea due to malabsorption HEMOGRAM Routine 04/25/2020 1:39 PM EST Diarrhea due to malabsorption DIFFERENTIAL, AUTOMATED Routine 04/25/20 20 1:39 PM EST Diarrhea due to malabsorption HC VENIPUNCTURE Routine 04/25/2020 1:39 PM EST Diarrhea due to malabsorption HC CARBOHYDRATE ANTIGEN 19-9 Routine 04/25/2020 1:39 PM EST Diarrhea due to malabsorption HC TISSUE TRANSGLUTAMINASE AB Routine 04/25/2020 1:39 PM EST Diarrhea due to malabsorption HC PCH IMMUNOGLOBULIN G SUBCLASS 4 (LGG4) Routine 04/25/2020 1:39 PM EST Diarrhea due to malabsorption HC CBC,PLT & AUTO DIFF Routine 0 1:39 PM EST Diarrhea due to malabsorption HC THYROID STIMULATING HORMONE, SERUM Routine 04/25/2020 1:39 PM EST Diarrhea due to malabsorption HC FREE THYROXINE (T4) Routine 0 1:39 PM EST Diarrhea due to malabsorption HC LIPASE Routine 04/25/2020 1:39 PM EST Diarrhea due to malabsorption HC IGA, SERUM Routine 04/25/2020 1:39 PM EST Diarrhea due to malabsorption HC AMYLASE Routine 04/25/2020 1:39 PM EST Diarrhea due to malabsorption documented in this encounter Results * Shiga Toxin Detection (04/25/2020 2:40 PM EST) Shiga Toxin Assay EIA Negative for Shiga Toxin 1 EIA Negative for Shiga Toxin 2 [facility] Stool specimen (specimen) 04/25/2020 2:40 PM EST 04/25/2020 3:58 PM EST Narrative Resulting Agency Comment Spec In Lab Jacques Waggoner MD MICROBIOLOGY - GENE RAL ORDERABLES [facility] [place] [address] * Campylobacter Antigen (04/25/2020 2:40 PM EST) Campylobacter Ag Immunoassay Negative for Campylobacter Antigen [facility] Stool specimen (specimen) 04/25/2020 2:40 PM EST 04/25/2020 3:58 PM EST Narrative Resulting Agency Comment Spec In Lab Jacques Waggoner MD MICROBIOLOGY - GENE RAL ORDERABLES Performing Organization Address City/[facility]/ZIP Co de Phone Number [facility] [place] [address] * Stool culture (04/25/2020 2:40 PM EST) Stool Culture No enteric pathogens isolated [facility] Stool specimen (specimen) 04/25/2020 2:40 PM EST 04/25/2020 3:58 PM EST Narrative Resulting Agency Comment Spec In Lab Jacques Waggoner MD MICROBIOLOGY - GENE RAL ORDERABLES Performing Organization Address City/[facility]/ZIP Co de Phone Number [facility] [place] [address] * Cryptosporidium Oocyst Antigen ([facility]) (04/25/2020 2:40 PM EST) Cryptosporidium Antigen Negative Negative [facility] Stool specimen (specimen) 04/25/2020 2:40 PM EST 04/25/2020 4:00 PM EST Narrative Resulting Agency Comment Spec In Lab Jacques Waggoner MD MICROBIOLOGY - GENE RAL ORDERABLES Performing Organization Address [facility] Co de Phone Number [facility] [place] [address] * Giardia antigen ([facility]/CGP/APD) (04/25/2020 2:40 PM EST) Giardia Antigen Negative Negative [facility] Comment:Examination for othe r intestinal parasites requires foreign travel history. Stool specimen (specimen) 04/25/2020 2:40 PM EST 04/25/2020 4:00 PM EST Narrative Resulting Agency Comment Spec In Lab Jacques Waggoner MD MICROBIOLOGY - GENE RAL ORDERABLES Performing Organization Address [facility] Co de Phone Number [facility] [place] [address] * C. Difficile Screen (04/25/2020 2:40 PM EST) C Diff Interp Negative Negative [facility] Comment: Ag/Tox Neg C. diff?? Negative Clostridium difficile is not present in the specimen. If patient is having diarrhea suspected to be from an infectious cause, then Soap & Water Contact Precautions are still required. Stool specimen (specimen) 04/25/2020 2:40 PM EST 04/25/2020 4:00 PM EST Narrative Resulting Agency Comment Spec In Lab Jacques Waggoner MD MICROBIOLOGY - GENE RAL ORDERABLES Performing Organization Address [facility] Co de Phone Number [facility] [place] [address] * Differential, Automated (04/25/2020 1:39 PM EST) Neutrophil % 56.7 % [facility] Neutrophil Absolute 2.31 1.70 - 6.10 x10(3)/mcL [facility] Lymph % 34.1 % [facility] Lymphocytes Abs 1.4 0.9 - 3.2 x10(3)/[facility] Monocyte % 8.3 % [facility] Monocyte Abs 0.3 0.3 - 0.9 x10(3)/[facility] Eos % 0.7 % [facility] Eosinophils Abs 0.0 0.0 - 0.4 x10(3)/[facility] Basophil % 0.2 % [facility] Baso Absolute 0.0 0.0 - 0.1 x10(3)/[facility] Immature Gran % 0.00 % [facility] Comment: Immature granulocytes(IG's)percentage and absolute count will include metamyelocytes, myelocytes, and promyelocytes. Blood smears from CBCs yielding IG's will be scanned manually for concordance. If this scan disagrees with the automated IG or if promyelocytes are noted, a manual differential will be performed. Immature Gran Absolute 0.00 0.00 - 0.04 x10(3)/[facility] Blood specimen (specimen) 04/25/2020 1:39 PM EST 04/25/2020 1:45 PM EST Narrative Resulting Agency Comment Spec In Lab Jacques Waggoner MD HEMATOLOGY ORDERABL ES Performing Organization Address City/State/[facility] Co de Phone Number [facility] [place] [address] * (ABNORMAL) Hemogram (04/25/2020 1:39 PM EST) White Blood Cell 4.1 4.0 - 9.5 x10(3)/ L [facility] Red Blood Cell 3.74(L) 4.00 - 5.21 x10(6)/ L [facility] Hemoglobin 11.8 11.7 - 15.5 gm/dL [facility] Hematocrit 35.3(L) 35.7 - 45.8 % [facility] Mean Cell Volume 94.4 82.6 - 94.4 fL [facility] Mean Cell Hemoglobin 31.6 27.1 - 32.0 pg [facility] Mean Cell Hemoglobin Concentration 33.4 31.7 - 35.0 gm/dL [facility] Platelet 125(L) 145 - 357 x10(3)/mc L [facility] RDW Standard Deviation 44.4 37.0 - 46.0 fL [facility] RDW coefficient of variation 12.8 11.5 - 14.1 % [facility] Mean Platelet Volume 10.0 7.6 - 12.9 fL [facility] NRBC% auto 0.0 % [facility] NRBC Absolute 0.000 0.000 - 0.000 x10(3)/mc L [facility] Blood specimen (specimen) 04/25/2020 1:39 PM EST 04/25/2020 1:45 PM EST Narrative Resulting Agency Comment Spec In Lab Jacques Waggoner MD HEMATOLOGY ORDERABL ES Performing Organization Address [facility] Co de Phone Number [facility] [place] [address] * IgG 4 (04/25/2020 1:39 PM EST) IgG 4 48.5 4.0 - 86.0 mg/dL [facility] Comment: Test Performed by [email or web address], [email or web address], [address] [place] [address] Altaf Lofton M.D., Ph.D., Director of Laboratories , [facility] [id number] Blood specimen (specimen) 04/25/2020 1:39 PM EST 04/25/2020 4:17 PM EST Narrative Resulting Agency Comment Spec In Lab Jacques Waggoner MD IMMUNOLOGY ORDERABL ES Performing Organization Address City/[facility]/ZIP Co de Phone Number [facility] [place] [address] * Amylase (04/25/2020 1:39 PM EST) Amylase 94 28 - 100 unit/L [facility] Blood specimen (specimen) 04/25/2020 1:39 PM EST 04/25/2020 1:45 PM EST Narrative Resulting Agency Comment Spec In Lab Jacques Waggoner MD CHEMISTRY ORDERABLE S Performing Organization Address [facility] de Phone Number [facility] [place] [address] * Lipase (04/25/2020 1:39 PM EST) Lipase 22 0 - 60 unit/L [facility] Blood specimen (specimen) 04/25/2020 1:39 PM EST 04/25/2020 1:45 PM EST Narrative Resulting Agency Comment Spec In Lab Jacques Waggoner MD CHEMISTRY ORDERABLE S Performing Organization Address [facility] Phone Number [facility] [place] [address] * Tissue transglutaminase, IgA (04/25/2020 1:39 PM EST) Pathologist [facility] TTG IgA Ab 0.3 0.1 - 10.0 u/ml [facility] Comment: Negative = <7 U/mL Equivocal = 7-10 U/mL Positive = >10 U/mL Blood specimen (specimen) 04/25/2020 1:39 PM EST 04/26/2020 7:24 AM EST Narrative Resulting Agency Comment Spec In Lab Jacques Waggoner MD IMMUNOLOGY ORDERABL ES Performing Organization Address [facility] Phone Number [facility] [place] [address] * IgA (04/25/2020 1:39 PM EST) Pathologist [facility] IgA 276 70 - 400 mg/dL [facility] Blood specimen (specimen) 04/25/2020 1:39 PM EST 04/25/2020 1:45 PM EST Narrative Resulting Agency Comment Spec In Lab Jacques Waggoner MD CHEMISTRY ORDERABLE S [facility] [place] [address] * (ABNORMAL) CMP w/fasting Glucose (04/25/2020 1:39 PM EST) Glucose Fasting 90 65 - 99 mg/dL [facility] Comment: ?Fasting* Glucose Interpretive Criteria Normal ?65-99 mg/dL Impaired Fasting glucose ?100-125 mg/dL Consistent with Diabetes Mellitus ? >or= 126 mg/dL *Fasting is defined as no caloric intake for at least 8 hours In the absence of unequivocal hyperglycemia a plasma glucose value of >or= 126 mg/dL should be repeated on a subsequent day. Diagnosis and Classification of Diabetes Mellitus, Position Statement from the [place] [employer]. ??Diabetes Care, Volume 33, Supplement 1, May 2009 Blood Urea Nitrogen 23(H) 8 - 18 mg/dL [facility] Creatinine 1.13 0.70 - 1.20 mg/dL [facility] Sodium 141 135 - 145 mmol/L [facility] Potassium 3.8 3.5 - 5.0 mmol/L [facility] Comment: Please note: ??Patients with WBC >100,000 may have falsely elevated Potassium levels. ??For accurate Potassium quantification in these patients send serum separator tube (gold top) for subsequent determinations. ??Contact the Clinical Chemistry Laboratory if there are any questions. Chloride 105 98 - 107 mmol/L [facility] Carbon Dioxide 29 22 - 31 mmol/L [facility] Anion Gap 7 5 - 15 mmol/L [facility] Calcium 9.0 8.5 - 10.5 mg/dL [facility] Protein, Total 6.5 6.1 - 8.0 gm/dL [facility] Albumin 3.9 3.2 - 5.2 gm/dL [facility] Aspartate Aminotransferase 21 0 - 30 unit/L [facility] Alanine Aminotransferase 15 0 - 30 unit/L [facility] Alkaline Phosphatase 55 35 - 105 unit/L [facility] Bilirubin, Total 1.0 0.2 - 1.3 mg/dL [facility] Est Glomerular Filtration Rate 48(L) >=60 mL/min/1. 73 m?? [facility] Comment: This patient? s estimated glomerular filtration rate (eGFR) is between 48 mL/min/1.73 m2 (patients with less muscle mass) and 55 mL/min/1.73 m2 (patients with more muscle mass) as determined by the CKD-EPI equation. Assessment of eGFR is not appropriate when creatinine concentrations are rapidly changing. For clinical decisions where creatinine clearance will affect therapy, a 24-hour urine creatinine clearance may be advised. Assignment of CKD stage 1 ? 5 for patients with an eGFR near the transition point between stages may be based on clinical assessment of muscle mass and symptoms in addition to eGFR. Blood specimen (specimen) 04/25/2020 1:39 PM EST 04/25/2020 1:45 PM EST Narrative Resulting Agency Comment Spec In Lab Jacques Waggoner MD CHEMISTRY ORDERABLE S Performing Organization Address City/[facility] Co de Phone Number [facility] [place] [address] * TSH (04/25/2020 1:39 PM EST) Thyroid Stimulating Hormone 0.92 0.27 - 4.20 mcIU/mL [facility] Blood specimen (specimen) 04/25/2020 1:39 PM EST 04/25/2020 1:45 PM EST Narrative Resulting Agency Comment Spec In Lab Jacques Waggoner MD CHEMISTRY ORDERABLE S Performing Organization Address City/[facility]/ZIP Co de Phone Number [facility] [place] [address] * T4, free (04/25/2020 1:39 PM EST) Free T4 1.24 0.93 - 1.70 ng/dL [facility] Blood specimen (specimen) 04/25/2020 1:39 PM EST 04/25/2020 1:45 PM EST Narrative Resulting Agency Comment Spec In Lab Jacques Waggoner MD CHEMISTRY ORDERABLE S Performing Organization Address [facility] Co de Phone Number [facility] [place] [address] * Carbohydrate Antigen 19-9 (04/25/2020 1:39 PM EST) CA 19-9 10.1 <=35.0 u/ml [facility] Blood specimen (specimen) 04/25/2020 1:39 PM EST 04/25/2020 1:45 PM EST Narrative Resulting Agency Comment Spec In Lab Jacques Waggoner MD CHEMISTRY ORDERABLE S Performing Organization Address [facility] Co de Phone Number [facility] [place] [address] * Chromogranin A (04/25/2020 1:39 PM EST) Chromogranin A (SEPTEMBER) 92 <93 ng/mL [facility] Comment: ADDITIONAL INFORMATION This test was developed and its performance characteristics determined by [facility] in a manner consistent with CLIA requirements. This test has not been cleared or approved by the U.S. Food and Drug Administration. The testing method is a homogeneous time-resolved immunofluorescent assay. Values obtained with different assay methods or kits may be different and cannot be used interchangeably. Test results cannot be interpreted as absolute evidence for the presence or absence of malignant disease. Test Performed by: [facility] [address] [place] [address] Pipe Bowls Paint Trimmer: Rudy Ortega M.D. Ph.D.; CLIA# [id number] Blood specimen (specimen) 04/25/2020 1:39 PM EST 04/25/2020 4:19 PM EST Narrative Resulting Agency Comment Spec In Lab Jacques Waggoner MD LAB SEND OUT SHAMEKAA JONNY Performing Organization Address City/State/[facility] Co de Phone Number [facility] [place] [address] documented in this encounter Visit Diagnoses Diagnosis Diarrhea due to malabsorption documented in this encounter Care Teams Dress Finisher Relationship Specialty Start Date End Date Dorothea Kaufman MD [facility] [address] [place] [address] PCP - General Family Medicine 02/04/20 documented as of this encounter
--- OUTSIDE RECORDS SUMMARY | 2024-01-21 14:15 | XMS_ITS | Encounter Summary ---
Author Organization [facility] [address] Care Team Providers Care Power Plant Supervisor Name Role Phone Dorothea Kaufman MD Primary Care Provider [phone] Encounter Details Date Type Department Care Team (Latest Contact Info) Description 08/08/2021 9:37 AM EDT - 08/08/2021 11:59 PM EDT Hospital Encounter Mammography/[place] [address] Radha Tello APRN [facility] [place] [address] History of breast cancer; Encounter for screening mammogram for breast cancer [...] CAD AND MALCOLM WITH IMPLANTS RIGHT Routine 08/08/2021 10:01 AM EDT History of breast cancer Encounter for screening mammogram for breast cancer documented in this encounter Results * Mammo Screening Cad and Malcolm with Implants Right (08/08/2021 10:01 AM EDT) [...] by: ??KI TAM MD Radha Tello APRN IMG MAMMO ORDERABLE S documented in this encounter Visit Diagnoses Diagnosis History of breast cancer Personal history of malignant neoplasm of breast Encounter for screening mammogram for breast cancer documented in this encounter Care Teams Power Plant Supervisor Relationship Specialty Start Date End Date Dorothea Kaufman MD [address] [place] [address] PCP - General Family Medicine 02/04/20 documented as of this encounter
--- OUTSIDE RECORDS SUMMARY | 2024-01-21 14:15 | XMS_ITS | Encounter Summary ---
Author Organization [facility] [place] [address] Care Team Providers Care Director Field Services Name Role Phone Dorothea Kaufman MD Primary Care Provider [phone] Encounter Details Date Type Department Care Team ([facility] st Contact Info) Description 05/03/2020 [place] [address] Martha Gutierrez Social History Tobacco Use Types Packs/Day Years Used Date Smoking Tobacco: Former Cigarettes Q uit: 03/27/1973 Smokeless Tobacco: Never Sex and Gender Information Value Date Recorded Sex Assigned at Not on file Gender Identity Not on file Sexual Orientation Not on file documented as of this encounter Miscellaneous Notes * Telephone Encounter - Martha Gutierrez - 05/03/2020 2:22 PM EST Nataly Kuhn [id number] Diagnosis/Indication: [place] 1. Have you ever had a/an Colonoscopy before? Yes: Date Suzanne Gonzalez If yes, did you have any problems with the procedure? No What type of sedation was used: Other: Unknown 2. Do you take any Blood Thinners? No 3. Do you have a Pacemaker or Defibrillator device? No 4. Are you a diabetic? No 5. Do you have any Allergies to Eggs, Latex or Medications? No 6. Do you take any Oral Iron Supplements (Including multi-vitamins)? No 7. Do you have a history of three or more abdominal surgeries? Yes 8. Have you had a problem with sedation or anesthesia? No 9. Do you have a c-pap machine or oxygen tank? Neither 10. Do you take prescription narcotic pain medications, including suboxone or methodone? No 11. Do you have a preference regarding the gender of your provider? No Preference 12. Is there any other information you would like to give us to aid in scheduling? No 13. Say to patient: You must have a responsible libertarian who will drive you to your procedure, stay [place] for the entire duration of your procedure, and drive you home from your procedure? *Please Verify the height and weight, and adjust if height and/or weight have changed* Estimated body mass index is 18.59 kg/m?? as calculated from the following: Height as of 04/25/20: 163.8 cm (5' 4.5). Weight as of 04/25/20: 49.9 kg (110 lb). Age:75 y.o. documented in this encounter Plan of Treatment Not on file documented as of this encounter Visit Diagnoses Not on filedocumented in this encounter Care Teams Director Field Services Relationship Specialty Start Date End Date Dorothea Kaufman MD [address] [place] [address] PCP - General Family Medicine 02/04/20 documented as of this encounter
--- OUTSIDE RECORDS SUMMARY | 2024-01-21 14:15 | XMS_ITS | Encounter Summary ---
Author Organization [facility] Address [address] [place] [address] Care Team Providers Care Dye Winch Operator Name Role Phone Unknown, Provider Primary Care Provider [phone] Dorothea Kaufman MD Primary Care Provider [phone] Encounter Details Date Type Department Care Team (Late st Contact Info) Description 09/06/2019 Lab Requisition [facility]ology [facility] Laboratory Medicine - [facility] [address] [place] [address] Outr Resulting Lab, Provider Social History Tobacco [...] Info) Description 04/21/2024 9:00 EST Office Visit [facility] - Medical Office Building [address] [place] [address] Rudy Chavez MD [facility] Medical Office Building, [address] [place] [phone] Developer Support Engineer, Memory DisorderMD documented as of this encounter Procedures Procedure Name Priority Date/Time Associated Diagnosis Comments DO NOT ORDER STANDALONE - LUISA COVID TESTING Today 09/06/2019 12:00 EDT COVID-19 TESTING Routine 09/06/2019 12:0 0 EDT documented in this encounter Results * DO NOT ORDER STANDALONE - LUISA COVID TESTING (09/06/2019 12:00 EDT) COVID-19 rt-PCR Result Not Detected Not Detected 09/07/2019 14:34 EDT [facility] Comment: This test has not been FDA cleared or approved. This test has been authorized by FDA under an EUA for use by authorized laboratories. ??This test has been authorized only for the detection of nucleic acid from SARS-CoV-2, not for any other viruses or pathogens. ??This test is only authorized for the duration of the declaration that circumstances exist justifying the authorization of emergency use of in vitro diagnostic tests for detection and/or diagnosis of COVID-19 under Section 564(b)(1) of the Act, 21 U.S.C. ?? 360bbb-3(b)(1), unless the authorization is terminated or revoked sooner. ??Factsheets for healthcare providers: ??https://www.fda.gov/media/005469/download Factsheets for patients: https://www.fda.gov/media/244629/download Negative results do not preclude infection with SARS-CoV-2 virus, and should not be the sole basis of a patient management decision. Swab ENTIRE NASOPHARYNX / Unknown 09/06/2019 12:00 EDT 09/06/2019 15:15 EDT Provider Outr Resulting Lab MICROBIOLOGY - GENERAL ORDERABLES [facility] [address], [place] [address] * COVID-19 TESTING (09/06/2019 12:00 EDT) COVID-19 rt-PCR Result Not Detected Not Detected 09/07/2019 14:45 EDT [facility] Comment: This test has not been FDA cleared or approved. This test has been authorized by FDA under an EUA for use by authorized laboratories. ??This test has been authorized only for the detection of nucleic acid from SARS-CoV-2, not for any other viruses or pathogens. ??This test is only authorized for the duration of the declaration that circumstances exist justifying the authorization of emergency use of in vitro diagnostic tests for detection and/or diagnosis of COVID-19 under Section 564(b)(1) of the Act, 21 U.S.C. ?? 360bbb-3(b)(1), unless the authorization is terminated or revoked sooner. ??Factsheets for healthcare providers: ??https://www.fda.gov/media/637244/download Factsheets for patients: https://www.fda.gov/media/837087/download Negative results do not preclude infection with SARS-CoV-2 virus, and should not be the sole basis of a patient management decision. Performing Lab [facility] 09/07/2019 14:45 EDT [facility] Swab ENTIRE NASOPHARYNX / Unknown 09/06/2019 12:00 EDT 09/06/2019 15:15 EDT Provider Outr Resulting Lab MICROBIOLOGY - GENERAL ORDERABLES Performing Organization Address City/State/[facility] Co de Phone Number [facility] [address] [place], [place] [id number] [place] [address] LABORATORY [address] [place] [address] documented in this encounter Visit Diagnoses Not on filedocumented in this encounter Care Teams Dye Winch Operator Relationship Specialty Start Date End Date Unknown, Provider, PCP - General 05/05/19 01/26/20 Dorothea Kaufman MD [address] [place] [phone] PCP - General 01/27/20 documented as of this encounter
--- OUTSIDE RECORDS SUMMARY | 2024-01-21 14:15 | XMS_ITS | Encounter Summary ---
Author Organization [facility] [place] [address] Care Team Providers Care Wick And Base Assembler Name Role Phone Dorothea Kaufman MD Primary Care Provider [phone] Encounter Details Date Type Department Care Team ([facility] st Contact Info) Description 05/03/2020 Telephone [place] [address] Jacques Waggoner MD [facility] [place] [address] Social History Tobacco Use Types Packs/Day Years Used Date Smoking Tobacco: Former Cigarettes Q uit: 03/27/1973 Smokeless Tobacco: Never Sex and Gender Information Value Date Recorded Sex Assigned at Not on file Gender Identity Not on file Sexual Orientation Not on file documented as of this encounter Miscellaneous Notes * Telephone Encounter - Jacques Waggoner MD - 05/03/2020 12:35 PM EST I called Ms. Kuhn. Biopsies of duodenum and stomach were unremarkable. Plan on colonoscopy as next step given change in bowel habits and need to evaluate for colitis. documented in this encounter Plan of Treatment Not on file documented as of this encounter Visit Diagnoses Not on filedocumented in this encounter Care Teams Wick And Base Assembler Relationship Specialty Start Date End Date Dorothea Kaufman MD [address] [place] [address] [facility] [address] [place], [place] [id number] PCP - General Family Medicine 02/04/20 documented as of this encounter
--- OUTSIDE RECORDS SUMMARY | 2024-01-21 14:15 | XMS_ITS | Encounter Summary ---
Author Organization [facility] [place] [address] Care Team Providers Care Time Study Clerk Name Role Phone Dorothea Kaufman MD Primary Care Provider [phone] Encounter Details Date Type Department Care Team ([facility] st Contact Info) Description 08/21/2022 Notes Only [facility] [place] [phone] Divya Coreas Social History Tobacco Use Types Packs/Day Years Used Date Smoking Tobacco: Former Cigarettes Q uit: 03/27/1973 Smokeless Tobacco: Never Sex and Gender Information Value Date Recorded Sex Assigned at Not on file Gender Identity Not on file Sexual Orientation Not on file documented as of this encounter Progress Notes * Divya Coreas - 08/21/2022 3:28 PM EDT Images from the original note were not included. Printed and mailed to patient via US Mail August recall: History of breast cancer - mammo & ov documented in this encounter Plan of Treatment Not on file documented as of this encounter Visit Diagnoses Not on filedocumented in this encounter Care Teams Time Study Clerk Relationship Specialty Start Date End Date Dorothea Kaufman MD [address] [place] [address] PCP - General Family Medicine 02/04/20 documented as of this encounter
--- OUTSIDE RECORDS SUMMARY | 2024-01-21 14:15 | XMS_ITS | Encounter Summary ---
Author Organization [facility] [place] [address] Care Team Providers Care Inspector Line Name Role Phone Dorothea Kaufman MD Primary Care Provider [phone] Encounter Details Date Type Department Care Team ([facility] st Contact Info) Description 06/21/2020 3:00 PM EST Ancillary Procedure Radiology Library at [facility] D[place] [phone] Dorothea Kaufman MD [address] [place] [address] [facility] [address] [place], [place] [address] Social History Tobacco Use Types Packs/Day Years [...] Associated Diagnosis Comments FILM LIBRARY STORAGE ONLY DX HIP Routine 06/21/2020 2:56 PM EST documented in this encounter Results * Film Library- Storage Only DX Hip (06/21/2020 2:56 PM EST) Narrative ARNEL DIMAS - 06/21/2020 2:56 PM EST This exam is auto-finalizing. It's purpose is for storage only. Dorothea Kaufman MD G FILM LIBRARY ORD ERABLES [place] documented in this encounter Visit Diagnoses Not on filedocumented in this encounter Care Teams Inspector Line Relationship Specialty Start Date End Date Dorothea Kaufman MD [facility] [address] [facility] [address] [place] [address] PCP - General Family Medicine 02/04/20 documented as of this encounter
--- OUTSIDE RECORDS SUMMARY | 2024-01-21 14:15 | XMS_ITS | Encounter Summary ---
[place] [address] Care Team Providers Care Motor Carrier Inspector Name Role Phone Dorothea Kaufman MD Primary Care Provider [phone] Encounter Details Date Type Department Care Team (Latest Contact Info) Description 04/22/2023 Travel Social History Tobacco Use Types Packs/Day [...] on filedocumented in this encounter Care Teams Motor Carrier Inspector Relationship Specialty Start Date End Date Dorothea Kaufman MD [facility] [address] [place] [address] PCP - General Family Medicine 02/04/20 documented as of this encounter
--- OUTSIDE RECORDS SUMMARY | 2024-01-21 14:15 | XMS_ITS | Encounter Summary ---
Author Organization [facility] [place] [address] Care Team Providers Care Copy Preparer Name Role Phone Dorothea Kaufman MD Primary Care Provider [phone] Encounter Details Date Type Department Care Team (Late st Contact Info) Description 04/25/2020 Orders [place] [address] Jacques Waggoner MD [facility] [place] [address] Diarrhea due to malabsorption Social History Tobacco [...] documented as of this encounter Results * Chromogranin A (04/25/2020 1:39 PM EST) Chromogranin A (SEPTEMBER) 92 <93 ng/mL [facility] Comment: ADDITIONAL INFORMATION This test was developed and its performance characteristics determined by [facility] in a manner consistent with CLIA requirements. [...] absence of malignant disease. Test Performed by: [facility] [address] [place] [address] Customer Acquisition Manager: Rudy Ortega M.D. Ph.D.; CLIA# [id number] Blood specimen (specimen) 04/25/2020 1:39 PM EST 04/25/2020 4:19 PM EST Narrative Resulting Agency Comment Spec In Lab Jacques Waggoner MD LAB SEND OUT TARUN FULLER [facility] [place] [address] documented in this encounter Visit Diagnoses Diagnosis Diarrhea due to malabsorption documented in this encounter Care Teams Copy Preparer Relationship Specialty Start Date End Date Dorothea Kaufman MD [address] [facility] [address] [place] [address] PCP - General Family Medicine 02/04/20 documented as of this encounter
--- OUTSIDE RECORDS SUMMARY | 2024-01-21 14:15 | XMS_ITS | Encounter Summary ---
Author Organization [facility] [place] [address] Care Team Providers Care Tool And Gauge Inspector Name Role Phone Dorothea Kaufman MD Primary Care Provider [phone] Encounter Details Date Type Department Care Team ([facility] st Contact Info) Description 05/03/2020 Orders [place] [address] Jacques Waggoner MD [facility] [place] [address] Left sided colitis without complications Social History Tobacco Use Types Packs/Day Years Used Date Smoking Tobacco: Former Cigarettes Q uit: 03/27/1973 Smokeless Tobacco: Never Sex and Gender Information Value Date Recorded Sex Assigned at Not on file Gender Identity Not on file Sexual Orientation Not on file documented as of this encounter Plan of Treatment Scheduled Orders Name Type Priority Associated Diagnoses Orde r Schedule ENDOSCOPY CASE REQUEST: COLONOSCOPY, DIAGNOSTIC Procedures Routine Left sided colitis without complications Ordered: 05/03/2020 documented as of this encounter Visit Diagnoses Diagnosis Left sided colitis without complications Left sided ulcerative (chronic) colitis documented in this encounter Care Teams Tool And Gauge Inspector Relationship Specialty Start Date End Date Dorothea Kaufman MD [facility] [address] [place] [address] PCP - General Family Medicine 02/04/20 documented as of this encounter
--- OUTSIDE RECORDS SUMMARY | 2024-01-21 14:15 | XMS_ITS | Encounter Summary ---
Author Organization [facility] [place] [address] Care Team Providers Care Photographer Name Role Phone Dorothea Kaufman MD Primary Care Provider [phone] Encounter Details Date Type Department Care Team ([facility] st Contact Info) Description 04/26/2020 Telephone [place] [address] [facility] [place] [address] Social History Tobacco Use Types Packs/Day Years Used Date Smoking Tobacco: Former Cigarettes Q uit: 03/27/1973 Smokeless Tobacco: Never Sex and Gender Information Value Date Recorded Sex Assigned at Not on file Gender Identity Not on file Sexual Orientation Not on file documented as of this encounter Miscellaneous Notes * Telephone Encounter - Jacques Waggoner MD - 04/26/2020 11:24 AM EST I spike to Nataly about her labs. We will await the results of her biopsies and final stool studies and if negative likely proceed with colonoscopy. documented in this encounter Plan of Treatment Not on file documented as of this encounter Visit Diagnoses Not on filedocumented in this encounter Additional Health Concerns Infection Onset Date Last Indicated Resolved Time Rule Out C. difficile 04/25/2020 04/25/20202019 2:25 PM EST documented as of this encounter Care Teams Photographer Relationship Specialty Start Date End Date Dorothea Kaufman MD [address] [place] [address] PCP - General Family Medicine 02/04/20 documented as of this encounter
--- OUTSIDE RECORDS SUMMARY | 2024-01-21 14:15 | XMS_ITS | Encounter Summary ---
Author Organization [facility] [place] [address] Care Team Providers Care Mold Presser Name Role Phone Dorothea Kaufman MD Primary Care Provider [phone] Reason for Visit * Diagnostic Test (Routine) - Closed Specialty Diagnoses / Procedures Referred By Tyson rdz Referred To Contact Diagnoses Varicose veins of both lower extremities with pain Procedures LE Unilateral Valvular Incomp Study Jai Johansen, LUCAS [facility] [place] [address] [facility] Vascular Lab [address] [address] Referral ID Status Reason Start Date Expiration Date V isits Requested Visits Authorized [id number] Closed Test Only 01/30/2021 01/30/2022 1 1 Encounter Details Date Type Department Care Team (Late st Contact Info) Description 03/07/2021 2:30 PM EDT Tech [place] [address] [address] [place], RVT Varicose veins of both lower extremities with pain Social History Tobacco Use Types Packs/Day Years [...] Procedure Name Priority Date/Time Associated Diagnosis Comments UNLATERAL VALVULAR INCOMP Routine 03/07/2021 2:18 PM EDT Varicose veins of both lower extremities with pain documented in this encounter Results * LE Unilateral Valvular Incomp Study (03/07/2021 2:18 PM EDT) VB Text Report Department: Vascular Surgery Lab Patient: [id number] (NATALY MAYO) CPT: 29880 ICD10: I83.813 Referring Physician: JAI JOHANSEN, LUCAS ?? Indications: ??symptomatic RIGHT LE varicose veins, hx multiple procedures Patient Positioning: ??Reverse Trendelenburg ICD10 Diagnosis Code: I83.813 Findings: Right ?Reflux? Common Femoral Vein ??Reflux ? Femoral Vein ? Reflux ? Popliteal ?Competent ? GSV, Near SFJ ?Not Identified ?? GSV, Proximal Thigh ??Not Identified ?? GSV, Mid Thigh ? Not Identified ?? GSV, Distal Thigh ?Not Identified ?? GSV, ??Knee ? Not Identified ?? GSV Prox Calf ?Not Identified ?? SSV ?Competent ? Interpretation: RIGHT: There is reflux in the common femoral vein and femoral vein in the thigh > 1.5 sec consistent with deep venous valvular incompetence. No evidence of femoral-popliteal deep venous thrombosis. Great saphenous vein not identified. There is a prominent incompetent varicosity the originates in the proximal medial thigh and courses distal and lateral down to the calf and flanagan. Competent small saphenous vein. No previous study in our vascular lab database for comparison. Electronically Signed by: ROB GALAVIZ on 2021-03-07 05:06:28 PM [facility] VB Text Report End of Report [facility] 03/07/2021 2:18 PM EDT Jai Johansen CARBIDE DIE MAKER VASCULAR ORDERABLE S [facility] documented in this encounter Visit Diagnoses Diagnosis Varicose veins of both lower extremities with pain Varicose veins of lower extremities with other complications documented in this encounter Care Teams Mold Presser Relationship Specialty Start Date End Date Dorothea Kaufman MD [address] [facility] 1 [place] [address] PCP - General Family Medicine 02/04/20 documented as of this encounter
--- OUTSIDE RECORDS SUMMARY | 2024-01-21 14:15 | XMS_ITS | Encounter Summary ---
Author Organization [facility] [place] [address] Care Team Providers Care Quick Technician Name Role Phone Dorothea Kaufman MD Primary Care Provider [phone] Encounter Details Date Type Department Care Team ([facility] st Contact Info) Description 03/07/2021 3:30 PM EDT Office [place] [address] Wil Villagomez MD [facility] [place] [address] Varicose veins of both lower extremities with [...] Pulse 82 03/07/2021 4:15 PM EDT Temperature - - Respiratory Rate 18 03/07/2021 4:15 PM EDT Oxygen Saturation - - Inhaled Oxygen Concentration - - Weight 48.5 kg (107 lb) 03/07/2021 4:15 PM EDT Height 162.6 cm (5' 4) 03/07/2021 4:15 PM EDT Body Mass Index 18.37 03/07/2021 4:15 PM EDT documented in this encounter Progress Notes * Wil Villagomez MD - 03/07/2021 3:30 PM EDT Vascular Surgery Follow up Visit CC: Varicose veins Interval history: Since last being seen Ms. Kuhn has had persistent symptoms in both legs. She has been compliant with compression and has been doing exercise, however her symptoms remain lifestyle limiting. She is here today to discuss surgical options. Review of Systems: 10 point review of systems negative except as noted Problem List: Patient Active Problem List Diagnosis ??? Left sided colitis without complications Overview Note: Added automatically from request for surgery [id number] ??? Hypertension ??? History of breast cancer ??? BRCA1 genetic carrier ??? Family history of malignant neoplasm of pancreas Home Medications: Antiplatelet: Aspirin Anticoagulant: None Statin: None Outpatient Medications Marked as Taking for the 03/07/21 encounter (Office Visit) with Wil Villagomez MD Medication Sig Dispense Refill ??? aspirin EC 81 mg Tablet, Delayed Release (E.C.) Take by mouth. ??? cholecalciferol, Vitamin D3, 10 mcg (400 unit) Capsule Take by mouth. ??? vitamin E (vitamin E) 400 unit Capsule Take 400 Units by mouth. ??? amLODIPine (Norvasc) 5 mg Tablet 25 mg. Physical Exam: Temp: -- Heart Rate: [82] Resp: [18] BP: (171)/(84) SpO2: -- Heart Rate from SpO2: -- General: NAD, resting comfortably CVS: Regular rate Pulm: Normal work of breathing on room air GI: Abdomen soft, non tender, non distended Vasc: RLE: Varicose veins LLE: Varicose veins Neuro: CN 2-12 grossly intact, nonfocal, moving all extremities. Studies: Valve incomp study today: Findings: ?? Right ?Reflux? Common Femoral Vein ??Reflux ? Femoral Vein ? Reflux ? Popliteal ?Competent ? GSV, Near SFJ ?Not Identified ?? GSV, Proximal Thigh ??Not Identified ?? GSV, Mid Thigh ? Not Identified ?? GSV, Distal Thigh ?Not Identified ?? GSV, ??Knee ? Not Identified ?? GSV Prox Calf ?Not Identified ?? SSV ?Competent ? Interpretation: ?? RIGHT: There is reflux in the common femoral vein and femoral vein in the thigh > 1.5 sec consistent with deep venous valvular incompetence. No evidence of femoral-popliteal deep venous thrombosis. ?? Great saphenous vein not identified. There is a prominent incompetent varicosity the originates in the proximal medial thigh and courses distal and lateral down to the calf and flanagan. Competent small saphenous vein. ?? No previous study in our vascular lab database for comparison. Assessment and Plan: 76 y.o. female with a remote history of left GSV surgery, presenting for recurrent symptoms in the left leg, and symptoms in the right leg. Her symptoms are of heaviness and pain in the varicosities. This happens with walking long distances, and at the end of the day when being on her feet. Compression and exercise have not helped the symptoms, and they remain lifestyle limiting. On the left her GSV has been treated, but she has residual deep venous incompetence. I explained that we could perform stab phlebectomy to remove the offending varicose veins, which should improve her symptoms, but there is a high likelihood of recurrence. I also suggested that we perform a valve incomp study on the right side, to determine if she also has valve incompetence on the right to explain the varicose veins. She understood, and agreed. I will plan to see her back in 4 weeks with a right sided valve incomp study. We will then at that time determine a plan forward for surgical therapy. Wil Villagomez MD Vascular Surgery [facility] documented in this encounter Plan of Treatment Not on file documented as of this encounter Visit Diagnoses Diagnosis Varicose veins of both lower extremities with pain Varicose veins of lower extremities with other complications documented in this encounter Care Teams Quick Technician Relationship Specialty Start Date End Date Dorothea Kaufman MD [address] [place] [address] PCP - General Family Medicine 02/04/20 documented as of this encounter
--- OUTSIDE RECORDS SUMMARY | 2024-01-21 14:15 | XMS_ITS | Encounter Summary ---
Author Organization [facility] [place] [address] Care Team Providers Care Jira Developer Name Role Phone Dorothea Kaufman MD Primary Care Provider [phone] Encounter Details Date Type Department Care Team ([facility] st Contact Info) Description 04/25/2020 9:45 AM EST - 04/25/2020 11:00 AM EST [place] [id number] Jacques Waggoner MD [facility] [place] [address] UPPER EUS- ENDOSCOPIC ULTRASOUND (WRVU 3.47) Social History Tobacco Use Types Packs/Day Years Used Date Smoking Tobacco: Former Cigarettes Q uit: 03/27/1973 Smokeless Tobacco: Never Sex and Gender Information Value Date Recorded Sex Assigned at Not on file Gender Identity Not on file Sexual Orientation Not on file documented as of this encounter Last Filed Vital Signs Vital Sign Reading Time Taken Comments Blood Pressure 160/84 04/25/2020 9:07 AM EST Pulse 79 04/25/2020 9:07 AM EST Temperature 36.8 ??C (98.2 ??F) 04/25/2020 9:07 AM ES T Respiratory Rate - - Oxygen Saturation 100% 04/25/2020 9:07 AM EST Inhaled Oxygen Concentration - - Weight [...] the day after the procedure, use an dvhw-bhd-crundto spray to numb your throat. Sucking on [...] occurs, please contact your Doctor. Please call [phone] before 8pm Mon-Fri with problems, questions or concerns. If you call after 8pm or on weekends, call the Hospital at [phone] and ask to speak to the Gear Machinist tombstone carver and the cut lace machine operator will contact that person for you. When should you call for help? Call [phone] anytime you think you may need emergency [...] any problems. Where can you learn more? [facility] View your After Visit Summary and more online at [email or web address] If you would like to provide feedback about your hospital experience, please call the Office of Patient and Family Relations at . If you have received this After Visit Summary in error, please immediately return it in person to the department, or notify the [facility] Privacy Office by calling toll free at between the hours of 8AM and 5PM to arrange for our retrieval of the documents at no cost to you. Content Version: 12.2 ?? [id number] [employer]. Care instructions adapted under license by [facility]. If you have questions about a medical condition or this instruction, always ask your healthcare professional. [employer] disclaims any warranty or liability for your [...] the day after the procedure, use an hlsx-pli-egblbyt spray to numb your throat. Sucking on [...] occurs, please contact your Doctor. Please call [phone] before 8pm Mon-Fri with problems, questions or concerns. If you call after 8pm or on weekends, call the Hospital at [phone] and ask to speak to the Gear Machinist tombstone carver and the cut lace machine operator will contact that person for you. When should you call for help? Call 101 anytime you think you may need emergency [...] any problems. Where can you learn more? [facility] View your After Visit Summary and more online at [email or web address] If you would like to provide feedback about your hospital experience, please call the Office of Patient and Family Relations at . If you have received this After Visit Summary in error, please immediately return it in person to the department, or notify the [facility] Privacy Office by calling toll free at between the hours of 8AM and 5PM to arrange for our retrieval of the documents at no cost to you. Content Version: 12.2 ?? [id number] [employer]. Care instructions adapted under license by [facility]. If you have questions about a medical condition or this instruction, always ask your healthcare professional. [employer] disclaims any warranty or liability for your use of this information. documented in this encounter Medications at Time of Discharge Medication Sig Dispensed Refills Start Date End Date aspirin EC 81 mg Tablet, Delayed Release (E.C.) Take by mouth. 09/06/2019 amLODIPine (Norvasc) 5 mg Tablet 25 mg. 03/14/2020 meclizine (Antivert) 25 mg Tablet Take by mouth. 11/28/2019 03/07/2021 jraydq-lppvvkik-xihfdi e DR (Creon) 24,000-76,000 -120,000 unit Capsule, [...] (98.2 ??F), height 163.8 cm (5' 4.5), nzgqno46.9 kg (110 lb), SpO2 100 %. GEN: [...] 11:00 AM EST Upper Gi Endoscopy, Biopsy ([id number]) 04/25/2020 10:48 AM EST ? mass in body of pancreas, BRCA 1 carrier, 1st degreee family h/o pancreas cancer undergo EUS to evaluate the pancreas in more detail and perform FNA biopsy if necessary Endoscopic Us Exam, Esoph ([id number]) 04/25/2020 10:48 AM EST ? mass in [...] AM EST 04/25/2020 11:06 AM EST Narrative [facility] - 04/25/2020 11:06 AM EST Specimen requisition ordered. ??Separate Pathology report to follow Jacques Waggoner MD PATHOLOGY/CYTOLOGY ORDERABLES Performing Organization Address [facility] [place] [address] * Specimen to Pathology (04/25/2020 11:06 AM EST) AP Specimen 04/25/2020 11:0 6 AM EST 04/25/2020 11:06 AM EST Narrative [facility] - 04/25/2020 11:06 AM EST Specimen requisition ordered. ??Separate Pathology report to follow Jacques Waggoner MD PATHOLOGY/CYTOLOGY ORDERABLES Performing Organization Address [facility] [place] [address] * Surgical Pathology Report (04/25/2020 11:00 AM EST) Final Diagnosis [id number] ? Location: 4T; EA13; A The signing [...] PhD, Mary Verified: ??05/02/2020 ?Pathologist Performed at: ??-[facility] Dept. of [place]ology, [place], [place] SPECIMEN(S) SUBMITTED A - duodenal biopsies [...] labeled B1. ??ajw 05/02/2020 2:19 PM EST [facility] GI Biopsy 04/25/2020 11:0 0 AM EST 04/25/2020 11:00 AM EST GI Biopsy 04/25/2020 11:0 0 AM EST 04/25/2020 11:00 AM EST Jacques Waggoner MD PATHOLOGY/CYTOLOGY ORDERABLES [facility] [place] [address] * UPPER EUS-ENDOSCOPIC ULTRASOUND (04/25/2020 10:36 AM EST) UPPER ENDOSCOPIC ULTRASOUND [facility] Endoscopy Procedure Date: 04/25/2020 10:36 AM ? Patient Name: Nataly Kuhn ? Date of : 1945 ? Age: 75 ? Order #: [id number] ? Instrument Name: GF-UE [id number] ? Procedure: ? Upper EUS Indications: ? Weight loss Providers: ? Jacques Waggoner MD, Julianne ? Arely Vickers, ? Rasper Machine Operator Referring : ?Dorothea Kaufman MD Medicines: ? [...] CRNA) documented in this encounter Care Teams Jira Developer Relationship Specialty Start Date End Date Dorothea Kaufman MD [address] [place] [address] PCP - General Family Medicine 02/04/20 documented as of this encounter
--- OUTSIDE RECORDS SUMMARY | 2024-01-21 14:15 | XMS_ITS | Encounter Summary ---
[place] [address] Care Team Providers Care Furnace Attendant Name Role Phone Dorothea Kaufman MD Primary Care Provider [phone] Encounter Details Date Type Department Care Team (Latest Contact Info) Description 02/26/2023 Travel Social History Tobacco Use Types Packs/Day [...] on filedocumented in this encounter Care Teams Furnace Attendant Relationship Specialty Start Date End Date Dorothea Kaufman MD [facility] [address] [place] [address] PCP - General Family Medicine 02/04/20 documented as of this encounter
--- OUTSIDE RECORDS SUMMARY | 2024-01-21 14:15 | XMS_ITS | Encounter Summary ---
Author Organization [facility] [place] [address] Care Team Providers Care Electronics Supervisor Name Role Phone Dorothea Kaufman MD Primary Care Provider [phone] Encounter Details Date Type Department Care Team ([facility] st Contact Info) Description 04/25/2020 Orders [place] [address] Jacques Waggoner MD [facility] [place] [address] Diarrhea due to malabsorption Social History Tobacco [...] documented as of this encounter Results * C. Difficile Screen (04/25/2020 2:40 PM [...] Waggoner MD MICROBIOLOGY - GENE RAL ORDERABLES [facility] [place] [address] * Carbohydrate Antigen 19-9 (04/25/2020 1:39 PM EST) CA 19-9 10.1 <=35.0 u/ml [facility] Blood specimen (specimen) 04/25/2020 1:39 PM EST 04/25/2020 1:45 PM EST Narrative Resulting Agency Comment Spec In Lab Jacques Waggoner MD CHEMISTRY ORDERABLE S [facility] [place] [address] * T4, free (04/25/2020 1:39 PM EST) [facility] Signature Free T4 1.24 0.93 - 1.70 ng/dL [facility] Blood specimen (specimen) 04/25/2020 1:39 PM EST 04/25/2020 1:45 PM EST Narrative Resulting Agency Comment Spec In Lab Jacques Waggoner MD CHEMISTRY ORDERABLE S [facility] [place] [address] * TSH (04/25/2020 1:39 PM EST) [facility] Thyroid Stimulating Hormone 0.92 0.27 - 4.20 mcIU/mL [facility] Blood specimen (specimen) 04/25/2020 1:39 PM EST 04/25/2020 1:45 PM EST Narrative Resulting Agency Comment Spec In Lab Jacques Waggoner MD CHEMISTRY ORDERABLE S [facility] [place] [address] * (ABNORMAL) CMP w/fasting Glucose (04/25/2020 1:39 PM EST) Glucose Fasting 90 65 - 99 mg/dL [facility] Comment: ?Fasting* Glucose Interpretive [...] of Diabetes Mellitus, Position Statement from the [place] [employer]. ??Diabetes Care, Volume 33, Supplement 1, May 2009 Blood Urea Nitrogen 23(H) 8 - 18 mg/dL [facility] Creatinine 1.13 0.70 - 1.20 mg/dL [facility] Sodium 141 135 - 145 mmol/L [facility] Potassium 3.8 3.5 - 5.0 mmol/L [facility] Comment: Please note: ??Patients with WBC >100,000 may have falsely elevated Potassium levels. ??For accurate Potassium quantification in these patients send serum separator tube (gold top) for subsequent determinations. ??Contact the Clinical Chemistry Laboratory if there are any questions. Chloride 105 98 - 107 mmol/L [facility] Carbon Dioxide 29 22 - 31 mmol/L [facility] Anion Gap 7 5 - 15 mmol/L [facility] Calcium 9.0 8.5 - 10.5 mg/dL [facility] Protein, Total 6.5 6.1 - 8.0 gm/dL [facility] Albumin 3.9 3.2 - 5.2 gm/dL [facility] Aspartate Aminotransferase 21 0 - 30 unit/L [facility] Alanine Aminotransferase 15 0 - 30 unit/L [facility] Alkaline Phosphatase 55 35 - 105 unit/L [facility] Bilirubin, Total 1.0 0.2 - 1.3 mg/dL [facility] Est Glomerular Filtration Rate 48(L) >=60 mL/min/1. 73 m?? [facility] Comment: This patient? s [...] MD CHEMISTRY ORDERABLE S Performing Organization Address City/[facility]/ZIP Co de Phone Number [facility] [place] [address] * IgA (04/25/2020 1:39 PM EST) IgA 276 70 - 400 mg/dL [facility] Blood specimen (specimen) 04/25/2020 1:39 PM EST 04/25/2020 1:45 PM EST Narrative Resulting Agency Comment Spec In Lab Jacques Waggoner MD CHEMISTRY ORDERABLE S Performing Organization Address [facility]/ZIP Co de Phone Number [facility] [place] [address] * Tissue transglutaminase, IgA (04/25/2020 1:39 PM EST) TTG IgA Ab 0.3 0.1 - 10.0 u/ml [facility] Comment: Negative = <7 U/mL Equivocal = 7-10 U/mL Positive = >10 U/mL Blood specimen (specimen) 04/25/2020 1:39 PM EST 04/26/2020 7:24 AM EST Narrative Resulting Agency Comment Spec In Lab Jacques Waggoner MD IMMUNOLOGY ORDERABL ES Performing Organization Address [facility] de Phone Number [facility] [place] [address] * Lipase (04/25/2020 1:39 PM EST) Lipase 22 0 - 60 unit/L [facility] Blood specimen (specimen) 04/25/2020 1:39 PM EST 04/25/2020 1:45 PM EST Narrative Resulting Agency Comment Spec In Lab Jacques Waggoner MD CHEMISTRY ORDERABLE S Performing Organization Address [facility] Phone Number [facility] [place] [address] * Amylase (04/25/2020 1:39 PM EST) Amylase 94 28 - 100 unit/L [facility] Blood specimen (specimen) 04/25/2020 1:39 PM EST 04/25/2020 1:45 PM EST Narrative Resulting Agency Comment Spec In Lab Jacques Waggoner MD CHEMISTRY ORDERABLE S Performing Organization Address [facility] Phone Number [facility] [place] [address] * IgG 4 (04/25/2020 1:39 PM EST) IgG 4 48.5 4.0 - 86.0 mg/dL [facility] Comment: Test Performed by [email or web address], [address] [place], [place] Altaf Lofton M.D., Ph.D., Director of Laboratories , [place] [id number] Blood specimen (specimen) 04/25/2020 1:39 PM EST 04/25/2020 4:17 PM EST Narrative Resulting Agency Comment Spec In Lab Jacques Waggoner MD IMMUNOLOGY ORDERABL ES [facility] [place] [place] [address] documented in this encounter Visit Diagnoses Diagnosis Diarrhea due to malabsorption documented in this encounter Care Teams Electronics Supervisor Relationship Specialty Start Date End Date Dorothea Kaufman MD [facility] [address] [place] [address] PCP - General Family Medicine 02/04/20 documented as of this encounter
--- OUTSIDE RECORDS SUMMARY | 2024-01-21 14:15 | XMS_ITS | Encounter Summary ---
Author Organization [facility] [place] [address] Care Team Providers Care Rollout Manager Name Role Phone Dorothea Kaufman MD Primary Care Provider [phone] Reason for Referral * Consultation (Priority 2) - Closed Specialty Diagnoses / Procedures Referred By Tyson rdz Referred To Contact Dermatology Diagnoses Personal history of malignant melanoma of skin Dorothea Kaufman MD [address] [place] [address] [facility] Dermatology [address] [place] [address] Referral ID Status Reason Start Date Expiration Date V isits Requested Visits Authorized [id number] Closed Consult, Test & Treat PCP Updated and/or Approved 11/02/2022 11/02/2023 6 6 Encounter Details Date Type Department Care Team (Latest Contact Info) Description 11/02/2022 Transcribe Orders eDH Incoming Referrals [phone] Dorothea Kaufman MD [address] [place] [address] Personal history of malignant melanoma of skin Social History Tobacco Use Types Packs/Day Years Used Date Smoking Tobacco: Former Cigarettes Q uit: 03/27/1973 Smokeless Tobacco: Never Sex and Gender Information Value Date Recorded Sex Assigned at Not on file Gender Identity Not on file Sexual Orientation Not on file documented as of this encounter Plan of Treatment Scheduled Referrals Name Type Priority Associated Diagnoses Order Schedule Referral to Dermatology Outpatient Referral Routine Personal history of malignant melanoma of skin Ordered: 11/02/2022 documented as of this encounter Visit Diagnoses Diagnosis Personal history of malignant melanoma of skin documented in this encounter Care Teams Rollout Manager Relationship Specialty Start Date End Date Dorothea Kaufman MD [address] [place] [address] PCP - General Family Medicine 02/04/20 documented as of this encounter
--- OUTSIDE RECORDS SUMMARY | 2024-01-21 14:15 | XMS_ITS | Encounter Summary ---
[place] [address] Care Team Providers Care Administrative Law Judge Name Role Phone Dorothea Kaufman MD Primary Care Provider [phone] Reason for Referral * Diagnostic Test (Routine) - Closed Specialty Diagnoses / Procedures Referred By Contac t Referred To Contact Diagnoses Varicose veins of both lower extremities with pain Procedures LE Unilateral Valvular Incomp Study Jai Johansen APRN [facility] [place] [address] [facility] Vascular Lab [address] [place] [phone] Referral ID Status Reason Start Date Expiration Date V isits Requested Visits Authorized [id number] Closed Test Only 01/30/2021 01/30/2022 1 1 Reason for Visit * Consultation (Routine) - Closed Specialty Diagnoses / Procedures Referred By Contac t Referred To Contact Vascular Surgery Diagnoses Asymptomatic varicose veins of unspecified lower extremity Dorothea Kaufman MD [facility] [address] [place] [address] [facility] Vascular Surg [address] [place] [phone] Referral ID Status Reason Start Date Expiration Date V isits Requested Visits Authorized [id number] Closed Consult, Test & Treat Connection Center PCP Updated and/or Approved 12/19/2020 12/19/2021 6 6 Encounter Details Date Type Department Care Team (Late st Contact Info) Description 01/30/2021 1:00 PM EDT Office [place] [address] Jai Johansen, TRAY LINE WORKER [facility] [place] [address] Varicose veins of both lower extremities with [...] Sign Reading Time Taken Comments Blood Pressure 145/76 01/30/2021 12:43 PM EDT Pulse 86 01/30/2021 12:43 PM EDT Temperature - - Respiratory Rate - - Oxygen Saturation - - Inhaled Oxygen Concentration - - Weight 49.4 kg (109 lb) 01/30/2021 12:43 PM EDT reported Height 162.6 cm (5' 4) 01/30/2021 12:43 PM EDT reported Body Mass Index 18.71 01/30/2021 12:43 PM EDT documented in this encounter Progress Notes * Jai Johansen, LUCAS - 01/30/2021 1:00 PM EDT Consult requested by Dorothea Kaufamn MD for evaluation of painful varicose veins. History: This is a 75 y.o. female who has noted painful B LE R>L varicose veins for 30 years s/p right LEvein surgery 15 years ago at [facility] The patient has noted the following symptoms below for 1 year. The patient has used 20-30mmHg compression stockings for several months without improvement in the symptoms. Due to the symptoms below, it is affecting the quality of life. Y N SYMPTOM X Leg aching X Leg swelling X Leg elevation greater than 20 minutes/3x per day X Daily use of compression stockings 20-30mmHg (6-8 weeks) X Family history of varicose veins x History of more than two episodes of phlebitis x Refractory edema x Stasis dermatitis X History of DVT x Prior venous surgery X Prior ulceration X Current ulceration X History of two more episodes of bleeding varicosities X Chronic cellulitis Review of Systems: Prior cardiac history: no Prior pulmonary history: no Prior issues with general anesthesia: no Family history of malignant hyperthermia: no Issues with snoring or sleep apnea: no Patient Active Problem List Diagnosis Code ??? Family history of malignant neoplasm of pancreas Z80.0 ??? Hypertension I10 ??? History of breast cancer Z85.3 ??? BRCA1 genetic carrier Z15.01, Z15.09 ??? 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 aspirin EC 81 mg Tablet, Delayed Release (E.C.) Take by mouth. ??? cholecalciferol, Vitamin D3, 10 mcg (400 unit) Capsule Take by mouth. ??? meclizine (Antivert) 25 mg Tablet Take by mouth. ??? naproxen (Naprosyn) 250 mg Tablet TAKE 1 2 TABLETS BY MOUTH TWICE A DAY NEEDED FOR MODERATE PAIN OR SWELLING ??? vitamin E (vitamin E) 400 unit Capsule Take 400 Units by mouth. ??? amLODIPine (Norvasc) 5 mg Tablet 25 mg. ??? diphenoxylate-atropine (LomotiL) 2.5-0.025 mg Tablet Take 1 tablet by mouth every 4 hours as needed for Diarrhea. (Patient not taking: Reported on 01/30/2021) 60 tablet 0 ??? awcmum-wdquhqfp-bculrjx DR (Creon) 24,000-76,000 -120,000 unit Capsule, Delayed Release(E.C.) Take 1-2 capsules by mouth 3 times daily (with meals). With Meals: Take 1-2 capsules by mouth. With Snacks: Take 1 capsule by mouth. (Patient not taking: Reported on 01/30/2021) 270 capsule 3 No current facility-administered medications on file prior to visit. No Known Allergies PE: Patient Vitals for the past 24 hrs: Pulse BP 01/30/21 1243 86 145/76 Body mass index is 18.71 kg/m??. Heart: RRR, no murmurs, no S3 or S4 Chest: CTA, no wheeze Location of the varicosities: bilateral Size of the varicosities (greater than 3mm): 5-10 mm right anterior thigh lateral knee to anterior calf VV left medial anterior thigh 5-8 mm VV Carotid pulses equal and bilateral No palpable pulsatile abdominal masses, no abdominal bruits Palpable bilateral femoral, popliteal and tibial pulses Y N PHYSICAL FINDINGS X Radial pulses bilaterally X DP and PT pulses bilaterally x Palp cords X Evidence of healed ulceration X Stasis dermatitis X Cellulitis X Palpable Thrills Assessment/Plan: 75 yo female with recurrent of symptomatic rigth LE varicose veins. Prescription for 20-30 mm Hg compression written to be worn daily. Discussed natural history of varicose veins. Recommend elevation, avoiding prolonged periods of sitting or standing. If fails to have symptomatic relief with compression, RTC 4-8 weeks with rigth LE valvular incomp testing and see MD to discuss results and options documented in this encounter Plan of Treatment Not on file documented as of this encounter Results * LE Unilateral Valvular Incomp Study (03/07/2021 2:18 PM EDT) VB Text Report Department: Vascular Surgery Lab Patient: [id number] (MILLER MAYO) CPT: 87591 ICD10: I83.813 Referring Physician: JAI JOHANSEN APRN ?? Indications: ??symptomatic RIGHT LE varicose veins, [...] VASCUBASE 03/07/2021 2:18 PM EDT Jai Johansen TRAY LINE WORKER VASCULAR ORDERABLE S Performing Organization Address City/State/[facility] Co de Phone Number VASCUBASE documented in this encounter Visit Diagnoses Diagnosis Varicose veins of both lower extremities with pain Varicose veins of lower extremities with other complications documented in this encounter Care Teams Administrative Law Judge Relationship Specialty Start Date End Date Dorothea Kaufman MD [address] [place] [address] PCP - General Family Medicine 02/04/20 documented as of this encounter
--- OUTSIDE RECORDS SUMMARY | 2024-01-21 14:16 | XMS_ITS | Encounter Summary ---
Author Organization [facility] [place] [address] Care Team Providers Care Airplane Captain Name Role Phone Dorothea Kaufman MD Primary Care Provider [phone] Reason for Referral * Diagnostic Test (Routine) - Closed Specialty Diagnoses / Procedures Referred By Tyson rdz Referred To Contact Radiology Diagnoses Weight loss, unintentional Family history of pancreatic cancer Procedures CT Abdomen w Contrast Santosh Hamilton MD [facility] [place] [address] [facility] [place] [address] Referral ID Status Reason Start Date Expiration Date V isits Requested Visits Authorized [id number] Closed Specialty Service Requested 03/13/2020 09/10/2021 1 1 Encounter Details Date Type Department Care Team (Late st Contact Info) Description 03/13/2020 Orders Only [place] [address] Santosh Hamilton MD [facility] [place] [address] Weight loss, unintentional; Family history of pancreatic cancer Social History Tobacco Use Types Packs/Day Years Used Date Smoking Tobacco: Never Assessed Sex and Gender Information Value Date Recorded Sex Assigned at Not on file Gender Identity Not on file Sexual Orientation Not on file documented as of this encounter Plan of Treatment Not on file documented as of this encounter Results * CT Abdomen w Contrast (03/27/2020 8:03 AM EST) Anatomical Region Laterality Modality Abdomen Computed Tomogra phy Impressions 03/27/2020 1:35 PM EST No pancreatic lesion or ductal dilatation. I have personally reviewed the image(s) and the resident's interpretation and agree with the findings, Nicho Murphy MD at 03/27/2020 1:35 PM Thank you for letting us participate in the care of this patient. For questions regarding this report, please contact the number below. ? Narrative 03/27/2020 1:35 PM EST EXAMINATION: CT ABDOMEN W CONTRAST CLINICAL HISTORY: Pancreatic cancer, staging Recent weight loss, pancreatic exocrine insufficiency. ??Strong family history of pancreas cancer- eval for mass, ductal dilation? TECHNIQUE: Helical CT of the abdomen was performed following the intravenous administration of 80 mL IV contrast. Oral contrast was administered. COMPARISON: None FINDINGS: Lower chest: Normal. Liver: Small region of hyperattenuation within the lateral tip of the left hepatic lobe (segment 2) measuring 1.6 cm x 1 cm likely represents perfusion defect. No new or enlarging hepatic lesions Bile ducts: Prominent, but not pathologically dilated, common bile duct with no evidence of obstruction. No intrahepatic ductal dilatation. Gallbladder: No calcified gallstones. Normal caliber wall. Pancreas: Normal attenuation without ductal dilatation. Spleen: Normal. Adrenal: Normal. Kidneys: Bilateral extrarenal pelvises without hydronephrosis or proximal collecting system dilatation. No renal calculi. Multiple small foci of hypoattenuation within the bilateral kidneys consistent with renal cysts. Vasculature: No aneurysm. Lymph nodes: No enlarged lymph nodes. Bowel: Small and large bowel loops are nondilated. There is a 2.5 cm distal duodenal diverticulum. Additional areas of colonic diverticulosis without diverticulitis. Peritoneum and mesentery: No ascites, free air, or loculated fluid collection. No mesenteric inflammation. Abdominal wall: Normal. Osseous structures: No suspicious lesions. Procedure Note Nicho Murphy MD - 03/27/2020 EXAMINATION: CT ABDOMEN W CONTRAST CLINICAL HISTORY: Pancreatic cancer, staging Recent weight loss, pancreatic exocrine insufficiency. Strong familyhistory of pancreas cancer- eval for mass, ductal dilation? TECHNIQUE: Helical CT of the abdomen was performed following theintravenous administration of 80 mL IV contrast. Oral contrast was administered. COMPARISON: None FINDINGS: Lower chest: Normal. Liver: Small region of hyperattenuation within the lateral tip of theleft hepatic lobe (segment 2) measuring 1.6 cm x 1 cm likely representsperfusion defect. No new or enlarging hepatic lesions Bile ducts: Prominent, but not pathologically dilated, common bile ductwith no evidence of obstruction. No intrahepatic ductal dilatation. Gallbladder: No calcified gallstones. Normal caliber wall. Pancreas: Normal attenuation without ductal dilatation. Spleen: Normal. Adrenal: Normal. Kidneys: Bilateral extrarenal pelvises without hydronephrosis orproximal collecting system dilatation. No renal calculi. Multiple small foci of hypoattenuation within the bilateral kidneys consistent with renalcysts. Vasculature: No aneurysm. Lymph nodes: No enlarged lymph nodes. Bowel: Small and large bowel loops are nondilated. There is a 2.5 cmdistal duodenal diverticulum. Additional areas of colonic diverticulosiswithout diverticulitis. Peritoneum and mesentery: No ascites, free air, or loculated fluidcollection. No mesenteric inflammation. Abdominal wall: Normal. Osseous structures: No suspicious lesions. IMPRESSION No pancreatic lesion or ductal dilatation. I have personally reviewed the image(s) and the resident's interpretationand agree with the findings, Nicho Murphy MD at 03/27/2020 1:35 PM Thank you for letting us participate in the care of this patient. Forquestions regarding this report, please contact the number below. Santosh Hamilton MD IMG CT ORDERABLES documented in this encounter Visit Diagnoses Diagnosis Weight loss, unintentional Loss of weight Family history of pancreatic cancer Family history of malignant neoplasm of gastrointestinal tract Weight loss, unintentional Loss of weight Family history of pancreatic cancer Family history of malignant neoplasm of gastrointestinal tract documented in this encounter Care Teams Airplane Captain Relationship Specialty Start Date End Date Dorothea Kaufman MD [employer] [facility] [address] [place] [address] PCP - General Family Medicine 02/04/20 documented as of this encounter
--- OUTSIDE RECORDS SUMMARY | 2024-01-21 14:16 | XMS_ITS | Encounter Summary ---
Author Organization [facility] [place] [address] Care Team Providers Care Biomedical Repair Technician Name Role Phone Unavailable Primary Care Provider Unavailabl e Reason for Visit * Reason Onset Date Comments Establish Care 03/29/2019 Encounter Details Date Type Department Care Team ([facility] st Contact Info) Description 03/29/2019 Telephone [place] [phone] Melissa Olvera Establish Care Social History Tobacco Use Types Packs/Day Years Used Date Smoking Tobacco: Never Assessed Sex and Gender Information Value Date Recorded Sex Assigned at Not on file Gender Identity Not on file Sexual Orientation Not on file documented as of this encounter Miscellaneous Notes * Telephone Encounter - Melissa Olvera - 03/29/2019 11:24 AM EST Message: Pt called stating she would like to establish care with Dr. Peck as her whole family has him for a pcp. This agent notified pt that he is not accepting new patients at this time and pt stated it is really important to her to have Dr. Peck as her pcp. Can you please see if Dr. Peck would be willing to accept this pt although he is not accepting new pt's. Please call pt back to discuss Ask caller their first and last name and relationship to the patient: Pt Best time to call back: any Ok to leave a message: yes Ok to send [place] message: no Offered Appointment: MA/Nurse/[place] contacted via: Message: y Call: n Pager: n documented in this encounter Plan of Treatment Not on file documented as of this encounter Visit Diagnoses Not on filedocumented in this encounter
--- OUTSIDE RECORDS SUMMARY | 2024-01-21 14:16 | XMS_ITS | Encounter Summary ---
Author Organization [facility] [place] [address] Care Team Providers Care Bladder Changer Name Role Phone Dorothea Kaufman MD Primary Care Provider [phone] Encounter Details Date Type Department Care Team ([facility] st Contact Info) Description 03/27/2020 Telephone [place] [phone] Zoe Jeong Social History Tobacco Use Types Packs/Day Years Used Date Smoking Tobacco: Former Cigarettes Q uit: 03/27/1973 Smokeless Tobacco: Never Sex and Gender Information Value Date Recorded Sex Assigned at Not on file Gender Identity Not on file Sexual Orientation Not on file documented as of this encounter Miscellaneous Notes * Telephone Encounter - Zoe Jeong - 03/27/2020 9:48 AM EST Nataly Kuhn [id number] Jacques Waggoner MD Diagnosis/Indication: ? Mass in body of pancreas, BRCA carrier, 1st degree family h/o pancreas cancer 1. Have you ever had a/an Upper EUS before? No Do you take any Blood Thinners? No 2. Do you have a Pacemaker or Defibrillator device? No 3. Are you a diabetic? No 4. Do you have any Allergies to Eggs, Latex or Medications? No 5. Do you take any Oral Iron Supplements (Including multi-vitamins)? No 6. Do you have a history of three or more abdominal surgeries? Yes 7. Have you had a problem with sedation or anesthesia? No 8. Do you have a c-pap machine or oxygen tank? Neither 9. Do you take prescription narcotic pain medications, including suboxone or methodone? No 10. Do you have a preference regarding the gender of your provider? No Preference 11. Is there any other information you would like to give us to aid in scheduling? No 12. Say to patient: You must have a responsible green party who will drive you to your procedure, stay [place] for the entire duration of your procedure, and drive you home from your procedure? yes *Please Verify the height and weight, and adjust if height and/or weight have changed* Estimated body mass index is 20.93 kg/m?? as calculated from the following: Height as of an earlier encounter on 03/27/20: 160.7 cm (5' 3.25). Weight as of an earlier encounter on 03/27/20: 54 kg (119 lb 1.6 oz). Age:75 y.o. documented in this encounter Plan of Treatment Not on file documented as of this encounter Visit Diagnoses Not on filedocumented in this encounter Care Teams Bladder Changer Relationship Specialty Start Date End Date Dorothea Kaufman MD [facility] [address] [place] [address] PCP - General Family Medicine 02/04/20 documented as of this encounter
--- OUTSIDE RECORDS SUMMARY | 2024-01-21 14:16 | XMS_ITS | Encounter Summary ---
Author Organization [facility] [place] [address] Care Team Providers Care Corrections Counselor Name Role Phone Unavailable Primary Care Provider Unavailabl e Reason for Visit * Reason Onset Date Comments Establish Care 01/18/2019 Encounter Details Date Type Department Care Team ([facility] st Contact Info) Description 01/18/2019 Telephone [place] [phone] Antoinette Lara Establish Care Social History Tobacco Use Types Packs/Day Years Used Date Smoking Tobacco: Never Assessed Sex and Gender Information Value Date Recorded Sex Assigned at Not on file Gender Identity Not on file Sexual Orientation Not on file documented as of this encounter Miscellaneous Notes * Telephone Encounter - Melissa Olvera - 01/19/2019 8:45 AM EDT This agent placed call to pt and pt stated she has 5 family members that are currently established with Dr. Peck and pt stated she would like to also establish with Dr. Peck. Please see if Dr. Peck would be willing to accept pt as one of his pt's. Please call pt after to discuss. * Telephone Encounter - Antoinette Lara - 01/18/2019 12:40 PM EDT Caller and Relationship (if other than patient-full name): Nataly Call Back Number: [phone] Best Time to Call Back: any OK to Leave Message: y Requested Site/Provider: [facility]- Dr. Peck Immediate Needs: no Comments: Patient would like to have Dr. Peck, states family has him for a provider. documented in this encounter Plan of Treatment Not on file documented as of this encounter Visit Diagnoses Not on filedocumented in this encounter
--- OUTSIDE RECORDS SUMMARY | 2024-01-21 14:16 | XMS_ITS | Encounter Summary ---
[place] [address] Care Team Providers Care Mutuel Clerk Name Role Phone Dorothea Kaufman MD Primary Care Provider [phone] Reason for Referral * Diagnostic Test (Routine) - Closed Specialty Diagnoses / Procedures Referred By Tyson rdz Referred To Contact Radiology Diagnoses Weight loss, unintentional Family history of pancreatic cancer Procedures CT Abdomen w Contrast Santosh Hamilton MD [facility] [place] [place] [address] [facility] [place] [address] Referral ID Status Reason Start Date Expiration Date V isits Requested Visits Authorized [id number] Closed Specialty Service Requested 03/13/2020 09/10/2021 1 1 Reason for Visit * Diagnostic Test (Routine) - Closed Specialty Diagnoses / Procedures Referred By Tyson rdz Referred To Contact Radiology Diagnoses Weight loss, unintentional Family history of pancreatic cancer Procedures CT Abdomen w Contrast Santosh Hamilton MD [facility] [place] [address] [facility] [place] [address] Referral ID Status Reason Start Date Expiration Date V isits Requested Visits Authorized [id number] Closed Specialty Service Requested 03/13/2020 09/10/2021 1 1 Encounter Details Date Type Department Care Team (Late st Contact Info) Description 03/27/2020 6:43 AM EST - 03/27/2020 11:59 PM EST Hospital [place] [phone] Santosh Hamilton MD [facility] [place] [address] Weight loss, unintentional; Family history of pancreatic cancer Discharge Disposition: Home Social History Tobacco [...] mg Tablet Take by mouth. 11/28/2019 03/07/2021 tamoxifen (Nolvadex) 10 mg Tablet Take 10 mg by mouth 2 times daily. 06/20/2020 osxqeg-hvjrkbvu-ndouqr e DR (Creon) 24,000-76,000 -120,000 unit Capsule, Delayed Release(E.C.) Take 3 capsules by mouth 3 times daily (with meals). 250 capsule 3 03/27/2020 03/28/2020 documented as of this encounter Plan of Treatment Not on file documented as of this encounter Procedures Procedure Name Priority Date/Time Associated Diagnosis Comments CT ABDOMEN W CONTRAST Routine 03/27/2020 8:03 AM EST Weight loss, unintentional Family history of pancreatic cancer documented in this encounter Results * CT Abdomen w [...] of gastrointestinal tract documented in this encounter Administered Medications Inactive Administered Medications - up to 3 most recent administrations Medication Order MAR Action Action Date Dose Rate Site iodixanoL (Visipaque) 320 mg iodine/mL injection 0-200 mL 0-200 mL, Intravenous, ONCE PRN, 1 dose, Starting on Fri03/27/20 at 0805, Until Fri03/27/20 at 0805, Per Protocol, Radiology Contrast, Routine Given 03/27/2020 8:05 AM EST 80 mLs documented in this encounter Care Teams Mutuel Clerk Relationship Specialty Start Date End Date Dorothea Kaufman MD [facility] [address] [place] [address] PCP - General Family Medicine 02/04/20 documented as of this encounter
--- OUTSIDE RECORDS SUMMARY | 2024-01-21 14:16 | XMS_ITS | Encounter Summary ---
[place] [address] Care Team Providers Care Textile Finisher Name Role Phone Dorothea Kaufman MD Primary Care Provider [phone] Encounter Details Date Type Department Care Team (Late st Contact Info) Description 03/27/2020 Orders Only [place] [phone] Ysabel Apple, RN Social History Tobacco Use Types Packs/Day [...] on filedocumented in this encounter Care Teams Textile Finisher Relationship Specialty Start Date End Date Dorothea Kaufman MD [facility] [address] [place], [place] [address] PCP - General Family Medicine 02/04/20 documented as of this encounter
--- OUTSIDE RECORDS SUMMARY | 2024-01-21 14:16 | XMS_ITS | Encounter Summary ---
Author Organization [facility] shira [place] [id number] Care Team Providers Care Motel Keeper Name Role Phone Dorothea Kaufman MD Primary Care Provider [phone] Reason for Visit * Consultation (Routine) - Closed Specialty Diagnoses / Procedures Referred By Tyson rdz Referred To Contact General Surgery Diagnoses Family hx Pancreatic CA, BRCA positive, abd pain, diarrhea and weight loss Self mail Santosh Hamilton MD [facility] [place] [address] Referral ID Status Reason Start Date Expiration Date Visits Re quested Visits Authorized [id number] Closed 03/14/2020 03/14/2021 1 1 Encounter Details Date Type Department Care Team ([facility] st Contact Info) Description 03/27/2020 9:00 AM EST Office Visit General Surgery at [place] [phone] Santosh Hamilton MD [facility] [place] [address] Family history of pancreatic cancer Social History [...] Sign Reading Time Taken Comments Blood Pressure 166/94 03/27/2020 8:31 AM EST Pulse 86 03/27/2020 8:31 AM EST Temperature 36.1 ??C (97 ??F) 03/27/2020 8:31 AM EST Respiratory Rate 16 03/27/2020 8:31 AM EST Oxygen Saturation 99% 03/27/2020 8:31 AM EST Inhaled Oxygen Concentration - - Weight 54 kg (119 lb 1.6 oz) 03/27/2020 8:31 AM EST Height 160.7 cm (5' 3.25) 03/27/2020 8:31 AM ES T Body Mass Index 20.93 03/27/2020 8:31 AM EST documented in this encounter Progress Notes * Santosh Hamilton MD - 03/27/2020 9:00 AM EST Surgical Oncology Consultation Note Date: 03/26/2020 Primary physician: Dorothea Kaufman MD Referring physician: Self Reason for evaluation: Family history of pancreatic cancer with unintentional weight loss and progressive diarrhea symptoms History of the present illness: Ms. Kuhn is a 75 year old woman from [place], [place]. she comes into the surgery clinic today as a self-referral after looking up in our pancreas program on the Internet. She has a strong family history of pancreatic cancer-her mother in the mid 80s of pancreatic cancer at the age of 7474 years old and she personally has a known BRCA1 gene mutation and a personal history of breast cancer. Over the past month and a half or so she is noted worsening diarrhea symptoms that she describes as yellowish and thin loose stools that have been ongoing and associated with about 13 pounds of weight loss. She denied any abdominal pain, early satiety, nausea or anorexia symptoms. She has never had pancreatitis before that she could recall. Her normal weight is 125pounds and the lowest weight this past year was 111 pounds. She currently weighs 112 pounds. She is concerned that she may have an underlying diagnosis of pancreatic cancer. No personal history of diabetes. Past Medical History: 1. Personal history of breast cancer 2. Family history of pancreatic cancer 3. History of BRCA1 gene mutation carrier Past Surgical History: 1. 1973 appendectomy 2. 1985 right mastectomy 3. T and 1995 partial mastectomy 4. Shoulder surgeries in 2008, 2011 Review of systems: A comprehensive ROS questionnaire (scanned into [facility]) was completed by the patient - pertinent surgical related findings are summarized below. All other systems on the questionnaire were reviewed and were negative. She has never had a heart attack, stroke or blood clots. In addition to her other history she has arthritis and osteoporosis. She is otherwise very active doing housework, yard work, walking, swimming and riding an exercise bike and weightlifting-before the coronavirus pandemic she was going to [facility] and now she mostly is doing the walking and home exercise. 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 She drinks only an occasional glass of wine with no history of heavy alcohol useand quit smoking in 1971 having smoked about 2-1/2 packs/day or so for 12 years. Family History: . She has no brothers, 1 sister, 2 sons and 1 daughter. As mentioned above her mother at the age of 74 in the mid 80s from metastatic pancreas cancer. Her father at the age of 87 from a heart attack. She has a maternal grandfather that likely of pancreatic cancer as well. Medications: ??? amLODIPine (Norvasc) 5 mg Tablet ??? tamoxifen (Nolvadex) 10 mg Tablet ??? yllvfp-bokdisev-polpbjt DR (Maru) 24,000-76,000 -120,000 unit Capsule, Delayed Release(E.C.) No current facility-administered medications for this visit. Allergies: No Known Allergies Physical Examination: Vital signs: Blood pressure (!) 166/94, pulse 86, temperature 36.1 ??C (97 ??F), resp. rate 16, height 160.7 cm (5' 3.25), weight 54 kg (119 lb 1.6 oz), SpO2 99 %. General: She is thin but otherwise very healthy appearing and able to give an excellent history. She needed a dental exam today without any difficulty. Skin: No jaundice, lesions or masses noted. HEENT: Sclera is anicteric. No supraclavicular or cervical adenopathy. Chest: Clear to auscultation bilaterally on posterior chest garcia. Heart: RRR with no murmurs appreciated. Abdomen: Soft, nondistended and nontender on my exam today. She has prior scars from TRAM breast reconstruction surgery but no palpable masses or hernias. Lymph: No inguinal masses or adenopathy. Extremity exam: No peripheral edema bilaterally. DP palpable bilaterally. Assessment and plans: Nataly is a very pleasant 75-year-old woman with a known personal history ofbreast cancer as well as BRCA1 genetic mutation carrier whose mother of metastatic breast cancer at the age of 74 and about a month and a half ago or so she started having progressive diarrhea symptoms that sound like classic steatorrhea associated with about 13 pounds of weight loss-which amador esponds to about 11% of her total body weight. Given these issues she was concerned about an underlying possible pancreatic cancer and sought consultation after doing Internet research and found our pancreas program. She otherwise though has never had any abdominal or back pain symptoms. No nausea or early satiety.No prior history of pancreatitis. She underwent a pancreatic protocol CT scan this morning and we reviewed the images closely-the final radiographic report is not available to review however there is a subtle cystic mass in the mid body of the pancreas that does not appear to communicate with or obstructive the pancreatic duct which otherwise looks normal all the way from the tail to the head of the pancreas. Pancreas despite this small almost cystic mass looks otherwise normal. Given her family history and personal history with BRCA1 mutation and now this subtle possible massin the body of the pancreas I recommended that she undergo EUS to evaluate the pancreas in more detail and perform FNA biopsy if necessary. I also started her on a trial of Creon with instructions totake 1 to 2 capsules with meals. She is already supplementing her diet with Ensure drinks given the weight loss and knows to try 1 capsule of Creon with each carton of Ensure. She was appreciative ofthis consult and is eager to have the EUS procedure just to be sure given her history and underlying concern for pancreatic cancer which is appropriate. Sukhjinder Hamilton MD 03/27/2020 9:42 AM This note was created using [employer]) voice recognition software. documented in this encounter Plan of Treatment Not on file documented as of this encounter Visit Diagnoses Diagnosis Family history of pancreatic cancer Family history of malignant neoplasm of gastrointestinal tract documented in this encounter Care Teams Motel Keeper Relationship Specialty Start Date End Date Dorothea Kaufman MD [facility] [address] [address] [place] [address] PCP - General Family Medicine 02/04/20 documented as of this encounter
--- OUTSIDE RECORDS SUMMARY | 2024-01-21 14:16 | XMS_ITS | Encounter Summary ---
Author Organization [facility] [place] [address] Care Team Providers Care Thumb Sewer Name Role Phone Dorothea Kaufman MD Primary Care Provider [phone] Encounter Details Date Type Department Care Team ([facility] st Contact Info) Description 03/28/2020 [place] [phone] Vickie Austin Social History Tobacco Use Types Packs/Day Years Used Date Smoking Tobacco: Former Cigarettes Q uit: 03/27/1973 Smokeless Tobacco: Never Sex and Gender Information Value Date Recorded Sex Assigned at Not on file Gender Identity Not on file Sexual Orientation Not on file documented as of this encounter Miscellaneous Notes * Telephone Encounter - Vickie Austin - 03/28/2020 9:38 AM EST [facility]- Associate Pathologist Assistance [facility] has looked into assistance for the following patient, but we have not been able to find any copay cards or foundations with available funding for them. The patient has beenprovided information to apply for supervisor mold yard assistance and we will assist them with this process. The [facility] will follow-up with the patient in 7 days to see if they need any additional guidance, as well as follow up with the supervisor mold yard daily for updates on the status of the application. We will notify the patient and the clinic once a determination has been made. Patient: Nataly Kuhn : 1945 Medication: Creon Dosin,000-76,000 -120,[address] abigail Insurance: [facility] (MEDDADV) Medicare Advantage?: Yes PA has been approved, current copay is: $308.72 Associate Pathologist: [employer] Program phone #: Program fax #: Status: Pending 03/28/20: I spoke with Nataly regarding the [employer] application and she is interested in applying. I provided her with the documents I will need from her as well as a signature on the patientpage of the application. Her internet is currently out but will hopefully be fixed this afternoon and she will be able to respond to the email tomorrow. I will follow up with her tomorrow. 03/29/20: Nataly is still unable to access internet today and thinks it will be fixed later today or Friday. I will call her to check in on Friday. Vickie Austin 03/28/20 9:38 AM documented in this encounter Plan of Treatment Not on file documented as of this encounter Visit Diagnoses Not on filedocumented in this encounter Care Teams Thumb Sewer Relationship Specialty Start Date End Date Dorothea Kaufman MD [address] [place] [address] PCP - General Family Medicine 02/04/20 documented as of this encounter
--- OUTSIDE RECORDS SUMMARY | 2024-01-21 14:16 | XMS_ITS | Encounter Summary ---
Author Organization Formerly [facility] [place] [address] Care Team Providers Care Customer Quality Engineer Name Role Phone Dorothea Kaufman MD Primary Care Provider [phone] Encounter Details Date Type Department Care Team (Late st Contact Info) Description 03/15/2020 Orders [place] [address] Santosh Hamilton MD [facility] [place] [address] Essential hypertension (Primary Dx) Social History Tobacco Use Types Packs/Day Years Used Date Smoking Tobacco: Never Assessed Sex and Gender Information Value Date Recorded Sex Assigned at Not on file Gender Identity Not on file Sexual Orientation Not on file documented as of this encounter Plan of Treatment Not on file documented as of this encounter Visit Diagnoses Diagnosis Essential hypertension- Primary Unspecified essential hypertension documented in this encounter Care Teams Customer Quality Engineer Relationship Specialty Start Date End Date Dorothea Kaufman MD [facility] [address] [place] [address] PCP - General Family Medicine 02/04/20 documented as of this encounter
--- OUTSIDE RECORDS SUMMARY | 2024-01-21 14:16 | XMS_ITS | Encounter Summary ---
Author Organization [facility] [place] [address] Care Team Providers Care Senior Network Systems Engineer Name Role Phone Dorothea Kaufman MD Primary Care Provider [phone] Encounter Details Date Type Department Care Team ([facility] st Contact Info) Description 03/31/2020 External [place] [phone] Social History Tobacco Use Types Packs/Day Years [...] Name Priority Date/Time Associated Diagnosis Comments CT SCAN (SCAN) Routine 01/16/2019 MRI/MRA SCAN Routine 01/06/2019 documented in this encounter Results * Scan Doc: CT Scan (01/16/2019) Anatomical Region Laterality Modality Other Historical Provider MEDIA MGR SCAN EX T ORDR/RSLT * Scan Doc: MRI/MRA (01/06/2019) Anatomical Region Laterality Modality Other Historical Provider MEDIA MGR SCAN EX T ORDR/RSLT documented in this encounter Visit Diagnoses Not on filedocumented in this encounter Care Teams Senior Network Systems Engineer Relationship Specialty Start Date End Date Dorothea Kaufman MD [facility] [address] [place], [place] [id number] PCP - General Family Medicine 02/04/20 documented as of this encounter
--- OUTSIDE RECORDS SUMMARY | 2024-01-21 14:16 | XMS_ITS | Encounter Summary ---
[place] [address] Care Team Providers Care Finishing Supervisor Plastic Sheets Name Role Phone Dorothea Kaufman MD Primary Care Provider [phone] Encounter Details Date Type Department Care Team ([facility] st Contact Info) Description 04/06/2020 Specialty [place] [address] Danilo Hoyt, [facility] Social History Tobacco Use Types Packs/Day Years Used Date Smoking Tobacco: Former Cigarettes Q uit: 03/27/1973 Smokeless Tobacco: Never Sex and Gender Information Value Date Recorded Sex Assigned at Not on file Gender Identity Not on file Sexual Orientation Not on file documented as of this encounter Progress Notes * Danilo Hoyt [facility] - 04/06/2020 12:20 PM EST Specialty Pharmacy Consultation; Danilo Hoyt [facility] Comprehensive Medication Management (CMM): Specialty Consult, Opt Out Nataly Kuhn Diagnosis: suspected pancreatic cancer Therapy Start Date: 04/10/20 Contact in person or via telephone: Telephone Ms. Nataly Kuhn is a 75 y.o. (1945) female who was contacted in regard to specialty medication. Spoke with patient regarding Creon. A review of the medication therapy was performed. The medication was filled for a 6 day supply using the Creon coupon card as a 1 time fill. The patient will be enrolled in the coffee farmer assistance program for all future fills. Is the patient willing to proceed with the Clinical Assessment? No Summary and Recommendations: I reviewed the dosing, administration, and potential side-effects of treatment with the patient. This will be a 1 time fill for 56 capsules and then the patient will fill with the coffee farmer program Economic Assessment: Patient is agreeable to medication copay: Yes Copay Amount: $0.00 Day Supply: 6 days Date Needed: 04/10/20 Therapy Assessment: Appropriate Therapy: Yes Current Medication Dosing/Route/Frequency: Creon - Take 1-2 capsules by mouth 3 times daily (with meals). With Meals: Take 1-2 capsules by mouth with snacks. Max of 9 capsules per day. Additional equipment/supplies required: no Care Plan Reviewed and Approved by Pharmacist : No Problem List: Patient Active Problem List Diagnosis Code ??? Family history of malignant neoplasm of pancreas Z80.0 ??? Hypertension I10 ??? History of breast cancer Z85.3 ??? BRCA1 genetic carrier Z15.01, Z15.09 Medications Reviewed: No Medications reconciled: No Allergies Reviewed:No Allergies reconciled: No Pharmacist follow-up needed: No Informed patient of specialty pharmacy services: No -Patient will be provided with welcome packet: No Date to be provided: 04/07/20 Delivery Method: Mail -Patient returned signed Rights & Responsibilities: Yes Date to be provided: 04/07/20 Delivery Method: Mail -Patient is aware a licensed pharmacist is available 24 hours a day, 7 days a week to discuss medication-related questions or concerns: Yes -Patient verbalizes understanding of the common side effect profile of their medication. The patient is able to call 911 or seek urgent care if signs/symptoms of allergy or harmful adverse reactions occur: Yes Patient understands no changes to current drug regimen were made at the appointment and that the pharmacist is providing recommendations (summary located at top of note) for provider review and follow up. Danilo Hoyt RPH 04/06/20 12:21 PM documented in this encounter Plan of Treatment Not on file documented as of this encounter Visit Diagnoses Not on filedocumented in this encounter Care Teams Finishing Supervisor Plastic Sheets Relationship Specialty Start Date End Date Dorothea Kaumfan MD [facility] [address] [place] [address] PCP - General Family Medicine 02/04/20 documented as of this encounter
--- OUTSIDE RECORDS SUMMARY | 2024-01-21 14:16 | XMS_ITS | Encounter Summary ---
Author Organization [facility] [place] [address] Care Team Providers Care Director Of Advertising Sales Name Role Phone Dorothea Kaufman MD Primary Care Provider [phone] Encounter Details Date Type Department Care Team ([facility] st Contact Info) Description 03/13/2020 Telephone [place] [phone] Marga Mcmillan Social History Tobacco Use Types Packs/Day Years Used Date Smoking Tobacco: Never Assessed Sex and Gender Information Value Date Recorded Sex Assigned at Not on file Gender Identity Not on file Sexual Orientation Not on file documented as of this encounter Miscellaneous Notes * Telephone Encounter - Marga Mcmillan - 03/13/2020 12:23 PM EST Nataly called to get advice from Dr Sanotsh Hamilton. She has a family history of pancreatic cancer (mother from Panc CA).She reports having Diarrhea,for the last month with no change in diet, etc and has lost 10 lbs in the last year. She said she has weighed the same since high school, so this is very unusual. She found Dr Hamilton's name on the Internet and is wondering if he has any advise? She has also left a message for her PCP, thinking having a CT scan may be the first step. I said I will check with Dr Hamilton and get back to her. documented in this encounter Plan of Treatment Not on file documented as of this encounter Visit Diagnoses Not on filedocumented in this encounter Care Teams Director Of Advertising Sales Relationship Specialty Start Date End Date Dorothea Kaufman MD [facility] [address] [place] [address] PCP - General Family Medicine 02/04/20 documented as of this encounter
--- OUTSIDE RECORDS SUMMARY | 2024-01-21 14:16 | XMS_ITS | Encounter Summary ---
Author [facility] [place] [address] Care Team Providers Care Research Chef Name Role Phone Dorothea Kaufman MD Primary Care Provider [phone] Encounter Details Date Type Department Care Team ([facility] st Contact Info) Description 04/06/2020 [place] [phone] Danilo Hoyt, [facility] Social History Tobacco Use Types Packs/Day Years Used Date Smoking Tobacco: Former Cigarettes Q uit: 03/27/1973 Smokeless Tobacco: Never Sex and Gender Information Value Date Recorded Sex Assigned at Not on file Gender Identity Not on file Sexual Orientation Not on file documented as of this encounter Miscellaneous Notes * [facility] - [facility] 12:49 PM EST [facility] Air Boatswain Assistance [facility] has looked into assistance for the following patient, but we have not been able to find any copay cards or foundations with available funding for them. The patient has beenprovided information to apply for machine leather trimmer assistance and we will assist them with this process. [facility] will follow-up with the patient in 7 days to see if they need any additional guidance, as well as follow up with the machine leather trimmer daily for updates on the status of the application. We will notify the patient and the clinic once a determination has been made. Patient: Nataly Kuhn : 1945 Medication: Creon 24 Dosing: Creon 24 1-2 capsule, Oral, 3 TIMES DAILY WITH MEALS, With Meals: Take 1-2 capsules by mouth. With Snacks: Take 1 capsule by mouth. Insurance: [employer] Medicare part D Medicare Part D?: Yes PA has been approved, current copay is: Yes Air Boatswain: [employer] Program phone #: Program fax #: Status: Pending 04/06/20: The completed application for Creon was faxed to [employer] (fax: ) on04/06/20. The following documents were included in the re- enrollment application. 1. Completed patient form 2. Completed provider form 3.Three months of bank statements 4. Medicare Part A + B card 5. Medicare Part D Card 6. Patient hardship letter 7. Medical expense form 04/07/20: Called and spoke with rep at [employer] and they had received the patient applicationbut require the submission of the back of both the patient's medicare part A+B and part D insurancecards. I called Nataly and asked her to send over the image of the back of the cards. I then faxedthe front and back of both per Medicare cards to . Will check back on 04/10/20. 04/10/20: Called and spoke with a rep at [employer] and they stated the Nataly's application had been approved on 04/08/20 for free Creon through 05/04/21. The prescription was currently pending and would be delivered to the patient in the next 3 to 5 business days. I called and let Nataly know of her approval and provider her the contact number with [employer] to request refills ( ). Approval good through: 05/04/21 For refills patient to call: Fax prescriptions to: I will follow-up with this patient's application daily until approval. Danilo Hoyt RPH 04/06/20 12:49 PM documented in this encounter Plan of Treatment Not on file documented as of this encounter Visit Diagnoses Not on filedocumented in this encounter Care Teams Research Chef Relationship Specialty Start Date End Date Dorothea Kaufman MD [facility] [address] [facility] [address] [place] [address] PCP - General Family Medicine 02/04/20 documented as of this encounter
--- OUTSIDE RECORDS SUMMARY | 2024-01-21 14:16 | XMS_ITS | Encounter Summary ---
Author Organization [facility] [place] [address] Care Team Providers Care Clinical Documentation Developer Name Role Phone Dorothea Kaufman MD Primary Care Provider [phone] Encounter Details Date Type Department Care Team (Late st Contact Info) Description 03/28/2020 Orders [place] [address] [address] [place] [address] Social History Tobacco Use Types Packs/Day Years [...] on filedocumented in this encounter Care Teams Clinical Documentation Developer Relationship Specialty Start Date End Date Dorothea Kaufman MD [address] [place] [address] PCP - General Family Medicine 02/04/20 documented as of this encounter
--- NOTE | 2024-01-21 14:30 | DI.RAD_ITS ---
Exam(s) XR CHEST 2V PA LATERAL EXAM: XR CHEST 2V PA LATERAL CLINICAL HISTORY: ams, unsteady, htn TECHNIQUE: 2D digital imaging was performed. Two views. COMPARISON: CR,XR XR ABD FLAT UPRIGHT PA CHEST from 10/31/[address] HEAD CERVICAL SPINE WO from 09/20/2023 FINDINGS: HEART: Normal size. Aorta: Not dilated. PULMONARY VASCULATURE: Normal. MEDIASTINUM: Unremarkable. LUNGS: Clear. PLEURAL SPACE: No pleural effusion or pneumothorax. BONE:Left shoulder prosthesis. SOFT TISSUES: Right breast implant. Surgical clips in the anterior chest bilaterally. IMPRESSION: No acute abnormality. DATA REPOSITORY: RADIATION DOSE DELIVERED:
--- NOTE | 2024-01-21 14:30 | DI.CT_ITS ---
Exam(s) CT BRAIN NECK CTA EXAM: CT BRAIN NECK CTA CLINICAL HISTORY: dizzy, headache, htn. TECHNIQUE: Imaging Protocol: Axial CT angiography was performed with multi-slice acquisition and mu lti-planar and MIP reconstructions. CONTRAST MATERIAL: Intravenous: Omnipaque 350 Contrast volume:70 ml COMPARISON: CT CT HEAD CERVICAL SPINE WO from 09/20/2023 FINDINGS: CT Head W/O and W contrast: Ventricles and Extra axial spaces: Normal in size and morphology for the patient's age. Hemorrhage: None. Cerebral parenchyma: No evidence of acute infarct or mass. Mild white matter changes consistent wi th small vessel disease. Midline shift: None. Brainstem/Cerebellum: No acute findings.. Calvarium: Normal. Visualized Paranasal sinuses/Mastoids: Clear. Soft Tissues: Unremarkable. Enhancement: Normal. CTA Brain W: Internal Carotid Arteries: Petrous: Normal. Cavernous: Normal. Cerebral: Normal. Middle Cerebral Arteries: Right: No aneurysm, occlusion or significant stenosis. Left: No aneurysm, occlusion or significant stenosis. Anterior Cerebral Arteries: Right: No aneurysm, occlusion or significant stenosis. Left: No aneurysm, occlusion or significant stenosis. Posterior cerebral Arteries: Right: No aneurysm, occlusion or significant stenosis. Left: No aneurysm, occlusion or significant stenosis. Vertebral Arteries: Right: No aneurysm, occlusion or significant stenosis. Left: No aneurysm, occlusion or significant stenosis. Basilar Artery: No aneurysm, occlusion or significant stenosis. CTA Neck W: Common Carotid: Right: Tortuous proximally. Mild calcific plaque at the bulb. No dissection, occlusion or significa nt stenosis. Left: Tortuous proximally. Mild calcific plaque at the bulb. No dissection, occlusion or significan t stenosis. External Carotid: Right: No dissection, occlusion or significant stenosis. Left: No dissection, occlusion or significant stenosis. Internal Carotid: Right: No dissection, occlusion or significant stenosis. Left: No dissection, occlusion or significant stenosis. Vertebral Artery: Right: Dominant no dissection, occlusion or significant stenosis. Left: Diminutive. No dissection or occlusion. Subclavian arteries: Left subclavian artery shows multifocal heterogeneous irregular atherosclerotic changes without significant stenosis. The right subclavian artery is unremarkable. Lung Apices: No acute findings. Bones: No acute abnormality. Degenerative changes in the cervical spine. Left shoulder prosthesis. Soft Tissues: Normal. IMPRESSION: 1. CTA brain: Normal CTA examination of the [place] of [place]. 2. Head CT: Unremarkable CT Head. 3. CTA neck: Mild calcific plaque at the common carotid bulbs that evidence of significant stenosis. Left subclavian artery shows atherosclerotic changes without significant stenosis. RADIATION DOSE DELIVERED: Total DLP DATA REPOSITORY: All CT scans at this facility are submitted to the National Radiology Data Registry (NRDR) Dose Index Registry (DIR) with the [employer] (ACR). RADIATION OPTIMIZATION: All CT scans at this facility use at least one of these dose optimization te chniques: automated exposure control; mA and/or kV adjustment per patient size (includes targeted exa ms where dose is matched to clinical indication); or iterative reconstruction.
--- NOTE | 2024-01-21 14:53 | W.ED.GENAD ---
Discharge Plan Disposition Patient Disposition: Home Condition: Improving Discharge Details Clinical Impression: Dizziness Primary Care Provider: Dorothea Kaufman ED Provider: Alfredo Redmond Home Meds and New Rx's Prescriptions: New meclizine 25 mg tablet 25 mg PO DAILY PRN (Reason: dizziness) Qty: 10 0RF No Action memantine 10 mg tablet 10 mg PO BID Qty: 180 3RF albuterol sulfate [Ventolin HFA] 90 mcg/actuation HFA aerosol inhaler 2 puff inhalation Q4H PRN aspirin [Aspirin Childrens] 81 mg tablet,chewable 81 mg PO DAILY omega-3 fatty acids [Super Norwalk-3] 1,000 mg capsule 1,000 mg PO DAILY estradiol [Yuvafem] 10 mcg tablet 10 mcg vaginal DAILY PRN donepezil 10 mg tablet 10 mg PO QHS Qty: 90 3RF azpqttaq-ojtt-tdrzf-oreg-capry 100 mg-150 mg- 50 mg-150 mg capsule 1 cap PO DAILY atorvastatin 40 mg tablet 40 mg PO DAILY meclizine 25 mg tablet 25 mg PO TID PRN folic acid 1 mg tablet 1 mg PO DAILY cyanocobalamin (vitamin B-12) 1,000 mcg capsule 1,000 mcg PO DAILY cholecalciferol (vitamin D3) [Vitamin D3] 10 mcg (400 unit) Capsule 50 mcg PO DAILY acetaminophen 500 mg tablet 1,000 mg PO Q8H PRN (Reason: pain) Qty: 90 3RF amlodipine 5 mg tablet 1 tab PO DAILY Patient Comments: Take 1 tablet by mouth once a day Discharge Instructions Instructions: Dizziness, Adult ED Additional Instructions: Please follow-up with primary care physician and neurology. Return to the emergency department for any worsening symptoms HPI General Date/Time Provider Initiated Documentation: 01/21/24 14:26. HPI Narrative: 74-year-old female brought in by friend for evaluation of nausea vomiting lightheadedness dizziness and altered mental status noted this afternoon, patient Dors is mild gradual onset headache unsteady sensation nausea with 1 episode of vomiting now resolved. Endorses history of migraines and vertigo in the past. Denies chest pain or shortness of breath denies new medication. Denies trauma Related Data Home Medications ?Medication ?Instructions ?Recorded ?Confirmed cholecalciferol (vitamin D3) 10 50 mcg PO DAILY 05/15/20 01/01/24 mcg (400 unit) capsule (Vitamin D3) albuterol sulfate 90 mcg/actuation 2 puff inhalation Q4H PRN 08/08/21 01/01/24 aerosol inhaler (Ventolin HFA) aspirin 81 mg chewable tablet 81 mg PO DAILY 08/08/21 01/01/24 (Aspirin Childrens) omega-3 fatty acids 1,000 mg 1,000 mg PO DAILY 08/08/21 01/01/24 capsule (Super Norwalk-3) acetaminophen 500 mg tablet 1,000 mg (2 x 500 mg) PO Q8H PRN 09/11/21 01/01/24 pain #90 tabs atorvastatin 40 mg tablet 40 mg PO DAILY 11/26/21 01/01/24 cyanocobalamin (vitamin B-12) 1,000 mcg PO DAILY 11/26/21 01/01/24 1,000 mcg capsule folic acid 1 mg tablet 1 mg PO DAILY 11/26/21 01/01/24 meclizine 25 mg tablet 25 mg PO TID PRN 11/26/21 01/01/24 turmeric 100 mg-natasha 150 1 cap PO DAILY 11/26/21 01/01/24 mg-olive 50 mg-oreg 150 mg-capryl capsule amlodipine 5 mg tablet 1 tab PO DAILY 03/12/22 01/01/24 estradiol 10 mcg vaginal tablet 10 mcg vaginal DAILY PRN 04/16/22 01/01/24 (Yuvafem) memantine 10 mg tablet 10 mg PO BID #180 tabs 07/03/23 01/01/24 donepezil 10 mg tablet 10 mg PO QHS #90 tabs 01/01/24 01/01/24 meclizine 25 mg tablet 25 mg PO DAILY PRN dizziness #10 01/21/24 tabs Previous Rx's ?Medication ?Instructions ?Recorded acetaminophen 500 mg tablet 1,000 mg (2 x 500 mg) PO Q8H PRN 09/11/21 pain #90 tabs memantine 10 mg tablet 10 mg PO BID #180 tabs 07/03/23 donepezil 10 mg tablet 10 mg PO QHS #90 tabs 01/01/24 meclizine 25 mg tablet 25 mg PO DAILY PRN dizziness #10 01/21/24 tabs Allergies Allergy/AdvReac Type Severity Reaction Status Date / Time No Known Drug Allergies Allergy Other (See Verified 01/21/24 13:59 Comment) tomato juice AdvReac Intermediate Other (See Uncoded 01/21/24 13:59 Comment) General Stated Complaint: Dizzy/Sync SHERRY: 3 Exam Narrative Exam Narrative: Alert oriented interactive Nonmeningeal Pupils round reactive to light normal conjunctiva no rhinorrhea or otorrhea Moist mucous membranes tongue secretions normal voice Lungs clear bilaterally no wheezes rales or rhonchi Normal heart sounds no murmurs rubs or gallops Abdomen soft nontender nondistended Alert oriented, 5-5 strength upper lower extremities bilaterally, sensation to light touch intact bilaterally, no ataxia cranial nerves II through XII intact Appropriate mood and affect No peripheral edema no signs of trauma Course Vital Signs Vital signs: Vital Signs Temperature 36.8 C 01/21/24 13:54 Pulse 80 01/21/24 13:54 Respiratory Rate 18 01/21/24 13:54 Blood Pressure 182/102 H 01/21/24 13:54 Pulse Oximetry 98 01/21/24 13:54 Temperature 36.8 C 01/21/24 13:54 Temperature Source Temporal Artery Scan 01/21/24 13:54 Pulse 77 01/21/24 14:34 Respiratory Rate 18 01/21/24 13:54 Blood Pressure 184/88 H 01/21/24 14:34 Blood Pressure Position Sitting 01/21/24 13:54 Pulse Oximetry 99 01/21/24 14:34 Oxygen Delivery Method Room Air 01/21/24 14:34 Oxygen Flow Rate 0 01/21/24 14:34 Pain Level 0 01/21/24 13:54 Medical Decision Making 74-year-old female brought in by friend for evaluation of nausea vomiting lightheadedness dizziness and altered mental status noted this afternoon, patient Dors is mild gradual onset headache unsteady sensation nausea with 1 episode of vomiting now resolved. Endorses history of migraines and vertigo in the past. Denies chest pain or shortness of breath denies new medication. Denies trauma; patient hemodynamically stable although noted to be hypertensive arrival afebrile nontoxic nonmeningeal, nonfocal neurologic examination alert oriented, no chest pain or shortness of breath. Normal sinus rhythm normal axis normal intervals nonischemic EKG. Consider vertigo versus migraine headache versus dehydration versus electrolyte derangement versus hypertensive emergency versus TIA versus less likely CVA muscles consider intracranial hemorrhage muscles consider viral illness versus electrolyte derangement versus dehydration versus UTI. Labs imaging close reassessment 18: 07 patient resting actively no acute distress feeling much better after meclizine. CTA unremarkable. Labs and imaging unremarkable. Will prescribe meclizine will refer for neurology follow-up home care instructions and return precautions given. Family here to take her home Quality:SDOH Health Related Social Needs: No Data to Display PFSH All Active Problems (Updated 01/21/24 @ 18:08 by Alfredo Redmond MD) Dizziness (Acute) Alzheimer's dementia (Acute) Impairment of speech discrimination (Acute) Sensorineural hearing loss, bilateral (Acute) Mixed conductive and sensorineural hearing loss of right ear with restricted hearing of left ear (Acute) Mild cognitive impairment (Acute) Status post reverse total replacement of left shoulder (Acute 01/04/21) Weight loss (Acute) Cognitive changes (Acute) Greater trochanteric bursitis of left hip (Acute) Depo-Medrol injection: 11/26/21 Lymphedema of arm (Acute) Primarily left arm Medical History History of vertigo PMB (postmenopausal bleeding) 03/14/22. D&C: Endometrial polyp,no atypia, atrophic endometrium. No additional testing needed. Weakness of left hip Hearing loss Pain, joint, shoulder region, left Right leg pain Leg pain, left Weight loss Hyperlipidemia Folate deficiency anemia BRCA1 gene mutation positive S/p lap BSO Breast cancer s/p mastectomy and tamoxifen Mixed conductive and sensorineural hearing loss Mitral valve regurgitation Hx of malignant melanoma Varicose veins of both lower extremities Osteopenia Venous stasis dermatitis Asthma, mild intermittent Hx of adenomatous colonic polyps Hypertension, essential, benign Intraductal papillary mucinous neoplasm Wart of hand Leg pain, bilateral Anorexia Memory impairment Trochanteric bursitis, left hip Contracture of left shoulder Tendinitis of long head of biceps brachii of left shoulder Rotator cuff tear arthropathy of left shoulder Atrophic vaginitis History of tamoxifen therapy History of breast cancer Stopped Tamoxifen 2019 after episode of postmenopausal bleeding Vaginal discharge Rx for atrophic vaginitis with limited course of vaginal E2. Surgical History History of hip surgery left hip - placed pin History of total left hip arthroplasty (09/11/21) DOS 09/11/21 History of colonoscopy Hx of dilation and curettage 01/2020 for thickened endometrial lining: inactive endometrium History of hysteroscopy 01/2020. for thickened endometrium while taking Tamoxifen. D&C: inactive endometrium. 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
[2024-01-21] MEDS: Meclizine 25 MG TAB PO (15:01)
[2024-01-21] MEDS: ACETAMINOPHEN 1,000 MG/100 ML BTL 400 MG IVPB (15:01)
[2024-01-21] MEDS: Normal Saline 500 ML 1000 ML IV (15:01)
[2024-01-21 15:22] LABS: Abs Immature Grans 0.01 10^3/uL (0.0-0.06); Absolute Basophil Count 0.01 10^3/uL (0.0-0.2); Absolute Eosinophil Count 0.01 10^3/uL (0.0-0.7); Absolute Lymphocyte Count 0.52 10^3/uL (1.2-3.4); Absolute Monocyte Count 0.38 10^3/uL (0.1-0.8); Absolute Neutrophil Count 3.64 10^3/uL (1.2-6.7); Basophils % 0.2 %; Eosinophils % 0.2 %; HCT 38.7 % (36.0-46.0); HGB 13.2 g/dL (11.2-15.7); Immature Grans % 0.2 %; Lymphocytes % 11.4 %; MCH 31.9 pg (27.0-33.0); MCHC 34.1 % (32.0-36.0); MCV 94 fL (80-95); MPV 9.6 fL (8.0-11.0); Monocytes % 8.3 %; Neutrophils % 79.7 %; Platelet Count 159 10^3/uL (130-400); RBC 4.14 10^6/uL (3.93-5.22); RDW 12.4 % (11.7-14.6); RDW-SD 43.1 fL; WBC 4.57 10^3/uL (4.4-10.8)
[2024-01-21 15:39] LABS: PTT Activated 25.6 sec (23.6-32.8); Prothrombin Time 10.2 sec (9.1-11.1)
[2024-01-21 15:45] LABS: COVID-19 PCR Negative (Negative); Influenza A PCR Negative (Negative); Influenza B PCR Negative (Negative); RSV PCR Negative (Negative)
[2024-01-21 15:47] LABS: ALT 18 U/L (14-59); AST 20 U/L (15-37); Albumin 3.6 g/dL (3.4-5.0); Alkaline Phosphatase 73 U/L (46-116); Anion Gap 7.7 mmol/L (3-11); BUN 18 mg/dL (7-18); Bilirubin, Total 1.99 mg/dL (0.2-1.0); CO2 28.3 mmol/L (21.0-32.0); CREATININE 1.1 mg/dL (0.55-1.02); Calcium 9.3 mg/dL (8.5-10.1); Chloride 104 mmol/L (98-107); Estimated GFR 51.75 (mL/min/1.73m2); Glucose 112 mg/dL (74-106); NT-proBNP 370 pg/mL (<300); Potassium 3.2 mmol/L (3.5-5.1); Sodium 140 mmol/L (136-145); Troponin I 11 ng/L (<or=51)
[2024-01-21 15:51] LABS: Source Nasopharynx
[2024-01-21 15:52] LABS: ETHANOL BLOOD < 3.0 mg/dL (<10)
[2024-01-21 16:21] LABS: Ammonia 13 umol/L (11-32)
[2024-01-21] MEDS: Omnipaque 350 MG/ML 100 ML BTL IJ (17:05)
[2024-01-21] MEDS: Normal Saline - Diluent 50 ML VIAL IJ (17:05)
[2024-01-21 17:20] LABS: Troponin I 13 ng/L (<or=51)
== END 2024-01-21 18:27 | disposition home or self-care (01) ==
PROVIDERS: Emergency Provider Emergency Medicine; PCP Family Medicine
DX: R11.2 Nausea with vomiting, unspecified (principal); R42 Dizziness and giddiness; I10 Essential (primary) hypertension; G30.9 Alzheimer's disease, unspecified; F02.80 Dementia in other diseases classified elsewhere, unspecified severity, without behavioral disturbance, psychotic disturbance, mood disturbance, and anxiety; Z87.891 Personal history of nicotine dependence
CPT/HCPCS: 36415; 70496; 70498; 80053; 80307; 82962; 87637; 93005; 96365; 99285; 71046; 80320; 81003; 82140; 83735; 83880; 84443; 84484; 85025; 85610; 85730; 93010; 99284; J0131; J3490

== ENCOUNTER 2024-03-03 15:24 | Emergency (ER) | payer MEDICARE, BC, SELFPAY ==
[2024-03-03 15:27] VITALS: BP 144/92; PULSE 80; RESP 20; TEMP 36.7; O2SAT 99
--- NOTE | 2024-03-03 15:30 | RT.EKG_ITS ---
APPROVED REPORT Exam: Resting ECG Reason for Exam: Vertigo Patient Location: E HR:72 bpm ECG Measurements Heart Rate 72 AXIS DE 165 P 69 QRSd 77 QRS 7 QT 426 T 46 QTc 466 Conclusion Sinus rhythm...normal P axis, V-rate 60- 99 Anterior infarct, old...Q >40mS, abnormal ST-T, V2-V5 new peaked T waves compared to prior
--- OUTSIDE RECORDS SUMMARY | 2024-03-03 15:45 | XMS_ITS | Encounter Summary ---
Author Organization [facility] Address [address] [place] [address] Care Team Providers Care Hogshead Head Matcher Name Role Phone Dorothea Kaufman MD Primary Care Provider Encounter Details Date Type Department Care Team (Late Contact Info) Description 08/03/2020 Lab Requisition [facility] Pathology & Laboratory Medicine - [facility] [address] [place] [address] Outr Resulting Lab, Provider Social History Tobacco Use Types Packs/Day Years Used Date Smoking Tobacco: Never Assessed Sex and Gender Information Value Date Recorded Sex Assigned at Not on file Gender Identity Female 04/14/2023 9:02 EST Sexual Orientation Not on file documented as of this encounter Plan of Treatment Upcoming Encounters Date Type Department Care Team ([facility] Contact Info) Description 04/21/2024 9:00 EST Office Visit [facility] Memory Program - Medical Office Building [address] [place] [address] Rudy Chavez MD 2 [facility], [address] [place] [phone] Train Operations Manager, Memory DisorderMD documented as of this encounter Procedures Procedure Name Priority Date/Time Associated Diagnosis Comments GIARDIA AND CRYPTOSPORIDIUM ANTIGENS Routine 08/03/2020 14:00 EDT OVA/PARASITE EXAM Routine 08/03/2020 14: 00 EDT documented in this encounter Results * GIARDIA AND CRYPTOSPORIDIUM ANTIGENS (08/03/2020 14:00 EDT) Giardia and Cryptosporidium Cryptosporidium Antigen Neg and Giardia Antigen Neg Cryptosporidium Antigen Neg and Giardia Antigen Neg 11:23 EDT [facility] Feces SPECIMEN FROM RECTUM / Unknown 08/03/2020 14:00 EDT 08/03/2020 21:27 EDT Provider Outr Resulting Lab MICROBIOLOGY - GENERAL ORDERABLES Performing Organization Address City/[facility] Co de Phone Number [facility] [address] [place] [address] * OVA/PARASITE EXAM (08/03/2020 14:00 EDT) Parasite No ova and parasites seen. 08/04/2020 11:23 EDT [facility] ZZUNK SPECIMEN FROM RECTUM / Unknown 08/03/2020 14:00 EDT 08/03/2020 21:27 EDT Narrative [facility] - 08/04/2020 11:23 EDT (If Cryptosporidium, Cyclospora, or Microsporidium are suspected, specific tests must be requested.) Single negative specimen does not rule out the possibility of a parasitic infection. Provider Outr Resulting Lab MICROBIOLOGY - GENERAL ORDERABLES Performing Organization Address City/[facility] Co de Phone Number [facility] [address] [place] [address] documented in this encounter Visit Diagnoses Not on filedocumented in this encounter Care Teams Hogshead Head Matcher Relationship Specialty Start Date End Date Dorothea Kaufman MD [address] [place] [phone] PCP - General 01/27/20 documented as of this encounter
--- OUTSIDE RECORDS SUMMARY | 2024-03-03 15:45 | XMS_ITS | Encounter Summary ---
Author Organization [facility] Address [address] [place] [address] Care Team Providers Care Arc And Gas Welder Name Role Phone Dorothea Kaufman MD Primary Care Provider [phone] Encounter Details Date Type Department Care Team (Late Contact Info) Description 07/05/2022 Orders Only [facility] Program - Medical Office Building [address] [place] [address] Rudy Chavez MD [address] [place] [address] Office Building, [address] [place] [phone] Social History Tobacco Use Types Packs/Day Years Used Date Smoking Tobacco: Never Assessed Sex and Gender Information Value Date Recorded Sex Assigned at Not on file Gender Identity Female 04/14/2023 9:02 EST Sexual Orientation Not on file documented as of this encounter Plan of Treatment Upcoming Encounters Date Type Department Care Team (Late Contact Info) Description 04/21/2024 9:00 EST Office Visit [facility] Program - Medical Office Building [address] [place] [phone] Rudy Chavez MD [address] [place] [address] Office Building, [address] [place] [phone] Hat Designer, Memory MD Peter documented as of this encounter Visit Diagnoses Not on filedocumented in this encounter Care Teams Arc And Gas Welder Relationship Specialty Start Date End Date Dorothea Kaufman MD [address] [place] [phone] PCP - General 01/27/20 documented as of this encounter
--- OUTSIDE RECORDS SUMMARY | 2024-03-03 15:45 | XMS_ITS | Encounter Summary ---
Author Organization [facility] [place] [address] Care Team Providers Care Sedimentationist Name Role Phone Dorothea Kaufman MD Primary Care Provider [phone] Encounter Details Date Type Department Care Team (Latest Contact Info) Description 08/08/2021 9:37 AM EDT - 08/08/2021 11:59 PM EDT Hospital Encounter Mammography/[place] [address] Radha Tello APRN [facility] [place] [address] History of breast cancer; Encounter for screening [...] cancer documented in this encounter Care Teams Sedimentationist Relationship Specialty Start Date End Date Dorothea Kaufman MD [address] [place] [address] PCP - General Family Medicine 02/04/20 documented as of this encounter
--- OUTSIDE RECORDS SUMMARY | 2024-03-03 15:45 | XMS_ITS | Encounter Summary ---
Author Organization [facility] [place] [address] Care Team Providers Care Legal Service Specialist Name Role Phone Dorothea Kaufman MD Primary Care Provider [phone] Reason for Visit * Reason Comments Follow-up * Consultation (Routine) - Closed Specialty Diagnoses / Procedures Referred By Contac t Referred To Contact General Surgery Diagnoses Personal history of malignant neoplasm of breast Genetic susceptibility to malignant neoplasm of breast Dorothea Kaufman MD [address] [place] [address] [address] Radha Tello [address]N [facility] [place] [address] Referral ID Status Reason Start Date Expiration Date V isits Requested Visits Authorized [id number] Closed Consult, Test & Treat PCP Updated and/or Approved 12/27/2022 12/27/2023 6 6 Encounter Details Date Type Department Care Team (Late st Contact Info) Description 04/22/2023 2:00 PM EST Office [place] [address] Radha Tello TARGET PROTECTION SPECIALIST [facility] [place] [address] Encounter for screening mammogram for breast cancer Social History Tobacco Use Types Packs/Day Years Used Date Smoking Tobacco: Former Cigarettes Q uit: 03/27/1973 Smokeless Tobacco: Never Sex and Gender Information Value Date Recorded Sex Assigned at Not on file Gender Identity Not on file Sexual Orientation Not on file documented as of this encounter Progress Notes * Radha Tello, T[employer] PROTECTION SPECIALIST - 04/22/2023 2:00 PM EST Nataly Kuhn is a 78 y.o. female with a BRCA 1 mutation and history of breast cancer x 3. [facility]has been [facility]. 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 An Oncotype score at that time revealed a score of 24 which equated to a 16% risk of distant recurrence within 10 years. She was not offered chemotherapy and was placed on tamoxifen. Vibha is of Ashkenazi sikhism descent and was found to be a BRCA 1 carrier. She had prophylactic bilateral oophorectomy. Uterus and cervix are intact. Vibha has been on tamoxifen since 2013 but stopped in 2019 due to rust colored vaginal discharge. Shewas under the care of Dr. Benjamin Miguel at [facility]. 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 She is living in [facility] near her son. She does not smoke, previouslysmoked for 8 years. 2-3 alcohol beverages a week. Medical hx: Adult onset asthma, facial melanoma, osteopenia, HTN Past Surgical History: Procedure Laterality Date BREAST BIOPSY BREAST ENHANCEMENT SURGERY BREAST LUMPECTOMY Right w/ SLNB MASTECTOMY Left PRO COLONOSCOPY, BIOPSY N/A 05/17/2020 COLONOSCOPY FLEXIBLE, WITH BX (WRVU 3.66) performed by Jacques Waggoner MD at [facility] ENDOSCOPY PRO COLONOSCOPY, DIAGNOSTIC N/A 05/17/2020 COLONOSCOPY, DIAGNOSTIC performed by Jacques Waggoner MD at [facility] ENDOSCOPY PRO ENDOSCOPIC US EXAM, ESOPH N/A 04/25/2020 UPPER EUS- ENDOSCOPIC ULTRASOUND performed by Jacques Waggoner MD at [facility] ENDOSCOPY PRO UPPER GI ENDOSCOPY, BIOPSY N/A 04/25/2020 EGD WITH BIOPSY (WRVU 2.49) performed by Jacques Waggoner MD at [facility] ENDOSCOPY Mohs procedure, tonsillectomy, rotator cuff [...] cancer documented in this encounter Care Teams Legal Service Specialist Relationship Specialty Start Date End Date Dorothea Kaufman MD [address] [place] [address] PCP - General Family Medicine 02/04/20 documented as of this encounter
--- OUTSIDE RECORDS SUMMARY | 2024-03-03 15:45 | XMS_ITS | Encounter Summary ---
Author Organization [facility] Address [facility] [place] [address] Care Team Providers Care Manager Of Case Name Role Phone Dorothea Kaufman MD Primary Care Provider [phone] Reason for Referral * Psychiatric (Routine) - Closed Specialty Diagnoses / Procedures Referred By Tyson rdz Referred To Contact Psychiatry Diagnoses Memory impairment Dorothea Kaufman MD [address] [place] [address] Tierra Hodges, PhD [facility] [place] [address] Referral ID Status Reason Start Date Expiration Date V isits Requested Visits Authorized [id number] Closed Consult, Test & Treat PCP Updated and/or Approved 09/21/2021 09/21/2022 6 6 Encounter Details Date Type Department Care Team ([facility] st Contact Info) Description 09/21/2021 Transcribe Orders eDH Incoming Referrals [phone] Dorothea Kaufman MD [address] [place] [address] Memory impairment Social History Tobacco [...] loss documented in this encounter Care Teams Manager Of Case Relationship Specialty Start Date End Date Dorothea Kaufman MD [address] [place] [address] PCP - General Family Medicine 02/04/20 documented as of this encounter
--- OUTSIDE RECORDS SUMMARY | 2024-03-03 15:45 | XMS_ITS | Encounter Summary ---
Author Organization [facility] Address [address] [place] [address] Care Team Providers Care Services Coordinator Name Role Phone Unknown, Provider Primary Care Provider [phone] Dorothea Kaufman MD Primary Care Provider [phone] Encounter Details Date Type Department Care Team (Late st Contact Info) Description 09/06/2019 Lab Requisition [facility] Pathology & Laboratory Medicine - [facility] [address] [place] [address] Outr Resulting Lab, Provider Social History Tobacco [...] Info) Description 04/21/2024 9:00 EST Office Visit [facility] Memory Program - Medical Office Building [address] [place] [address] Rudy Chavez MD 2 [facility] Medical Office Building, [address] [place] [phone] Players Assistant, Memory DisorderMD documented as of this encounter Procedures Procedure Name Priority Date/Time Associated Diagnosis Comments DO NOT ORDER STANDALONE - LUISA COVID TESTING Today 09/06/2019 12:00 EDT COVID-19 TESTING Routine 09/06/2019 12:0 0 EDT documented in this encounter Results * DO NOT ORDER STANDALONE - LUISA COVID TESTING (09/06/2019 12:00 EDT) COVID-19 rt-PCR Result Not Detected Not Detected 09/07/2019 14:34 EDT [facility] Comment: This test has not been [...] or revoked sooner. ??Factsheets for healthcare providers: ??https://www.fda.gov/media/873057/download Factsheets for patients: https://www.fda.gov/media/517320/download Negative results do not preclude infection with SARS-CoV-2 virus, and should not be the sole basis of a patient management decision. Swab ENTIRE NASOPHARYNX / Unknown 09/06/2019 12:00 EDT 09/06/2019 15:15 EDT Provider Outr Resulting Lab MICROBIOLOGY - GENERAL ORDERABLES [facility] [address] [place], [place] [address] * COVID-19 TESTING (09/06/2019 12:00 EDT) COVID-19 rt-PCR Result Not Detected Not Detected 09/07/2019 14:45 EDT [facility] Comment: This test has not been [...] or revoked sooner. ??Factsheets for healthcare providers: ??https://www.fda.gov/media/254538/download Factsheets for patients: https://www.fda.gov/media/455320/download Negative results do not preclude infection with SARS-CoV-2 virus, and should not be the sole basis of a patient management decision. Performing Lab [facility] 09/07/2019 14:45 EDT [facility] Swab ENTIRE NASOPHARYNX / Unknown 09/06/2019 12:00 EDT 09/06/2019 15:15 EDT Provider Outr Resulting Lab MICROBIOLOGY - GENERAL ORDERABLES Performing Organization Address City/State/[facility] Co de Phone Number [facility] [address] [place], [place] [phone] [place] [address] LABORATORY [address] [place] [address] documented in this encounter Visit Diagnoses Not on filedocumented in this encounter Care Teams Services Coordinator Relationship Specialty Start Date End Date Unknown, Provider, PCP - General 05/05/19 01/26/20 Dorothea Kaufman MD [address] [place] [phone] PCP - General 01/27/20 documented as of this encounter
--- OUTSIDE RECORDS SUMMARY | 2024-03-03 15:45 | XMS_ITS | Encounter Summary ---
Author Organization [facility] Address [address] [place] [address] Care Team Providers Care Conference Manager Name Role Phone Dorothea Kaufman MD Primary Care Provider [phone] Encounter Details Date Type Department Care Team (Late Contact Info) Description 10/08/2022 Orders Only [facility] Program - Medical Office Building [address] [place] [address] Desirae Catalan MA Social History Tobacco Use Types Packs/Day Years Used Date Smoking Tobacco: Never Assessed Sex and Gender Information Value Date Recorded Sex Assigned at Not on file Gender Identity Female 04/14/2023 9:02 EST Sexual Orientation Not on file documented as of this encounter Plan of Treatment Upcoming Encounters Date Type Department Care Team ([facility] Contact Info) Description 04/21/2024 9:00 EST Office Visit [facility] - Medical Office Building [address] [place] [address] Rudy Chavez MD [address] [place] [address] Medical Office Building, [address] [place] [phone] Machine Edge Bander, Memory DisorderMD documented as of this encounter [...] 04/19/2022 added in this encounter Care Teams Conference Manager Relationship Specialty Start Date End Date Dorothea Kaufman MD [address] [place] [phone] PCP - General 01/27/20 documented as of this encounter
--- OUTSIDE RECORDS SUMMARY | 2024-03-03 15:45 | XMS_ITS | Encounter Summary ---
[place] [address] Care Team Providers Care E Business Project Manager Name Role Phone Dorothea Kaufman MD Primary Care Provider [phone] Encounter Details Date Type Department Care Team [...] on filedocumented in this encounter Care Teams E Business Project Manager Relationship Specialty Start Date End Date Dorothea Kaufman MD [facility] [address] [place] [address] PCP - General Family Medicine 02/04/20 documented as of this encounter
--- OUTSIDE RECORDS SUMMARY | 2024-03-03 15:45 | XMS_ITS | Encounter Summary ---
Author Organization [facility] [place] [address] Care Team Providers Care Screen And Cyclone Repairer Name Role Phone Dorothea Kaufman MD Primary Care Provider [phone] Encounter Details Date Type Department Care Team (Latest Contact Info) Description 02/26/2023 9:56 AM EDT - 02/26/2023 11:59 PM EDT Hospital Encounter Mammography/[place] [address] Encounter for screening mammogram for breast cancer [...] who have questions please contact the health rn homecare that requested your imaging first. ? Electronically signed by: Star Enrique MD, [facility] ([phone]), at 02/26/2023 10:47 AM Narrative 02/26/2023 10:47 AM EDT EXAMINATION: MAMMO [...] appearance of the breast parenchyma. Radha Tello COMBINATION TECHNICIAN IMG MAMMO ORDERABLE S documented in this encounter Visit Diagnoses Diagnosis Encounter for screening mammogram for breast cancer documented in this encounter Care Teams Screen And Cyclone Repairer Relationship Specialty Start Date End Date Dorothea Kaumfan MD [address] [place] [address] PCP - General Family Medicine 02/04/20 documented as of this encounter
--- OUTSIDE RECORDS SUMMARY | 2024-03-03 15:45 | XMS_ITS | Clinical Summary ---
Author Organization [facility] Address [address] [place] [address] Care Team Providers Care Petrography Teacher Name Role Phone Dorothea Kaufman MD Primary Care Provider [phone] Allergies Active Allergy Reactions Criticality Noted Date [...] Work Services at the Memory Program, 2023-05-30. [facility] Memory [facility] CHRISTOPHER scanned to [facility] on: 2023-03-31 Problem Noted Date Diagnosed [...] Info) Description 04/21/2024 9:00 EST Office Visit [facility] Memory Program - Medical Office Building [address] [place] [address] Rudy Chavez MD [address] [place], [place] [address]ny [facility] Medical Office Building, [address] [place] [phone] Section Leader And Machine Setter, Lindsay Green MD Health Maintenance Due Date Last Done Comments Asthma Action Plan 1945 Lung Function Test (Spirometry) 1945 RSV Immunization ( o r 60+ Years) (1 - 1-dose 60+ series) 2006 COVID-19 Vaccine ( season) 2024 Fall Risk Screening 10/14/2024 10/15/2023, Hepatitis C [...] C Antibody Negative Negative 07/19/2021 9:37 EDT [facility] Blood VENOUS BLOOD / Unknown 07/18/2021 9:58 EDT 07/18/2021 21:26 EDT Provider Outr Resulting Lab CHEMISTRY & BLOOD GAS ORDERABLES [facility] [address] [place] [address] from Last 3 Months or Most Recently Relevant to Health Maintenance Care Teams Petrography Teacher Relationship Specialty Start Date End Date Dorothea Kaufman MD [address] [place] [phone] PCP - General 01/27/20
--- OUTSIDE RECORDS SUMMARY | 2024-03-03 15:45 | XMS_ITS | Encounter Summary ---
Author Organization [facility] Address [facility] [place] [address] Care Team Providers Care Condenser Winder Name Role Phone Dorothea Kaufman MD Primary Care Provider [phone] Reason for Visit * Reason Comments Skin Check * Consultation (Priority 2) - Closed Specialty Diagnoses / Procedures Referred By Contac t Referred To Contact Dermatology Diagnoses Personal history of malignant melanoma of skin Dorothea Kaufman MD [address] [place] [address] [address] [facility] Dermatology [address] [place] [address] Referral ID Status Reason Start Date Expiration Date V isits Requested Visits Authorized [id number] Closed Consult, Test & Treat PCP Updated and/or Approved 11/02/2022 11/02/2023 6 6 Encounter Details Date Type Department Care Team ([facility] Contact Info) Description 04/15/2023 2:00 PM EST Office Visit Dermatology at [facility] [address] [place] [phone] Geoffrey Brooks MD [facility] DR DEONTE [place] [address] Solar lentigo; Seborrheic keratosis; Multiple benign nevi; [...] this encounter Progress Notes * [facility] - 04/15/2023 2:00 PM EST Images from [...] 1 yr for FSE []Note routed to private secretary [x]Recall placed in scheduling system []Appointment scheduled at checkout Scribe attestation: Andria Price RN has performed the documentation for this encounter in the presence of and acting as a scribe for GEOFFREY BROOKS MD. I performed the above scribed service and agree with the accuracy of the documentation in this encounter. Reviewed and signed by: GEOFFREY BROOKS MD Dermatology [facility] documented in this encounter Plan of [...] complication documented in this encounter Care Teams Condenser Winder Relationship Specialty Start Date End Date Dorothea Kaufman MD [address] [place] [address] PCP - General Family Medicine 02/04/20 documented as of this encounter
--- OUTSIDE RECORDS SUMMARY | 2024-03-03 15:45 | XMS_ITS | Encounter Summary ---
Author Organization [facility] Address [address] [place] [address] Care Team Providers Care Buckle Gluer Name Role Phone Unknown, Provider Primary Care Provider [phone] Dorothea Kaufman MD Primary Care Provider [phone] Encounter Details Date Type Department Care Team (Late Contact Info) Description 09/14/2019 Lab Requisition [facility] Pathology & Laboratory Medicine - [facility] [address] [place] [address] Benjamin Miguel MD [address] [place] [address] Encounter for other general examination Social History [...] Info) Description 04/21/2024 9:00 EST Office Visit [facility] Memory Program - Medical Office Building [address] [place], [place] [address] Rudy Chavez MD 2 [facility] Medical Office Building, [address] [place] [phone] Rubber Turner, Lindsay Green MD documented as of this [...] hyperplasia and glo malignancy. 09/15/2019 9:47 EDT [facility] at 0947 Attestation By the signature below, the attending physician certifies that they have 1) personally conducted a gross and/or microscopic examination of the described specimen(s), and/or personally interpreted the results of laboratory testing of the described specimen(s), and 2) personally rendered or confirmed the above diagnosis. 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 Received in formalin labelled with proper patient identification (initials A, M) and endometrial Bx is an aggregate of blood-tinged mucin (0.5 x 0.4 x 0.4 cm). The specimen is submitted entirely in A1. 09/14/2019 15:46 09/15/2019 9:47 EDT [facility] Scanned Images 09/15/2019 9:47 EDT [facility] Tissue ENTIRE ENDOMETRIUM / Unknown 09/14/2019 9:35 EDT 09/14/2019 15:41 EDT Benjamin Miguel MD PATHOLOGY ORDERABLES [facility] [address] [place] [address] documented in this encounter Visit Diagnoses Diagnosis Encounter for other general examination documented in this encounter Care Teams Buckle Gluer Relationship Specialty Start Date End Date Unknown, Provider, PCP - General 1/1/20 9/23/20 Dorothea Kaufman MD [address] [place] [phone] PCP - General 01/27/20 documented as of this encounter
--- OUTSIDE RECORDS SUMMARY | 2024-03-03 15:45 | XMS_ITS | Encounter Summary ---
Author Organization [facility] Address [address] [place] [address] Care Team Providers Care Automotive Service Advisor Name Role Phone Dorothea Kaufman MD Primary Care Provider [phone] Encounter Details Date Type Department Care Team (Late Contact Info) Description 04/08/2022 Orders Only [facility] Program - Medical Office Building [address] [place] [address] Rudy Chavez MD [address] [place] [address] Office [facility], [address] [place] [phone] Memory loss (Primary Dx) Social History Tobacco [...] Info) Description 04/21/2024 9:00 EST Office Visit [facility] - Medical Office Building [address] [place] [phone] Rudy Chavez MD [address] [place] [address] Office [facility], [address] [place] [phone] Firer Automatic Stoker, Lindsay Green MD documented as of this encounter Results * VITAMIN B12 (03/31/2023 10:38 EST) Pathologist [facility] Vitamin B12 846 211 - 911 pg/mL 03/31/2023 14:37 EST [facility] Blood VENOUS BLOOD / Unknown Venipuncture / Unknown 03/31/2023 10:38 EST 03/31/2023 10:38 EST Rudy Chavez MD CHEMISTRY & BLOO D GAS ORDERABLES Performing Organization Address City/[facility]/ZIP Co de Phone Number [facility] [address] [place] [address] * TSH (03/31/2023 10:38 EST) Pathologist [facility] TSH 1.04 0.47 - 4.68 mIU/L 03/31/2023 13:23 EST [facility] Blood VENOUS BLOOD / Unknown Venipuncture / Unknown 03/31/2023 10:38 EST 03/31/2023 10:38 EST Narrative [facility] - 03/31/2023 13:23 EST The results of this assay can be falsely lowered due to the consumption of Biotin. Rudy Chavez MD CHEMISTRY & BLOO D GAS ORDERABLES Performing Organization Address [facility] Co de Phone Number [facility] [address] [place] [address] * SYPHILIS SEROLOGY (03/31/2023 10:38 EST) Pathologist [facility] Syphilis Serology Negative Negative 03/31/2023 14:53 EST [facility] Blood VENOUS BLOOD / Unknown Venipuncture / Unknown 03/31/2023 10:38 EST 03/31/2023 10:38 EST Rudy Chavez MD IMMUNOLOGY AND S EROLOGY ORDERABLES Performing Organization Address City/[facility] Co de Phone Number [facility] [address] [place] [address] * (ABNORMAL) COMPREHENSIVE METABOLIC PANEL (CMP) (03/31/2023 10:38 EST) Sodium 140 136 - 145 mmol/L 03/31/2023 12:49 [facility] Potassium 4.6 3.5 - 5.0 mmol/L 03/31/2023 12:49 [facility] Chloride 102 96 - 110 mmol/L 03/31/2023 12:49 [facility] CO2 Total 28 22 - 32 mmol/L 03/31/2023 12:49 [facility] Glucose 88 70 - 99 mg/dl 03/31/2023 12:49 [facility] BUN 22 10 - 26 mg/dL 03/31/2023 12:49 [facility] Creatinine 1.14(H) 0.52 - 1.04 mg/dL 03/31/2023 12:49 [facility] eGFR 50(L) >60 mL/min/1.7 3m2 03/31/2023 12:49 [facility] Total Protein 7.3 6.3 - 8.2 g/dL 03/31/2023 12:49 [facility] Albumin 4.2 3.4 - 4.9 g/dL 03/31/2023 12:49 [facility] Alkaline Phosphatase 83 38 - 126 U/L 03/31/2023 12:49 [facility] AST 29 15 - 46 U/L 03/31/2023 12:49 [facility] ALT 16 <35 U/L 03/31/2023 12:49 [facility] Bilirubin, Total 1.3 <1.4 mg/dL 03/31/20 12:49 [facility] Calcium 9.4 8.5 - 10.5 mg/dL 03/31/2023 12:49 [facility] Albumin/Globulin Ratio 1.4 1.0 - 2.5 g/dL 03/31/2023 12:49 [facility] Anion Gap 10 5 - 14 mmol/L 03/31/2023 12:49 [facility] Blood VENOUS BLOOD / Unknown Venipuncture / Unknown 03/31/2023 10:38 EST 03/31/2023 10:38 EST Rudy Chavez MD CHEMISTRY & BLOO D GAS ORDERABLES [facility] [address] [place] [address] * (ABNORMAL) COMPLETE BLOOD COUNT AND DIFFERENTIAL (03/31/2023 10:38 EST) WBC 5.42 4.00 - 12.40 K/cmm 03/31/2023 12:26 [facility] RBC 4.33 3.86 - 5.04 M/cmm 03/31/2023 12:26 [facility] Hemoglobin 14.1 11.6 - 15.2 g/dL 03/31/2023 12:26 [facility] HCT 40.1 34.9 - 44.4 % 03/31/2023 12:26 [facility] MCV 93 81 - 98 fL 03/31/2023 12:26 [facility] MCH 32.6 26.7 - 33.3 pg 03/31/2023 12:26 [facility] MCHC 35.2 32.1 - 35.9 g/dL 03/31/2023 12:26 [facility] RDW-CV 12.7 <14.7 % 03/31/2023 12:26 [facility] RDW-SD 43.1 <50.4 fl 03/31/2023 12:26 [facility] PLT 204 141 - 377 K/cmm 03/31/2023 12:26 [facility] MPV 10.3 9.5 - 12.7 fL 03/31/2023 12:26 [facility] % Neutrophils 68.4 % 03/31/2023 12:26 [facility] % Lymphocytes 19.4 % 03/31/2023 12:26 [facility] % Monocytes 10.3 % 03/31/2023 12:26 [facility] % Eosinophils 1.3 % 03/31/2023 12:26 [facility] % Basophils 0.4 % 03/31/2023 12:26 [facility] % Immature Grans 0.2 % 03/31/20 12:26 [facility] Absolute Neutrophils 3.71 2.20 - 8.85 K/cmm 03/31/2023 12:26 [facility] Absolute Lymphocytes 1.05(L) 1.09 - 3.30 K/cmm 03/31/2023 12:26 [facility] Absolute Monocytes 0.56 0.10 - 0.80 K/cmm 03/31/2023 12:26 [facility] Absolute Eosinophils 0.07 0.03 - 0.61 K/cmm 03/31/2023 12:26 [facility] ABS Basophils 0.02 0.01 - 0.11 K/cmm 03/31/2023 12:26 [facility] Absolute Immature Grans 0.01 0.00 - 0.06 K/cmm 03/31/2023 12:26 [facility] Type of Differential: Auto 03/31/2023 12:26 [facility] Blood VENOUS BLOOD / Unknown Venipuncture / Unknown 03/31/2023 10:38 EST 03/31/2023 10:38 EST Rudy Chavez MD PACKAGES & DNA P QUIQUE ORDERABLES Performing Organization Address City/State/[facility] Co de Phone Number [facility] [address] [place] [address] documented in this encounter Visit Diagnoses Diagnosis Memory loss- Primary documented in this encounter Care Teams Automotive Service Advisor Relationship Specialty Start Date End Date Dorothea Kaufman MD [address] [place] [phone] PCP - General 01/27/20 documented as of this encounter
--- OUTSIDE RECORDS SUMMARY | 2024-03-03 15:45 | XMS_ITS | Encounter Summary ---
Author Organization [facility] Address [address] [place] [address] Care Team Providers Care Manager Home Healthcare Name Role Phone Dorothea Kaufman MD Primary Care Provider [phone] Encounter Details Date Type Department Care Team (Late Contact Info) Description 12/28/2020 Lab Requisition [facility] Pathology & Laboratory Medicine - [address] [address] Florinda Pham [address] [place] [phone] Encounter for other general examination Social History [...] Info) Description 04/21/2024 9:00 EST Office Visit [facility] Memory Program - Medical Office Building [address] [place], [place] [address] Rudy Chavez MD 2 [facility] Medical Office Building, [address] [place] [phone] Network Planner, Lindsay Green MD documented as of this [...] explore management options, if applicable. 01/01/2021 14:53 [facility] Final Diagnosis A. ENDOMETRIUM, BIOPSY: - Scant benign squamous epithelium. - Endometrial tissue insufficient for diagnosis. See Comment. 01/01/2021 14:53 [facility] Diagnosis Comment Deeper sections have been examined. 01/01/2021 14:53 [facility] Attestation There was significant resident/fellow involvement in the diagnostic evaluation of this case. By the signature below, the attending physician certifies that they have personally conducted a gross and/or microscopic examination of the described specimens and rendered or confirmed the above diagnosis. 01/01/2021 14:53 [facility] at 1453 Clinical History Postmenopausal bleeding 01/01/2021 14:53 [facility] Gross Description A. Received in formalin labelled with proper patient identification (initials A, M) and endometrium are two brown tissue fragments averaging 0.1 x 0.1 x 0.1 cm. Entirely submitted in A1. MARGARET DOE(ASCP) 12/29/2020 7:55 01/01/2021 14:53 [facility] Resident/Sly w: Laine Maria MD 01/01/2021 14:53 [facility] Performing Lab [facility] 01/01/2021 14:53 [facility] Scanned Images 01/01/2021 14:53 [facility] Tissue ENTIRE ENDOMETRIUM / Unknown 12/28/2020 13:15 EDT 12/28/2020 23:12 EDT Florinda Pham PATHOLOGY ORDERABLES [facility] [address] [place] [address] documented in this encounter Visit Diagnoses Diagnosis Encounter for other general examination documented in this encounter Care Teams Manager Home Healthcare Relationship Specialty Start Date End Date Dorothea Kaufman MD [address] [place] [phone] PCP - General 01/27/20 documented as of this encounter
--- OUTSIDE RECORDS SUMMARY | 2024-03-03 15:45 | XMS_ITS | Encounter Summary ---
Author Organization [facility] Address [address] [place] [address] Care Team Providers Care Mine Geologist Name Role Phone Dorothea Kaufman MD Primary Care Provider [phone] Reason for Visit * Reason Comments Adjustment Disorder Encounter Details Date Type Department Care Team ([facility] Contact Info) Description 05/30/2023 11:00 EST Telemedicine [facility] Memory Program - Medical Office Building [address] [place], [place] [address] Genesis Santo, SAPPHIRE STYLUS GRINDER [address] [facility] Medical Office Building, [address] [place] [address] Adjustment disorder, unspecified type (Primary [...] Home Patient location state: Visit Location State: [place] The location of the provider: Office Provider location state: Visit Location State: [place] The following people and their roles were [...] this service. Initial Clinical Social Work Visit- [facility] Program Pt Name: Nataly Kuhn Date: [...] [facility] groups. Nataly was diagnosed with [...] be mild cognitive impairment. Challenges & Concerns: Nataly's biggest concern is the uncertainty of the [...] and meals. They were interested in the [facility] though Natalymay not qualify financially. Relevant History: Nataly was born in [place] and grew up in [place]. 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 Social Supports/ Community Involvement: Nataly walks daily and is socially active attending community meals with friends and in two book clubs. She also enjoys [employer]. Caregiver Assessment: Ernesto endorsed doing okay emotionally [...] is completed and Ernesto is power of commercial attorney for health care and finances. Concerns about [...] Memory Program - Medical Office Building [address] [place] [address] Rudy Chavez MD [address] [facility] Medical Office Building, [address] [place] [phone] Exercise Science Instructor, Lindsay Green MD documented as of this encounter Visit Diagnoses Diagnosis Adjustment disorder, unspecified type- Primary documented in this encounter Care Teams Mine Geologist Relationship Specialty Start Date End Date Dorothea Kaufman MD [address] [place] [phone] PCP - General 01/27/20 documented as of this encounter
--- OUTSIDE RECORDS SUMMARY | 2024-03-03 15:45 | XMS_ITS | Encounter Summary ---
Author Organization [facility] Address [address] [place] [address] Care Team Providers Care Rn Perinatal Name Role Phone Dorothea Kaufman MD Primary Care Provider [phone] Reason for Visit * Reason Comments Memory Loss * Referral (Routine) - Receiving Office to Obtain Authorization Specialty Diagnoses / Procedures Ref[facility] Referred To Contact Psychology Diagnoses Memory impairment Dorothea Kaufman MD [address] [place] [phone] [facility] Memory Program [address] [place] [address] Referral ID Status Reason Start Date Expiration Date Visits Requested Visits Authorized [id number] Receiving Office to Obtain Authorization 2 2 Encounter Details Date Type Department Care Team (Late st Contact Info) Description 04/14/2023 9:00 EST Office Visit [facility] Memory Program - Medical Office Building [address] [place], [place] [address] Rudy Chavez MD 2 [facility] Elizabet Hassan Medical Office Building, [address] [place] [address] Memory loss (Primary Dx) Social [...] N/A Vitals added to the chart. DESIRAE CTAALAN MA 04/14/2023 9:12 * Rudy Chavez MD - 04/14/2023899 EST [facility] MEM[facility] NEW PATIENT CONSULTATION NOTE - [...] 78-year-old, right-handed patient who was born in [place] and grew up in the [place] area. She currently resides in [place], [place]. Her son Ricardo livesin the same town and she has other friends nearby. She has 2 additional children both of whom reside in [place]. Her mother due to unknown causes. Her father is and according to her son likely had Alzheimer's disease. She has 1 sister. She was once and . 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 Past Medical History: Diagnosis Date Chronic kidney [...] was made to the Memory Program social media marketing specialist services. 5. An RDX visit was scheduled in 6 months. 6. I spent 45 minutes performing this consultation which included conversation and discussion with the patient, with more than 50% of that time devoted to counseling and coordination of care; today'sreview of medical records in preparation for the consultation; and documentation via this note. Rudy Chavez MD Presto Log Operator cc: Dorothea Kaufman MD documented in this encounter Plan of Treatment Upcoming Encounters Date Type Department Care Team (Late st Contact Info) Description 04/21/2024 9:00 EST Office Visit [facility] Memory Program - Medical Office Building [address] [place] [address] Rudy Chavez MD [address] [place] [address] Medical Office Building, [address] [place] [phone] Proteomics Scientist, Memory Disorder, documented as of this encounter [...] 01/02/2023 added in this encounter Care Teams Rn Perinatal Relationship Specialty Start Date End Date Dorothea Kaufman MD [address] [place] [phone] PCP - General 01/27/20 documented as of this encounter
--- OUTSIDE RECORDS SUMMARY | 2024-03-03 15:45 | XMS_ITS | Encounter Summary ---
Author Organization [facility] Address [address] [place] [address] Care Team Providers Care Saw Runner Name Role Phone Dorothea Kaufman MD Primary Care Provider Encounter Details Date Type Department Care Team (Late Contact Info) Description 03/31/2023 Orders Only [facility] - Medical Office Building [address] [place] [address] Rudy Chavez MD [address] [place] [address] Office Building, [address] [place] [phone] Social History Tobacco Use Types Packs/Day Years Used Date Smoking Tobacco: Never Assessed Sex and Gender Information Value Date Recorded Sex Assigned at Not on file Gender Identity Female 04/14/2023 9:02 EST Sexual Orientation Not on file documented as of this encounter Plan of Treatment Upcoming Encounters Date Type Department Care Team (Late Contact Info) Description 04/21/2024 9:00 EST Office Visit [facility] - Medical Office Building [address] [place] [phone] Rudy Chavez MD [address] [place] [address] Office Building, [address] [place] [phone] Milk Delivery Driver, Memory MD Peter documented as of this encounter Visit Diagnoses Not on filedocumented in this encounter Care Teams Saw Runner Relationship Specialty Start Date End Date Dorothea Kaufman MD [address] [place] [phone] PCP - General 01/27/20 documented as of this encounter
--- OUTSIDE RECORDS SUMMARY | 2024-03-03 15:45 | XMS_ITS | Encounter Summary ---
[place] [address] Care Team Providers Care Oracle Data Warehouse Developer Name Role Phone Dorothea Kaufman MD Primary Care Provider [phone] Encounter Details Date Type Department Care Team [...] on filedocumented in this encounter Care Teams Oracle Data Warehouse Developer Relationship Specialty Start Date End Date Dorothea Kaufman MD [facility] [address] [place] [address] PCP - General Family Medicine 02/04/20 documented as of this encounter
--- OUTSIDE RECORDS SUMMARY | 2024-03-03 15:45 | XMS_ITS | Encounter Summary ---
Author Organization [facility] Address [address] [place] [address] Care Team Providers Care Car Restorer Name Role Phone Dorothea Kaufman MD Primary Care Provider Encounter Details Date Type Department Care Team (Late Contact Info) Description 01/27/2020 Lab Requisition [facility] Pathology & Laboratory Medicine - [facility] [address] [place] [address] Benjamin Miguel MD [address] [place] [address] Encounter for other general examination Social History [...] Office Visit [facility] Memory Program - Medical Office Building [address] [place], [place] [address] Rudy Chavez MD [address] [facility] Medical Office Building, [address] [place] [phone] Wire Brush Maker, Lindsay Green MD documented as of this encounter Procedures Procedure Name Priority Date/Time Associated Diagnosis Comments SURGICAL PATHOLOGY Today 01/27/2020 8: 45 EDT Encounter for other general examination documented in this encounter Results * SURGICAL PATHOLOGY (01/27/2020 8:45 EDT) Final Diagnosis A. ENDOMETRIUM, CURETTAGE: - Scant superficial strips of inactive endometrium. - Fragments of benign squamous mucosa. 01/31/2020 10:56 EDT [facility] Attestation By the signature below, the attending physician certifies that they have 1) personally conducted a gross and/or microscopic examination of the described specimen(s), and/or personally interpreted the results of laboratory testing of the described specimen(s), and 2) personally rendered or confirmed the above diagnosis. 01/31/2020 10:56 EDT [facility] at 1056 Clinical History Uterine discharge 01/31/2020 10:56 EDT [facility] Gross Description A. Received in formalin labelled with proper patient identification (initials A, M) and endometrial curetting is an aggregate of waller and brown tissue/blood clot, 0.6 x 0.6 x 0.2 cm. Entirely submitted in A1. TARIQ MANZO 01/27/2020 16:34 01/31/2020 10:56 EDT [facility] Performing Lab [facility] 01/31/2020 10:56 EDT [facility] Scanned Images 01/31/2020 10:56 EDT [facility] Tissue ENTIRE ENDOMETRIUM / Unknown 01/27/2020 8:45 EDT 01/27/2020 15:50 EDT Benjamin Miguel MD PATHOLOGY ORDERABLES [facility] [address] [place] [address] documented in this encounter Visit Diagnoses Diagnosis Encounter for other general examination documented in this encounter Care Teams Car Restorer Relationship Specialty Start Date End Date Dorothea Kaufman MD [address] [place] [phone] PCP - General 01/27/20 documented as of this encounter
--- OUTSIDE RECORDS SUMMARY | 2024-03-03 15:45 | XMS_ITS | Referral Summary ---
Author Organization [facility] Address [address] [place] [address] Care Team Providers Care Contracting Officer Name Role Phone Dorothea Kaufman MD Primary Care Provider [phone] Allergies Active Allergy Reactions Criticality Noted Date [...] Work Services at the Memory Program, 2023-05-30. [facility] Memory Program CHRISTOPHER scanned to [facility] on: 2023-03-31 Problem Noted Date Diagnosed [...] Description 04/21/2024 9:00 EST Office Visit [facility] Memory Program - Medical Office Building [address] [place] [address] Rudy Chavez MD [facility] Medical Office Building, [address] [place] [phone] Hotel Baggage Handler, Memory MD Peetr Procedures Procedure Name Priority Date/Time Associated Diagnosis Comments HEPATITIS C AB W REFLEX TO HCV RNA BY PCR Routine 07/18/2021 9:58 EDT from Last 3 Months or Most Recently Relevant to Health Maintenance Results * HEPATITIS C AB W REFLEX TO HCV RNA BY PCR (07/18/2021 9:58 EDT) Hep C Antibody Negative Negative 07/19/2021 9:37 EDT [facility] Blood VENOUS BLOOD / Unknown 07/18/2021 9:58 EDT 07/18/2021 21:26 EDT Provider Outr Resulting Lab CHEMISTRY & BLOOD GAS ORDERABLES [facility] [address] [place] [address] from Last 3 Months or Most Recently Relevant to Health Maintenance Care Teams Contracting Officer Relationship Specialty Start Date End Date Dorothea Kaufman MD [address] [place] [phone] PCP - General 01/27/20
--- OUTSIDE RECORDS SUMMARY | 2024-03-03 15:45 | XMS_ITS | Encounter Summary ---
Author Organization [facility] Address [facility] [place] [address] Care Team Providers Care Automatic Blocker Name Role Phone Dorothea Kaufman MD Primary Care Provider [phone] Reason for Referral * Consultation (Routine) - Closed Specialty Diagnoses / Procedures Referred By Tyson rdz Referred To Contact General Surgery Diagnoses Personal history of malignant neoplasm of breast Genetic susceptibility to malignant neoplasm of breast Dorothea Kaufman MD [address] [place] [address] Radha Tello APRN [facility] [place] [address] Referral ID Status Reason Start Date Expiration Date V isits Requested Visits Authorized [id number] Closed Consult, Test & Treat PCP Updated and/or Approved 12/27/2022 12/27/2023 6 6 Encounter Details Date Type Department Care Team (Latest Contact Info) Description 12/27/2022 Transcribe Orders eDH Incoming Referrals [phone] Dorothea Kaufman MD [address] [place] [address] Follow-up exam, more than 1 [...] examination documented in this encounter Care Teams Automatic Blocker Relationship Specialty Start Date End Date Dorothea Kaufman MD [facility] [address] [place] [address] PCP - General Family Medicine 02/04/20 documented as of this encounter
--- OUTSIDE RECORDS SUMMARY | 2024-03-03 15:45 | XMS_ITS | Encounter Summary ---
Author Organization [facility] Address [address] [place] [address] Care Team Providers Care Plant Puller Name Role Phone Dorothea Kaufman MD Primary Care Provider [phone] Reason for Visit * Reason Comments Memory Loss Encounter Details Date Type Department Care Team ([facility] Contact Info) Description 10/15/2023 9:00 EDT Office Visit [facility] Memory Program - Medical Office Building [address] [place], [place] [id number] Rudy Chavez MD 2 [facility] Medical Office Building, [address] [place] [address] Wad Compressor Operator Adjuster, Memory DisorderMD Memory loss (Primary Dx) Social [...] Chavez MD - 10/15/2023 09 EDT [facility] MEMORY PROGRAM PROGRESS / FOLLOWUP NOTE [...] Ms Kuhn continues to live in the [place] independently with family support. She recently agreedto have some one come into her home on a weekly basis to help with housework, etc. From a cognitive perspective, Ms Kuhn feels she is probably a little worse but without functional decline. Ricardo generally agrees. OBJECTIVE: I reviewed medical history, problem list, medications and allergies in [facility] and updated/annotated appropriately. Past Medical History: [...] 6 months for reevaluation. Rudy Chavez MD Field Cashier cc: Dorothea Kaufman MD documented in this encounter Plan of Treatment Upcoming Encounters Date Type Department Care Team (Late st Contact Info) Description 04/21/2024 9:00 EST Office Visit [facility] Memory Program - Medical Office [address] [address] Rudy Chavez MD [facility] Office Building, [address] [place] [address] Wad Compressor Operator Adjuster, Memory DisorderMD documented as of this encounter Visit Diagnoses Diagnosis Memory loss- Primary documented in this encounter Care Teams Plant Puller Relationship Specialty Start Date End Date Dorothea Kaufman MD [address] [place] [phone] PCP - General 01/27/20 documented as of this encounter
--- OUTSIDE RECORDS SUMMARY | 2024-03-03 15:45 | XMS_ITS | Encounter Summary ---
Author Organization [facility] [place] [address] Care Team Providers Care Clinical Practitioner Name Role Phone Dorothea Kaufman MD Primary Care Provider [phone] Reason for Referral * Consultation (Priority 2) - Closed Specialty Diagnoses / Procedures Referred By Tyson rdz Referred To Contact Dermatology Diagnoses Personal history of malignant melanoma of skin Dorothea Kaufman MD [address] [place] [address] [facility] Dermatology [address] [place] [address] Referral ID Status Reason Start Date Expiration Date V isits Requested Visits Authorized [id number] Closed Consult, Test & Treat PCP Updated and/or Approved 11/02/2022 11/02/2023 6 6 Encounter Details Date Type Department Care Team (Latest Contact Info) Description 11/02/2022 Transcribe Orders eDH Incoming Referrals [phone] Dorothea Kaufman MD [address] [place] [address] Personal history of malignant melanoma [...] skin documented in this encounter Care Teams Clinical Practitioner Relationship Specialty Start Date End Date Dorothea Kaufman MD [address] [place] [address] PCP - General Family Medicine 02/04/20 documented as of this encounter
--- OUTSIDE RECORDS SUMMARY | 2024-03-03 15:45 | XMS_ITS | Encounter Summary ---
Author Organization [facility] Address [address] [place] [address] Care Team Providers Care Photolettering Machine Operator Name Role Phone Dorothea Kaufman MD Primary Care Provider [phone] Reason for Visit * Reason Comments Memory Loss * Referral (Routine) - Receiving Office to Obtain Authorization Specialty Diagnoses / Procedures [facility] Referred To Contact Psychology Diagnoses Memory impairment Dorothea Kaufman MD [address] [place] [address] [phone] [facility] Memory Program [address] [place] [address] Referral ID Status Reason Start Date Expiration Date Visits Requested Visits Authorized [id number] Receiving Office to Obtain Authorization 2 2 Encounter Details Date Type Department Care Team ([facility] st Contact Info) Description 03/31/2023 9:00 EST Office Visit [facility] Memory Program - Medical Office Building [address] [place] [address] Marizol Sutton PsyD [address] [facility] [address] [place] [address] Memory loss (Primary Dx) Social [...] 78-year-old, right-handed patient who was born in [place] and grew up in the [place] area. She currently resides in [place], [place]. Her son Ricardo livesin the same town and she has other friends nearby. She has 2 additional children both of whom reside in [place]. Her mother due to unknown causes. Her father is and according to her son likely had Alzheimer's disease. She has 1 sister. 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 President and Branch Controller, but not the Governor of [place]. 2. Attention/processing: She could repeat up to [...] 78-year-old, right-handed patient who was referred by [facility] care provider. She has a remote history [...] status examination: 55 minutes (1 unit of 48240) provided by neuropsychologist; Professional services time: 35 minutes (1 unit of 06372) provided by neuropsychologist; Testing by biological science technician: 58 minutes (1 unit of 57743 and 1 unit of 77723) consisting of administration and scoring. 9:05-9: Marizol Sutton Psy.D. Psychologist - Doctorate documented in this encounter Plan of Treatment Upcoming Encounters Date Type Department Care Team (Late st Contact Info) Description 04/21/2024 9:00 EST Office Visit [facility] Memory Program - Medical Office Building [address] [place] [address] Rudy Chavez MD 2 [facility] Medical Office Building, [address] [place] [phone] Prescriptionist, Memory MD Peter documented as of this encounter Visit Diagnoses Diagnosis Memory loss- Primary documented in this encounter Care Teams Photolettering Machine Operator Relationship Specialty Start Date End Date Dorothea Kaufman MD [address] [place] [phone] PCP - General 01/27/20 documented as of this encounter
--- OUTSIDE RECORDS SUMMARY | 2024-03-03 15:45 | XMS_ITS | Encounter Summary ---
Author Organization [facility] Address [address] [place] [address] Care Team Providers Care Shipfitter Apprentice Name Role Phone Unknown, Provider Primary Care Provider [phone] Dorothea Kaufman MD Primary Care Provider [phone] Encounter Details Date Type Department Care Team (Late st Contact Info) Description 01/24/2020 Lab Requisition [facility] Pathology & Laboratory Medicine - [facility] [address] [place] [address] Outr Resulting Lab, Provider Social History Tobacco [...] Office Visit [facility] Memory Program - Medical Office Building [address] [place] [address] Rudy Chavez MD 2 [facility] Medical Office Building, [address] [place] [phone] Circuit Board Repair Technician, Memory DisorderMD documented as of this encounter Procedures Procedure Name Priority Date/Time Associated Diagnosis Comments DO NOT ORDER STANDALONE - BROAD COVID TEST Today 01/24/2020 11:07 EDT COVID-19 TESTING Routine 01/24/2020 11:0 7 EDT documented in this encounter Results * DO NOT ORDER STANDALONE - BROAD COVID TEST (01/24/2020 11:07 EDT) COVID-19 rt-PCR Result NEGATIVE Negative 01/25/2020 11:45 EDT [facility] Comment: 2019-novel Coronavirus (2019-nCoV) not detected [...] in accordance with CLIA regulations, [employer] [place] (CAP) guidelines (Jul 22, 2019), and FDA guidance (Jul 03, 2019). This test is only for use under the Food and Drug Administration's Emergency Use Authorization. Swab ENTIRE NASOPHARYNX / Unknown 01/24/2020 11:07 EDT 01/24/2020 16:23 EDT Provider Outr Resulting Lab MICROBIOLOGY - GENERAL ORDERABLES [facility] [place], [place] * COVID-19 TESTING (01/24/2020 11:07 EDT) COVID-19 rt-PCR Result NEGATIVE Negative 01/25/2020 12:55 EDT [facility] Comment: 2019-novel Coronavirus (2019-nCoV) not detected [...] in accordance with CLIA regulations, [employer] [place] [employer] (CAP) guidelines (Jul 22, 2019), and FDA guidance (Jul 03, 2019). This test is only for use under the Food and Drug Administration's Emergency Use Authorization. Performing Lab [facility] 01/25/2020 12:55 EDT [facility] Swab 01/24/2020 11:0 7 EDT 01/24/2020 16:23 EDT Provider Outr Resulting Lab MICROBIOLOGY - GENERAL ORDERABLES [facility] [address] [place] [address] [facility] [place] documented in this encounter Visit Diagnoses Not on filedocumented in this encounter Care Teams Shipfitter Apprentice Relationship Specialty Start Date End Date Unknown, Provider, PCP - General 05/05/19 01/26/20 Dorothea Kaufman MD [address] [place] [phone] PCP - General 01/27/20 documented as of this encounter
--- OUTSIDE RECORDS SUMMARY | 2024-03-03 15:45 | XMS_ITS | Encounter Summary ---
Author Organization [facility] [place] [address] Care Team Providers Care Biztalk Architect Name Role Phone Dorothea Kaufman MD Primary Care Provider [phone] Encounter Details Date Type Department Care Team ([facility] st Contact Info) Description 08/21/2022 Notes Only General [facility] [place] [phone] Divya Coreas Social History Tobacco Use Types [...] on filedocumented in this encounter Care Teams Biztalk Architect Relationship Specialty Start Date End Date Dorothea Kaufman MD [address] [place] [address] PCP - General Family Medicine 02/04/20 documented as of this encounter
--- OUTSIDE RECORDS SUMMARY | 2024-03-03 15:45 | XMS_ITS | Encounter Summary ---
Author Organization [facility] Address [address] [place] [address] Care Team Providers Care Ditto Machine Operator Name Role Phone Dorothea Kaufman MD Primary Care Provider [phone] Encounter Details Date Type Department Care Team ([facility] Contact Info) Description 03/31/2023 10:40 EST Phlebotomy Only [facility] Laboratory Services - [facility] ([facility] [address], [place] [id number] Memory loss Social History Tobacco Use Types Packs/Day Years Used Date Smoking Tobacco: Never Assessed Sex and Gender Information Value Date Recorded Sex Assigned at Not on file Gender Identity Female 04/14/2023 9:02 EST Sexual Orientation Not on file documented as of this encounter Plan of Treatment Upcoming Encounters Date Type Department Care Team ([facility] Contact Info) Description 04/21/2024 9:00 EST Office Visit [facility] Memory Program - Medical Office Building [address] [place] [address] Rudy Chavez MD 2 [facility] Medical Office Building, [address] [place] [phone] Mail Processing Equipment Mechanic, Memory DisorderMD documented as of this encounter [...] * VITAMIN B12 (03/31/2023 10:38 EST) Pathologist [facility] Vitamin B12 846 211 - 911 pg/mL 03/31/2023 14:37 EST [facility] Blood VENOUS BLOOD / Unknown Venipuncture / Unknown 03/31/2023 10:38 EST 03/31/2023 10:38 EST Rudy Chavez MD CHEMISTRY & BLOO D GAS ORDERABLES Performing Organization Address City/[facility] Co de Phone Number [facility] [address] [place] [address] * TSH (03/31/2023 10:38 EST) Pathologist [facility] TSH 1.04 0.47 - 4.68 mIU/L 03/31/2023 13:23 EST [facility] Blood VENOUS BLOOD / Unknown Venipuncture / Unknown 03/31/2023 10:38 EST 03/31/2023 10:38 EST Narrative [facility] - 03/31/2023 13:23 EST The results of this assay can be falsely lowered due to the consumption of Biotin. Rudy Chavez MD CHEMISTRY & BLOO D GAS ORDERABLES Performing Organization Address City/[facility]/ZIP Co de Phone Number [facility] [address] [place] [address] * SYPHILIS SEROLOGY (03/31/2023 10:38 EST) Pathologist [facility] Syphilis Serology Negative Negative 03/31/2023 14:53 EST [facility] Blood VENOUS BLOOD / Unknown Venipuncture / Unknown 03/31/2023 10:38 EST 03/31/2023 10:38 EST Rudy Chavez MD IMMUNOLOGY AND S EROLOGY ORDERABLES [facility] [address] [place] [address] * (ABNORMAL) COMPREHENSIVE METABOLIC PANEL (CMP) (03/31/2023 10:38 EST) Sodium 140 136 - 145 mmol/L 03/31/2023 12:49 [facility] Potassium 4.6 3.5 - 5.0 mmol/L 03/31/2023 12:49 [facility] Chloride 102 96 - 110 mmol/L 03/31/2023 12:49 [facility] CO2 Total 28 22 - 32 mmol/L 03/31/2023 12:49 [facility] Glucose 88 70 - 99 mg/dl 03/31/2023 12:49 [facility] BUN 22 10 - 26 mg/dL 03/31/2023 12:49 [facility] Creatinine 1.14(H) 0.52 - 1.04 mg/dL 03/31/2023 12:49 [facility] eGFR 50(L) >60 mL/min/1.7 3m2 03/31/2023 12:49 [facility] Total Protein 7.3 6.3 - 8.2 g/dL 03/31/2023 12:49 [facility] Albumin 4.2 3.4 - 4.9 g/dL 03/31/2023 12:49 [facility] Alkaline Phosphatase 83 38 - 126 U/L 03/31/2023 12:49 [facility] AST 29 15 - 46 U/L 03/31/2023 12:49 [facility] ALT 16 <35 U/L 03/31/2023 12:49 [facility] Bilirubin, Total 1.3 <1.4 mg/dL 03/31/20 12:49 [facility] Calcium 9.4 8.5 - 10.5 mg/dL 03/31/2023 12:49 [facility] Albumin/Globulin Ratio 1.4 1.0 - 2.5 g/dL 03/31/2023 12:49 [facility] Anion Gap 10 5 - 14 mmol/L 03/31/2023 12:49 [facility] Blood VENOUS BLOOD / Unknown Venipuncture / Unknown 03/31/2023 10:38 EST 03/31/2023 10:38 EST Rudy Chavez MD CHEMISTRY & BLOO D GAS ORDERABLES [facility] [address] [place] [address] * (ABNORMAL) COMPLETE BLOOD COUNT AND DIFFERENTIAL (03/31/2023 10:38 EST) WBC 5.42 4.00 - 12.40 K/cmm 03/31/2023 12:26 [facility] RBC 4.33 3.86 - 5.04 M/cmm 03/31/2023 12:26 [facility] Hemoglobin 14.1 11.6 - 15.2 g/dL 03/31/2023 12:26 [facility] HCT 40.1 34.9 - 44.4 % 03/31/2023 12:26 [facility] MCV 93 81 - 98 fL 03/31/2023 12:26 [facility] MCH 32.6 26.7 - 33.3 pg 03/31/2023 12:26 [facility] MCHC 35.2 32.1 - 35.9 g/dL 03/31/2023 12:26 [facility] RDW-CV 12.7 <14.7 % 03/31/2023 12:26 [facility] RDW-SD 43.1 <50.4 fl 03/31/2023 12:26 [facility] PLT 204 141 - 377 K/cmm 03/31/2023 12:26 [facility] MPV 10.3 9.5 - 12.7 fL 03/31/2023 12:26 [facility] % Neutrophils 68.4 % 03/31/2023 12:26 [facility] % Lymphocytes 19.4 % 03/31/2023 12:26 [facility] % Monocytes 10.3 % 03/31/2023 12:26 [facility] % Eosinophils 1.3 % 03/31/2023 12:26 [facility] % Basophils 0.4 % 03/31/2023 12:26 [facility] % Immature Grans 0.2 % 03/31/20 12:26 [facility] Absolute Neutrophils 3.71 2.20 - 8.85 K/cmm 03/31/2023 12:26 [facility] Absolute Lymphocytes 1.05(L) 1.09 - 3.30 K/cmm 03/31/2023 12:26 [facility] Absolute Monocytes 0.56 0.10 - 0.80 K/cmm 03/31/2023 12:26 [facility] Absolute Eosinophils 0.07 0.03 - 0.61 K/cmm 03/31/2023 12:26 [facility] ABS Basophils 0.02 0.01 - 0.11 K/cmm 03/31/2023 12:26 [facility] Absolute Immature Grans 0.01 0.00 - 0.06 K/cmm 03/31/2023 12:26 [facility] Type of Differential: Auto 03/31/2023 12:26 [facility] Blood VENOUS BLOOD / Unknown Venipuncture / Unknown 03/31/2023 10:38 EST 03/31/2023 10:38 EST Rudy Chavez MD PACKAGES & DNA P ROBE ORDERABLES [facility] [address] [place] [address] documented in this encounter Visit Diagnoses Diagnosis Memory loss documented in this encounter Care Teams Ditto Machine Operator Relationship Specialty Start Date End Date Dorothea Kaufman MD [address] [place] [phone] PCP - General 01/27/20 documented as of this encounter
--- OUTSIDE RECORDS SUMMARY | 2024-03-03 15:45 | XMS_ITS | Encounter Summary ---
Author Organization [facility] Address [address] [place] [address] Care Team Providers Care Division Sergeant Name Role Phone Dorothea Kaufman MD Primary Care Provider Encounter Details Date Type Department Care Team (Late Contact Info) Description 10/08/2022 Orders Only [facility] Program - Medical Office Building [address] [place] [address] Rudy Chavez MD [address] [place] [address] Office Building, [address] [place] [phone] Social History Tobacco Use Types Packs/Day Years Used Date Smoking Tobacco: Never Assessed Sex and Gender Information Value Date Recorded Sex Assigned at Not on file Gender Identity Female 04/14/2023 9:02 EST Sexual Orientation Not on file documented as of this encounter Plan of Treatment Upcoming Encounters Date Type Department Care Team (Late Contact Info) Description 04/21/2024 9:00 EST Office Visit [facility] Program - Medical Office Building [address] [place] [phone] Rudy Chavez MD [address] [place] [address] Office Building, [address] [place] [phone] Craft Demonstrator, Memory MD Peter documented as of this encounter Visit Diagnoses Not on filedocumented in this encounter Care Teams Division Sergeant Relationship Specialty Start Date End Date Dorothea Kaufman MD [address] [place] [phone] PCP - General 01/27/20 documented as of this encounter
--- OUTSIDE RECORDS SUMMARY | 2024-03-03 15:45 | XMS_ITS | Encounter Summary ---
Author Organization [facility] Address [address] [place] [address] Care Team Providers Care Traffic Coordinator Name Role Phone Dorothea Kuafman MD Primary Care Provider [phone] Encounter Details Date Type Department Care Team (Late Contact Info) Description 07/18/2021 Lab Requisition [facility] Pathology & Laboratory Medicine - [facility] [address] [place] [address] Outr Resulting Lab, Provider Social History Tobacco Use Types Packs/Day Years Used Date Smoking Tobacco: Never Assessed Sex and Gender Information Value Date Recorded Sex Assigned at Not on file Gender Identity Female 04/14/2023 9:02 EST Sexual Orientation Not on file documented as of this encounter Plan of Treatment Upcoming Encounters Date Type Department Care Team ([facility] Contact Info) Description 04/21/2024 9:00 EST Office Visit [facility] Memory Program - Medical Office Building [address] [place] [address] Rudy Chavez MD 2 [facility] Medical Office Building, [address] [place] [phone] Control Officer Manager, Memory MD Peter documented as of this encounter Procedures Procedure Name Priority Date/Time Associated Diagnosis Comments HEPATITIS C AB W REFLEX TO HCV RNA BY PCR Routine 07/18/2021 9:58 EDT documented in this encounter Results * HEPATITIS C AB W REFLEX TO HCV RNA BY PCR (07/18/2021 9:58 EDT) Hep C Antibody Negative Negative 07/19/2021 9:37 EDT [facility] Blood VENOUS BLOOD / Unknown 07/18/2021 9:58 EDT 07/18/2021 21:26 EDT Provider Outr Resulting Lab CHEMISTRY & BLOOD GAS ORDERABLES Performing Organization Address City/State/[facility] Co de Phone Number [facility] [address] [place] [address] documented in this encounter Visit Diagnoses Not on filedocumented in this encounter Care Teams Traffic Coordinator Relationship Specialty Start Date End Date Dorothea Kaufman MD [address] [place] [phone] PCP - General 01/27/20 documented as of this encounter
--- OUTSIDE RECORDS SUMMARY | 2024-03-03 15:45 | XMS_ITS | Encounter Summary ---
[place] [address] Care Team Providers Care Blue Leather Setter Name Role Phone Dorothea Kaufman MD Primary Care Provider [phone] Encounter Details Date Type Department Care Team [...] on filedocumented in this encounter Care Teams Blue Leather Setter Relationship Specialty Start Date End Date Dorothea Kaufman MD [facility] [address] [place] [address] PCP - General Family Medicine 02/04/20 documented as of this encounter
--- OUTSIDE RECORDS SUMMARY | 2024-03-03 15:45 | XMS_ITS | Clinical Summary ---
Author Organization [facility] Address [facility] [place] [address] Care Team Providers Care Ict Managers Name Role Phone Dorothea Kaufman MD Primary Care Provider [phone] Allergies No known active allergies Medications Medication [...] (05/03/2020): Added automatically from request for surgery [id number] Hypertension 03/27/2020 History of breast cancer 03/27/2020 [...] Last Done Comments Hepatitis C Screening 02/12/1964 Tetanus/Diphtheria/Pertussis Vaccines (1 - Tdap) 1965 Zoster vaccine (1 of 2) 02/12/1996 [...] who have questions please contact the health animal caregiver that requested your imaging first. ? Electronically signed by: Star Enrique MD, [facility] ([phone]), at 02/26/2023 10:47 AM Narrative 02/26/2023 10:47 [...] * COLONOSCOPY (05/17/2020 2:11 PM EST) COLONOSCOPY [facility] Endoscopy Procedure Date: 05/17/2020 2:11 PM ? Patient Name: Nataly Kuhn ? Date of : 1945 ? Age: 75 ? Order #: [id number] ? Instrument Name: [id number] ? Procedure: ? Colonoscopy Indications: ? Chronic [...] Documents on File Type Date Recorded Patient Braid Cutter Ceci fonseca Personal Braid Cutter 05/03/2020 10:36 AM Ernesto Kuhn Personal Braid Cutter 05/03/2020 10:36 AM Adrián Reyez Personal Braid Cutter 04/27/2020 2:53 PM vickie gaston * Attempt Cardiopulmonary Resuscitation - Inpatient (Latest Code Status on File) Date Activated Date Inactivated Comments 04/25/2020 9:40 AM 04/25/2020 3:29 PM Question Answer Comments Code Status decision made by: Patient Care Teams Ict Managers Relationship Specialty Start Date End Date Dorothea Kaufman MD [facility] [address] [place] [address] PCP - General Family Medicine 02/04/20
--- OUTSIDE RECORDS SUMMARY | 2024-03-03 15:45 | XMS_ITS | Encounter Summary ---
Author Organization [facility] Address [address] [place] [address] Care Team Providers Care Card Scraper Name Role Phone Dorothea Kaufman MD Primary Care Provider [phone] Encounter Details Date Type Department Care Team (Late Contact Info) Description 05/22/2020 Lab Requisition [facility] Pathology & Laboratory Medicine - [facility] [address] [place] [address] Outr Resulting Lab, Provider Social History Tobacco Use Types Packs/Day Years Used Date Smoking Tobacco: Never Assessed Sex and Gender Information Value Date Recorded Sex Assigned at Not on file Gender Identity Female 04/14/2023 9:02 EST Sexual Orientation Not on file documented as of this encounter Plan of Treatment Upcoming Encounters Date Type Department Care Team ([facility] Contact Info) Description 04/21/2024 9:00 EST Office Visit [facility] Memory Program - Medical Office Building [address] [place] [address] Rudy Ch[address] MD 2 [facility] Medical Office Building, [address] [place] [phone] Rigger Up, Memory DisorderMD documented as of this encounter Procedures Procedure Name Priority Date/Time Associated Diagnosis Comments ZZCOVID-19 TEST [facility] PCR Today 05/22/2020 10:27 EST COVID-19 TESTING Routine 05/22/2020 10:2 7 EST documented in this encounter Results * COVID-19 TEST [facility] PCR (05/22/2020 10:27 EST) Swab ENTIRE NASOPHARYNX / Unknown 05/22/2020 10:27 EST 05/22/2020 15:56 EST Provider Outr Resulting Lab MICROBIOLOGY - GENERAL ORDERABLES Performing Organization Address [facility] Co de Phone Number [facility] [address] [place] [address] * COVID-19 TESTING (05/22/2020 10:27 EST) COVID-19 rt-PCR Result Negative Negative 05/23/2020 12:32 EST [facility] Comment: This test has [...] performed using the lamont SARS-CoV-2 assay ([employer] on the Lamont 6800 System Performing Lab Lamont [address] [facility] 05/23/2020 12:32 EST [facility] Swab 05/22/2020 10:2 7 EST 05/22/2020 15:56 EST Provider Outr Resulting Lab MICROBIOLOGY - GENERAL ORDERABLES Performing Organization Address City/[facility]/ZIP Co de Phone Number [facility] [address] [place] [address] documented in this encounter Visit Diagnoses Not on filedocumented in this encounter Care Teams Card Scraper Relationship Specialty Start Date End Date Dorothea Kaufman MD [address] [place] [phone] PCP - General 01/27/20 documented as of this encounter
--- OUTSIDE RECORDS SUMMARY | 2024-03-03 15:45 | XMS_ITS | Encounter Summary ---
Author Organization [facility] Address [facility] [place] [address] Care Team Providers Care Titrator Name Role Phone Dorothea Kaufman MD Primary Care Provider [phone] Reason for Referral * Psychiatric (Routine) - Duplicate Referral Specialty Diagnoses / Procedures Referred By Tyson rdz Referred To Contact Psychiatry Diagnoses Other symptoms and signs involving cognitive functions and awareness Mago Jerome APRN [facility] [address] [place] [address] [facility] [place] [address] Bradley Erazo, PhD [facility] [place] [address] Referral ID Status Reason Start Date Expiration Date Visits Requested Visits Authorized [id number] Duplicate Referral Consult, Test & Treat PCP Updated and/or Approved 12/06/2021 12/06/2022 6 6 Encounter Details Date Type Department Care Team (Late st Contact Info) Description 12/06/2021 Transcribe Orders eDH Incoming Referrals [phone] Mago Jerome APRN [facility]OSPITAL[facility] [address] [place] [address] [place] [address] Other symptoms and signs involving [...] awareness documented in this encounter Care Teams Titrator Relationship Specialty Start Date End Date Dorothea Kaufman MD [facility] [address] [facility] [address] [place] [address] PCP - General Family Medicine 02/04/20 documented as of this encounter
--- OUTSIDE RECORDS SUMMARY | 2024-03-03 15:45 | XMS_ITS | Encounter Summary ---
Author Organization [facility] Address [address] [place] [address] Care Team Providers Care Ignition Expert Name Role Phone Dorothea Kaufman MD Primary Care Provider Encounter Details Date Type Department Care Team (Late Contact Info) Description 08/03/2020 Lab Requisition [facility] Pathology & Laboratory Medicine - [facility] [address] [place] [address] Outr Resulting Lab, Provider Social History Tobacco Use Types Packs/Day Years Used Date Smoking Tobacco: Never Assessed Sex and Gender Information Value Date Recorded Sex Assigned at Not on file Gender Identity Female 04/14/2023 9:02 EST Sexual Orientation Not on file documented as of this encounter Plan of Treatment Upcoming Encounters Date Type Department Care Team ([facility] Contact Info) Description 04/21/2024 9:00 EST Office Visit [facility] Memory Program - Medical Office Building [address] [place] [address] Rudy Chavez MD 2 [facility] Medical Office Building, [address] [place] [phone] Astro Technician, Memory MD Peter documented as of this encounter Procedures Procedure Name Priority Date/Time Associated Diagnosis Comments FECAL BACTERIAL PATHOGENS BY PCR Routine 08/03/2020 14:00 EDT documented in this encounter Results * FECAL BACTERIAL PATHOGENS BY PCR (08/03/2020 14:00 EDT) Salmonella PCR Negative Negative 08/04/2020 10:56 EDT [facility] Shigella/Enteroin vasive E. coli Negative Negative 08/04/2020 10:56 EDT [facility] HN LAB CAMPYLOBACTER PCR Negative Negative 08/04/2020 10:56 EDT [facility] Shiga Toxin PCR Negative Negative 10:56 EDT [facility] Feces SPECIMEN FROM RECTUM / Unknown 08/03/2020 14:00 EDT 08/03/2020 21:27 EDT Provider Outr Resulting Lab MICROBIOLOGY - GENERAL ORDERABLES Performing Organization Address City/State/[facility] Co de Phone Number [facility] [address] [place] [address] documented in this encounter Visit Diagnoses Not on filedocumented in this encounter Care Teams Ignition Expert Relationship Specialty Start Date End Date Dorothea Kaufman MD [address] [place] [phone] PCP - General 01/27/20 documented as of this encounter
--- OUTSIDE RECORDS SUMMARY | 2024-03-03 15:45 | XMS_ITS | Encounter Summary ---
Author Organization [facility] [place] [address] Care Team Providers Care Manager Cardiovascular Name Role Phone Dorothea Kaufman MD Primary Care Provider [phone] Reason for Visit * Reason Comments Follow-up * Consultation (Routine) - Closed Specialty Diagnoses / Procedures Referred By Contac t Referred To Contact Hematology and Oncology Diagnoses Hx of breast cancer BRCA gene mutation positive Dorothea Kaufman MD [address] [place] [address] [facility] [address] [place] [address] [facility] Hem Onc [address] [place] [address] Referral ID Status Reason Start Date Expiration Date V isits Requested Visits Authorized [id number] Closed Consult, Test & Treat 07/27/2021 07/27/2022 6 6 Encounter Details Date Type Department Care Team ([facility] Contact Info) Description 08/08/2021 11:10 AM EDT Office [place] [phone] Radha Tello APRN [facility] [place] [address] Encounter for screening mammogram for [...] this encounter Progress Notes * Radha Tello, MARINE RESOURCE ECONOMIST - 08/08/2021 11:10 AM EDT Nataly Kuhn is a 76 y.o. female with a BRCA 1 mutation and history of breast cancer x 3. [facility]has been [facility]. 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 An Oncotype score at that time revealed a score of 24 which equated to a 16% risk of distant recurrence within 10 years. She was not offered chemotherapy and was placed on tamoxifen. Vibha is of Ashkenazi mosque descent and was found to be a BRCA 1 carrier. She had prophylactic bilateral oophorectomy. Uterus and cervix are intact. Vibha has been on tamoxifen since 2013 but stopped in 2019 due to rust colored vaginal discharge. Shewas under the care of Dr. Benjamin Miguel at [facility]. 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 She is living in [facility] near her son. She does [...] 3.66) performed by Jacques Waggoner MD at [facility] ENDOSCOPY ??? PRO COLONOSCOPY, DIAGNOSTIC N/A 05/17/2020 COLONOSCOPY, DIAGNOSTIC performed by Jacques Waggoner MD at [facility] ENDOSCOPY ??? PRO ENDOSCOPIC US EXAM, ESOPH N/A 04/25/2020 UPPER EUS- ENDOSCOPIC ULTRASOUND performed by Jacques Waggoner MD at [facility] ENDOSCOPY ??? PRO UPPER GI ENDOSCOPY, BIOPSY N/A 04/25/2020 EGD WITH BIOPSY (WRVU 2.49) performed by Jacques Waggoner MD at [facility] ENDOSCOPY Mohs procedure, tonsillectomy, rotator cuff [...] who have questions please contact the health adult daycare coordinator that requested your imaging first. ? Narrative [...] cancer documented in this encounter Care Teams Manager Cardiovascular Relationship Specialty Start Date End Date Dorothea Kaufman MD [address] [place] [address] PCP - General Family Medicine 02/04/20 documented as of this encounter
--- OUTSIDE RECORDS SUMMARY | 2024-03-03 15:45 | XMS_ITS | Encounter Summary ---
Author Organization [facility] Address [address] [place] [address] Care Team Providers Care Veterinary Laboratory Diagnostician Name Role Phone Dorothea Kaufman MD Primary Care Provider Encounter Details Date Type Department Care Team (Late Contact Info) Description 03/15/2022 Lab Requisition [facility] Pathology & Laboratory Medicine - [address] [address] Letty Rasheed MD [address] [place] [address] [address] [place], [place] [id number] Encounter for other general examination Social History [...] Info) Description 04/21/2024 9:00 EST Office Visit [facility] Memory Program - Medical Office Building [address] [place], [place] [address] Rudy Chavez MD [address] [facility] Medical Office Building, [address] [place] [phone] Field Instructor, Lindsay Green MD documented as of [...] explore management options, if applicable. 03/19/2022 15:59 [facility] Final Diagnosis A. ENDOMETRIUM, CURETTAGE: - Fragments of endometrial polyp(s); no cytologic atypia. - Background inactive endometrium. - Nodular fragments of smooth muscle, suggestive of submucosal leiomyoma versus vigorous curettage. 03/19/2022 15:59 [facility] Attestation There was significant resident/fellow involvement in the diagnostic evaluation of this case. By the signature below, the attending physician certifies that they have personally conducted a gross and/or microscopic examination of the described specimens and rendered or confirmed the above diagnosis. 03/19/2022 15:59 [facility] at 1559 Clinical History Vaginal discharge; postmenopausal bleeding 03/19/2022 15:59 [facility] Gross Description A. Received in formalin labelled with proper patient identification (initials A, M) and endometrial curettings is an aggregate of waller and pink fragments of soft tissue that measures 1.5 x 1.0 x 0.6 cm. The specimen is submitted entirely in A1. ELBERT FRANCOIS 03/15/2022 9:09 03/19/2022 15:59 [facility] Resident/Sly w: Yina Duran DO 03/19/2022 15:59 [facility] Performing Lab [facility] 03/19/2022 15:59 [facility] Scanned Images 03/19/2022 15:59 [facility] Tissue ENTIRE ENDOMETRIUM / Unknown 03/14/2022 13:42 EST 03/15/2022 5:11 EST Letty Rasheed MD PATHOLOGY ORDERABLES [facility] [address] [place] [address] documented in this encounter Visit Diagnoses Diagnosis Encounter for other general examination documented in this encounter Care Teams Veterinary Laboratory Diagnostician Relationship Specialty Start Date End Date Dorothea Kaufman MD [address] [place] [phone] PCP - General 01/27/20 documented as of this encounter
--- OUTSIDE RECORDS SUMMARY | 2024-03-03 15:45 | XMS_ITS | Encounter Summary ---
Author Organization [facility] [place] [address] Care Team Providers Care Engraver Optical Frames Name Role Phone Dorothea Kaufman MD Primary Care Provider [phone] Encounter Details Date Type Department Care Team ([facility] st Contact Info) Description 08/01/2021 Ancillary Procedure Radiology Library at [facility] DANIA [place] [phone] Dorothea Kaufman MD [facility] [address] [facility] [address] [place], [place] [phone] Social History Tobacco Use Types Packs/Day Years [...] is for storage only. Dorothea Kaufman MD [facility] FILM LIBRARY ORD ERABLES [place] documented in this encounter Visit Diagnoses Not on filedocumented in this encounter Care Teams Engraver Optical Frames Relationship Specialty Start Date End Date Dorothea Kaufman MD [address] [place] [address] PCP - General Family Medicine 02/04/20 documented as of this encounter
--- OUTSIDE RECORDS SUMMARY | 2024-03-03 15:46 | XMS_ITS | Encounter Summary ---
Author Organization [facility] [place] [address] Care Team Providers Care Costume Rental Clerk Name Role Phone Dorothea Kaufman MD Primary Care Provider [phone] Encounter Details Date Type Department Care Team ([facility] st Contact Info) Description 06/21/2020 3:00 PM EST Ancillary Procedure Radiology Library at [facility] DANIA Anderson [phone] Dorothea Kaufman MD [address] [place] [address] [facility] [address] [place], [place] [address] Social History Tobacco Use Types Packs/Day Years [...] G FILM LIBRARY ORD ERABLES [place] documented in this encounter Visit Diagnoses Not on filedocumented in this encounter Care Teams Costume Rental Clerk Relationship Specialty Start Date End Date Dorothea Kaufman MD [facility] [address] [facility] [address] [place] [address] PCP - General Family Medicine 02/04/20 documented as of this encounter
--- OUTSIDE RECORDS SUMMARY | 2024-03-03 15:46 | XMS_ITS | Encounter Summary ---
Author Organization [facility] [place] [address] Care Team Providers Care Refinery Operator Assistant Name Role Phone Unavailable Primary Care Provider Unavailabl e Reason for Visit * Reason Onset Date Comments Establish Care 03/29/2019 Encounter Details Date Type Department Care Team ([facility] st Contact Info) Description 03/29/2019 Telephone [place] [phone] Melissa Olvera Establish Care Social History Tobacco [...] leave a message: yes Ok to send [facility] message: no Offered Appointment: MA/Nurse/Base Filler contacted via: Message: y Call: n Pager: n documented in this encounter Plan of Treatment Not on file documented as of this encounter Visit Diagnoses Not on filedocumented in this encounter
--- OUTSIDE RECORDS SUMMARY | 2024-03-03 15:46 | XMS_ITS | Encounter Summary ---
Author Organization [facility] [place] [address] Care Team Providers Care Casing Mixer Name Role Phone Dorothea Kaufman MD Primary Care Provider [phone] Encounter Details Date Type Department Care Team ([facility] st Contact Info) Description 04/25/2020 10:48 AM EST Anesthesia Event [place] [address] Nicho Gordillo MD [facility] [place] [address] Anesthesia Record Procedure Summary Procedure Name Responsible [...] cephalic vein (lateral side of arm), right; ogzd-[id number]-bellmp catheter system; 20 gauge, 1 in length; [...] Procedure Summary Date: 04/25/20 Room / Location: [facility] ENDO 2 / [facility] ENDOSCOPY Anesthesia Start: 1048 Anesthesia Stop: 1129 [...] All Anesthesia Providers: Anesthesiologist: Nicho Gordillo MD INFORMATION SECURITY: Juan Ibanez CRNA Vitals Value Taken Time [...] hr documented in this encounter Care Teams Casing Mixer Relationship Specialty Start Date End Date Dorothea Kaufman MD [facility] [address] [place] [address] PCP - General Family Medicine 02/04/20 documented as of this encounter
--- OUTSIDE RECORDS SUMMARY | 2024-03-03 15:46 | XMS_ITS | Encounter Summary ---
Author Organization [facility] [place] [address] Care Team Providers Care College Coach Name Role Phone Dorothea Kaufman MD Primary Care Provider [phone] Encounter Details Date Type Department Care Team ([facility] st Contact Info) Description 04/25/2020 Orders [place] [address] Jacques Waggoner MD [facility] [place] [address] Diarrhea due to malabsorption Social History Tobacco [...] PM EST) C Diff Interp Negative Negative [facility] Comment: Ag/Tox Neg C. diff?? Negative Clostridium difficile is not present in the specimen. If patient is having diarrhea suspected to be from an infectious cause, then Soap & Water Contact Precautions are still required. Stool specimen (specimen) 04/25/2020 2:40 PM EST 04/25/2020 4:00 PM EST Narrative Resulting Agency Comment Spec In Lab Jacques Waggoner MD MICROBIOLOGY - GENE RAL ORDERABLES [facility] [place] [address] * Carbohydrate Antigen 19-9 (04/25/2020 1:39 PM EST) CA 19-9 10.1 <=35.0 u/ml [facility] Blood specimen (specimen) 04/25/2020 1:39 PM EST 04/25/2020 1:45 PM EST Narrative Resulting Agency Comment Spec In Lab Jacques Waggoner MD CHEMISTRY ORDERABLE S [facility] [place] [address] * T4, free (04/25/2020 1:39 PM EST) [facility] Signature Free T4 1.24 0.93 - 1.70 ng/dL [facility] Blood specimen (specimen) 04/25/2020 1:39 PM EST 04/25/2020 1:45 PM EST Narrative Resulting Agency Comment Spec In Lab Jacques Waggoner MD CHEMISTRY ORDERABLE S [facility] [place] [address] * TSH (04/25/2020 1:39 PM EST) [facility] Thyroid Stimulating Hormone 0.92 0.27 - 4.20 mcIU/mL [facility] Blood specimen (specimen) 04/25/2020 1:39 PM EST 04/25/2020 1:45 PM EST Narrative Resulting Agency Comment Spec In Lab Jacques Waggoner MD CHEMISTRY ORDERABLE S [facility] [place] [address] * (ABNORMAL) CMP w/fasting Glucose (04/25/2020 1:39 PM EST) Glucose Fasting 90 65 - 99 mg/dL [facility] Comment: ?Fasting* Glucose Interpretive Criteria [...] of Diabetes Mellitus, Position Statement from the [place] [employer]. ??Diabetes Care, Volume 33, Supplement 1, May 2009 Blood Urea Nitrogen 23(H) 8 - 18 mg/dL [facility] Creatinine 1.13 0.70 - 1.20 mg/dL [facility] Sodium 141 135 - 145 mmol/L [facility] Potassium 3.8 3.5 - 5.0 mmol/L [facility] Comment: Please note: ??Patients with WBC >100,000 may have falsely elevated Potassium levels. ??For accurate Potassium quantification in these patients send serum separator tube (gold top) for subsequent determinations. ??Contact the Clinical Chemistry Laboratory if there are any questions. Chloride 105 98 - 107 mmol/L [facility] Carbon Dioxide 29 22 - 31 mmol/L [facility] Anion Gap 7 5 - 15 mmol/L [facility] Calcium 9.0 8.5 - 10.5 mg/dL [facility] Protein, Total 6.5 6.1 - 8.0 gm/dL [facility] Albumin 3.9 3.2 - 5.2 gm/dL [facility] Aspartate Aminotransferase 21 0 - 30 unit/L [facility] Alanine Aminotransferase 15 0 - 30 unit/L [facility] Alkaline Phosphatase 55 35 - 105 unit/L [facility] Bilirubin, Total 1.0 0.2 - 1.3 mg/dL [facility] Est Glomerular Filtration Rate 48(L) >=60 mL/min/1. 73 m?? [facility] Comment: This patient? s estimated [...] MD CHEMISTRY ORDERABLE S Performing Organization Address City/[facility]/ZIP Co de Phone Number [facility] [place] [address] * IgA (04/25/2020 1:39 PM EST) IgA 276 70 - 400 mg/dL [facility] Blood specimen (specimen) 04/25/2020 1:39 PM EST 04/25/2020 1:45 PM EST Narrative Resulting Agency Comment Spec In Lab Jacques Waggoner MD CHEMISTRY ORDERABLE S Performing Organization Address [facility]/ZIP Co de Phone Number [facility] [place] [address] * Tissue transglutaminase, IgA (04/25/2020 1:39 PM EST) TTG IgA Ab 0.3 0.1 - 10.0 u/ml [facility] Comment: Negative = <7 U/mL Equivocal = 7-10 U/mL Positive = >10 U/mL Blood specimen (specimen) 04/25/2020 1:39 PM EST 04/26/2020 7:24 AM EST Narrative Resulting Agency Comment Spec In Lab Jacques Waggoner MD IMMUNOLOGY ORDERABL ES Performing Organization Address [facility] de Phone Number [facility] [place] [address] * Lipase (04/25/2020 1:39 PM EST) Lipase 22 0 - 60 unit/L [facility] Blood specimen (specimen) 04/25/2020 1:39 PM EST 04/25/2020 1:45 PM EST Narrative Resulting Agency Comment Spec In Lab Jacques Waggoner MD CHEMISTRY ORDERABLE S Performing Organization Address [facility] Phone Number [facility] [place] [address] * Amylase (04/25/2020 1:39 PM EST) Amylase 94 28 - 100 unit/L [facility] Blood specimen (specimen) 04/25/2020 1:39 PM EST 04/25/2020 1:45 PM EST Narrative Resulting Agency Comment Spec In Lab Jacques Waggoner MD CHEMISTRY ORDERABLE S Performing Organization Address [facility] Phone Number [facility] [place] [address] * IgG 4 (04/25/2020 1:39 PM EST) IgG 4 48.5 4.0 - 86.0 mg/dL [facility] Comment: Test Performed by [facility], [address] [place], [place] Altaf Lofton M.D., Ph.D., Director of Laboratories , [place] [id number] Blood specimen (specimen) 04/25/2020 1:39 PM EST 04/25/2020 4:17 PM EST Narrative Resulting Agency Comment Spec In Lab Jacques Waggoner MD IMMUNOLOGY ORDERABL ES [facility] [place] [address] documented in this encounter Visit Diagnoses Diagnosis Diarrhea due to malabsorption documented in this encounter Care Teams College Coach Relationship Specialty Start Date End Date Dorothea Kaufman MD [employer] [address] [place] [address] PCP - General Family Medicine 02/04/20 documented as of this encounter
--- OUTSIDE RECORDS SUMMARY | 2024-03-03 15:46 | XMS_ITS | Encounter Summary ---
Author Organization [facility] [place] [address] Care Team Providers Care New Home Sales Consultant Name Role Phone Dorothea Kaufman MD Primary Care Provider [phone] Encounter Details Date Type Department Care Team (Late st Contact Info) Description 03/28/2020 Orders [place] [address] [place] [address] Social History Tobacco Use Types Packs/Day Years [...] on filedocumented in this encounter Care Teams New Home Sales Consultant Relationship Specialty Start Date End Date Dorothea Kaufman MD [address] [place] [address] PCP - General Family Medicine 02/04/20 documented as of this encounter
--- OUTSIDE RECORDS SUMMARY | 2024-03-03 15:46 | XMS_ITS | Encounter Summary ---
Author Organization [facility] [place] [address] Care Team Providers Care Chief Bank Examiner Name Role Phone Dorothea Kaufman MD Primary Care Provider [phone] Encounter Details Date Type Department Care Team ([facility] st Contact Info) Description 03/07/2021 3:30 PM EDT Office [place] [address] [facility] [place] [address] Varicose veins of both lower extremities with [...] Note: Added automatically from request for surgery [id number] ??? Hypertension ??? History of breast cancer [...] therapy. Wil Villagomez MD Vascular Surgery [facility] documented in this encounter Plan of Treatment Not on file documented as of this encounter Visit Diagnoses Diagnosis Varicose veins of both lower extremities with pain Varicose veins of lower extremities with other complications documented in this encounter Care Teams Chief Bank Examiner Relationship Specialty Start Date End Date Dorothea Kaufman MD [address] [place] [address] PCP - General Family Medicine 02/04/20 documented as of this encounter
--- OUTSIDE RECORDS SUMMARY | 2024-03-03 15:46 | XMS_ITS | Encounter Summary ---
[place] [address] Care Team Providers Care Machine Trimmer Name Role Phone Dorothea Kaufman MD Primary Care Provider [phone] Reason for Referral * Consultation (Routine) - Closed Specialty Diagnoses / Procedures Referred By Tyson rdz Referred To Contact Hematology and Oncology Diagnoses Hx of breast cancer BRCA gene mutation positive Dorothea Kaufman MD [address] [place] [address] [facility] [address] [address] [place] [address] Referral ID Status Reason Start Date Expiration Date V isits Requested Visits Authorized [id number] Closed Consult, Test & Treat 07/27/2021 07/27/2022 6 6 Encounter Details Date Type Department Care Team (Latest Contact Info) Description 07/27/2021 Transcribe Orders eDH Incoming Referrals [phone] Dorothea Kaufman MD [address] [place] [address] Hx of breast cancer; BRCA [...] positive documented in this encounter Care Teams Machine Trimmer Relationship Specialty Start Date End Date Dorothea Kaufman MD [address] [facility] 1 [place] [address] PCP - General Family Medicine 02/04/20 documented as of this encounter
--- OUTSIDE RECORDS SUMMARY | 2024-03-03 15:46 | XMS_ITS | Encounter Summary ---
Author Organization [facility] [place] [address] Care Team Providers Care Quarter Trimmer Name Role Phone Dorothea Kaufman MD Primary Care Provider [phone] Encounter Details Date Type Department Care Team ([facility] st Contact Info) Description 03/13/2020 Telephone [place] [phone] Marga Mcmillan Social History Tobacco Use Types Packs/Day Years Used Date Smoking Tobacco: Never Assessed Sex and Gender Information Value Date Recorded Sex Assigned at Not on file Gender Identity Not on file Sexual Orientation Not on file documented as of this encounter Miscellaneous Notes * Telephone Encounter - Marga Mcmillan - 03/13/2020 12:23 PM EST Nataly called to get advice from Dr Santosh Hamilton. She has a family history of [...] on filedocumented in this encounter Care Teams Quarter Trimmer Relationship Specialty Start Date End Date Dorothea Kaufman MD [facility] [address] [place] [address] PCP - General Family Medicine 02/04/20 documented as of this encounter
--- OUTSIDE RECORDS SUMMARY | 2024-03-03 15:46 | XMS_ITS | Encounter Summary ---
Author Organization [facility] [place] [address] Care Team Providers Care Surgery Assistant Name Role Phone Dorothea Kaufman MD Primary Care Provider [phone] Reason for Visit * Auth/Cert Specialty Diagnoses / Procedures Referred By Contmario t Referred To Contact Diagnoses Colitis colitis Procedures PRO COLONOSCOPY, DIAGNOSTIC PRO COLONOSCOPY, BIOPSY PRO COLONOSCOPY, REMV LESN, SNARE COLONOSCOPY, DIAGNOSTIC Referral ID Status Reason Start Date Expiration Date Visits Re quested Visits Authorized [id number] 1 1 Encounter Details Date Type Department Care Team ([facility] st Contact Info) Description 05/17/2020 3:00 PM EST - 05/17/2020 3:45 PM EST [place] [phone] Jacques Waggoner MD [facility] [place] [address] COLONOSCOPY, DIAGNOSTIC (WRVU 3.26) Social History Tobacco [...] occurs, please contact your Doctor. Please call [phone] before 8pm Mon-Fri with problems, questions or concerns. If you call after 8pm or on weekends, call the Hospital at [phone] and ask to speak to the Disposal Worker pipeline controller and the power station operator will contact that person for you. When should you call for help? Call [phone] anytime you think you may need emergency [...] any problems. Where can you learn more? [facility] View your After Visit Summary and more online at [email or web address] If you would like to provide feedback [...] cost to you. Content Version: 12.2 ?? [id number] [employer]. Care instructions adapted under license by [facility]. If you have questions about a medical condition or this instruction, always ask your healthcare professional. [employer] disclaims any warranty or liability for your [...] mg Tablet Take by mouth. 11/28/2019 03/07/2021 mz[address]j-edlbohsu-tcybyo e DR (Creon) 24,000-76,000 -120,000 unit Capsule, [...] MD Gastroenterology PGY-5 05/17/2020 2:17 PM Pager #[phone] documented in this encounter Plan of Treatment Not on file documented as of this encounter Procedures Procedure Name Priority Date/Time Associated Diagnosis Comments SPECIMEN TO PATHOLOGY Routine 05/17/2020 3:16 PM EST SURGICAL PATHOLOGY REPORT Routine 05/17/2020 3:13 PM EST Colonoscopy, Biopsy ([id number]) 05/17/2020 2:39 PM EST Left sided colitis without complications Colonoscopy, Diagnostic ([id number]) 05/17/2020 2:39 PM EST Left sided colitis without complications COLONOSCOPY Routine 05/17/2020 2:11 PM EST documented in this encounter Results * Specimen to Pathology (05/17/2020 3:16 PM EST) AP Specimen 05/17/2020 3:16 PM EST 05/17/2020 3:16 PM EST Narrative [facility] - 05/17/2020 3:16 PM EST Specimen requisition ordered. ??Separate Pathology report to follow Jacques Waggoner MD PATHOLOGY/CYTOLOGY ORDERABLES [facility] [place] [address] * Surgical Pathology Report (05/17/2020 3:13 PM EST) Final Diagnosis [id number] ? Location: 4T; EA12; A The signing pathologist has (i) examined the relevant preparation(s) for the specimen(s) and (ii) rendered or confirmed the diagnosis(es). . ?Surgical Pathology DIAGNOSIS Random colon, ??biopsy: Colonic mucosa within normal limits. CR-PX Electronically signed by: ??Jodi Mullins MD Verified: ??05/24/2020 ?Pathologist Performed at: ??-[facility] Dept. of Pathology, [place], [place] SPECIMEN(S) SUBMITTED A - random colon biopsies, biopsy (Multiple) CLINICAL INFORMATION Diarrhea, weight loss, microscopic colitis SPECIMEN PROCESSING A - Labeled/Fixativ e: Random colon biopsies, formalin. Quantity/Size: Fragments, 0.2-0.3 cm. Tissue Description: Soft, waller-pink tissues. Sections/Proces sing: Entirely submitted in 2 cassettes labeled A1-A2. ??pps 05/24/2020 7:58 PM EST [facility] GI Biopsy 05/17/2020 3:13 PM EST 05/17/2020 3:13 PM EST Jacques Waggoner MD PATHOLOGY/CYTOLOGY ORDERABLES Performing Organization Address [facility]/ZIP Co de Phone Number [facility] [place] [address] * COLONOSCOPY (05/17/2020 2:11 PM EST) COLONOSCOPY [facility] Endoscopy Procedure Date: 05/17/2020 2:11 PM ? Patient Name: Nataly Kuhn ? N: [id number] ? Date of : 1945 ? Age: 75 ? Order #: [id number] ? Instrument Name: [id number] ? Procedure: ? Colonoscopy Indications: ? Chronic [...] RN) documented in this encounter Care Teams Surgery Assistant Relationship Specialty Start Date End Date Dorothea Kaufman MD [facility] [address] [facility] [address] [place] [address] PCP - General Family Medicine 02/04/20 documented as of this encounter
--- OUTSIDE RECORDS SUMMARY | 2024-03-03 15:46 | XMS_ITS | Encounter Summary ---
[facility] Organization [facility] [place] [address] Care Team Providers Care Investor Relations Analyst Name Role Phone Dorothea Kaufman MD Primary Care Provider Encounter Details Date Type Department Care Team ([facility] st Contact Info) Description 08/28/2020 Telephone [place] [phone] Lee Ivan RN Social History Tobacco Use [...] on filedocumented in this encounter Care Teams Investor Relations Analyst Relationship Specialty Start Date End Date Dorothea Kaufman MD [address] [place] [address] PCP - General Family Medicine 02/04/20 documented as of this encounter
--- OUTSIDE RECORDS SUMMARY | 2024-03-03 15:46 | XMS_ITS | Encounter Summary ---
Author Organization [facility] shira [place] [id number] Care Team Providers Care Balling Machine Operator Name Role Phone Dorothea Kaufman MD Primary Care Provider [phone] Reason for Visit * Consultation (Routine) - Closed Specialty Diagnoses / Procedures Referred By Tyson rdz Referred To Contact General Surgery Diagnoses Family hx Pancreatic CA, BRCA positive, abd pain, diarrhea and weight loss Self mail Santosh Hamilton MD [facility] [place] [address] Referral ID Status Reason Start Date Expiration Date Visits Re quested Visits Authorized [id number] Closed 03/14/2020 03/14/2021 1 1 Encounter Details Date Type Department Care Team ([facility] st Contact Info) Description 03/27/2020 9:00 AM EST Office Visit General Surgery at [place] [phone] Santosh Hamilton MD [facility] [place] [address] Family history of pancreatic cancer Social History [...] is a 75 year old woman from [place], [place]. she comes into the surgery clinic [...] systems: A comprehensive ROS questionnaire (scanned into [facility]) was completed by the patient - pertinent [...] the coronavirus pandemic she was going to [facility] and now she mostly is doing the walking and home exercise. 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 She drinks only an occasional glass [...] ??? tamoxifen (Nolvadex) 10 mg Tablet ??? kxsfwn-ixmvfwhx-wiajkqw DR (Maru) 24,000-76,000 -120,000 unit Capsule, Delayed [...] 9:42 AM This note was created using [employer]) voice recognition software. documented in this encounter Plan of Treatment Not on file documented as of this encounter Visit Diagnoses Diagnosis Family history of pancreatic cancer Family history of malignant neoplasm of gastrointestinal tract documented in this encounter Care Teams Balling Machine Operator Relationship Specialty Start Date End Date Dorothea Kaufman MD [address] [place] [address] PCP - General Family Medicine 02/04/20 documented as of this encounter
--- OUTSIDE RECORDS SUMMARY | 2024-03-03 15:46 | XMS_ITS | Encounter Summary ---
Author Organization [facility] [place] [address] Care Team Providers Care Obstetrics Specialist Name Role Phone Dorothea Kaufman MD Primary Care Provider [phone] Reason for Visit * Reason Onset Date Comments Medication Refill 08/02/2020 Encounter Details Date Type Department Care Team ([facility] st Contact Info) Description 08/02/2020 [place] [address] Jacques Waggoner MD [facility] [place] [address] Social History Tobacco Use Types Packs/Day Years [...] on filedocumented in this encounter Care Teams Obstetrics Specialist Relationship Specialty Start Date End Date Dorothea Kaufman MD [facility] [address] [place] [address] PCP - General Family Medicine 02/04/20 documented as of this encounter
--- OUTSIDE RECORDS SUMMARY | 2024-03-03 15:46 | XMS_ITS | Encounter Summary ---
Author Organization [facility] [place] [address] Care Team Providers Care Accessioner Name Role Phone Dorothea Kaufman MD Primary Care Provider [phone] Encounter Details Date Type Department Care Team ([facility] st Contact Info) Description 03/28/2020 [place] [phone] Vickie Austin Social History Tobacco Use Types [...] 03/28/2020 9:38 AM EST [facility]- Steamtable Worker Assistance [facility] has looked into assistance for the following patient, but we have not been able to find any copay cards or foundations with available funding for them. The patient has beenprovided information to apply for screwmaker automatic assistance and we will assist them with this process. [facility] will follow-up with the patient in 7 days to see if they need any additional guidance, as well as follow up with the screwmaker automatic daily for updates on the status of the application. We will notify the patient and the clinic once a determination has been made. Patient: Nataly Kuhn : 1945 Medication: Creon Dosin,000-76,000 -120,[address] abigail Insurance: [facility] (MEDDADV) Medicare Advantage?: Yes PA has been approved, current copay is: $308.72 Steamtable Worker: [employer] Program phone #: Program fax #: Status: Pending 03/28/20: I spoke with Nataly regarding the [employer] application and she is interested in applying. [...] on filedocumented in this encounter Care Teams Accessioner Relationship Specialty Start Date End Date Dorothea Kaufman MD [address] [place] [address] PCP - General Family Medicine 02/04/20 documented as of this encounter
--- OUTSIDE RECORDS SUMMARY | 2024-03-03 15:46 | XMS_ITS | Encounter Summary ---
Author Organization [facility] [place] [address] Care Team Providers Care Filenet Admin Name Role Phone Dorothea Kaufman MD Primary Care Provider [phone] Encounter Details Date Type Department Care Team (Latest Contact Info) Description 08/07/2020 1:30 PM EDT TH Visit (TeleHealth) [place] [address] Jacques Waggoner MD [facility] [place] [address] Functional diarrhea Social History Tobacco Use Types [...] 1:30 PM EDT THIS VISIT WAS A [facility] TELEHEALTH/PHONE CONSULTATION PROBLEM LIST Follow-up IBS -D [...] needed for Diarrhea. 60 tablet 0 ??? lgnbfh-aeikfjeb-oqrcerv DR (Creon) 24,000-76,000 -120,000 unit Capsule, Delayed [...] of the consultation the patient was in [place]. This note was created with Workbooks dictation software. Please excuse small typos and misspellings. documented in this encounter Plan of Treatment Not on file documented as of this encounter Visit Diagnoses Diagnosis Functional diarrhea documented in this encounter Care Teams Filenet Admin Relationship Specialty Start Date End Date Dorothea Kaufman MD [address] [facility] [place] [address] PCP - General Family Medicine 02/04/20 documented as of this encounter
--- OUTSIDE RECORDS SUMMARY | 2024-03-03 15:46 | XMS_ITS | Encounter Summary ---
Author Organization [facility] [place] [address] Care Team Providers Care Outside Operator Name Role Phone Dorothea Kaufman MD Primary Care Provider [phone] Encounter Details Date Type Department Care Team (Late st Contact Info) Description 03/15/2020 Orders [place] [address] Santosh Hamilton MD [facility] [place] [address] Essential hypertension (Primary Dx) Social History Tobacco [...] hypertension documented in this encounter Care Teams Outside Operator Relationship Specialty Start Date End Date Dorothea Kaufman MD [facility] [address] [place] [address] PCP - General Family Medicine 02/04/20 documented as of this encounter
--- OUTSIDE RECORDS SUMMARY | 2024-03-03 15:46 | XMS_ITS | Encounter Summary ---
[place] [address] Care Team Providers Care Emergency Management Coordinator Name Role Phone Dorothea Kaufman MD Primary Care Provider [phone] Encounter Details Date Type Department Care Team (Late st Contact Info) Description 03/27/2020 Orders [place] [phone] Ysabel Apple, RN Social History Tobacco Use [...] on filedocumented in this encounter Care Teams Emergency Management Coordinator Relationship Specialty Start Date End Date Dorothea Kaufman MD [address] [place], [place] [address] PCP - General Family Medicine 02/04/20 documented as of this encounter
--- OUTSIDE RECORDS SUMMARY | 2024-03-03 15:46 | XMS_ITS | Encounter Summary ---
[place] [address] Care Team Providers Care Sheet Rock Installation Helper Name Role Phone Dorothea Kaufman MD Primary Care Provider [phone] Reason for Referral * Diagnostic Test (Routine) - Closed Specialty Diagnoses / Procedures Referred By Contac t Referred To Contact Diagnoses Varicose veins of both lower extremities with pain Procedures LE Unilateral Valvular Incomp Study Jai Johansen APRN [facility] [place] [address] [facility] Vascular Lab [address] [place] [phone] Referral ID Status Reason Start Date Expiration Date V isits Requested Visits Authorized [id number] Closed Test Only 01/30/2021 01/30/2022 1 1 Reason for Visit * Consultation (Routine) - Closed Specialty Diagnoses / Procedures Referred By Contac t Referred To Contact Vascular Surgery Diagnoses Asymptomatic varicose veins of unspecified lower extremity Dorothea Kaufman MD [facility] [address] [place] [address] [facility] [address] [place] [phone] Referral ID Status Reason Start Date Expiration Date V isits Requested Visits Authorized [id number] Closed Consult, Test & Treat Connection Center PCP Updated and/or Approved 12/19/2020 12/19/2021 6 6 Encounter Details Date Type Department Care Team (Late st Contact Info) Description 01/30/2021 1:00 PM EDT Office Visit [place] [address] Jai Johansen, CRM SOLUTION ARCHITECT [facility] [place] [address] Varicose veins of both lower extremities with [...] 1:00 PM EDT Consult requested by Dorothea Kaufman MD for evaluation of painful varicose veins. History: This is a 75 y.o. female who has noted painful B LE R>L varicose veins for 30 years s/p right LEvein surgery 15 years ago at [facility] The patient has noted the following symptoms [...] Reported on 01/30/2021) 60 tablet 0 ??? gihikq-egeidivt-qhlcifr DR (Creon) 24,000-76,000 -120,000 unit Capsule, Delayed [...] Text Report Department: Vascular Surgery Lab Patient: [id number] (MILLER MAYO) CPT: 92008 ICD10: I83.813 Referring Physician: JAI JOHANSEN APRN [...] VASCUBASE 03/07/2021 2:18 PM EDT Jai Johansen CRM SOLUTION ARCHITECT VASCULAR ORDERABLE S Performing Organization Address City/State/[facility] Co de Phone Number VASCUBASE documented in this encounter Visit Diagnoses Diagnosis Varicose veins of both lower extremities with pain Varicose veins of lower extremities with other complications documented in this encounter Care Teams Sheet Rock Installation Helper Relationship Specialty Start Date End Date Dorothea Kaufman MD [address] [place] [address] PCP - General Family Medicine 02/04/20 documented as of this encounter
--- OUTSIDE RECORDS SUMMARY | 2024-03-03 15:46 | XMS_ITS | Encounter Summary ---
Author Organization [facility] [place] [address] Care Team Providers Care Validation Architect Name Role Phone Dorothea Kaufman MD Primary Care Provider [phone] Encounter Details Date Type Department Care Team ([facility] st Contact Info) Description 03/27/2020 Telephone [place] [phone] Zoe Jeong Social History Tobacco Use Types [...] - 03/27/2020 9:48 AM EST Nataly Kuhn [id number] Jacques Waggoner MD [...] on filedocumented in this encounter Care Teams Validation Architect Relationship Specialty Start Date End Date Dorothea Kaufman MD [address] [place] [address] PCP - General Family Medicine 02/04/20 documented as of this encounter
--- OUTSIDE RECORDS SUMMARY | 2024-03-03 15:46 | XMS_ITS | Encounter Summary ---
[facility] [place] [address] Care Team Providers Care Senior Ui Ux Designer Name Role Phone Dorothea Kaufman MD Primary Care Provider [phone] Reason for Referral * Diagnostic Test (Routine) - Closed Specialty Diagnoses / Procedures Referred By Tyson rdz Referred To Contact Radiology Diagnoses Weight loss, unintentional Family history of pancreatic cancer Procedures CT Abdomen w Contrast Santosh Hamilton MD [facility] [place] [address] [facility] [place] [address] Referral ID Status Reason Start Date Expiration Date V isits Requested Visits Authorized [id number] Closed Specialty Service Requested 03/13/2020 09/10/2021 1 1 Encounter Details Date Type Department Care Team ([facility] st Contact Info) Description 03/13/2020 Orders [place] [address] Santosh Hamilton MD [facility] [place] [address] Weight loss, unintentional; Family history [...] tract documented in this encounter Care Teams Senior Ui Ux Designer Relationship Specialty Start Date End Date Dorothea Kaufman MD [facility] [address] [facility] 1 [place] [address] PCP - General Family Medicine 02/04/20 documented as of this encounter
--- OUTSIDE RECORDS SUMMARY | 2024-03-03 15:46 | XMS_ITS | Encounter Summary ---
Author Organization [facility] [place] [address] Care Team Providers Care High Speed Printer Operator Name Role Phone Dorothea Kaufman MD Primary Care Provider [phone] Encounter Details Date Type Department Care Team ([facility] st Contact Info) Description 04/06/2020 [place] [phone] Danilo Hoyt, [facility] Social History Tobacco Use Types Packs/Day Years Used Date Smoking Tobacco: Former Cigarettes Q uit: 03/27/1973 Smokeless Tobacco: Never Sex and Gender Information Value Date Recorded Sex Assigned at Not on file Gender Identity Not on file Sexual Orientation Not on file documented as of this encounter Miscellaneous Notes * [facility] 12:49 PM EST [facility]- National Van Owner Operator Assistance [facility] has looked into assistance for the following patient, but we have not been able to find any copay cards or foundations with available funding for them. The patient has beenprovided information to apply for learning center coordinator assistance and we will assist them with this process. The [facility] will follow-up with the patient in 7 days to see if they need any additional guidance, as well as follow up with the learning center coordinator daily for updates on the status of the application. We will notify the patient and the clinic once a determination has been made. Patient: Nataly Kuhn : 1945 Medication: Creon 24 Dosing: Creon 24 1-2 capsule, Oral, 3 TIMES DAILY WITH MEALS, With Meals: Take 1-2 capsules by mouth. With Snacks: Take 1 capsule by mouth. Insurance: [employer] Medicare part D Medicare Part D?: Yes PA has been approved, current copay is: Yes National Van Owner Operator: [employer] Program phone #: Program fax #: Status: Pending 04/06/20: The completed application for Creon was faxed to [employer] (fax: ) on04/06/20. The following documents were included in the re- enrollment application. 1. Completed patient form 2. Completed provider form 3.Three months of bank statements 4. Medicare Part A + B card 5. Medicare Part D Card 6. Patient hardship letter 7. Medical expense form 04/07/20: Called and spoke with rep at [employer] and they had received the patient applicationbut [...] Called and spoke with a rep at [employer] and they stated the Nataly's application had been approved on 04/08/20 for free Creon through 05/04/21. The prescription was currently pending and would be delivered to the patient in the next 3 to 5 business days. I called and let Nataly know of her approval and provider her the contact number with [employer] to request refills ( ). Approval good through: 05/04/21 For refills patient to call: Fax prescriptions to: I will follow-up with this patient's application daily until approval. Danilo Hoyt RPH 04/06/20 12:49 PM documented in this encounter Plan of Treatment Not on file documented as of this encounter Visit Diagnoses Not on filedocumented in this encounter Care Teams High Speed Printer Operator Relationship Specialty Start Date End Date Dorothea Kaufman MD [facility] [address] [facility] [place] [address] PCP - General Family Medicine 02/04/20 documented as of this encounter
--- OUTSIDE RECORDS SUMMARY | 2024-03-03 15:46 | XMS_ITS | Encounter Summary ---
Author Organization [facility] [place] [address] Care Team Providers Care Customer Supply Chain Analyst Name Role Phone Dorothea Kaufman MD Primary Care Provider [phone] Encounter Details Date Type Department Care Team (Latest Contact Info) Description 06/14/2020 9:48 AM EST - 06/14/2020 11:59 PM EST Hospital Encounter Mammography/[place] [phone] Radha Tello APRN [facility] [address] History of breast cancer Discharge Disposition: Home [...] mg Tablet Take by mouth. 11/28/2019 03/07/2021 vnqrlu-btljhybt-zzmrsi e DR Diaz) 24,000-76,000 -120,000 unit Capsule, [...] ? Electronically signed by: Jacques Ceballos MD, [facility] ([phone]), at 06/14/2020 10:38 AM Radha Tello SECURITY INSTALLATION SALES TECHNICIAN IMG MAMMO ORDERABLE S documented in this encounter Visit Diagnoses Diagnosis History of breast cancer Personal history of malignant neoplasm of breast documented in this encounter Care Teams Customer Supply Chain Analyst Relationship Specialty Start Date End Date Dorothea Kaufman MD [address] [place] [address] [address] [place] [address] PCP - General Family Medicine 02/04/20 documented as of this encounter
--- OUTSIDE RECORDS SUMMARY | 2024-03-03 15:46 | XMS_ITS | Encounter Summary ---
Author Organization [facility] [place] [address] Care Team Providers Care Generator Repairer Name Role Phone Dorothea Kaufman MD Primary Care Provider [phone] Encounter Details Date Type Department Care Team (Late st Contact Info) Description 04/25/2020 Orders [place] [address] Jacques Waggoner MD [facility] [place] [address] Diarrhea due to malabsorption Social History Tobacco [...] EST) Chromogranin A (SEPTEMBER) 92 <93 ng/mL [facility] Comment: ADDITIONAL INFORMATION This test was developed and its performance characteristics determined by [facility] in a manner consistent with CLIA requirements. [...] absence of malignant disease. Test Performed by: [facility] [address] [place] [address] Shovel Operator: Rudy Ortega M.D. Ph.D.; CLIA# [id number] Blood specimen (specimen) 04/25/2020 1:39 PM EST 04/25/2020 4:19 PM EST Narrative Resulting Agency Comment Spec In Lab Jacques Waggoner MD LAB SEND OUT TARUN FULLER [facility] [place] [address] documented in this encounter Visit Diagnoses Diagnosis Diarrhea due to malabsorption documented in this encounter Care Teams Generator Repairer Relationship Specialty Start Date End Date Dorothea Kaufman MD [address] [facility] 1 [place] [address] PCP - General Family Medicine 02/04/20 documented as of this encounter
--- OUTSIDE RECORDS SUMMARY | 2024-03-03 15:46 | XMS_ITS | Encounter Summary ---
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
--- OUTSIDE RECORDS SUMMARY | 2024-03-03 15:46 | XMS_ITS | Encounter Summary ---
Author Organization [facility] [place] [address] Care Team Providers Care Ferryboat Operator Helper Name Role Phone Dorothea Kaufman MD Primary Care Provider [phone] Reason for Visit * Diagnostic Test (Routine) - Closed Specialty Diagnoses / Procedures Referred By Tyson rdz Referred To Contact Diagnoses Varicose veins of both lower extremities with pain Procedures LE Unilateral Valvular Incomp Study Jai Johansen, [facility] [place] [address] [facility] Vascular Lab [address] [address] Referral ID Status Reason Start Date Expiration Date V isits Requested Visits Authorized [id number] Closed Test Only 01/30/2021 01/30/2022 1 1 Encounter Details Date Type Department Care Team (Late st Contact Info) Description 03/07/2021 2:30 PM EDT Tech [place] [address] [address] Hamilton, RVT Varicose veins [...] Text Report Department: Vascular Surgery Lab Patient: [id number] (NATALY MYAO) CPT: 53854 ICD10: I83.813 Referring Physician: JAI JOHANSEN, LUCAS [...] VASCUBASE 03/07/2021 2:18 PM EDT Jai Johansen BUILDING INSULATION INSTALLER VASCULAR ORDERABLE S VASCUBASE documented in this encounter Visit Diagnoses Diagnosis Varicose veins of both lower extremities with pain Varicose veins of lower extremities with other complications documented in this encounter Care Teams Ferryboat Operator Helper Relationship Specialty Start Date End Date Dorothea Kaufman MD [address] [facility] [place] [address] PCP - General Family Medicine 02/04/20 documented as of this encounter
--- OUTSIDE RECORDS SUMMARY | 2024-03-03 15:46 | XMS_ITS | Encounter Summary ---
Author Organization [facility] [place] [address] Care Team Providers Care Regional Agronomist Name Role Phone Unavailable Primary Care Provider Unavailabl e Reason for Visit * Reason Onset Date Comments Establish Care 01/18/2019 Encounter Details Date Type Department Care Team ([facility] st Contact Info) Description 01/18/2019 Telephone [place] [phone] Antoinette Lara Establish Care Social History Tobacco [...] than patient-full name): Nataly Call Back Number: [phone] Best Time to Call Back: any OK [...]
--- OUTSIDE RECORDS SUMMARY | 2024-03-03 15:46 | XMS_ITS | Encounter Summary ---
[place] [address] Care Team Providers Care Network Firewall Engineer Name Role Phone Dorothea Kaufman MD Primary Care Provider [phone] Encounter Details Date Type Department Care Team ([facility] st Contact Info) Description 04/06/2020 Specialty [place] [address] Danilo Hoyt, [facility] Social History Tobacco Use Types Packs/Day Years Used Date Smoking Tobacco: Former Cigarettes Q uit: 03/27/1973 Smokeless Tobacco: Never Sex and Gender Information Value Date Recorded Sex Assigned at Not on file Gender Identity Not on file Sexual Orientation Not on file documented as of this encounter Progress Notes * Danilo Hoyt [facility] - 04/06/2020 12:20 PM EST Specialty Pharmacy Consultation; Danilo Hoyt [facility] Comprehensive Medication Management (CMM): Specialty Consult, Opt [...] The patient will be enrolled in the network security engineer assistance program for all future fills. Is the patient willing to proceed with the Clinical Assessment? No Summary and Recommendations: I reviewed the dosing, administration, and potential side-effects of treatment with the patient. This will be a 1 time fill for 56 capsules and then the patient will fill with the network security engineer program Economic Assessment: Patient is agreeable to [...] on filedocumented in this encounter Care Teams Network Firewall Engineer Relationship Specialty Start Date End Date Dorothea Kaufman MD [facility] [address] [place] [address] PCP - General Family Medicine 02/04/20 documented as of this encounter
--- OUTSIDE RECORDS SUMMARY | 2024-03-03 15:46 | XMS_ITS | Encounter Summary ---
Author Organization [facility] [place] [address] Care Team Providers Care Management Recruiter Name Role Phone Dorothea Kaufman MD Primary Care Provider [phone] Encounter Details Date Type Department Care Team ([facility] st Contact Info) Description 04/25/2020 9:45 AM EST - 04/25/2020 11:00 AM EST Surgery [place] [id number] Jacques Waggoner MD [facility] [place] [address] UPPER EUS- ENDOSCOPIC ULTRASOUND (WRVU 3.47) Social [...] the day after the procedure, use an fuan-cnz-wfqloka spray to numb your throat. Sucking on [...] occurs, please contact your Doctor. Please call [phone] before 8pm Mon-Fri with problems, questions or concerns. If you call after 8pm or on weekends, call the Hospital at [phone] and ask to speak to the Electric Meter Tester electronics supervisor and the boiler assistant operator will contact that person for you. When should you call for help? Call [phone] anytime you think you may need emergency [...] any problems. Where can you learn more? [facility] View your After Visit Summary and more online at [email or web address] If you would like to provide feedback about your hospital experience, please call the Office of Patient and Family Relations at . If you have received this After Visit Summary in error, please immediately return it in person to the department, or notify the [facility] Privacy Office by calling toll free at between the hours of 8AM and 5PM to arrange for our retrieval of the documents at no cost to you. Content Version: 12.2 ?? [id number] [employer]. Care instructions adapted under license by [facility]. If you have questions about a medical condition or this instruction, always ask your healthcare professional. [employer] disclaims any warranty or liability for your [...] the day after the procedure, use an acku-bvs-yoeyjvz spray to numb your throat. Sucking on [...] occurs, please contact your Doctor. Please call [phone] before 8pm Mon-Fri with problems, questions or concerns. If you call after 8pm or on weekends, call the Hospital at [phone] and ask to speak to the Electric Meter Tester electronics supervisor and the boiler assistant operator will contact that person for you. When should you call for help? Call [phone] anytime you think you may need emergency [...] any problems. Where can you learn more? [facility] View your After Visit Summary and more online at [email or web address] If you would like to provide feedback about your hospital experience, please call the Office of Patient and Family Relations at . If you have received this After Visit Summary in error, please immediately return it in person to the department, or notify the [facility] Privacy Office by calling toll free at between the hours of 8AM and 5PM to arrange for our retrieval of the documents at no cost to you. Content Version: 12.2 ?? [phone] [employer]. Care instructions adapted under license by [facility]. If you have questions about a medical condition or this instruction, always ask your healthcare professional. [employer] disclaims any warranty or liability for your use of this information. documented in this encounter Medications at Time of Discharge Medication Sig Dispensed Refills Start Date End Date amLODIPine (Norvasc) 5 mg Tablet 25 mg. 03/14/2020 aspirin EC 81 mg Tablet, Delayed Release (E.C.) Take by mouth. 09/06/2019 zwdvuo-dbwxwzqn-sccozr e DR (Creon) 24,000-76,000 -120,000 unit Capsule, Delayed Release(E.C.) Take 1-2 capsules by mouth 3 times daily (with meals). With Meals: Take 1-2 capsules by mouth. With Snacks: Take 1 capsule by mouth. 270 capsule 3 03/28/2020 03/07/2021 meclizine (Antivert) 25 mg Tablet Take by [...] (98.2 ??F), height 163.8 cm (5' 4.5), wmnurt67.9 kg (110 lb), SpO2 100 %. GEN: [...] 11:00 AM EST Upper Gi Endoscopy, Biopsy ([id number]) 04/25/2020 10:48 AM EST ? 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 mass in [...] AM EST 04/25/2020 11:[address] [facility] - 04/25/2020 11:06 AM EST Specimen requisition ordered. ??Separate Pathology report to follow Jacques Waggoner MD PATHOLOGY/CYTOLOGY ORDERABLES Performing Organization Address [facility] [place] [place] [address] * Specimen to Pathology (04/25/2020 11:06 AM EST) AP Specimen 04/25/2020 11:0 6 AM EST 04/25/2020 11:[address] [facility] - 04/25/2020 11:06 AM EST Specimen requisition ordered. ??Separate Pathology report to follow Jacques Waggoner MD PATHOLOGY/CYTOLOGY ORDERABLES Performing Organization Address [facility] [place] [address] * Surgical Pathology Report (04/25/2020 11:00 AM EST) Final Diagnosis [id number] ? Location: 4T; EA13; A The signing [...] PhD, Mary Verified: ??05/02/2020 ?Pathologist Performed at: ??-[facility] [place], [place], [place] SPECIMEN(S) SUBMITTED A - duodenal biopsies [...] labeled B1. ??ajw 05/02/2020 2:[address] [facility] GI Biopsy 04/25/2020 11:0 0 AM EST 04/25/2020 11:00 AM EST GI Biopsy 04/25/2020 11:0 0 AM EST 04/25/2020 11:00 AM EST Jacques Waggoner MD PATHOLOGY/CYTOLOGY ORDERABLES [facility] [place] [address] * UPPER EUS-ENDOSCOPIC ULTRASOUND (04/25/2020 10:36 AM EST) UPPER ENDOSCOPIC ULTRASOUND [facility] Procedure Date: 04/25/2020 10:36 AM ? Patient Name: Nataly Kuhn ? Date of : 1945 ? Age: 75 ? Order #: [id number] ? Instrument Name: GF-UE [id number] ? Procedure: ? Upper EUS Indications: ? Weight loss Providers: ? Jacques Waggoner MD, Julianne ? Arely Vickers, ? Car Escort Referring : ?Dorothea Kaufman MD Medicines: ? [...] CRNA) documented in this encounter Care Teams Management Recruiter Relationship Specialty Start Date End Date Dorothea Kaufman MD [address] [place] [address] PCP - General Family Medicine 02/04/20 documented as of this encounter
--- OUTSIDE RECORDS SUMMARY | 2024-03-03 15:46 | XMS_ITS | Encounter Summary ---
[place] [address] Care Team Providers Care Electrical Timing Device Calibrator Name Role Phone Dorothea Kaufman MD Primary Care Provider [phone] Encounter Details Date Type Department Care Team (Latest Contact Info) Description 04/25/2020 1:15 PM EST Laboratory Appointment Lab [address] [place] [phone] Diarrhea due to malabsorption Social History Tobacco [...] Diarrhea due to malabsorption CRYPTOSPORIDIUM OOCYST ANTIGEN ([facility]/CGP/APD) Routine 04/25/2020 2:40 PM EST Diarrhea due [...] 1 EIA Negative for Shiga Toxin 2 [facility] Stool specimen (specimen) 04/25/2020 2:40 PM EST 04/25/2020 3:58 PM EST Narrative Resulting Agency Comment Spec In Lab Jacques Waggoner MD MICROBIOLOGY - GENE RAL ORDERABLES [facility] [place] [address] * Campylobacter Antigen (04/25/2020 2:40 PM EST) Campylobacter Ag Immunoassay Negative for Campylobacter Antigen [facility] Stool specimen (specimen) 04/25/2020 2:40 PM EST 04/25/2020 3:58 PM EST Narrative Resulting Agency Comment Spec In Lab Jacques Waggoner MD MICROBIOLOGY - GENE RAL ORDERABLES Performing Organization Address City/[facility]/ZIP Co de Phone Number [facility] [place] [address] * Stool culture (04/25/2020 2:40 PM EST) Stool Culture No enteric pathogens isolated [facility] Stool specimen (specimen) 04/25/2020 2:40 PM EST 04/25/2020 3:58 PM EST Narrative Resulting Agency Comment Spec In Lab Jacques Waggoner MD MICROBIOLOGY - GENE RAL ORDERABLES Performing Organization Address City/[facility]/ZIP Co de Phone Number [facility] [place] [address] * Cryptosporidium Oocyst Antigen ([facility]/CGP/APD) (04/25/2020 2:40 PM EST) Cryptosporidium Antigen Negative Negative [facility] Stool specimen (specimen) 04/25/2020 2:40 PM EST 04/25/2020 4:00 PM EST Narrative Resulting Agency Comment Spec In Lab Jacques Waggoner MD MICROBIOLOGY - GENE RAL ORDERABLES Performing Organization Address [facility] Co de Phone Number [facility] [place] [address] * Giardia antigen ([facility]/CGP/APD) (04/25/2020 2:40 PM EST) Giardia Antigen Negative Negative [facility] Comment:Examination for othe r intestinal parasites requires foreign travel history. Stool specimen (specimen) 04/25/2020 2:40 PM EST 04/25/2020 4:00 PM EST Narrative Resulting Agency Comment Spec In Lab Jacques Waggoner MD MICROBIOLOGY - GENE RAL ORDERABLES Performing Organization Address [facility] Co de Phone Number [facility] [place] [address] * C. Difficile Screen (04/25/2020 2:40 PM EST) C Diff Interp Negative Negative [facility] Comment: Ag/Tox Neg C. diff?? Negative [...] - GENE RAL ORDERABLES Performing Organization Address [facility] Co de Phone Number [facility] [place] [address] * Differential, Automated (04/25/2020 1:39 PM EST) Neutrophil % 56.7 % [facility] Neutrophil Absolute 2.31 1.70 - 6.10 x10(3)/mcL [facility] Lymph % 34.1 % [facility] Lymphocytes Abs 1.4 0.9 - 3.2 x10(3)/[facility] Monocyte % 8.3 % [facility] Monocyte Abs 0.3 0.3 - 0.9 x10(3)/[facility] Eos % 0.7 % [facility] Eosinophils Abs 0.0 0.0 - 0.4 x10(3)/[facility] Basophil % 0.2 % [facility] Baso Absolute 0.0 0.0 - 0.1 x10(3)/[facility] Immature Gran % 0.00 % [facility] Comment: Immature granulocytes(IG's)percentage and absolute count will include metamyelocytes, myelocytes, and promyelocytes. Blood smears from CBCs yielding IG's will be scanned manually for concordance. If this scan disagrees with the automated IG or if promyelocytes are noted, a manual differential will be performed. Immature Gran Absolute 0.00 0.00 - 0.04 x10(3)/[facility] Blood specimen (specimen) 04/25/2020 1:39 PM EST 04/25/2020 1:45 PM EST Narrative Resulting Agency Comment Spec In Lab Jacques Waggoner MD HEMATOLOGY ORDERABL ES Performing Organization Address City/State/[facility] Co de Phone Number [facility] [place] [address] * (ABNORMAL) Hemogram (04/25/2020 1:39 PM EST) White Blood Cell 4.1 4.0 - 9.5 x10(3)/ L [facility] Red Blood Cell 3.74(L) 4.00 - 5.21 x10(6)/ L [facility] Hemoglobin 11.8 11.7 - 15.5 gm/dL [facility] Hematocrit 35.3(L) 35.7 - 45.8 % [facility] Mean Cell Volume 94.4 82.6 - 94.4 fL [facility] Mean Cell Hemoglobin 31.6 27.1 - 32.0 pg [facility] Mean Cell Hemoglobin Concentration 33.4 31.7 - 35.0 gm/dL [facility] Platelet 125(L) 145 - 357 x10(3)/mc L [facility] RDW Standard Deviation 44.4 37.0 - 46.0 fL [facility] RDW coefficient of variation 12.8 11.5 - 14.1 % [facility] Mean Platelet Volume 10.0 7.6 - 12.9 fL [facility] NRBC% auto 0.0 % [facility] NRBC Absolute 0.000 0.000 - 0.000 x10(3)/mc L [facility] Blood specimen (specimen) 04/25/2020 1:39 PM EST 04/25/2020 1:45 PM EST Narrative Resulting Agency Comment Spec In Lab Jacques Waggoner MD HEMATOLOGY ORDERABL ES Performing Organization Address [facility] Co de Phone Number [facility] [place] [address] * IgG 4 (04/25/2020 1:39 PM EST) IgG 4 48.5 4.0 - 86.0 mg/dL [facility] Comment: Test Performed by [facility], [address] [place] [address] Altaf Lofton M.D., Ph.D., Director of Laboratories , [facility] [id number] Blood specimen (specimen) 04/25/2020 1:39 PM EST 04/25/2020 4:17 PM EST Narrative Resulting Agency Comment Spec In Lab Jacques Waggoner MD IMMUNOLOGY ORDERABL ES Performing Organization Address City/[facility]/ZIP Co de Phone Number [facility] [place] [address] * Amylase (04/25/2020 1:39 PM EST) Amylase 94 28 - 100 unit/L [facility] Blood specimen (specimen) 04/25/2020 1:39 PM EST 04/25/2020 1:45 PM EST Narrative Resulting Agency Comment Spec In Lab Jacques Waggoner MD CHEMISTRY ORDERABLE S Performing Organization Address [facility] de Phone Number [facility] [place] [address] * Lipase (04/25/2020 1:39 PM EST) Lipase 22 0 - 60 unit/L [facility] Blood specimen (specimen) 04/25/2020 1:39 PM EST 04/25/2020 1:45 PM EST Narrative Resulting Agency Comment Spec In Lab Jacques Waggoner MD CHEMISTRY ORDERABLE S Performing Organization Address [facility] Phone Number [facility] [place] [address] * Tissue transglutaminase, IgA (04/25/2020 1:39 PM EST) Pathologist [facility] TTG IgA Ab 0.3 0.1 - 10.0 u/ml [facility] Comment: Negative = <7 U/mL Equivocal = 7-10 U/mL Positive = >10 U/mL Blood specimen (specimen) 04/25/2020 1:39 PM EST 04/26/2020 7:24 AM EST Narrative Resulting Agency Comment Spec In Lab Jacques Waggoner MD IMMUNOLOGY ORDERABL ES Performing Organization Address [facility] Phone Number [facility] [place] [address] * IgA (04/25/2020 1:39 PM EST) Pathologist [facility] IgA 276 70 - 400 mg/dL [facility] Blood specimen (specimen) 04/25/2020 1:39 PM EST 04/25/2020 1:45 PM EST Narrative Resulting Agency Comment Spec In Lab Jacques Waggoner MD CHEMISTRY ORDERABLE S [facility] [place] [address] * (ABNORMAL) CMP w/fasting Glucose (04/25/2020 1:39 PM EST) Glucose Fasting 90 65 - 99 mg/dL [facility] Comment: ?Fasting* Glucose Interpretive [...] of Diabetes Mellitus, Position Statement from the [place] [employer]. ??Diabetes Care, Volume 33, Supplement 1, May 2009 Blood Urea Nitrogen 23(H) 8 - 18 mg/dL [facility] Creatinine 1.13 0.70 - 1.20 mg/dL [facility] Sodium 141 135 - 145 mmol/L [facility] Potassium 3.8 3.5 - 5.0 mmol/L [facility] Comment: Please note: ??Patients with WBC >100,000 may have falsely elevated Potassium levels. ??For accurate Potassium quantification in these patients send serum separator tube (gold top) for subsequent determinations. ??Contact the Clinical Chemistry Laboratory if there are any questions. Chloride 105 98 - 107 mmol/L [facility] Carbon Dioxide 29 22 - 31 mmol/L [facility] Anion Gap 7 5 - 15 mmol/L [facility] Calcium 9.0 8.5 - 10.5 mg/dL [facility] Protein, Total 6.5 6.1 - 8.0 gm/dL [facility] Albumin 3.9 3.2 - 5.2 gm/dL [facility] Aspartate Aminotransferase 21 0 - 30 unit/L [facility] Alanine Aminotransferase 15 0 - 30 unit/L [facility] Alkaline Phosphatase 55 35 - 105 unit/L [facility] Bilirubin, Total 1.0 0.2 - 1.3 mg/dL [facility] Est Glomerular Filtration Rate 48(L) >=60 mL/min/1. 73 m?? [facility] Comment: This patient? s [...] MD CHEMISTRY ORDERABLE S Performing Organization Address City/[facility] Co de Phone Number [facility] [place] [address] * TSH (04/25/2020 1:39 PM EST) Thyroid Stimulating Hormone 0.92 0.27 - 4.20 mcIU/mL [facility] Blood specimen (specimen) 04/25/2020 1:39 PM EST 04/25/2020 1:45 PM EST Narrative Resulting Agency Comment Spec In Lab Jacques Waggoner MD CHEMISTRY ORDERABLE S Performing Organization Address City/[facility]/ZIP Co de Phone Number [facility] [place] [address] * T4, free (04/25/2020 1:39 PM EST) Free T4 1.24 0.93 - 1.70 ng/dL [facility] Blood specimen (specimen) 04/25/2020 1:39 PM EST 04/25/2020 1:45 PM EST Narrative Resulting Agency Comment Spec In Lab Jacques Waggoner MD CHEMISTRY ORDERABLE S Performing Organization Address [facility] Co de Phone Number [facility] [place] [address] * Carbohydrate Antigen 19-9 (04/25/2020 1:39 PM EST) CA 19-9 10.1 <=35.0 u/ml [facility] Blood specimen (specimen) 04/25/2020 1:39 PM EST 04/25/2020 1:45 PM EST Narrative Resulting Agency Comment Spec In Lab Jacques Waggoner MD CHEMISTRY ORDERABLE S Performing Organization Address [facility] Co de Phone Number [facility] [place] [address] * Chromogranin A (04/25/2020 1:39 PM EST) Chromogranin A (SEPTEMBER) 92 <93 ng/mL [facility] Comment: ADDITIONAL INFORMATION This test was developed and its performance characteristics determined by [facility] in a manner consistent with CLIA [...] absence of malignant disease. Test Performed by: [facility] [address] [place] [address] Medicare Compliance Auditor: Rudy Ortega M.D. Ph.D.; CLIA# [id number] Blood specimen (specimen) 04/25/2020 1:39 PM EST 04/25/2020 4:19 PM EST Narrative Resulting Agency Comment Spec In Lab Jcaques Waggoner MD LAB SEND OUT SHAMEKAA JONNY Performing Organization Address City/State/[facility] Co de Phone Number [facility] [place] [address] documented in this encounter Visit Diagnoses Diagnosis Diarrhea due to malabsorption documented in this encounter Care Teams Electrical Timing Device Calibrator Relationship Specialty Start Date End Date Dorothea Kaufman MD [facility] [address] [place] [address] PCP - General Family Medicine 02/04/20 documented as of this encounter
--- OUTSIDE RECORDS SUMMARY | 2024-03-03 15:46 | XMS_ITS | Encounter Summary ---
Author Organization [facility] [place] [address] Care Team Providers Care Manufacturing Plant Manager Name Role Phone Dorothea Kaufman MD Primary Care Provider [phone] Encounter Details Date Type Department Care Team ([facility] st Contact Info) Description 05/03/2020 Telephone [place] [address] Jacques Waggoner MD [facility] [place] [address] Social History Tobacco Use Types Packs/Day Years [...] on filedocumented in this encounter Care Teams Manufacturing Plant Manager Relationship Specialty Start Date End Date Dorothea Kaufman MD [address] [place] [address] [address] [place], [place] [id number] PCP - General Family Medicine 02/04/20 documented as of this encounter
--- OUTSIDE RECORDS SUMMARY | 2024-03-03 15:46 | XMS_ITS | Encounter Summary ---
Author Organization [facility] [place] [address] Care Team Providers Care Structural Analysis Engineer Name Role Phone Dorothea Kaufman MD Primary Care Provider Encounter Details Date Type Department Care Team ([facility] st Contact Info) Description 05/03/2020 Telephone [place] [address] Martha Gutierrez Social History Tobacco Use Types [...] - 05/03/2020 2:22 PM EST Nataly Kuhn [id number] Diagnosis/Indication: [place] 1. Have you ever had a/an Colonoscopy [...] on filedocumented in this encounter Care Teams Structural Analysis Engineer Relationship Specialty Start Date End Date Dorothea Kaufman MD [address] [place] [address] PCP - General Family Medicine 02/04/20 documented as of this encounter
--- OUTSIDE RECORDS SUMMARY | 2024-03-03 15:46 | XMS_ITS | Encounter Summary ---
Author Organization [facility] Address [facility] [place] [address] Care Team Providers Care Disaster Recovery Analyst Name Role Phone Dorothea Kaufman MD Primary Care Provider [phone] Reason for Visit * Auth/Cert Specialty Diagnoses / Procedures Referred By Contmario t Referred To Contact Diagnoses Colitis colitis Procedures PRO COLONOSCOPY, DIAGNOSTIC PRO COLONOSCOPY, BIOPSY PRO COLONOSCOPY, REMV LESN, SNARE COLONOSCOPY, DIAGNOSTIC Referral ID Status Reason Start Date Expiration Date Visits Re quested Visits Authorized [id number] 1 1 Encounter Details Date Type Department Care Team (Latest Contact Info) Description 05/17/2020 1:49 PM EST - 05/17/2020 4:29 PM EST Hospital En[place] [address] Jacques Waggoner MD [facility] [place] [address] Left sided colitis without complications Discharge Disposition: [...] occurs, please contact your Doctor. Please call [phone] before 8pm Mon-Fri with problems, questions or concerns. If you call after 8pm or on weekends, call the Hospital at [phone] and ask to speak to the Control Room Helper preparation plant supervisor and the spun paste machine operator will contact that person for you. When should you call for help? Call [phone] anytime you think you may need emergency [...] any problems. Where can you learn more? [facility] View your After Visit Summary and more online at [email or web address] If you would like to [...] cost to you. Content Version: 12.2 ?? 8857-0789 [employer]. Care instructions adapted under license by [facility]. If you have questions about a medical condition or this instruction, always ask your healthcare professional. [employer] disclaims any warranty or liability for your [...] mg Tablet Take by mouth. 11/28/2019 03/07/2021 puwlpz-gdufqupl-ifmezf e DR (Creon) 24,000-76,000 -120,000 unit Capsule, [...] MD Gastroenterology PGY-5 05/17/2020 2:17 PM Pager #[phone] documented in this encounter Plan of Treatment Not on file documented as of this encounter Procedures Procedure Name Priority Date/Time Associated Diagnosis Comments SPECIMEN TO PATHOLOGY Routine 05/17/2020 3:16 PM EST SURGICAL PATHOLOGY REPORT Routine 05/17/2020 3:13 PM EST Colonoscopy, Biopsy ([id number]) 05/17/2020 2:39 PM EST Left sided colitis without complications Colonoscopy, Diagnostic ([id number]) 05/17/2020 2:39 PM EST Left sided colitis [...] Waggoner MD PATHOLOGY/CYTOLOGY ORDERABLES Performing Organization Address City/State/[facility] Co de Phone Number [facility] [place] [address] * Surgical Pathology Report (05/17/2020 3:13 PM EST) Final Diagnosis [id number] ? Location: 4T; EA12; A The signing pathologist has (i) examined the relevant preparation(s) for the specimen(s) and (ii) rendered or confirmed the diagnosis(es). . ?Surgical Pathology DIAGNOSIS Random colon, ??biopsy: Colonic mucosa within normal limits. CR-PX Electronically signed by: ??Jodi Mullins MD Verified: ??05/24/2020 ?Pathologist Performed at: ??-[facility] Dept. of Pathology, [place], [place] SPECIMEN(S) SUBMITTED A - random colon [...] Waggoner MD PATHOLOGY/CYTOLOGY ORDERABLES Performing Organization Address [facility]/ZIP Co de Phone Number [facility] [place] [address] * COLONOSCOPY (05/17/2020 2:11 PM EST) COLONOSCOPY [facility] Endoscopy Procedure Date: 05/17/2020 2:11 PM ? Patient Name: Nataly Kuhn ? N: [id number] ? Date of : 1945 ? Age: 75 ? Order #: [id number] ? Instrument Name: [id number] ? Procedure: ? Colonoscopy Indications: ? Chronic [...] RN) documented in this encounter Care Teams Disaster Recovery Analyst Relationship Specialty Start Date End Date Dorothea Kaufman MD [facility] [address] [place] [address] PCP - General Family Medicine 02/04/20 documented as of this encounter
--- OUTSIDE RECORDS SUMMARY | 2024-03-03 15:46 | XMS_ITS | Encounter Summary ---
Author Organization [facility] [place] [address] Care Team Providers Care Lawn Service Worker Name Role Phone Dorothea Kaufman MD Primary Care Provider [phone] Encounter Details Date Type Department Care Team (Latest Contact Info) Description 04/25/2020 8:26 AM EST - 04/25/2020 1:19 PM EST Hospital Encounter [place] [id number] Jacques Waggoner MD [facility] [place] [address] Discharge Disposition: Home Social History Tobacco Use [...] the day after the procedure, use an drjd-kqt-ysmdfgd spray to numb your throat. Sucking on [...] occurs, please contact your Doctor. Please call [phone] before 8pm Mon-Fri with problems, questions or concerns. If you call after 8pm or on weekends, call the Hospital at [phone] and ask to speak to the Deck[employer] spinal surgeon and the tongue and groove machine operator will contact that person for you. When should you call for help? Call [phone] anytime you think you may need emergency [...] any problems. Where can you learn more? [facility] View your After Visit Summary and more online at [email or web address] If you would like to provide feedback about your hospital experience, please call the Office of Patient and Family Relations at . If you have received this After Visit Summary in error, please immediately return it in person to the department, or notify the [facility] Privacy Office by calling toll free at between the hours of 8AM and 5PM to arrange for our retrieval of the documents at no cost to you. Content Version: 12.2 ?? 6986-7059 [employer]. Care instructions adapted under license by [facility]. If you have questions about a medical condition or this instruction, always ask your healthcare professional. [employer] disclaims any warranty or liability for your [...] the day after the procedure, use an uouq-wtf-luqhgll spray to numb your throat. Sucking on [...] occurs, please contact your Doctor. Please call [phone] before 8pm Mon-Fri with problems, questions or concerns. If you call after 8pm or on weekends, call the Hospital at [phone] and ask to speak to the De[employer] spinal surgeon and the tongue and groove machine operator will contact that person for you. When should you call for help? Call [phone] anytime you think you may need emergency [...] any problems. Where can you learn more? [facility] View your After Visit Summary and more online at [email or web address] If you would like to provide feedback about your hospital experience, please call the Office of Patient and Family Relations at . If you have received this After Visit Summary in error, please immediately return it in person to the department, or notify the [facility] Privacy Office by calling toll free at between the hours of 8AM and 5PM to arrange for our retrieval of the documents at no cost to you. Content Version: 12.2 ?? 7235-3553 [employer]. Care instructions adapted under license by [facility]. If you have questions about a medical condition or this instruction, always ask your healthcare professional. [employer] disclaims any warranty or liability for your use of this information. documented in this encounter Medications at Time of Discharge Medication Sig Dispensed Refills Start Date End Date amLODIPine (Norvasc) 5 mg Tablet 25 mg. 03/14/2020 aspirin EC 81 mg Tablet, Delayed Release (E.C.) Take by mouth. 09/06/2019 ziepaw-rriwpune-jtooly e DR (Creon) 24,000-76,000 -120,000 unit Capsule, [...] (98.2 ??F), height 163.8 cm (5' 4.5), zluuum50.9 kg (110 lb), SpO2 100 %. GEN: [...] 11:00 AM EST Upper Gi Endoscopy, Biopsy ([id number]) 04/25/2020 10:48 AM EST ? 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 mass in [...] AM EST 04/25/2020 11:06 AM EST Narrative [facility] - 04/25/2020 11:06 AM EST Specimen requisition ordered. ??Separate Pathology report to follow Jacques Waggoner MD PATHOLOGY/CYTOLOGY ORDERABLES Performing Organization Address [facility] [place] [address] * Specimen to Pathology (04/25/2020 11:06 AM EST) AP Specimen 04/25/2020 11:0 6 AM EST 04/25/2020 11:06 AM EST Narrative [facility] - 04/25/2020 11:06 AM EST Specimen requisition ordered. ??Separate Pathology report to follow Jacques Waggoner MD PATHOLOGY/CYTOLOGY ORDERABLES Performing Organization Address [facility] [place] [address] * Surgical Pathology Report (04/25/2020 11:00 AM EST) Final Diagnosis [id number] ? Location: 4T; EA13; A The signing [...] PhD, Mary Verified: ??05/02/2020 ?Pathologist Performed at: ??-[facility] Dept. of Pathology, [place], [place] SPECIMEN(S) SUBMITTED A - duodenal biopsies [...] labeled B1. ??ajw 05/02/2020 2:19 PM EST [facility] GI Biopsy 04/25/2020 11:0 0 AM EST 04/25/2020 11:00 AM EST GI Biopsy 04/25/2020 11:0 0 AM EST 04/25/2020 11:00 AM EST Jacques Waggoner MD PATHOLOGY/CYTOLOGY ORDERABLES [facility] [place] [address] * UPPER EUS-ENDOSCOPIC ULTRASOUND (04/25/2020 10:36 AM EST) UPPER ENDOSCOPIC ULTRASOUND [facility] Endoscopy Procedure Date: 04/25/2020 10:36 AM ? Patient Name: Nataly Kuhn ? Date of : 1945 ? Age: 75 ? Order #: [id number] ? Instrument Name: [id number] ? Procedure: ? Upper EUS Indications: ? Weight loss Providers: ? Jacques Waggoner MD, Julianne ? Arely Vickers, ? Loans Consultant Referring : ?Dorothea Kaufman MD Medicines: ? [...] CRNA) documented in this encounter Care Teams Lawn Service Worker Relationship Specialty Start Date End Date Dorothea Kaufman MD [address] [place] [address] PCP - General Family Medicine 02/04/20 documented as of this encounter
--- OUTSIDE RECORDS SUMMARY | 2024-03-03 15:46 | XMS_ITS | Encounter Summary ---
Author Organization [place] [address] Care Team Providers Care Process Control Specialist Name Role Phone Dorothea Kaufman MD Primary Care Provider [phone] Encounter Details Date Type Department Care Team ([facility] st Contact Info) Description 03/31/2020 External Results [place] [phone] Social History Tobacco Use Types Packs/Day Years [...] on filedocumented in this encounter Care Teams Process Control Specialist Relationship Specialty Start Date End Date Dorothea Kaufman MD [facility] [address] [place], [place] [id number] PCP - General Family Medicine 02/04/20 documented as of this encounter
--- OUTSIDE RECORDS SUMMARY | 2024-03-03 15:46 | XMS_ITS | Encounter Summary ---
Author Organization [facility] [place] [address] Care Team Providers Care Housing Installer Name Role Phone Dorothea Kaufman MD Primary Care Provider [phone] Encounter Details Date Type Department Care Team ([facility] st Contact Info) Description 04/26/2020 Telephone [place] [address] Jacques Waggoner MD [facility] [place] [address] Social History Tobacco Use Types Packs/Day Years [...] documented as of this encounter Care Teams Housing Installer Relationship Specialty Start Date End Date Dorothea Kaufman MD [address] [place] [address] PCP - General Family Medicine 02/04/20 documented as of this encounter
--- OUTSIDE RECORDS SUMMARY | 2024-03-03 15:46 | XMS_ITS | Encounter Summary ---
[place] [address] Care Team Providers Care Tank Tender Name Role Phone Dorothea Kaufman MD Primary Care Provider [phone] Reason for Referral * Diagnostic Test (Routine) - Closed Specialty Diagnoses / Procedures Referred By Tyson rdz Referred To Contact Radiology Diagnoses Weight loss, unintentional Family history of pancreatic cancer Procedures CT Abdomen w Contrast Santosh Hamilton MD [facility] [place] [address] [facility] [place] [address] Referral ID Status Reason Start Date Expiration Date V isits Requested Visits Authorized [id number] Closed Specialty Service Requested 03/13/2020 09/10/2021 1 1 Reason for Visit * Diagnostic Test (Routine) - Closed Specialty Diagnoses / Procedures Referred By Tyson rdz Referred To Contact Radiology Diagnoses Weight loss, unintentional Family history of pancreatic cancer Procedures CT Abdomen w Contrast Santosh Hamilton MD [facility] [place] [address] [facility] [place] [address] Referral ID Status Reason Start Date Expiration Date V isits Requested Visits Authorized [id number] Closed Specialty Service Requested 03/13/2020 09/10/2021 1 1 Encounter Details Date Type Department Care Team (Late st Contact Info) Description 03/27/2020 6:43 AM EST - 03/27/2020 11:59 PM EST Hospital [place] [phone] Santosh Hamilton MD [facility] [place] [address] Weight loss, unintentional; Family history of pancreatic [...] mg by mouth 2 times daily. 06/20/2020 eajvcs-vcjndxrc-arfhok e DR (Creon) 24,000-76,000 -120,000 unit Capsule, [...] the number below. ? Electronically signed by: Nicho Murphy MD, [facility] ([phone]), at 03/27/2020 1:35 PM Narrative 03/27/2020 1:35 PM EST EXAMINATION: CT [...] this report, please contact the number below. Electronically signed by: Nicho Murphy MD, [facility]([phone]), at 03/27/2020 1:35 PM Santosh Hamilton MD IMG CT ORDERABLES documented [...] mLs documented in this encounter Care Teams Tank Tender Relationship Specialty Start Date End Date Dorothea Kaufman MD [facility] [address] [facility] [address] [place] [address] PCP - General Family Medicine 02/04/20 documented as of this encounter
--- OUTSIDE RECORDS SUMMARY | 2024-03-03 15:46 | XMS_ITS | Encounter Summary ---
Author [facility] [place] [address] Care Team Providers Care Cable Mechanic Name Role Phone Dorothea Kaufman MD Primary Care Provider [phone] Encounter Details Date Type Department Care Team ([facility] st Contact Info) Description 04/13/2020 Orders [place] [address] Radha Tello APRN [facility] [place] [address] History of breast cancer (Primary Dx) Social [...] breast documented in this encounter Care Teams Cable Mechanic Relationship Specialty Start Date End Date Dorothea Kaufman MD [facility] [address] [place] [address] PCP - General Family Medicine 02/04/20 documented as of this encounter
--- OUTSIDE RECORDS SUMMARY | 2024-03-03 15:46 | XMS_ITS | Encounter Summary ---
[place] [address] Care Team Providers Care Help Desk Consultant Name Role Phone Dorothea Kaufman MD Primary Care Provider [phone] Reason for Referral * Consultation (Routine) - Closed Specialty Diagnoses / Procedures Referred By Contac t Referred To Contact Obstetrics and Gynecology Diagnoses Vaginal discharge Radha Tello APRN [facility] [place] [address] [facility] Currency Machine Operator [address] [place] [phone] Referral ID Status Reason Start Date Expiration Date V isits Requested Visits Authorized [id number] Closed Consult, Test & Treat 06/20/2020 06/20/2021 1 1 Reason for Visit * Reason Comments Establish Care * Consultation (Routine) - Specialty Diagnoses / Procedures Referred By Contac t Referred To Contact Hematology and Oncology Diagnoses Personal history of malignant neoplasm of breast Genetic susceptibility to malignant neoplasm of breast Benign neoplasm of pancreas Please set up in [facility] Dorothea Kaufman MD [facility] [address] [address] [facility] Hem Onc [address] [place] [address] Referral ID Status Reason Start Date Expiration Date V isits Requested Visits Authorized [id number] Consult, Test & Treat [facility] PCP Updated and/or Approved 01/31/2020 07/30/2020 6 6 Encounter Details Date Type Department Care Team (Late st Contact Info) Description 06/14/2020 9:00 AM EST Office Visit General Surgery at [facility] [place] [address] Radha Tello, [facility] [place] [address] History of breast cancer; Encounter for screening [...] cancer x 3. Shehas been followed [facility]. She recently moved to [place] to be near her children and grandchildren. 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 An Oncotype score at that time revealed a score of 24 which equated to a 16% risk of distant recurrence within 10 years. She was not offered chemotherapy and was placed on tamoxifen. Vibha is of Ashkenazi baptism descent and was found to be a BRCA 1 carrier. She had prophylactic bilateral oophorectomy. Uterus and cervix are intact. Vibha has been on tamoxifen since 2013 but recently stopped due to rust colored vaginal discharge. She was under the care of Dr. Benjamin Miguel at [facility]. 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 She is living in [place] [facility] near her son. She does not smoke, previouslysmoked for 8 years. 2-3 alcohol beverages a week. Medical hx: Adult onset asthma, facial melanoma, osteopenia, HTN Past Surgical History: Procedure Laterality Date ??? BREAST BIOPSY ??? BREAST ENHANCEMENT SURGERY ??? BREAST LUMPECTOMY ??? MASTECTOMY Left ??? PRO COLONOSCOPY, BIOPSY N/A 05/17/2020 COLONOSCOPY FLEXIBLE, WITH BX (WRVU 3.66) performed by Jacques Waggoner MD at [facility] ENDOSCOPY ??? PRO COLONOSCOPY, DIAGNOSTIC N/A 05/17/2020 COLONOSCOPY, DIAGNOSTIC performed by Jacques Waggoner MD at [facility] ENDOSCOPY ??? PRO ENDOSCOPIC US EXAM, ESOPH N/A 04/25/2020 UPPER EUS- ENDOSCOPIC ULTRASOUND performed by Jacques Waggoner MD at [facility] ENDOSCOPY ??? PRO UPPER GI ENDOSCOPY, BIOPSY N/A 04/25/2020 EGD WITH BIOPSY (WRVU 2.49) performed by Jacques Waggoner MD at [facility] ENDOSCOPY Mohs procedure, tonsillectomy, rotator cuff [...] abnormal vaginal discharge. Curettage was benign. Her imaging assistant provider has left practice and she would like to establish care here. Exam and imaging normal today. Referral to licensed final expense agents. Continue to stay off tamoxifen for now. [...] Associated Diagnoses Orde r Schedule Referral to Ob-Dietary Aide Outpatient Referral Routine Vaginal discharge Ordered: 06/20/2020 [...] cancer documented in this encounter Care Teams Help Desk Consultant Relationship Specialty Start Date End Date Dorothea Kaufman MD [address] [place] [address] PCP - General Family Medicine 02/04/20 documented as of this encounter
--- NOTE | 2024-03-03 15:52 | W.ED.GENAD ---
Discharge Plan Disposition Patient Disposition: Home Condition: Stable Discharge Details Clinical Impression: Dizziness, Dehydration Primary Care Provider: Dorothea Kaufman ED Provider: Sudhir Hurst Home Meds and New Rx's Prescriptions: Continued memantine 10 mg tablet 10 mg PO BID Qty: 180 3RF albuterol sulfate [Ventolin HFA] 90 mcg/actuation HFA aerosol inhaler 2 puff inhalation Q4H PRN aspirin [Aspirin Childrens] 81 mg tablet,chewable 81 mg PO DAILY omega-3 fatty acids [Super [place]-3] 1,000 mg capsule 1,000 mg PO DAILY estradiol [Yuvafem] 10 mcg tablet 10 mcg vaginal DAILY PRN donepezil 10 mg tablet 10 mg PO QHS Qty: 90 3RF obejrmtv-vdla-vyclu-oreg-capry 100 mg-150 mg- 50 mg-150 mg capsule 1 cap PO DAILY atorvastatin 40 mg tablet 40 mg PO DAILY meclizine 25 mg tablet 25 mg PO TID PRN folic acid 1 mg tablet 1 mg PO DAILY cyanocobalamin (vitamin B-12) 1,000 mcg capsule 1,000 mcg PO DAILY cholecalciferol (vitamin D3) [Vitamin D3] 10 mcg (400 unit) Capsule 50 mcg PO DAILY acetaminophen 500 mg tablet 1,000 mg PO Q8H PRN (Reason: pain) Qty: 90 3RF amlodipine 5 mg tablet 1 tab PO DAILY Patient Comments: Take 1 tablet by mouth once a day meclizine 25 mg tablet 25 mg PO DAILY PRN (Reason: dizziness) Qty: 10 0RF Discharge Instructions Instructions: Dehydration, Adult ED, Dizziness, Adult ED Additional Instructions: You were seen in the emergency department for your dizziness upon significant exertion on a walk today. Your cardiac enzymes are negative, CT of your head shows no acute intracranial processes, there is no sign of electrolyte abnormality or infectious etiology as cause of dizziness. You do have an acute kidney injury which is from dehydration, please drink enough water over the next couple days and they should normalize. Your EKG showed some peaked T waves which are new from prior, please follow-up with your primary care provider regarding this but this is not concerning for acute coronary syndrome. Please return to the emergency department for vertigo or dizziness that does not improve, especially coupled with chest pain, shortness of breath, near fainting, visual changes, sweating. Referrals: Dorothea Kaufman MD [Primary Care Provider] - Discharge Data Discharge Date/Time-TO BE ENTERED AT DEPARTURE: 03/03/24 19:44 HPI General Date/Time Provider Initiated Documentation: 03/03/24 15:43. HPI Narrative: 79 year-old female presents to ED today by EMS with a chief complaint of dizziness, states she was on her daily walk and had to sit down- not quite clear what happened with onset just prior to arrival. Quality described as generalized dizziness and weakness but feels better on arrival, no radiation to chest pain, palpitations, nausea or vomiting, fever, cough, shortness of breath, coordination difficulties, slurred speech, alteration from baseline. Severity is described as mild to moderate. Palliating factors include nothing specific. Provoking factors include nothing specific. Patient not anticoagulated. Related Data Home Medications ?Medication ?Instructions ?Recorded ?Confirmed cholecalciferol (vitamin D3) 10 50 mcg PO DAILY 05/15/20 03/03/24 mcg (400 unit) capsule (Vitamin D3) albuterol sulfate 90 mcg/actuation 2 puff inhalation Q4H PRN 08/08/21 03/03/24 aerosol inhaler (Ventolin HFA) aspirin 81 mg chewable tablet 81 mg PO DAILY 08/08/21 03/03/24 (Aspirin Childrens) omega-3 fatty acids 1,000 mg 1,000 mg PO DAILY 08/08/21 03/03/24 capsule (Super [place]-3) acetaminophen 500 mg tablet 1,000 mg (2 x 500 mg) PO Q8H PRN 09/11/21 03/03/24 pain #90 tabs atorvastatin 40 mg tablet 40 mg PO DAILY 11/26/21 03/03/24 cyanocobalamin (vitamin B-12) 1,000 mcg PO DAILY 11/26/21 03/03/24 1,000 mcg capsule folic acid 1 mg tablet 1 mg PO DAILY 11/26/21 03/03/24 meclizine 25 mg tablet 25 mg PO TID PRN 11/26/21 03/03/24 turmeric 100 mg-natasha 150 1 cap PO DAILY 11/26/21 03/03/24 mg-olive 50 mg-oreg 150 mg-capryl capsule amlodipine 5 mg tablet 1 tab PO DAILY 03/12/22 03/03/24 estradiol 10 mcg vaginal tablet 10 mcg vaginal DAILY PRN 04/16/22 03/03/24 (Yuvafem) memantine 10 mg tablet 10 mg PO BID #180 tabs 07/03/23 03/03/24 donepezil 10 mg tablet 10 mg PO QHS #90 tabs 01/01/24 03/03/24 meclizine 25 mg tablet 25 mg PO DAILY PRN dizziness #10 01/21/24 03/03/24 tabs Previous Rx's ?Medication ?Instructions ?Recorded acetaminophen 500 mg tablet 1,000 mg (2 x 500 mg) PO Q8H PRN 09/11/21 pain #90 tabs memantine 10 mg tablet 10 mg PO BID #180 tabs 07/03/23 donepezil 10 mg tablet 10 mg PO QHS #90 tabs 01/01/24 meclizine 25 mg tablet 25 mg PO DAILY PRN dizziness #10 01/21/24 tabs Allergies Allergy/AdvReac Type Severity Reaction Status Date / Time No Known Drug Allergies Allergy Other (See Verified 01/21/24 13:59 Comment) tomato juice AdvReac Intermediate Other (See Uncoded 03/03/24 15:35 Comment) General Stated Complaint: Dizzy/Sync SHERRY: 3 Review of Systems All systems reviewed & are unremarkable except as noted in HPI and below Exam Narrative Exam Narrative: GENERAL APPEARANCE: Well-nourished, non-toxic, awake and alert, atraumatic, no acute distress. SKIN: Warm, pink, dry, intact, without rashes/lesions/ulcerations. HEAD: Normocephalic, atraumatic, normal hair distribution for gender/age. EYES: Normal conjunctiva, no exudates on lids/lashes. ENT: Nares patent, no circumoral cyanosis, no facial swelling NECK: Supple, trachea midline, painless cervical ROM. LUNGS/CHEST: Lungs CTA bilaterally-no rhonchi/rales/wheezes diffusely, non-labored respirations, normal A/P diameter, symmetrical expansion, no chest wall deformity HEART (CV/PV): Regular rate and rhythm without murmur, no peripheral edema, no JVD. ABDOMEN: Soft, non-distended, no guarding, no tenderness. MSK: Normal ROM, no swelling/deformity to bilateral UEs or LEs, moving all extremities without weakness, no cyanosis, spine midline without tenderness, normal curvature. NEURO: Mental Status AAOx4 - alert to person, place, time, events No facial droop, no forehead involvement. Motor: No focal weakness - strength 5/5 in bilateral UEs and LEs, proximal and distal, symmetric. Sensory: sensation intact to light touch globally. Gait normal: patient ambulated without ataxia into ED room. PSYCH: euthymic, cooperative, pleasant, appropriate speech Course Vital Signs Vital signs: Vital Signs Temperature 36.7 C 03/03/24 15:27 Pulse 80 03/03/24 15:27 Respiratory Rate 20 03/03/24 15:27 Blood Pressure 144/92 H 03/03/24 15:27 Pulse Oximetry 99 03/03/24 15:27 Temperature 36.7 C 03/03/24 15:27 Pulse 80 03/03/24 15:27 Respiratory Rate 20 03/03/24 15:27 Respiratory Effort Normal 03/03/24 15:34 Blood Pressure 144/92 H 03/03/24 15:27 Blood Pressure Position Sitting 03/03/24 15:27 Pulse Oximetry 99 03/03/24 15:27 Oxygen Delivery Method Room Air 03/03/24 15:27 Oxygen Flow Rate 0 03/03/24 15:27 Medical Decision Making This dictation utilizes [id number] dictation software and may contain unedited grammatical errors. 79 year-old female presents to ED today by EMS with a chief complaint of dizziness, states she was on her daily walk and had to sit down- not quite clear what happened with onset just prior to arrival. Quality described as generalized dizziness and weakness but feels better on arrival, no radiation to chest pain, palpitations, nausea or vomiting, fever, cough, shortness of breath, coordination difficulties, slurred speech, alteration from baseline. Severity is described as mild to moderate. Palliating factors include nothing specific. Provoking factors include nothing specific.. Patients' medical history: History of vertigo, anemia, history of malignant melanoma, mitral valve regurgitation, mild intermittent asthma, history of breast cancer, Alzheimer's. Family and social history: Walks 5 miles per day, non-smoker. Pertinent exam findings / vital signs include benign cardiopulmonary exam, benign abdomen, neuro baseline per family who is present in ED. Differential / pathologies of concern include syncope, dehydration, Alzheimer's, electrolyte abnormality, ACS, metastatic disease, UTI in elderly. Diagnostic studies of: -CBC, CMP, magnesium, serial troponins, TSH, UA, x-ray chest, CT head, EKG. -CBC has no acute abnormality -CMP shows a mild MARNI with a creatinine of 1.7 likely because of her dizziness during her significant exertional activity of walking 5 miles -Magnesium within normal limits -TSH within normal limits -UA negative -X-ray chest without acute pathology -CT head without abnormality -EKG without ischemic changes, no heart block, no stemi, normal intervals, some peaked T-waves Interventions of: -1 L IVF NS. ED Course/Assessment/Plan: 79-year-old female presents with some exertional dizziness in the setting of chronic vertigo and chronic Alzheimer's disease during her daily 5 mile walk, per family she is at her baseline and is in no acute distress, was her laboratory workup shows only mildly elevated creatinine; prerenal pattern, serial troponins are negative and I do not suspect any ischemia or severe electrolyte abnormality based on workup, CT head is negative and x-ray chest is negative, UA is negative. Patient tolerating p.o. intake and feeling much better here in the ED I find it reasonable to discharge home and advised increasing p.o. fluid intake over the next few days with strict return criteria for any acute worsening, patient and patient's family verbalized understanding of the plan. Findings not consistent with ACS, metastatic disease, central vertigo, electrolyte abnormality, thyroid disorder, infection, UTI. Disposition of Dizziness, Dehydration. Patient verbalized understanding of the plan and return to ED criteria and engaged in shared decision making. Medical Records Medical records reviewed: Yes I reviewed the patient's medical records. Imaging Data Radiologic Study: Attestation: I personally reviewed and interpreted this imaging study as follows: Imaging: X-Ray Radiologist's impression: EXAM: XR CHEST 2V PA LATERAL CLINICAL HISTORY: dizziness. TECHNIQUE: 2D digital imaging was performed. COMPARISON: CR XR CHEST 2V PA LATERAL from 01/21/2024 FINDINGS: 2 views: Heart size is normal. The mediastinum is not widened. Right breast implant again noted. There is surgical clips again noted in the anterior chest wall bilaterally. There are no infiltrates nor pleural effusions. No ominous pulmonary nodules. A reverse prosthesis in the left shoulder is again noted IMPRESSION: No acute pulmonary findings. As above. Unchanged from 01/21/2024. Radiologic Study #2: Attestation: I personally reviewed and interpreted this imaging study as follows: Imaging: CT Scan Radiologist's impression: EXAM: CT HEAD WO CLINICAL HISTORY: dizziness. TECHNIQUE: Imaging Protocol: Axial computed tomography images with coronal and sagittal reformatted images were created and reviewed COMPARISON: CT CT BRAIN NECK CTA from 01/21/2024 FINDINGS: There are no skull fractures. There is a small fluid level in the right maxillary sinus. Remainder of the paranasal sinuses and mastoid air cells are clear. The frontal sinuses are not developed. There is no evidence of intracranial hemorrhage, mass effect, or shift of midline structures. There are no extra-axial fluid collections. The ventricles are not enlarged or shifted and there is no blood within the ventricular system nor within the basal cisterns. There is symmetrical periventricular hypodensity consistent with chronic small vessel disease. No obvious territorial infarct. IMPRESSION: No acute intracranial findings on this noninfused CT scan of the brain. Chronic small-vessel white matter ischemic changes. No obvious territorial infarct. Small fluid level in the right maxillary sinus implying acute sinusitis. Report called by myself to ER provider 03/03/2024 at 4:56 p.m. Lab Data Lab results reviewed: Yes I reviewed the patient's lab results. Labs: Laboratory Tests Range/Units 03/03/24 03/03/24 03/03/24 16:27 16:35 18:30 WBC (4.4-10.8) 10^3/uL 2.63 L RBC (3.93-5.22) 10^6/uL 4.29 Hgb (11.2-15.7) g/dL 13.5 Hct (36.0-46.0) % 39.5 MCV (80-95) fL 92 MCH (27.0-33.0) pg 31.5 MCHC (32.0-36.0) % 34.2 RDW (11.7-14.6) % 12.3 Plt Count (130-400) 10^3/uL 144 MPV (8.0-11.0) fL 10.1 Immature Gran % % 0.4 Neutrophils % % 61.9 Lymphocytes % % 27.0 Monocytes % % 9.9 Eosinophils % % 0.4 Basophils % % 0.4 Nucleated RBC % (0.0-0.3) % 0.0 Absolute Neutrophils (1.2-6.7) 10^3/uL 1.63 Absolute Lymphocytes (1.2-3.4) 10^3/uL 0.71 L Absolute Monocytes (0.1-0.8) 10^3/uL 0.26 Absolute Eosinophils (0.0-0.7) 10^3/uL 0.01 Absolute Basophils (0.0-0.2) 10^3/uL 0.01 Sodium (136-145) mmol/L 142 Potassium (3.5-5.1) mmol/L 3.7 Chloride (98-107) mmol/L 106 Carbon Dioxide (21.0-32.0) mmol/L 28.1 Anion Gap (3-11) mmol/L 7.9 BUN (7-18) mg/dL 37 H Creatinine (0.55-1.02) mg/dL 1.7 H Est GFR (CKD-EPI 2020) (mL/min/1.73m2) 30.50 Glucose (74-106) mg/dL 131 H Calcium (8.5-10.1) mg/dL 9.1 Magnesium (1.8-2.4) mg/dL 2.1 Total Bilirubin (0.2-1.0) mg/dL 1.41 H AST (15-37) U/L 20 ALT (14-59) U/L 18 Alkaline Phosphatase (46-116) U/L 59 Troponin I (<or=51) ng/L 16 16 Total Protein (6.4-8.2) g/dL 6.9 Albumin (3.4-5.0) g/dL 3.3 L TSH (0.36-3.74) uIU/mL 0.61 Urine Color (Yellow) Yellow Urine Clarity (Clear) Clear Urine pH (5-8) 5.5 Ur Specific [place] (1.005-1.025) >= 1.030 H Urine Protein (Neg-Trace) mg/dL 100 H Urine Ketones (Negative) mg/dL 40 H Urine Blood (Negative) Negative Urine Nitrite (Negative) Negative Urine Bilirubin (Negative) Small H Urine Urobilinogen (Up to 0.2) mg/dL 0.2 Ur Leukocyte Esterase (Negative) Negative Urine RBC (0-2) HPF Negative Urine WBC (0-5) HPF 5-10 Ur Epithelial Cells (Negative) HPF Moderate Urine Crystals (Negative) HPF Negative Urine Bacteria (Negative) HPF Negative Urine Casts (Negative) LPF 5-10 Hyaline Urine Mucus (Negative) Moderate Urine Other (Negative) Rare Transitional Ur Culture Indicated? No Urine Glucose (Negative) mg/dL Negative Quality:SDOH Health Related Social Needs: No Data to Display PFSH All Active Problems (Updated 03/03/24 @ 19:21 by MARGARET Pelayo) Dehydration (Acute) Dizziness (Acute) Alzheimer's dementia (Acute) Impairment of speech discrimination (Acute) Sensorineural hearing loss, bilateral (Acute) Mixed conductive and sensorineural hearing loss of right ear with restricted hearing of left ear (Acute) Mild cognitive impairment (Acute) Status post reverse total replacement of left shoulder (Acute 01/04/21) Weight loss (Acute) Cognitive changes (Acute) Greater trochanteric bursitis of left hip (Acute) Depo-Medrol injection: 11/26/21 Lymphedema of arm (Acute) Primarily left arm Medical History History of vertigo PMB (postmenopausal bleeding) 03/14/22. D&C: Endometrial polyp,no atypia, atrophic endometrium. No additional testing needed. Weakness of left hip Hearing loss Pain, joint, shoulder region, left Right leg pain Leg pain, left Weight loss Hyperlipidemia Folate deficiency anemia BRCA1 gene mutation positive S/p lap BSO Breast cancer s/p mastectomy and tamoxifen Mixed conductive and sensorineural hearing loss Mitral valve regurgitation Hx of malignant melanoma Varicose veins of both lower extremities Osteopenia Venous stasis dermatitis Asthma, mild intermittent Hx of adenomatous colonic polyps Hypertension, essential, benign Intraductal papillary mucinous neoplasm Wart of hand Leg pain, bilateral Anorexia Memory impairment Trochanteric bursitis, left hip Contracture of left shoulder Tendinitis of long head of biceps brachii of left shoulder Rotator cuff tear arthropathy of left shoulder Atrophic vaginitis History of tamoxifen therapy History of breast cancer Stopped Tamoxifen 2019 after episode of postmenopausal bleeding Vaginal discharge Rx for atrophic vaginitis with limited course of vaginal E2. Surgical History History of hip surgery left hip - placed pin History of total left hip arthroplasty (09/11/21) DOS 09/11/21 History of colonoscopy Hx of dilation and curettage 01/2020 for thickened endometrial lining: inactive endometrium History of hysteroscopy 01/2020. for thickened endometrium while taking Tamoxifen. D&C: inactive endometrium. 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 Current gender identity: female Do you feel safe at home: Yes Additional Social history: lives alone History History 5 Para 3 Hx # Term Pregnancies Multiple births Hx # Pregnancies Ectopic pregnancies AB induced 1 Hx Number of Living Children 3 AB spontaneous 1 PAWSS Have you Been Recently Intoxicated or Drunk Within the Last 30 days?: No Have you Ever Experienced Previous Episodes of Alcohol Withdrawal?: No Have you ever Experienced Withdrawal Seizures?: No Have you ever Experienced Delirium Tremens(DT)s?: No Have you ever undergone Alcohol Rehabilitation Treatment (i.e, inpt ot outpatient treatment programs)?: No Have you ever Experienced Blackouts?: No Have you ever Combined Alcohol with other Downers within the last 90 days?: No Have you ever Combined Alcohol with any other Substance of Abuse during the last 90 days?: No Positive Blood Alcohol level on Presentation? [PCS.BAL]: No Evidence of Increased Autonomic Activity (i.e. HR>120, tremor, sweating, agitation, nausea)?: No Result: 0
[2024-03-03 16:40] LABS: Abs Immature Grans 0.01 10^3/uL (0.0-0.06); Absolute Basophil Count 0.01 10^3/uL (0.0-0.2); Absolute Eosinophil Count 0.01 10^3/uL (0.0-0.7); Absolute Lymphocyte Count 0.71 10^3/uL (1.2-3.4); Absolute Monocyte Count 0.26 10^3/uL (0.1-0.8); Absolute Neutrophil Count 1.63 10^3/uL (1.2-6.7); Basophils % 0.4 %; Eosinophils % 0.4 %; HCT 39.5 % (36.0-46.0); HGB 13.5 g/dL (11.2-15.7); Immature Grans % 0.4 %; MCH 31.5 pg (27.0-33.0); MCHC 34.2 % (32.0-36.0); MCV 92 fL (80-95); MPV 10.1 fL (8.0-11.0); Monocytes % 9.9 %; Neutrophils % 61.9 %; Platelet Count 144 10^3/uL (130-400); RBC 4.29 10^6/uL (3.93-5.22); RDW 12.3 % (11.7-14.6); RDW-SD 41.8 fL; WBC 2.63 10^3/uL (4.4-10.8)
[2024-03-03 16:42] LABS: Bilirubin Small (Negative); Blood Negative (Negative); Clarity Clear (Clear); Glucose Negative (Negative); Ketones 40 mg/dL (Negative); Leukocyte Esterase Negative (Negative); Nitrite Negative (Negative); Specific Gravity >= 1.030 (1.005-1.025); Urobilinogen 0.2 mg/dL (Up to 0.2); pH 5.5 (5-8)
--- NOTE | 2024-03-03 16:49 | DI.RAD_ITS ---
Exam(s) XR CHEST 2V PA LATERAL EXAM: XR CHEST 2V PA LATERAL CLINICAL HISTORY: dizziness. TECHNIQUE: 2D digital imaging was performed. COMPARISON: CR XR CHEST 2V PA LATERAL from 01/21/2024 FINDINGS: 2 views: Heart size is normal. The mediastinum is not widened. Right breast implant again noted. There is surgical clips again noted in the anterior chest wall wanda aterally. There are no infiltrates nor pleural effusions. No ominous pulmonary nodules. A reverse prosthesis in the left shoulder is again noted IMPRESSION: No acute pulmonary findings. As above. Unchanged from 01/21/2024. DATA REPOSITORY: RADIATION DOSE DELIVERED:
--- NOTE | 2024-03-03 16:49 | DI.CT_ITS ---
Exam(s) CT HEAD WO EXAM: CT HEAD WO CLINICAL HISTORY: dizziness. TECHNIQUE: Imaging Protocol: Axial computed tomography images with coronal and sagittal reformatted images were created and reviewed COMPARISON: CT CT BRAIN NECK CTA from 01/21/2024 FINDINGS: There are no skull fractures. There is a small fluid level in the right maxillary sinus. Remainder o f the paranasal sinuses and mastoid air cells are clear. The frontal sinuses are not developed. There is no evidence of intracranial hemorrhage, mass effect, or shift of midline structures. There are no extra-axial fluid collections. The ventricles are not enlarged or shifted and there is no blo od within the ventricular system nor within the basal cisterns. There is symmetrical periventricular hypodensity consistent with chronic small vessel disease. No ob vious territorial infarct. IMPRESSION: No acute intracranial findings on this noninfused CT scan of the brain. Chronic small-vessel white matter ischemic changes. No obvious territorial infarct. Small fluid level in the right maxillary sinus implying acute sinusitis. Report called by myself to ER provider 03/03/2024 at 4:56 p.m. RADIATION DOSE DELIVERED: 919.49mGy.cm Total DLP DATA REPOSITORY: All CT scans at this facility are submitted to the National Radiology Data Registry (NRDR) Dose Index Registry (DIR) with the [employer] (ACR). RADIATION OPTIMIZATION: All CT scans at this facility use at least one of these dose optimization te chniques: automated exposure control; mA and/or kV adjustment per patient size (includes targeted exa ms where dose is matched to clinical indication); or iterative reconstruction.
[2024-03-03 16:53] LABS: Bacteria Negative HPF (Negative); C & S Indicated? No; Casts 5-10 Hyaline LPF (Negative); Crystals Negative HPF (Negative); Epithelial Cells Moderate HPF (Negative); Mucus Moderate (Negative); Other Cells Rare Transitional (Negative); RBC Negative HPF (0-2)
[2024-03-03 17:05] LABS: ALT 18 U/L (14-59); AST 20 U/L (15-37); Albumin 3.3 g/dL (3.4-5.0); Alkaline Phosphatase 59 U/L (46-116); Anion Gap 7.9 mmol/L (3-11); BUN 37 mg/dL (7-18); Bilirubin, Total 1.41 mg/dL (0.2-1.0); CO2 28.1 mmol/L (21.0-32.0); CREATININE 1.7 mg/dL (0.55-1.02); Calcium 9.1 mg/dL (8.5-10.1); Chloride 106 mmol/L (98-107); Glucose 131 mg/dL (74-106); Magnesium 2.1 mg/dL (1.8-2.4); Potassium 3.7 mmol/L (3.5-5.1); Sodium 142 mmol/L (136-145); TSH (W/Ref FT4) 0.61 uIU/mL (0.36-3.74); Total Protein 6.9 g/dL (6.4-8.2); Troponin I 16 ng/L (<or=51)
[2024-03-03] MEDS: Normal Saline 1,000 ML 1000 ML IV (18:30)
[2024-03-03 18:55] LABS: Troponin I 16 ng/L (<or=51)
[2024-03-03 19:44] VITALS: BP 193/81; PULSE 74; RESP 16; RESP 17; TEMP 36.8; O2SAT 97
== END 2024-03-03 19:44 | disposition home or self-care (01) ==
PROVIDERS: Emergency Provider Physician Assistant; PCP Family Medicine
DX: R42 Dizziness and giddiness (principal); E86.0 Dehydration; F03.90 Unspecified dementia, unspecified severity, without behavioral disturbance, psychotic disturbance, mood disturbance, and anxiety; Z85.3 Personal history of malignant neoplasm of breast; Z90.10 Acquired absence of unspecified breast and nipple; Z98.82 Breast implant status
CPT/HCPCS: 80053; 93005; 96360; 96361; 99285; 70450; 71046; 81003; 81015; 83735; 84443; 84484; 85025; 93010; 99284

== ENCOUNTER 2024-05-26 00:35 | Outpatient (CLI) | payer MEDICARE, BC, SELFPAY ==
--- NOTE | 2024-05-26 | DI.MRI_ITS ---
Exam(s) MR BRAIN ORBIT FACE NECK WO/W EXAM: MR BRAIN ORBIT FACE NECK WO/W CLINICAL HISTORY: G50.0 Trigeminal neuralgia TECHNIQUE: Multiplanar multisequence MRI of the brain was performed both pre and post contrast infus ed sequences. Performed on 1.5 jayson unit. Trigeminal neuralgia protocol. CONTRAST MATERIAL: IV Contrast: 9 ML of Dotarem contrast administered. COMPARISON: MR MR BRAIN WO/W from 12/31/[address] HEAD WO from 03/03/2024 CR XR CHEST 2V PA LATERAL from 03/03/2024 FINDINGS: BRAIN: There is no evidence of intracranial hemorrhage, mass effect, or shift of midline structures. There are no extra-axial fluid collections. The ventricles are not enlarged nor shifted. There is no significant signal abnormality in the cerebellar hemispheres nor within the bruno, midbrai n, and thalami. Again noted are multiple FLAIR bright foci of signal abnormality in the [place] in supra ventricular whi te matter consistent with chronic small vessel disease, unchanged. These are not associated with hemorrhage, surrounding edema nor enhancement following contrast inject ion. Also no restricted diffusion to suggest acute ischemic event(s). SWI reveals a small focus of susceptibility in the right frontal area but this is unchanged from MRI scan of December 2021. FLOW VOIDS: Expected flow voids are noted. There are posterior communicating arteries on both sides the [id number] as the main feeders of the bilateral posterior cerebral arteries. No evidence o f aneurysm nor obvious vascular malformation. PITUITARY GLAND/CAVERNOUS SINUSES: The pituitary gland is not enlarged. No significant findings in t he suprasellar cistern nor at the level the optic chiasm. No findings in the cavernous sinuses. VISUALIZED PARANASAL SINUSES: Clear. Spiriva see present small fluid level right maxillary sinus has resolved. Maxillary sinuses are presently clear as are the sphenoid sinuses and ethmoidal air cells. The frontal sinuses are not developed. There are no mastoid effusions. IAC'S: There are no masses in the cerebellopontine angles and no evidence of intra canalicular acoust ic neuroma-schwannoma nor other enhancing findings within the internal auditory canals. TRIGEMINAL 5TH NERVE: The right 5th nerve appears slightly thinner than typical within the extra-axia l space between the bruno and Meckel's cave. There are no prominent vascular loops evident in the region of the extra-axial 5th nerves. No obvious abnormality in Meckel's caves OTHER INTRACRANIAL FINDINGS: ORBITS: ORBITS: The anterior and posterior chambers of the globes are intact. The retrobulbar fat is unremark able. Extraocular muscles are unremarkable. OPTIC NERVES: The optic nerves are appear unremarkable.. Optic chiasm appears unremarkable.. No MRI evidence of optic neuritis identified. SOFT TISSUES: Lacrimal glands appear unremarkable. Remaining soft tissues are unremarkable. OTHER FINDINGS: None. IMPRESSION: 1. Overall amount of periventricular signal abnormality consistent with chronic small vessel disease is unchanged when compared to the prior MRI scan of December 2021. 2. Mild asymmetry in the appearance of the trigeminal 5th cranial nerves in the [place] pontine cistern as described above, probably within normal limits. No masses nor prominent vascular loops evident. DATA REPOSITORY:
[2024-05-26] MEDS: Gadoterate meglumine 20 ML SYRINGE IVP (14:05)
[2024-05-26] MEDS: Normal Saline Flush 10 ML SYR IJ (14:08)
--- NOTE | 2024-05-26 17:49 | DI.VRAD_ITS ---
PROCEDURE INFORMATION: Exam: MR Face Without and With Contrast Exam date and time: 05/26/2024 12:49 Age: 79 years old Clinical indication: Other: Trigeminal neuralgia TECHNIQUE: Imaging protocol: Magnetic resonance imaging of the face without and with contrast. Contrast material: DOTAREM; Contrast volume: 9 ml; Contrast route: INTRAVENOUS (IV); COMPARISON: 1. CT BRAIN NECK CTA 01/21/2024 17:[address] HEAD WO 03/03/2024 4:39 PM FINDINGS: Brain: Atrophy and chronic appearing white matter changes. No edema or hemorrhage. Motion on postcontrast imaging without significant abnormal postcontrast enhancement, imaged brain. Cerebral ventricles: Ex vacuo dilation of the ventricular system. Paranasal sinuses: No fluid levels. Orbital cavities: Orbits are normal. Globes are unremarkable. Nasopharynx: No focal lesion or collection. Pharynx: Unremarkable. Larynx: Visualized larynx is unremarkable. Salivary glands: Visualized submandibular and parotid glands are unremarkable. Lymph nodes: No lymphadenopathy. Soft tissues: No focal lesions as imaged. Bones/joints: Unremarkable. IMPRESSION: No acute pathology. Dictated and Authenticated by: Deena Lopez MD. Ordering:[id number] Piedra MD
== END 2024-05-26 00:55 ==
PROVIDERS: PCP Family Medicine; Visit Provider Family Medicine
DX: G50.0 Trigeminal neuralgia (principal)
CPT/HCPCS: 70553; 70543

== ENCOUNTER → 2024-06-03 12:17 | Outpatient (BNVA) | payer MEDICARE, BC, SELFPAY | PROVIDERS: PCP Family Medicine; Referring Provider Family Medicine; Visit Provider Nurse Practitioner Adult Health | DX: G30.9 Alzheimer's disease, unspecified (principal); F02.80 Dementia in other diseases classified elsewhere, unspecified severity, without behavioral disturbance, psychotic disturbance, mood disturbance, and anxiety; G50.0 Trigeminal neuralgia | CPT/HCPCS: 99215 ==

== ENCOUNTER → 2024-07-28 10:00 | Outpatient (BNVA) | payer MEDICARE, BC, SELFPAY | PROVIDERS: PCP Family Medicine; Referring Provider Family Medicine; Visit Provider Nurse Practitioner Adult Health | DX: G30.9 Alzheimer's disease, unspecified (principal); F02.80 Dementia in other diseases classified elsewhere, unspecified severity, without behavioral disturbance, psychotic disturbance, mood disturbance, and anxiety; G50.0 Trigeminal neuralgia | CPT/HCPCS: 99213 ==

== ENCOUNTER 2024-12-29 16:49 | Outpatient (REF) | payer MEDICARE, BC, SELFPAY ==
[2024-12-29 21:01] LABS: HCT 38.2 % (36.0-46.0); HGB 13.0 g/dL (11.2-15.7); MCH 31.9 pg (27.0-33.0); MCHC 34.0 % (32.0-36.0); MCV 94 fL (80-95); MPV 10.3 fL (8.0-11.0); Platelet Count 187 10^3/uL (130-400); RBC 4.07 10^6/uL (3.93-5.22); RDW 13.0 % (11.7-14.6); RDW-SD 44.3 fL; WBC 4.69 10^3/uL (4.4-10.8)
[2024-12-29 21:31] LABS: Anion Gap 7.0 mmol/L (3-11); BUN 23 mg/dL (7-18); CO2 32.0 mmol/L (21.0-32.0); Calcium 9.1 mg/dL (8.5-10.1); Chloride 102 mmol/L (98-107); Estimated GFR 35.45 (mL/min/1.73m2); Glucose 101 mg/dL (74-106); Potassium 4.3 mmol/L (3.5-5.1); Sodium 141 mmol/L (136-145); Vitamin D 25 Total 70 ng/mL (30-100)
== END 2024-12-29 16:50 | disposition home or self-care (01) ==
LOC: NCHCN 16:49
PROVIDERS: PCP Family Medicine; Visit Provider Family Medicine
DX: M85.80 Other specified disorders of bone density and structure, unspecified site (principal); I10 Essential (primary) hypertension
CPT/HCPCS: 80048; 82306; 85027

== ENCOUNTER → 2025-01-26 10:58 | Outpatient (BNVA) | payer MEDICARE, BC, SELFPAY | PROVIDERS: PCP Family Medicine; Visit Provider Nurse Practitioner Adult Health | DX: G30.9 Alzheimer's disease, unspecified (principal); F02.80 Dementia in other diseases classified elsewhere, unspecified severity, without behavioral disturbance, psychotic disturbance, mood disturbance, and anxiety; G50.0 Trigeminal neuralgia | CPT/HCPCS: 99214 ==